=== PATIENT | female | born 1960 | race Caucasian/White ===

== ENCOUNTER 2017-05-29 23:49 | Emergency (ER) | payer BC, SELFPAY ==
[2017-05-29 23:49] VITALS: BP 183/79; PULSE 89; RESP 14; TEMP 36.3; O2SAT 99; BMI 35.7
--- NOTE | 2017-05-30 00:11 | CT_ITS ---
STUDY: CT ABDOMEN AND PELVIS WITHOUT CONTRAST REASON FOR EXAM: Female, 56 years old. Left flank pain RADIATION DOSAGE (If Supplied By Facility): CTDIvol = ( 19.64 ) mGy, DLP = ( 1044.98 ) mGycm TECHNIQUE: Transaxial images were obtained from the dome of the diaphragm to the symphysis pubis without oral contrast, and without intravenous contrast. Sagittal and coronal images were reconstructed. Individualized dose optimization techniques were used for this CT. COMPARISON: None. FINDINGS: The visualized lung bases are unremarkable. The visualized portions of the heart are within normal limits. Normal liver. There is a calcified stone in the neck of a nondistended, nonthickened gallbladder. Normal spleen. Normal pancreas. Normal bilateral adrenal glands. There is a 7 mm calculus in the right lower renal pole which has increased in size compared to prior. The punctate calcification seen in the left lower renal pole. There is no hydronephrosis. There is no evidence of ureteral calculus. Normal left kidney and ureter. Normal visualized stomach. Normal small intestine. Descending and sigmoid colonic diverticulosis with subtle pericolonic inflammation noted within the distal descending segment.. The appendix is visualized and appears normal. Minimal atherosclerotic calcification of the abdominal aorta. Normal inferior vena cava. Normal retroperitoneum. Normal urinary bladder. Uterus and bilateral adnexa are unremarkable Normal abdominal wall. S-shaped scoliosis of the thoracal lumbar spine with diffuse degenerative change. CT/Abdomen/Pelvis without Cont IMPRESSION: 1. Nonobstructing 7 mm right lower renal pole calculus. 2. Cholelithiasis with no CT evidence of acute cholecystitis. 3. Descending and sigmoid colonic diverticulosis with subtle pericolonic inflammation in the distal descending segment which may represent an early acute diverticulitis. Electronically Signed: Juan Gaspar MD at 1:27 EDT Tel , Service support ,
--- NOTE | 2017-05-30 00:16 | ED.DCSUM_ITS ---
- ER Visit Summary Date of Service: 05/30/17 Chief Complaint: Pain, back pain History of Present Illness: The patient is a 56 F presents to the emergency department with abdominal pain and back pain. The patient states she has been having symptoms for almost 4 months. She states it started shortly before the first of the year. She was diagnosed with urinary tract infection. She states she is undergone 3 rounds of treatment. It seemed like it was getting better. About 2 weeks ago, she began to have nausea, vomiting, diarrhea. At that time, she was having pain in her left low back into her left lower quadrant. The pain is worsened. Over the past few days, it has been mostly constant. She states that she has been more nauseated. She denies any fevers or chills. Her only history of abdominal surgery is for lithotripsy with stent placement by Dr. Witt. She states that most of her stones were always on the right side. She has never had pain like this on the left. She does have dysuria, but is never seen any blood. She has not noticed passing any stones. She denies any history of diverticulitis. Physical Examination: Vital signs reviewed General: Well-nourished, well-developed Head: Normocephalic, atraumatic Eyes: Pupils equal and reactive, extraocular muscles intact Neck, supple, no lymphadenopathy Heart: Regular rate and rhythm Respiratory: No distress, clear bilaterally Abdomen: Soft, mildly tender in the left lower quadrant without rebound or guarding, nondistended, no peritoneal signs Back: Nontender Extremities: Nontender, no edema, no cords Skin: Normal color no rash Neuro: Alert and oriented, no focal or lateralizing deficits Test Results: [] Emergency Department Course and Treatment: The patient's symptoms do seem to have components of both diverticulitis, colitis, and urolithiasis. IV was established. The patient will be treated with antiemetics. She will be given Toradol. The patient is going to undergo screening labs and a CT scan. This will be followed up by oncoming physician after tests are done. Final disposition is pending. Treatment Plan: [] Disposition: Pending Impression: Left lower quadrant abdominal pain This note was generated with High[employer]ound[employer] software. It may contain incorrect words, spelling, and punctuation that were not noted in review of the chart prior to signing ED Disposition - Plan for ED Patient: Chief Complaint: Flank Pain Referrals: Hi Chavez MD [Primary Care Provider] -
[2017-05-30 00:19] LABS: Bacteria 0 SEEN /hpf (None Seen); Mucous, Urine 0 SEEN /hpf (<or=2+); Red Blood Cells-Urine 0 SEEN /hpf (0-5); White Blood Cells 0 SEEN /hpf (0-5)
[2017-05-30 00:23] LABS: Color, Urine Straw (Yellow); Glucose, Dipstick Normal (Normal); Ketone-Dipstick Negative (Negative); Leukocyte Esterase-Dipstick 25 /ul (Negative); Nitrite-Dipstick Negative (Negative); Occult Blood-Urine Negative /ul (Negative); Protein-Dipstick Negative (Negative); Specific Gravity, Urine 1.005 (1.002-1.030); Urine Bilirubin Dipstick Negative (Negative); Urine Clarity Clear (Clear); Urine Urobilinogen Normal (Normal); Urine pH 6.5 (5.0 - 8.0)
[2017-05-30 00:29] LABS: Squamous Epithelial Cells - UA 0-5 SEEN /hpf (5-10)
[2017-05-30] MEDS: Ondansetron 4 MG/2 ML Vial IV (00:36)
[2017-05-30] MEDS: 0.9% Normal Saline 1,000 ML 1000 ML IV (00:36)
[2017-05-30] MEDS: Ketorolac 30 MG/ML Syringe IV (00:36)
[2017-05-30 00:51] LABS: Absolute Lymphocyte Count 1.83 X10^3/ul (0.83-4.51); Absolute Neutrophil Count 3.9 X10^3/uL (2.0-7.7); Basophil# 0.01 X10^3/uL; Basophil% 0.2 % (0-1); Eosinophil# 0.17 X10^3/uL; Eosinophils% 2.7 % (0-5); Hematocrit 39.8 % (37-47); Hemoglobin 13.1 g/dl (12.0-15.0); Lymphocyte # 1.83 X10^3/ul (4.0); Lymphocyte % 29.1 % (19-41); Mean Corp Hgb Conc 32.9 g/gl (32-36); Mean Corpuscular Volume 81.9 fL (81-99); Mean Platelet Vol. 9.7 fl (6.2-12.0); Monocyte# 0.41 X10^3/uL; Monocyte% 6.5 % (0-10); Neutrophil # 3.85 X10^3/uL (2.7-7.7); Neutrophil % 61.2 % (47-70); Platelet Count 181 K/mm3 (150-450); RBC Distribution Width CV 12.5 % (11.6-14.6); RBC Distribution Width SD 37.4 fl (35.1-43.9); Red Blood Count 4.86 M/mm3 (4.2-5.4); White Blood Count 6.3 K/mm3 (4.4-11.0)
[2017-05-30 00:52] LABS: POSITIVE COUNT NO; POSITIVE DIFFERENTIAL NO; POSITIVE MORPHOLOGY NO
[2017-05-30 01:00] LABS: ALB/GLOB Ratio 0.9 RATIO (0.9-2.4); AST(SGOT) 14 U/L (15-37); Alanine Aminotransfer ALT/SGPT 39 U/L (13-56); Albumin, Serum 3.7 g/dL (3.2-5.0); Alkaline Phosphatase 157 U/L (45-117); Anion Gap 8 (5-15); BUN 11 mg/dL (7-18); BUN/Creat Ratio 14.6 RATIO (10-20); Chloride 105 mmol/L (98-107); Creatinine, Serum 0.76 mg/dL (0.55-1.02); EST Glomerular Filtration Rate 84 mL/min (>60); Est Glom Filt Rate - Afr Amer 101 mL/min (>60); Globulin 4.2 g/dL (2.2-4.2); Glucose 162 mg/dL (74-106); Lipase 123 U/L (73-393); Potassium 3.7 mmol/L (3.5-5.1); Protein, Total 7.9 g/dL (6.4-8.2); Sodium Level 141 mmol/L (136-145)
[2017-05-30 02:08] VITALS: PULSE 87; RESP 18; O2SAT 100
--- NOTE | 2017-05-30 02:16 | ED.DCSUM_ITS ---
- ER Visit Summary Date of Service: 05/30/17 ADDENDUM: Clinical Impression(s) from Imaging Studies Abdomen/Pelvis CT 05/30/17 00:11 IMPRESSION: 1. Nonobstructing 7 mm right lower renal pole calculus. 2. Cholelithiasis with no CT evidence of acute cholecystitis. 3. Descending and sigmoid colonic diverticulosis with subtle pericolonic inflammation in the distal descending segment which may represent an early acute diverticulitis. Electronically Signed: Juan Gaspar MD at 1:27 EDT Tel , Service support , Patient's CT was consistent with early acute diverticulitis. She is appropriate for trial of outpatient treatment. She was prescribed Cipro, Flagyl and given [place] and Zofran prescriptions for symptomatic control at home. Patient agreed with this plan and was discharged with return precautions. Impression: acute diverticulitis This note was generated with [employer] dictation software. It may contain incorrect words, spelling, and punctuation that were not noted in review of the chart prior to signing ED Disposition - Plan for ED Patient: Disposition: Home or Assisted Living Chief Complaint: Flank Pain Instructions: ED Diverticulitis Prescriptions: Hydrocodone Bitart/Apap 5-325 [[place] 5/325] 1 tab PO Q6H PRN PRN 5 Days #12 tab PRN Reason: Pain proMETHazine tablet [Phenergan] 25 mg PO Q6H PRN PRN #10 tab PRN Reason: Nausea Metronidazole [Flagyl] 500 mg PO Q8 #21 tab Ciprofloxacin [Cipro] 500 mg PO BID #14 tab Referrals: iH Chavez MD [Primary Care Provider] - 3-5 Days if not improving Additional Instructions: Take the antibiotics as prescribed for the full 7 days. Do not drink alcohol with the Flagyl, as this will make you very sick. You may use [place] as needed for pain and then again as needed for nausea. If you are having worsening of your symptoms rather than improvement after 48 hours of antibiotics, please return to the emergency department for another evaluation or see your doctor as soon as possible.
[2017-05-30] MEDS: Ciprofloxacin 500 MG Tablet PO (02:33)
[2017-05-30] MEDS: Ondansetron ODT 4 MG Tablet PO (02:34)
[2017-05-30] MEDS: HYDROcodone Bitartrate/Apap 5/325 Tablet PO (02:34)
[2017-05-30 02:40] VITALS: BP 167/63; PULSE 81; RESP 18; O2SAT 99
== END 2017-05-30 02:41 | disposition home or self-care (01) ==
PROVIDERS: Emergency Provider Emergency Medicine; Family Provider Family Medicine; PCP Family Medicine
DX: K57.92 Diverticulitis of intestine, part unspecified, without perforation or abscess without bleeding (principal); E11.9 Type 2 diabetes mellitus without complications; Z79.4 Long term (current) use of insulin; Z79.84 Long term (current) use of oral hypoglycemic drugs; E66.9 Obesity, unspecified; Z68.35 Body mass index [BMI] 35.0-35.9, adult
CPT/HCPCS: 74176; 80053; 81001; 83690; 85025; 96361; 96374; 96375; 99283; J7030; J2405

== ENCOUNTER → 2017-10-24 15:24 | Outpatient (CLI) | payer BC, SELFPAY | PROVIDERS: Family Provider Family Medicine; PCP Family Medicine; Visit Provider Otolaryngology Otolaryngology/Facial Plastic Surgery | DX: J02.9 Acute pharyngitis, unspecified (principal) | CPT/HCPCS: 87070 ==

== ENCOUNTER 2017-11-02 18:23 | Emergency (ER) | payer BC, SELFPAY ==
[2017-11-02 18:24] VITALS: BP 203/83; PULSE 78; RESP 17; TEMP 36.8; O2SAT 98; BMI 36.8
--- NOTE | 2017-11-02 19:03 | CT_ITS ---
STUDY: CT BRAIN WITHOUT CONTRAST REASON FOR EXAM: Female, 56 years old. Headache. Blurry vision. History of migraines. RADIATION DOSAGE (If Supplied By Facility): CTDIvol = ( 44.99 ) mGy, DLP = ( 798.92 ) mGycm TECHNIQUE: Transaxial CT imaging of the brain was performed without administration of intravenous contrast material. Individualized dose optimization techniques were used for this CT. COMPARISON: None. FINDINGS: Normal soft tissue structures. Normal calvarium. Normal size ventricles and extra-axial spaces for the patient's age. Normal white matter tracts of the cerebral hemispheres. Normal basal ganglia and thalami. Normal brainstem. Normal cerebellum. There is no intracranial hemorrhage. There are no findings of an acute ischemic infarction. There are mucus retention cysts in the bases of both maxillary sinuses. CT/Brain/Head without Contrast IMPRESSION: 1. Normal unenhanced CT scan of the brain. 2. Maxillary sinusitis. Electronically Signed: Sid Arenas DO at 19:59 EDT Tel [phone], Service support ,
--- NOTE | 2017-11-02 19:03 | EKG12_ITS ---
Test Reason : EXM Blood Pressure : / mmHG Vent. Rate : 066 BPM Atrial Rate : 066 BPM P-R Int : 158 ms QRS Dur : 094 ms QT Int : 406 ms P-R-T Axes : 025 -01 012 degrees QTc Int : 425 ms Sinus rhythm with occasional Premature ventricular complexes Otherwise normal ECG Confirmed by CRYSTAL CAZARES, TRAVON ([id number]), web content editor DHEERAJ SHARMA ([id number]) on 11/07/2017 8:43:04 AM Referred By: Michael Lam Confirmed By:TRAVON ROJAS MD
[2017-11-02 19:19] VITALS: BP 175/81; PULSE 69; RESP 15; O2SAT 98
[2017-11-02] MEDS: Ketorolac 30 MG/ML Syringe IV (19:34)
[2017-11-02 19:35] LABS: Absolute Lymphocyte Count 2.13 X10^3/ul (0.83-4.51); Absolute Neutrophil Count 6.1 X10^3/uL (2.0-7.7); Basophil# 0.01 X10^3/uL; Basophil% 0.1 % (0-1); Eosinophil# 0.21 X10^3/uL; Eosinophils% 2.3 % (0-5); Hematocrit 39.7 % (37-47); Lymphocyte # 2.13 X10^3/ul (4.0); Lymphocyte % 23.8 % (19-41); Mean Corp Hgb Conc 32.7 g/gl (32-36); Mean Corpuscular Hgb 27.2 pg (27.0-32.0); Mean Corpuscular Volume 83.1 fL (81-99); Mean Platelet Vol. 9.3 fl (6.2-12.0); Monocyte# 0.45 X10^3/uL; Neutrophil # 6.14 X10^3/uL (2.7-7.7); Neutrophil % 68.7 % (47-70); Platelet Count 188 K/mm3 (150-450); RBC Distribution Width CV 12.6 % (11.6-14.6); RBC Distribution Width SD 37.8 fl (35.1-43.9); Red Blood Count 4.78 M/mm3 (4.2-5.4)
[2017-11-02 19:44] VITALS: BP 162/92
[2017-11-02 19:44] LABS: POSITIVE COUNT NO; POSITIVE DIFFERENTIAL NO; POSITIVE MORPHOLOGY NO
[2017-11-02 19:46] LABS: Anion Gap 8 (5-15); BUN 15 mg/dL (7-18); BUN/Creat Ratio 18.8 RATIO (10-20); Calcium,Total 9.2 mg/dL (8.5-10.1); Chloride 106 mmol/L (98-107); EST Glomerular Filtration Rate 78 mL/min (>60); Est Glom Filt Rate - Afr Amer 95 mL/min (>60); Estimated Creatinine Clearance 68.97 ml/min; Glucose 117 mg/dL (74-106); Potassium 3.7 mmol/L (3.5-5.1); Sodium Level 140 mmol/L (136-145)
[2017-11-02 20:18] VITALS: BP 147/71; PULSE 63; RESP 13; O2SAT 97
--- NOTE | 2017-11-02 20:34 | ED.DCSUM_ITS ---
- ER Visit Summary Date of Service: 11/02/17 Chief Complaint: Left eye floaters and pain History of Present Illness: The patient is a 56 F who states that 2 months ago she had some floaters in her eye last Lee she had an eye exam with her eye doctor that was negative. She stated that he was informed her that if she had floaters or symptoms again that she would need to follow-up with an control systems specialist here in town. She states now she said 2 days some pressure and some soreness around the left eye that has resolved. She denies any rashes. She states that today at work she had the pressure return and had some jaw soreness. She denies any vision changes. She does states she has an astigmatism and wears glasses. She states that she was scared about shingles and other possibilities that she came to the emergency room. She states that she normally has some black floaters but has been having occasionally and oranges plasma like floater that starts centrally. Physical Examination: Afebrile vital signs stable Gen: Well-nourished well-developed Head: Normocephalic atraumatic Eyes: Perrl EOMI no temporal artery tenderness. No vesicular lesions. No subconjunctival injection. Negative funduscopic exam. No corneal abrasions. ENT: TMs clear no rhinorrhea moist mucous membranes Neck: Supple no lymphadenopathy no JVD nontender CVS: Regular rate rhythm no murmurs normal S1-S2 Respiratory: No distress clear to auscultation bilaterally chest nontender Abdomen: Soft nontender nondistended normal bowel sounds no masses Back: Nontender Extremity: Nontender no edema Skin: Normal color no rash Neuro: alert orientated ?3 CN II-XII intact normal strength sensation reflexes gait cerebellar Psych: Normal affect normal mood Test Results: CT the brain negative. EKG sinus with a rate of 66. Troponin negative. Emergency Department Course and Treatment: Patient received Toradol. Her manual blood pressure was noted to be 162/92. She has bilateral eye pressures that are equal. I think this is most likely ocular migraines. Patient will follow up with ophthalmology return if worsening or concerns. Impression: 1. Left eye floaters This note was generated with [employer] dictation software. It may contain incorrect words, spelling, and punctuation that were not noted in review of the chart prior to signing ED Disposition - Plan for ED Patient: Disposition: Home or Assisted Living Chief Complaint: Eye Problem Instructions: What Are Flashes and Floaters? Referrals: Delio Cortez MD [STAFF PHYSICIAN] - (call on Sunday to arrange follow up appointment)
[2017-11-02 20:36] VITALS: BP 114/91; PULSE 59; RESP 16; O2SAT 95
== END 2017-11-02 20:38 | disposition home or self-care (01) ==
PROVIDERS: Emergency Provider Emergency Medicine; Family Provider Family Medicine; PCP Family Medicine
DX: H43.392 Other vitreous opacities, left eye (principal); G43.109 Migraine with aura, not intractable, without status migrainosus; E11.9 Type 2 diabetes mellitus without complications; Z79.4 Long term (current) use of insulin
CPT/HCPCS: 70450; 80048; 84484; 85025; 93005; 96374; 99285; A4216

== ENCOUNTER → 2018-12-27 16:28 | Outpatient (CLI) | payer BC, SELFPAY ==
--- NOTE | 2018-12-27 | IMM_PTH ---
PATIENT: ZEHRA CORNEJO I LOC: [facility] U#:[id number] AGE/SX: 64/F ROOM: RE12/27/[address]: Dr. Elpidio Longoria MD : 1960 BED: DIS: SPEC #: [id number] RECD: 12/31/18 11:17 STATUS: JOSE REQ #: [id number] KAILASH: 12/27/18 00:[address]: Elpidio Longoria DEPT: IMMUNOHISTOCHEMISTRY RECD BY: Queta Cage ENTERED: 12/31/18 11:18 SP TYPE: IMMUNO OTHR DR: Dr. Hi Chavez MD Tissues: Stomach, NOS Procedures: H Pylori (initial) PHYSICIAN & INSTITUTION [place] [id number] SPECIMEN INFORMATION: Tissue Source: Gastric antrum/body, biopsy Clinical Info: Epigastric pain Specimen Number: [id number] CPT code: 02413 METHODOLOGY: Deparaffinized sections of prefer/formalin-fixed tissue or PAP/DQ stained slides are incubated with monoclonal/polyclonal antibodies/oligonucleotide probes. Localization is made via biotin free immunoperoxidase method. Appropriate controls are performed and reacted as expected. Results on target cell population are indicated in the following table: RESULTS: ANTIBODY / CLONE RESULT H Pylori (polyclonal) negative These tests were developed and their performance characteristics determined by [facility]. They may not have been cleared or approved by the U.S. Food and Drug Administration. The FDA has determined that such clearance or approval is not necessary. The above immunohistochemical/dualISH markers are ordered and reviewed by the Pathologist. INTERPRETATION: Gastric antrum/body, biopsy: Negative for Helicobacter pylori organisms. SJ:elver 01/01/19
--- NOTE | 2018-12-27 11:33 | EGD_PTH ---
PATIENT: ZEHRA CORNEJO I LOC: [facility] U#:[id number] AGE/SX: 64/F ROOM: RE12/27/[address]: Dr. Elpidio Longoria MD : 1960 BED: DIS: SPEC #: [id number] RECD: 12/27/18 15:51 STATUS: JOSE CHANGViola #: [id number] KAILASH: 12/27/18 11:[address]: Elpidio Longoria DEPT: SURGICAL PATHOLOGY RECD BY: Teresa Peña ENTERED: 12/30/18 09:41 SP TYPE: EGD BIOPSY OT DR: Dr. Hi Chavez MD [facility] Tissues: Gastric mucous membrane Procedures: Surgery Specimen Level IV HEADER OPERATION: EGD with biopsies PRE-OP DIAGNOSIS: Epigastric pain TISSUE SUBMITTED: Gastric antrum/body biopsies, rule out gastritis MICROSCOPIC DIAGNOSIS Gastric antrum/body, biopsy: Mild to moderate gastritis. See microscopic description and comment. SJ:elver 12/31/18 COMMENT The results of immunohistochemistry for Helicobacter pylori will be reported separately ([id number]). MICROSCOPIC DESCRIPTION Slides are reviewed. The specimen shows fragments of gastric mucosa with chronic inflammatory cell infiltrates in the lamina propria consisting of lymphocytes and plasma cells, consistent with mild to moderate chronic gastritis. A few minute lymphoid aggregates are also noted, favor benign. GROSS DESCRIPTION Received in fixative is one container labeled with the patient's name and designated gastric antrum. The specimen consists of multiple irregular fragments of light knott soft tissue that in aggregate measure 1 x 0.3 x 0.1 cm. The specimen is totally submitted in one cassette. / CHINYERE:elver 12/30/18 TC:3 CPT: 89136
== END ==
PROVIDERS: Family Provider Family Medicine; PCP Family Medicine; Referring Provider Internal Medicine Gastroenterology; Visit Provider Internal Medicine Gastroenterology
DX: R10.13 Epigastric pain (principal)
CPT/HCPCS: 88305; 88342

== ENCOUNTER → 2019-01-07 08:35 | Outpatient (CLI) | payer BC, SELFPAY ==
[2019-01-10 12:16] LABS: Banana 0.47 kU/L (Class I); Barley, Whole Grain 0.19 kU/L (Class 0/I); Beef <0.10 kU/L (Class 0); Brazil Nut <0.10 kU/L (Class 0); Carrot 0.27 kU/L (Class 0/I); Cashew <0.10 kU/L (Class 0); Chicken <0.10 kU/L (Class 0); Clam <0.10 kU/L (Class 0); Codfish <0.10 kU/L (Class 0); Corn 0.19 kU/L (Class 0/I); Crab <0.10 kU/L (Class 0); Egg, White 0.23 kU/L (Class 0/I); Egg, Yolk <0.10 kU/L (Class 0); Garlic 0.22 kU/L (Class 0/I); Gluten <0.10 kU/L (Class 0); Hazelnut/Filbert 0.17 kU/L (Class 0/I); Lobster <0.10 kU/L (Class 0); Milk (Cow) 0.11 kU/L (Class 0/I); Oat 0.25 kU/L (Class 0/I); Onion 0.26 kU/L (Class 0/I); Orange 0.21 kU/L (Class 0/I); Pea <0.10 kU/L (Class 0); Peach 0.19 kU/L (Class 0/I); Peanut 0.23 kU/L (Class 0/I); Pecan <0.10 kU/L (Class 0); Pork <0.10 kU/L (Class 0); Potato, White 0.17 kU/L (Class 0/I); Rice 0.24 kU/L (Class 0/I); SCALLOP <0.10 kU/L (Class 0); SESAME SEED 0.42 kU/L (Class I); Salmon <0.10 kU/L (Class 0); Shrimp <0.10 kU/L (Class 0); Soybean 0.15 kU/L (Class 0/I); Strawberry 0.25 kU/L (Class 0/I); Tuna <0.10 kU/L (Class 0); Walnut, (Food) 0.17 kU/L (Class 0/I); Wheat 0.22 kU/L (Class 0/I); Yeast <0.10 kU/L (Class 0)
[2019-01-10 13:42] LABS: Turkey <0.10 kU/L (Class 0)
== END ==
PROVIDERS: Family Provider Family Medicine; PCP Family Medicine; Referring Provider Otolaryngology Otolaryngology/Facial Plastic Surgery; Visit Provider Otolaryngology Otolaryngology/Facial Plastic Surgery
DX: T78.40XA Allergy, unspecified, initial encounter (principal)
CPT/HCPCS: 36415; 86003

== ENCOUNTER 2019-02-25 19:10 | Emergency (ER) | payer BC, SELFPAY ==
[2019-02-25 19:12] VITALS: BP 199/106; PULSE 113; RESP 18; TEMP 36.6; O2SAT 98; BMI 35.7
--- NOTE | 2019-02-25 20:12 | ED.DCSUM_ITS ---
- ER Visit Summary Date of Service: 02/25/19 Chief Complaint: Abdominal pain History of Present Illness: The patient is a 58 F presenting with abdominal pain. She states this started in October. She has had intermittent episodes of abdominal pain, nausea. She has been seeing Dr. Longoria for these symptoms. She had an EGD in January which was unremarkable. She saw him on Sunday. He started on her on a new medication Trulance. She presents today with epigastric and diffuse abdominal pain. She has nausea with no vomiting. Denies diarrhea or constipation. Denies fever. Denies urinary complaints. She states on arrival to the ED her pain is actually much improved. Physical Examination: Vitals are stable. Patient is afebrile. Alert no acute distress. HEENT exam is unremarkable. Neck is supple. Lungs are clear and equal bilaterally. Heart is regular rate and rhythm. Abdomen is soft nontender nondistended. No guarding or rebound Extremities are unremarkable. Skin is warm and dry. No focal neurologic deficit. Remainder of exam is unremarkable. Emergency Department Course and Treatment: CBC, chemistries unremarkable other than glucose 167. Alk phos 144, lipase normal. Patient continues to feel improved in the ED. Repeat abdominal exam is soft and nontender with no guarding or rebound. She is given prescription for Zofran. She is advised to follow-up with her GI physician or her primary care physician. Advised return to ED for worsening complaints. Disposition: Discharge home Impression: Abdominal pain This note was generated with [employer] dictation software. It may contain incorrect words, spelling, and punctuation that were not noted in review of the chart prior to signing ED Disposition - Plan for ED Patient: Instructions: ABDOMINAL PAIN, Unknown Cause, (Female) Prescriptions: Ondansetron [Zofran Odt] 4 mg PO Q8H PRN PRN #10 tab PRN Reason: Nausea Prescription Printed Referrals: Hi Chavez MD [Primary Care Provider] - Elpidio Longoria MD [NON-STAFF] -
[2019-02-25 20:18] LABS: Absolute Lymphocyte Count 1.99 X10^3/uL (0.83-4.51); Absolute Neutrophil Count 6.1 X10^3/uL (2.0-7.7); Basophil# 0.03 X10^3/uL; Basophil% 0.3 % (0-1); Eosinophil# 0.42 X10^3/uL; Eosinophils% 4.7 % (0-5); Hematocrit 39.7 % (37-47); Hemoglobin 13.1 g/dL (12.0-15.0); Lymphocyte # 1.99 X10^3/ul (4.0); Lymphocyte % 22.1 % (19-41); Mean Corpuscular Hgb 27.1 pg (27.0-32.0); Mean Corpuscular Volume 82.2 fL (81-99); Mean Platelet Vol. 9.4 fl (6.2-12.0); Monocyte# 0.42 X10^3/uL; Monocyte% 4.7 % (0-10); NRBC Flagged by Analyzer 0 % (0-5); Neutrophil # 6.12 X10^3/uL (2.7-7.7); Neutrophil % 67.9 % (47-70); Platelet Count 197 K/mm3 (150-450); RBC Distribution Width CV 11.7 % (11.6-14.6); RBC Distribution Width SD 34.6 fl (35.1-43.9); Red Blood Count 4.83 M/mm3 (4.2-5.4)
[2019-02-25 20:35] LABS: ALB/GLOB Ratio 0.9 RATIO (0.9-2.4); AST(SGOT) 12 U/L (15-37); Alanine Aminotransfer ALT/SGPT 20 U/L (13-56); Albumin, Serum 3.8 g/dL (3.2-5.0); Alkaline Phosphatase 144 U/L (45-117); Anion Gap 6 (5-15); BUN 17 mg/dL (7-18); BUN/Creat Ratio 20.2 RATIO (10-20); Calcium,Total 9.8 mg/dL (8.5-10.1); Chloride 106 mmol/L (98-107); Creatinine, Serum 0.84 mg/dL (0.55-1.02); EST Glomerular Filtration Rate 73 mL/min (>60); Est Glom Filt Rate - Afr Amer 89 mL/min (>60); Estimated Creatinine Clearance 64.09 ml/min; Globulin 4.2 g/dL (2.2-4.2); Glucose 167 mg/dL (74-106); Lipase 104 U/L (73-393); Sodium Level 139 mmol/L (136-145)
--- NOTE | 2019-02-25 22:01 | ED.DEP ---
ED Disposition - Plan for ED Patient: Instructions: ABDOMINAL PAIN, Unknown Cause, (Female) Prescriptions: Ondansetron [Zofran Odt] 4 mg PO Q8H PRN PRN #10 tablet PRN Reason: Nausea Referrals: Hi Chavez MD [Primary Care Provider] - Elpidio Longoria MD [NON-STAFF] -
[2019-02-25 22:22] VITALS: BP 166/89; PULSE 98; RESP 18; O2SAT 97
== END 2019-02-25 22:22 | disposition home or self-care (01) ==
LOC: ED 19:32
PROVIDERS: Emergency Provider Emergency Medicine; Family Provider Family Medicine; PCP Family Medicine
DX: R10.9 Unspecified abdominal pain (principal); R11.0 Nausea
CPT/HCPCS: 80053; 83690; 85025; 99283; A4216

== ENCOUNTER 2019-04-06 23:53 | Emergency (ER) | payer BC, SELFPAY ==
[2019-04-06 23:54] VITALS: BP 207/89; PULSE 76; RESP 16; TEMP 37; O2SAT 100; BMI 35.0
--- NOTE | 2019-04-07 00:08 | RAD_ITS ---
STUDY: X-RAY CHEST REASON FOR EXAM: Female, 58 years old. SOB TECHNIQUE: 1 view COMPARISON: August 24, 2009 FINDINGS: The lungs are clear and expanded. There is no demonstrated pleural abnormality. Normal size heart. Normal mediastinum and maría. Normal visualized pulmonary arteries. Normal visualized aortic arch and descending thoracic aorta. Degenerative changes of the thoracic spine. Normal visualized ribs, clavicles, and shoulders. There is no demonstrated abnormality of the visualized soft tissue structures of the upper abdomen. RAD/Chest 1 View (Portable) IMPRESSION: No acute findings in the lungs Electronically Signed: Daniel No MD at 0:53 EST Tel , Service support ,
--- NOTE | 2019-04-07 00:08 | EKG12_ITS ---
Test Reason : SOB Blood Pressure : / mmHG Vent. Rate : 068 BPM Atrial Rate : 068 BPM P-R Int : 150 ms QRS Dur : 096 ms QT Int : 404 ms P-R-T Axes : 029 004 021 degrees QTc Int : 429 ms Normal sinus rhythm Normal ECG Confirmed by BRITTNEY CANO ([id number]), restaurant expeditor ADOLFO MCLAUGHLIN ([id number]) on 04/08/2019 1:59:13 PM Referred By: JONAS Confirmed By:BRITTNEY CANO
[2019-04-07 00:34] VITALS: PULSE 85; RESP 14; O2SAT 98; O2SAT 99
[2019-04-07 00:36] VITALS: O2SAT 97
--- NOTE | 2019-04-07 01:04 | ED.DCSUM_ITS ---
History of Present Illness Chief Complaint: Shortness of Breath Onset: Hours - several Context: Gradual Onset - while sitting at rest Timing: Intermittent Quality: see below Location: unk Current Severity: Mild Maximum Severity: Mild Worsened by: unk Relieved by: unk. not exertional. Narrative: Patient states of the last several hours she has had trouble breathing. She states while she was sitting on the couch and watching TV, she noticed that she was not dyspneic, but had trouble taking a deep breath. When asked if she was having pain that was limiting her, she states no, she just had trouble, getting a deep breath then. She states she had something similar a week or 2 ago at work, it was transient and went away on its own. She states tonight it came and went, but then became more persistent so she comes to the hospital for evaluation. States it is still there a little. She does not appear to be having any difficulty. She denies any chest discomfort, palpitations, lightheadedness, near-syncope, radiation of any discomfort in her belly that she has chronically into her back, arms, shoulders. When asked about chest symptoms she continuously then starts redirecting the conversation to her abdominal problems that have been chronic. She states she saw Dr. Longoria and he put her on some medication that she requires in order to have a bowel movement. After taking it, she has 2 bouts of diarrhea within a couple hours. Otherwise she will not have a bowel movement. She states none of that is changed. After eating she feels discomfort in her lower abdomen, that is unchanged and is chronic. She denies feeling any unusual or worsening abdominal symptoms tonight prior to this occurring with regards to her breathing. She denies any leg swelling, calf pain, recent immobilization, travel, hospitalization, or surgery. No history of blood clots that she knows of. Past Medical History - Allergies and Home Meds Allergies/Adverse Reactions: Allergies latex Adverse Reaction (Verified 04/06/19 23:54) Hives BP MED Allergy (Uncoded 04/06/19 23:54) Itching Primary Care Physician: iH Chavez MD [Primary Care Provider] - Past Medical History: None Surgical History: - - No abdominal surgeries Lives: Alone Smoking Status: Never smoker Review of Systems General: Denies: Chills, Fever, Sweats Eyes: Denies: Visual changes - bilaterally, Diplopia ENT: Reports: Sore throat - Feels raw, dry. Denies: Bilateral ear pain, Rhinorrhea Cardiovascular: Reports: Chest pain. Denies: Palpitations Respiratory: Reports: Dyspnea - See HPI. Denies: Cough, Sputum, Dyspnea on exertion Gastrointestinal: Reports: Abdominal pain - Chronic, Nausea - Chronically intermittent, Diarrhea - Chronic, after taking new medication for the past month. Denies: Vomiting, Melena, Hematochezia Genitourinary: Denies: Dysuria, Hematuria, Frequency Musculoskeletal: Denies: Myalgias, Arthralgias, Neck pain, Back pain, Swelling, Extremity Pain Skin: Denies: Rash, Wounds Neurological: Denies: Headache, Weakness, Numbness Physical Exam Vital Signs/Narrative: Vital Signs Temp Pulse Resp BP Pulse Ox 04/07/19 00:36 97 04/07/19 00:34 85 14 99 04/06/19 23:54 98.6 F 76 16 207/89 H 100 Inital Vital Signs reviewed: Yes General: Well nourished, Well developed, Obese, No Acute Distress - Appearing, conversive in full sentences Head: Normocephalic, Atraumatic Eyes: Perrl, EOMI ENT: Moist mucous membranes, No rhinorrhea Neck: Supple, Nontender, No lymphadenopathy, No JVD Cardiovascular: Regular rate, Regular rhythm, No murmurs Respiratory: No distress, CTA bilaterally, Chest nontender Abdomen: Soft, Nondistended, Normal bowel sounds, Tender - Mild, throughout lower abdomen, nonfocal. Negative for: Guarding, Rebound tenderness, Pulsatile mass Back: Nontender, Normal Inspection. Negative for: CVA tenderness Extremities: Nontender, No edema. Negative for: Calf Tenderness Skin: Normal color, No rash, No Trauma Neurological: Alert, Oriented x3, Cranial nerves II-XII grossly intact, Normal Strength, Normal Sensation, Normal Gait Psychological: Normal affect, Normal Mood Diagnostic/Tx/Re-eval Impressions Chest X-Ray 04/07/19 00:08 IMPRESSION: No acute findings in the lungs Electronically Signed: Daniel No MD at 0:53 EST Tel , Service support , 04/07/19 00:08 Chest 1 View (Portable) [RAD] Stat Laboratory Results 04/07/19 04/07/19 04/07/19 01:34 01:34 01:45 WBC 8.2 RBC 4.95 Hgb 13.4 Hct 41.6 MCV 84.0 MCH 27.1 MCHC 32.2 RDW Std Deviation 37.6 RDW Coeff of [place] 12.5 Plt Count 175 MPV 11.0 Immature Gran % (Auto) 0.400 Neut % (Auto) 70.5 H Lymph % (Auto) 22.8 [place] % (Auto) 4.1 Eos % (Auto) 2.0 Baso % (Auto) 0.2 Absolute Neuts (auto) 5.8 Absolute Lymphs (auto) 1.87 Nucleated RBC % 0 Differential Comment SCANNED D-Dimer Quant (PE/DVT) Cancelled Sodium 140 Potassium 3.8 Chloride 110 H Carbon Dioxide 25.0 Anion Gap 5 BUN 17 Creatinine 0.95 Estim Creat Clear Calc 56.67 Est GFR (MDRD) Af Amer 77 Est GFR (MDRD) Non-Af 64 BUN/Creatinine Ratio 17.9 Glucose 145 H Calcium 9.1 Troponin I < 0.015 04/07/19 01:45 WBC RBC Hgb Hct MCV MCH MCHC RDW Std Deviation RDW Coeff of [place] Plt Count MPV Immature Gran % (Auto) Neut % (Auto) Lymph % (Auto) [place] % (Auto) Eos % (Auto) Baso % (Auto) Absolute Neuts (auto) Absolute Lymphs (auto) Nucleated RBC % Differential Comment D-Dimer Quant (PE/DVT) 0.52 H* Sodium Potassium Chloride Carbon Dioxide Anion Gap BUN Creatinine Estim Creat Clear Calc Est GFR (MDRD) Af Amer Est GFR (MDRD) Non-Af BUN/Creatinine Ratio Glucose Calcium Troponin I - Rhythm Strip Rhythm Strip: Sinus Rhythm Rate: 68 Ectopy: None - EKG Initial EKG Interpretation: Sinus Rhythm, No Acute Injury Pattern - Normal EKG. Normal axis. Prior: No Prior - Medical Decision Making Patient was treated with a GI cocktail, she thinks her symptoms are gone/better. Her work-up is unremarkable. My suspicion is that the symptoms, which were relatively mild, are related to whatever is going on in her abdomen. This is a chronic problem. She has a CT scan of her abdomen/pelvis scheduled as an outpatient and does not need to be obtained emergently. I feel she can safely be discharged home at this time and she is comfortable with that plan. Of note, her d-dimer was abnormal but it is well within normal limits when corrected for age. ED Disposition - Plan for ED Patient: Disposition: Home or Assisted Living Diagnosis: Dyspnea, Chronic bilateral lower abdominal pain Instructions: ED Dyspnea Referrals: Hi Chavez MD [Primary Care Provider] - Keep [place] appointment
[2019-04-07] MEDS: Mag Hydrox/Al Hydrox/Simeth 30 ML UDC PO (01:35)
[2019-04-07 01:46] LABS: Absolute Lymphocyte Count 1.87 X10^3/uL (0.83-4.51); Absolute Neutrophil Count 5.8 X10^3/uL (2.0-7.7); Basophil# 0.02 X10^3/uL; Basophil% 0.2 % (0-1); Eosinophil# 0.16 X10^3/uL; Hematocrit 41.6 % (37-47); Hemoglobin 13.4 g/dL (12.0-15.0); Lymphocyte # 1.87 X10^3/ul (4.0); Lymphocyte % 22.8 % (19-41); Mean Corp Hgb Conc 32.2 g/dL (32-36); Mean Corpuscular Hgb 27.1 pg (27.0-32.0); Monocyte# 0.34 X10^3/uL; Monocyte% 4.1 % (0-10); NRBC Flagged by Analyzer 0 % (0-5); Neutrophil # 5.78 X10^3/uL (2.7-7.7); Neutrophil % 70.5 % (47-70); POSITIVE COUNT YES; Platelet Count 175 K/mm3 (150-450); RBC Distribution Width CV 12.5 % (11.6-14.6); RBC Distribution Width SD 37.6 fl (35.1-43.9); Red Blood Count 4.95 M/mm3 (4.2-5.4); White Blood Count 8.2 K/mm3 (4.4-11.0)
[2019-04-07 01:55] LABS: Differential Indicated SCAN CRITERIA MET
[2019-04-07 02:05] LABS: D-Dimer Quantitative (DVT/PE) 0.52 FEU/ug/m (0.27-0.49)
[2019-04-07 02:06] LABS: Differential Comment SCANNED
--- NOTE | 2019-04-07 02:06 | ED.RN ---
D-DIMER OF 0.5 REPORTED TO
[2019-04-07 02:10] LABS: Anion Gap 5 (5-15); BUN 17 mg/dL (7-18); BUN/Creat Ratio 17.9 RATIO (10-20); Calcium,Total 9.1 mg/dL (8.5-10.1); Chloride 110 mmol/L (98-107); Creatinine, Serum 0.95 mg/dL (0.55-1.02); EST Glomerular Filtration Rate 64 mL/min (>60); Est Glom Filt Rate - Afr Amer 77 mL/min (>60); Estimated Creatinine Clearance 56.67 ml/min; Glucose 145 mg/dL (74-106); Potassium 3.8 mmol/L (3.5-5.1); Sodium Level 140 mmol/L (136-145)
[2019-04-07 02:48] VITALS: BP 176/69; PULSE 74; RESP 17; O2SAT 98
== END 2019-04-07 02:49 | disposition home or self-care (01) ==
PROVIDERS: Emergency Provider Emergency Medicine; PCP Family Medicine
DX: R06.00 Dyspnea, unspecified (principal); R10.31 Right lower quadrant pain; R10.32 Left lower quadrant pain; E66.9 Obesity, unspecified; G89.29 Other chronic pain; R11.0 Nausea
CPT/HCPCS: 71045; 80048; 84484; 85025; 85379; 93005; 94760; 99285; A4216

== ENCOUNTER 2019-06-13 12:23 | Emergency (ER) | payer BC, SELFPAY ==
[2019-06-13 12:25] VITALS: BP 176/95; PULSE 110; RESP 17; TEMP 36.4; O2SAT 98; BMI 35.1
--- NOTE | 2019-06-13 12:54 | CT_ITS ---
STUDY: CT ABDOMEN AND PELVIS WITH CONTRAST REASON FOR EXAM: Female, 58 years old. LOW ABD PAIN, hx diverticulitis RADIATION DOSAGE (If Supplied By Facility): CTDIvol = ( 14.38 ) mGy, DLP = ( 997.36 ) mGycm TECHNIQUE: Transaxial images were obtained from the dome of the diaphragm to the symphysis pubis with oral contrast. Oral and amp; IV GASTROGRAFIN and amp; 100ML ISOVUE 300 was administered. Sagittal and coronal images were reconstructed. Individualized dose optimization techniques were used for this CT. COMPARISON: Comparison is made with prior examination dated May 30, 2017. FINDINGS: The visualized lung bases are unremarkable. The visualized portions of the heart are within normal limits. Normal liver. There is a small gallstone in the region of the neck of the gallbladder. Normal spleen. Normal pancreas. Normal bilateral adrenal glands. Punctate calculus in the upper pole calyx of the right kidney. Tiny calculus in the lower pole calyx of the right kidney. There is evidence of a 1 cm calculus in the lower pole of the right kidney. Mild cortical scarring along the inferior aspect of the right kidney. Normal left kidney. Normal visualized stomach. Normal small intestine. Circumferential thickening and increased markings in the surrounding peritoneal fat in the region of the splenic flexure and descending colon. There is thickening of the left perinephric fascia. This is in keeping with a localized colitis. There is also evidence of diffuse sigmoid diverticulosis. The appendix is visualized and appears normal. There is diffuse atherosclerotic calcification of the abdominal aorta, without a demonstrated aneurysm. Normal inferior vena cava. Normal retroperitoneum. Normal urinary bladder. Normal abdominal wall. There are degenerative changes of the visualized lumbar spine. S-shaped scoliosis. CT/Abdomen/Pelvis WITH Contrast IMPRESSION: Findings in keeping with colitis involving the splenic flexure and descending colon as described. Nonobstructive right intrarenal calculi. Small gallstone in the neck of the gallbladder. Electronically Signed: Sreedhar Ryan, at 15:28 EDT , Service support ,
--- NOTE | 2019-06-13 12:55 | US_ITS ---
STUDY: ULTRASOUND OF THE FEMALE PELVIS - COMPLETE REASON FOR EXAM: Female, 58 years old. PELVIC PAIN LMP: The patient is postmenopausal. TECHNIQUE: Transvaginal TECHNICAL QUALITY: Adequate. COMPARISON: None. FINDINGS: The uterus is anteverted and is tilted to the right side of the pelvis. The uterus measures 5.4 cm x 4.4 cm x 2.4 cm. Normal uterine cervix. The endometrium measures 3.0 mm in thickness, and is hyperechoic. There is no demonstrated endometrial mass. There is no demonstrated myometrial mass. I.U.D. - The patient does not have an I.U.D. The right ovary is non-visualized. The left ovary is non-visualized. There is no fluid in the cul-de-sac. US/Transvaginal Non- IMPRESSION: Normal female pelvis. The ovaries were not visualized. Electronically Signed: Sreedhar Ryan, at 14:34 EDT , Service support ,
[2019-06-13] MEDS: 0.9% Normal Saline 1,000 ML 1000 ML IV (13:09)
[2019-06-13] MEDS: Morphine 4 MG/ML Syringe IV (13:10)
[2019-06-13] MEDS: Ondansetron 4 MG/2 ML Vial IV (13:10)
[2019-06-13 13:20] LABS: Absolute Lymphocyte Count 1.13 X10^3/uL (0.83-4.51); Absolute Neutrophil Count 10.3 X10^3/uL (2.0-7.7); Basophil# 0.03 X10^3/uL; Basophil% 0.2 % (0-1); Eosinophil# 0.08 X10^3/uL; Eosinophils% 0.7 % (0-5); Hematocrit 39.7 % (37-47); Hemoglobin 12.8 g/dL (12.0-15.0); Lymphocyte # 1.13 X10^3/ul (4.0); Lymphocyte % 9.3 % (19-41); Mean Corp Hgb Conc 32.2 g/dL (32-36); Mean Corpuscular Hgb 27.4 pg (27.0-32.0); Mean Corpuscular Volume 84.8 fL (81-99); Mean Platelet Vol. 9.8 fl (6.2-12.0); Monocyte# 0.55 X10^3/uL; Monocyte% 4.5 % (0-10); NRBC Flagged by Analyzer 0 % (0-5); Neutrophil # 10.32 X10^3/uL (2.7-7.7); Neutrophil % 84.6 % (47-70); Platelet Count 191 K/mm3 (150-450); RBC Distribution Width CV 11.9 % (11.6-14.6); RBC Distribution Width SD 36.3 fl (35.1-43.9); Red Blood Count 4.68 M/mm3 (4.2-5.4); White Blood Count 12.2 K/mm3 (4.4-11.0)
[2019-06-13 13:31] LABS: Bacteria 0 SEEN /hpf (None Seen); Mucous, Urine 0 SEEN /hpf (<or=2+); White Blood Cells 0 SEEN /hpf (0-5)
[2019-06-13 13:37] LABS: ALB/GLOB Ratio 0.6 RATIO (0.9-2.4); AST(SGOT) 32 U/L (15-37); Alanine Aminotransfer ALT/SGPT 28 U/L (13-56); Albumin, Serum 3.3 g/dL (3.2-5.0); Alkaline Phosphatase 198 U/L (45-117); Anion Gap 7 (5-15); BUN 13 mg/dL (7-18); BUN/Creat Ratio 15.4 RATIO (10-20); Calcium,Total 9.1 mg/dL (8.5-10.1); Chloride 106 mmol/L (98-107); Creatinine, Serum 0.84 mg/dL (0.55-1.02); EST Glomerular Filtration Rate 73 mL/min (>60); Est Glom Filt Rate - Afr Amer 88 mL/min (>60); Estimated Creatinine Clearance 64.09 ml/min; Globulin 5.1 g/dL (2.2-4.2); Glucose 144 mg/dL (74-106); Lipase 72 U/L (73-393); Potassium 5.2 mmol/L (3.5-5.1); Protein, Total 8.4 g/dL (6.4-8.2); Sodium Level 133 mmol/L (136-145)
[2019-06-13 13:39] LABS: Color, Urine Yellow (Yellow); Glucose, Dipstick 100 mg/dl (Normal); Ketone-Dipstick Negative (Negative); Leukocyte Esterase-Dipstick Negative /ul (Negative); Nitrite-Dipstick Negative (Negative); Occult Blood-Urine 10 /ul (Negative); Protein-Dipstick Negative (Negative); Specific Gravity, Urine 1.015 (1.002-1.030); Urine Bilirubin Dipstick Negative (Negative); Urine Clarity Sl. Cloudy (Clear); Urine Urobilinogen Normal (Normal)
[2019-06-13 13:45] LABS: Red Blood Cells-Urine 0-5 SEEN /hpf (0-5); Squamous Epithelial Cells - UA 0-5 SEEN /hpf (5-10)
--- NOTE | 2019-06-13 13:51 | ED.DCSUM_ITS ---
- ER Visit Summary Date of Service: 06/13/19 Chief Complaint: Abdominal pain History of Present Illness: The patient is a [address] Lopez for an Dr. Longoria. She reports she is had intermittent abdominal pain since last October. States that the pain has worsened over the past 4 days and become constant. It is a sharp, cramping pain is 10 on 10 at worst and 7 out of 10 currently. Is worsened by movement or bending over. Is relieved by nothing. She had nausea without vomiting. No diarrhea. Her last bowel was yesterday. No hematochezia. She has dysuria and frequency that began last night. Patient reports she had a colonoscopy 6 to [address] Longoria. She has had an ultrasound last fall and a CT in March. She has not had a source for this found. She was started on true Tan in December. She does states that this seems to have helped. Physical Examination: Vitals: Stable. Afebrile. General: Well-nourished and well-developed. Head: Normocephalic atraumatic. Neck: Supple, no lymphadenopathy. No JVD. Nontender. Cardiovascular: Regular rate and rhythm. No murmurs. Respiratory: No respiratory distress. Clear to auscultation bilaterally. Abdominal: Soft, mild diffuse tenderness palpation is worse in the suprapubic region and the left lower quadrant, nondistended, normal bowel sounds. No guarding, rebound, or peritoneal signs. Back: Nontender. Extremities: Nontender, no edema. Skin: Normal color, no rash. Neurologic: Alert and oriented ?3. Cranial nerves II through XII are intact. Normal strength and sensation. Psych: Normal affect. Test Results: CBC shows a white count of 12.2 with 85 segmented neutrophils and 9 lymphocytes. Chem-7 shows sodium 133, potassium of 5. 2 (moderately hemolyzed), CO2 of 20, glucose 144. LFTs show total protein of 8.4 and globulin 5.1. Alk phos is 198. Is been 144?157 previously. Lipase is normal. UA is negative. Clinical Impression(s) from Imaging Studies Abdomen/Pelvis CT 06/13/19 12:54 IMPRESSION: Findings in keeping with colitis involving the splenic flexure and descending colon as described. Nonobstructive right intrarenal calculi. Small gallstone in the neck of the gallbladder. Electronically Signed: Sreedahr Ryan, at 15:28 EDT , Service support , Transvaginal US 06/13/19 12:55 IMPRESSION: Normal female pelvis. The ovaries were not visualized. Electronically Signed: Sreedhar Ryan, at 14:34 EDT , Service support , Emergency Department Course and Treatment: Patient was given a liter of normal saline. She was given morphine and Zofran IV. She is resting more comfortably. Patient was given Cipro and Flagyl p.o. Treatment Plan: Patient will be discharged on Cipro and Flagyl. She will be given Longview for pain. I had a prolonged discussion with her about treatment to prevent constipation. Follow-up with Dr. Longoria in 1 to 2 weeks for another exam. Return to the emergency department for any worsening symptoms. Disposition: To home in improved and stable condition. Impression: 1. Descending colitis. This note was generated with [employer] dictation software. It may contain incorrect words, spelling, and punctuation that were not noted in review of the chart prior to signing ED Disposition - Plan for ED Patient: Prescriptions: Ciprofloxacin [Cipro] 500 mg PO BID #20 tablet metroNIDAZOLE [Flagyl] 500 mg PO Q6H #40 tablet Hydrocodone Bitart/Apap 5-325 [Longview 5MG-325MG] 1 tablet PO Q4H PRN PRN 2 Days #10 tablet PRN Reason: Pain Ondansetron [Zofran Odt] 4 mg PO Q8H PRN PRN #10 tablet PRN Reason: Nausea Referrals: Hi Chavez MD [Primary Care Provider] - Elpidio Longoria MD [NON-STAFF] - 1-2 Weeks
[2019-06-13 14:42] VITALS: BP 147/54; PULSE 91; RESP 18; O2SAT 98
[2019-06-13] MEDS: Ciprofloxacin 500 MG Tablet PO (16:12)
[2019-06-13] MEDS: metroNIDAZOLE 500 MG Tablet PO (16:12)
[2019-06-13 16:15] VITALS: BP 160/75; PULSE 104; RESP 18; O2SAT 97
[2019-06-13] MEDS: Ondansetron ODT 4 MG Tablet PO (16:47)
== END 2019-06-13 16:56 | disposition home or self-care (01) ==
LOC: ED 14:18
PROVIDERS: Emergency Provider Emergency Medicine; PCP Family Medicine
DX: K52.9 Noninfective gastroenteritis and colitis, unspecified (principal); E11.9 Type 2 diabetes mellitus without complications; I10 Essential (primary) hypertension; Z79.4 Long term (current) use of insulin
CPT/HCPCS: 74177; 76830; 80053; 81001; 83690; 85025; 96361; 96365; 96375; 99284; J7030; Q9967; A4216; J2405

== ENCOUNTER → 2022-10-25 | Outpatient (CLI) | payer BC, SELFPAY ==
[2022-10-25 17:35] LABS: Absolute Lymphocyte Count 1.92 X10^3/uL (0.83-4.51); Absolute Neutrophil Count 5.1 X10^3/uL (2.0-7.7); Basophil# 0.02 X10^3/uL; Basophil% 0.3 % (0-1); Eosinophil# 0.24 X10^3/uL; Eosinophils% 3.1 % (0-5); Hematocrit 39.1 % (37-47); Hemoglobin 12.3 g/dL (12.0-15.0); Lymphocyte # 1.92 X10^3/ul (0.83-4.51); Lymphocyte % 25.1 % (19-41); Mean Corp Hgb Conc 31.5 g/dL (32-36); Mean Corpuscular Hgb 26.9 pg (27.0-32.0); Mean Corpuscular Volume 85.6 fL (81-99); Mean Platelet Vol. 9.8 fl (6.2-12.0); Monocyte# 0.35 X10^3/uL; Monocyte% 4.6 % (0-10); NRBC Flagged by Analyzer 0 % (0-5); Neutrophil # 5.09 X10^3/uL (2.7-7.7); Neutrophil % 66.4 % (47-70); Platelet Count 227 K/mm3 (150-450); RBC Distribution Width CV 12.3 % (11.6-14.6); RBC Distribution Width SD 38.3 fl (35.1-43.9); Red Blood Count 4.57 M/mm3 (4.2-5.4); White Blood Count 7.7 K/mm3 (4.4-11.0)
[2022-10-25 18:08] LABS: ALB/GLOB Ratio 0.9 RATIO (0.9-2.4); AST(SGOT) 10 U/L (15-37); Alanine Aminotransfer ALT/SGPT 17 U/L (13-56); Albumin, Serum 3.7 g/dL (3.2-5.0); Alkaline Phosphatase 132 U/L (45-117); Anion Gap 7 (5-15); BUN 14 mg/dL (7-18); BUN/Creat Ratio 19.9 RATIO (10-20); Calcium,Total 9.4 mg/dL (8.5-10.1); Chloride 105 mmol/L (98-107); Cholesterol 240 mg/dL (200); EST Glomerular Filtration Rate 89 mL/min (>60); Est Glom Filt Rate - Afr Amer 108 mL/min (>60); Globulin 4.3 g/dL (2.2-4.2); Glucose 106 mg/dL (74-106); Hemoglobin A1c 6.9 % (3.8-5.6); High Density Lipoprotein 57 mg/dL; Potassium 3.6 mmol/L (3.5-5.1); Sodium Level 139 mmol/L (136-145); T4 Free Direct 1.18 ng/dL (0.76-1.46); Thyroid Stim Hormone (TSH) 0.96 uIU/mL (0.358-3.74); Triglycerides 157 mg/dL; Very Low Density Lipoprotein 31 mg/dL (5-40)
[2022-10-25 18:30] LABS: Microalbumin,Random Urine 16.2 mg/L (NO RANGE EST.); Microalbumin:Creatinine Ratio 34.5 mg/g CRE (<30 mg/g CRE)
[2022-10-25 20:02] LABS: Vitamin B12 513 pg/mL (211-911); Vitamin D,25 Hydroxy 27.8 ng/mL
== END | disposition home or self-care (01) ==
LOC: MFPLAB 16:12
PROVIDERS: PCP Family Medicine; Visit Provider Family Medicine
DX: E11.8 Type 2 diabetes mellitus with unspecified complications (principal); R53.83 Other fatigue
CPT/HCPCS: 36415; 80053; 80061; 82043; 82306; 82570; 82607; 83036; 84439; 84443; 85025

== ENCOUNTER 2022-11-29 12:55 | Emergency (ER) | payer BC, SELFPAY ==
[2022-11-29 12:56] VITALS: BP 176/80; PULSE 76; RESP 16; TEMP 36.4; O2SAT 96; BMI 35.8
[2022-11-29 13:29] VITALS: BP 193/79; PULSE 78; RESP 11; O2SAT 99
--- NOTE | 2022-11-29 13:30 | EKG12_ITS ---
Test Reason : Blood Pressure : / mmHG Vent. Rate : 071 BPM Atrial Rate : 071 BPM P-R Int : 132 ms QRS Dur : 090 ms QT Int : 408 ms P-R-T Axes : 023 -07 022 degrees QTc Int : 443 ms Normal sinus rhythm Normal ECG Confirmed by WENDY CAZARES, DANDY ([id number]), acquisitions editor LULA CLEMENTE ([id number]) on 12/01/2022 7:10:00 AM Referred By: JOVANY Confirmed By:QUIANA NGUYEN MD
--- NOTE | 2022-11-29 13:32 | EX.ED.DYSGE1 ---
HPI History of Present Illness Chief Complaint: General Illness Informant: patient Narrative Narrative: Patient had episode at work. She is felt a little bit warm and flushed. She then ate some lunch. This caused her to be mildly nauseated but no vomiting. Nausea is improving but not gone. The flushed feeling and warm feeling is gone. She never had any chest pain or palpitations. She states she did feel little lightheaded though. When I asked her, she does states she has a little soreness in the left shoulder but that is really chronic from an old injury it does not sound like this is related to the morning episode. It did not worsen with that. Patient states she did check her blood sugar this morning. It was 100. That would be normal for her. She normally runs 90-1 30. She did move her medicines from taking metformin at noon and night to breakfast and dinner. But she did this about 2 weeks ago and has not had these problems of dropping sugars. She did not check her sugar at work so she does not know if that was the source although these are symptoms that she would get if her sugar was low. Of note she is also on the Lantus. [facility] Medical History Arthritis Chronic neck and back pain Diabetes HTN (hypertension) Hx of nephrolithotomy with removal of calculi Kidney stones Knee pain Shoulder pain Tiredness Home Medications metformin 500 mg tablet 500 mg PO BIDCM 11/24/13 [History Last Taken Unknown] insulin glargine 100 unit/mL (3 mL) subcutaneous pen (Lantus Solostar U-100 Insulin) 10 unit subcut QPM 10/26/22 [History Last Taken Unknown] plecanatide 3 mg tablet (Trulance) 3 mg PO DAILY 10/26/22 [History Last Taken Unknown] Allergy/AdvReac Type Severity Reaction Status Date / Time latex AdvReac Mild Hives Verified 10/26/22 12:32 BP MED Allergy Itching Uncoded 06/13/19 12:25 Family History Father Heart disease Mother Heart disease CVA (cerebral vascular accident) Brother Hypertension Social History Smoking Status: Never smoker alcohol intake: never ROS ROS ED ROS Narrative A complete review of systems was performed and is negative except as documented in the history of present illness. Some specific details below. Constitutional: No recent fevers or chills. No recent no malaise. EYE: No visual complaints or pain. No visual field cut. ENT: No difficulty swallowing. No swelling. No pain. No GERD. CV: No chest pain or palpitations. Respiratory: No dyspnea. No hemoptysis. No difficulty taking breaths. GI: Please see history of present illness. Mild nausea only and this is improving. : No frequency dysuria or hematuria. Musculoskeletal: No recent trauma. No pains. Skin: No rash. Nondiaphoretic. She felt flushed but did not actually change colors or break into a sweat. Neuro: No weakness or numbness. Endocrine: No polyuria or polydipsia. EXAM Physical Exam Narrative Exam Narrative: CONSTITUTIONAL: Patient is nontoxic in appearance. The patient looks comfortable. Work of breathing looks normal. She does not look pale. HEENT: No notable trauma. Mucous membranes minimally dry. No sinus tenderness. No indication of pain with swallowing. EYES: No conjunctival injection. No proptosis. Range of motion is totally normal. NECK:No JVD. No stridor. CARDIOVASCULAR: Regular rate. Regular rhythm. No notable murmur. No JVD. No ectopy noted. RESPIRATORY: No respiratory distress. Breathing is unlabored. No wheezes. No rhonchi. No rales. No pain with a deep breath. No chest wall tenderness. GASTROINTESTINAL: Not distended. Bowel sounds are normal. No tenderness. No guarding. No rebound. No palpable mass. No bruit is heard. GENITOURINARY: No tenderness over the bladder. No CVA tenderness. MUSCULOSKELETAL: Atraumatic. No peripheral edema. No cord. No tenderness along the deep venous system. No asymmetry. No distended veins. NEUROLOGICAL: Patient is alert and appropriate. No focal deficit noted. Patient is mildly hard of hearing. SKIN: No noted rashes. No diaphoresis. PSYCHIATRIC: Patient is calm. Mood is appropriate. Const Vital Signs: 11/29/22 12:56 11/29/22 13:27 11/29/22 13:29 Temperature 97.6 F L Temperature Source Temporal Pulse Rate 76 78 Respiratory Rate 16 11 L Respiratory Effort Normal Non-Labored Respiratory Pattern Normal Blood Pressure 176/80 H 193/79 H Blood Pressure Mean 112 117 Pulse Ox 96 99 Oxygen Delivery Method Room Air Room Air MDM MDM MDM Narrative Medical decision making narrative: Patient CBC shows no acute abnormality. Patient's electrolytes are overall normal. Patient's glucose is normal at this time. Patient's troponin is normal. Patient's COVID and influenza are negative. I am not certain what caused the patient's symptoms. She states she felt like she was flushing on her face. She almost had a little tingling of her lips but it was equal on both sides. She had mild nausea but never vomited. She did eat and that seemed to help this. It is possible her blood sugar dropped between the morning check and now. She was 100 this morning and she is 100 now but in between she has eaten lunch and breakfast. Her symptoms occurred between these 2 meals. She never had chest pain or palpitations. EKG and troponin are negative. I do not think she requires CT of chest or abdomen as she has no pain or symptoms there. She has no headache. Lab Data Attestation: I reviewed the patient's lab results. Labs: Laboratory Results - last 24 hr 11/29/22 13:40 WBC 8.6 RBC 4.69 Hgb 12.5 Hct 38.7 MCV 82.5 MCH 26.7 L MCHC 32.3 RDW Std Deviation 36.9 RDW Coeff of Haroon 12.3 Plt Count 192 MPV 9.6 Immature Gran % (Auto) 0.500 Neut % (Auto) 77.2 H Lymph % (Auto) 16.3 L Bertie % (Auto) 3.9 Eos % (Auto) 1.9 Baso % (Auto) 0.2 Absolute Neuts (auto) 6.7 Absolute Lymphs (auto) 1.40 Nucleated RBC % 0 Sodium 139 Potassium 3.8 Chloride 105 Carbon Dioxide 27.0 Anion Gap 7 BUN 18 Creatinine 0.82 Estim Creat Clear Calc 58.09 Est GFR (MDRD) Af Amer 90 Est GFR (MDRD) Non-Af 74 BUN/Creatinine Ratio 21.9 H Glucose 100 Calcium 9.3 Troponin I High Sens 9 EKG Initial EKG: Comments: My independent interpretation of the patient's EKG shows a normal sinus rhythm with overall rate of 71. No ectopy. No acute ST elevation or depression. CT interval QRS duration and QTc are normal. Discharge Plan Triage Chief Complaint: General Illness ED Provider: Jeremías Lopez Dx/Rx/DC Orders Clinical Impression: Skin flushed, History of diabetes mellitus, Nausea Instructions: ED Weakness (Uncertain Cause) Prescriptions: No Action Trulance 3 mg tablet 3 mg PO DAILY insulin glargine [Lantus Solostar U-100 Insulin] 100 unit/mL (3 mL) insulin pen 10 unit subcut QPM metformin 500 MG tablet 500 mg PO BIDCM Stand Alone Forms: ED Work / School Excuse Primary Care Provider: Yousif Murguia Referrals: Yousif Mruguia MD [Primary Care Provider] - 3-5 Days Disposition Disposition: Home, Self Care
[2022-11-29] MEDS: 0.9% Normal Saline (1000mL) 1,000 ML 999 ML IV (13:50)
[2022-11-29] MEDS: Ondansetron 4 MG/2 ML Vial IV (13:51)
[2022-11-29 13:56] LABS: Absolute Neutrophil Count 6.7 X10^3/uL (2.0-7.7); Basophil# 0.02 X10^3/uL; Basophil% 0.2 % (0-1); Eosinophil# 0.16 X10^3/uL; Eosinophils% 1.9 % (0-5); Hematocrit 38.7 % (37-47); Hemoglobin 12.5 g/dL (12.0-15.0); Lymphocyte % 16.3 % (19-41); Mean Corp Hgb Conc 32.3 g/dL (32-36); Mean Corpuscular Hgb 26.7 pg (27.0-32.0); Mean Corpuscular Volume 82.5 fL (81-99); Mean Platelet Vol. 9.6 fl (6.2-12.0); Monocyte# 0.34 X10^3/uL; Monocyte% 3.9 % (0-10); NRBC Flagged by Analyzer 0 % (0-5); Neutrophil # 6.65 X10^3/uL (2.7-7.7); Neutrophil % 77.2 % (47-70); Platelet Count 192 K/mm3 (150-450); RBC Distribution Width CV 12.3 % (11.6-14.6); RBC Distribution Width SD 36.9 fl (35.1-43.9); Red Blood Count 4.69 M/mm3 (4.2-5.4); White Blood Count 8.6 K/mm3 (4.4-11.0)
[2022-11-29 14:09] LABS: Anion Gap 7 (5-15); BUN 18 mg/dL (7-18); BUN/Creat Ratio 21.9 RATIO (10-20); Calcium,Total 9.3 mg/dL (8.5-10.1); Chloride 105 mmol/L (98-107); Creatinine, Serum 0.82 mg/dL (0.55-1.02); EST Glomerular Filtration Rate 74 mL/min (>60); Est Glom Filt Rate - Afr Amer 90 mL/min (>60); Estimated Creatinine Clearance 58.09 ml/min; Glucose 100 mg/dL (74-106); Potassium 3.8 mmol/L (3.5-5.1); Sodium Level 139 mmol/L (136-145); Troponin-I HS 9 pg/mL (3.0-54.0)
[2022-11-29 16:10] VITALS: BP 165/69; PULSE 74; RESP 16; O2SAT 98
== END 2022-11-29 16:12 | disposition home or self-care (01) ==
PROVIDERS: Emergency Provider Emergency Medicine; PCP Family Medicine; Visit Provider Emergency Medicine
DX: R11.0 Nausea (principal); E11.9 Type 2 diabetes mellitus without complications; Z79.84 Long term (current) use of oral hypoglycemic drugs
CPT/HCPCS: 80048; 84484; 85025; 87428; 93005; 96374; 99284; J7030; A4216; J2405

== ENCOUNTER → 2023-03-27 | Outpatient (CLI) | payer BC, SELFPAY ==
[2023-03-27 15:16] LABS: Absolute Lymphocyte Count 1.59 X10^3/uL (0.83-4.51); Absolute Neutrophil Count 4.3 X10^3/uL (2.0-7.7); Basophil# 0.01 X10^3/uL; Basophil% 0.2 % (0-1); Eosinophil# 0.13 X10^3/uL; Eosinophils% 2.1 % (0-5); Hematocrit 37.9 % (37-47); Lymphocyte # 1.59 X10^3/ul (0.83-4.51); Lymphocyte % 25.3 % (19-41); Mean Corp Hgb Conc 31.7 g/dL (32-36); Mean Corpuscular Hgb 26.8 pg (27.0-32.0); Mean Corpuscular Volume 84.6 fL (81-99); Mean Platelet Vol. 9.6 fl (6.2-12.0); Monocyte# 0.25 X10^3/uL; NRBC Flagged by Analyzer 0 % (0-5); Neutrophil # 4.29 X10^3/uL (2.7-7.7); Neutrophil % 68.1 % (47-70); Platelet Count 225 K/mm3 (150-450); RBC Distribution Width CV 12.2 % (11.6-14.6); RBC Distribution Width SD 37.5 fl (35.1-43.9); Red Blood Count 4.48 M/mm3 (4.2-5.4); White Blood Count 6.3 K/mm3 (4.4-11.0)
[2023-03-27 15:23] LABS: Vitamin D,25 Hydroxy 34.5 ng/mL
[2023-03-27 15:26] LABS: Cholesterol 262 mg/dL (200); High Density Lipoprotein 61 mg/dL; Triglycerides 142 mg/dL; Very Low Density Lipoprotein 28 mg/dL (5-40)
[2023-03-27 15:32] LABS: Hemoglobin A1c 6.8 % (3.8-5.6)
[2023-03-27 15:39] LABS: Microalbumin,Random Urine 18.9 mg/L (NO RANGE EST.)
[2023-03-29 07:26] LABS: AST(SGOT) 14 U/L (15-37); Alanine Aminotransfer ALT/SGPT 13 U/L (13-56); Albumin, Serum 3.8 g/dL (3.2-5.0); Alkaline Phosphatase 116 U/L (45-117); Anion Gap 7 (5-15); BUN 14 mg/dL (7-18); BUN/Creat Ratio 18.3 RATIO (10-20); Calcium,Total 9.6 mg/dL (8.5-10.1); Chloride 109 mmol/L (98-107); Creatinine, Serum 0.77 mg/dL (0.55-1.02); EST Glomerular Filtration Rate 81 mL/min (>60); Est Glom Filt Rate - Afr Amer 98 mL/min (>60); Globulin 3.7 g/dL (2.2-4.2); Glucose 96 mg/dL (74-106); Protein, Total 7.5 g/dL (6.4-8.2); Sodium Level 142 mmol/L (136-145)
== END | disposition home or self-care (01) ==
LOC: MTLAB 13:25
PROVIDERS: PCP Family Medicine; Referring Provider Family Medicine; Visit Provider Family Medicine
DX: E11.8 Type 2 diabetes mellitus with unspecified complications (principal); E55.9 Vitamin D deficiency, unspecified
CPT/HCPCS: 36415; 80053; 80061; 82043; 82306; 82570; 83036; 85025

== ENCOUNTER → 2023-05-29 | Outpatient (CLI) | payer BC, SELFPAY ==
--- NOTE | 2023-05-29 15:14 | BI_ITS ---
MAMMOGRAPHY - BILATERAL SCREENING REASON FOR EXAM: Female, 62 years old. Routine annual screening examination. PERTINENT HISTORY: Non-contributory. TECHNIQUE: Digital bilateral breast zacarias (3D mammographic acquisition) in the CC and MLO projections. 2-D mediolateral oblique (MLO) and craniocaudad (CC) views of both breasts were obtained. CAD: Full Field Digital Mammography with Computer Added Detection was performed. COMPARISON: No comparison mammograms available at this time. If any prior films become available, an addendum to this report can be generated. FINDINGS: Breast Composition: There are scattered areas of fibroglandular density. There are no dominant masses or suspicious calcifications. No other significant abnormalities are identified. BI/SCRN MAMM (CAD)W/ZACARIAS BILAT IMPRESSION: Negative screening mammogram. Yearly followup mammogram recommended. (A) ASSESSMENT CATEGORY: BIRADS Category 1: Negative. A letter regarding these results will be sent to the patient by the facility within 30 days. Approximately 10% of breast cancers are not detected by mammography. A normal mammogram should not delay biopsy of a clinically suspicious abnormality. [id number] Electronically Signed: Sreedhar yRan MD at 8:58 EDT ,
== END | disposition home or self-care (01) ==
LOC: OPBI 15:13
PROVIDERS: PCP Family Medicine; Referring Provider Family Medicine; Visit Provider Family Medicine
DX: Z12.31 Encounter for screening mammogram for malignant neoplasm of breast (principal)
CPT/HCPCS: 77063; 77067

== ENCOUNTER → 2023-06-14 | Outpatient (CLI) | payer BC, SELFPAY ==
[2023-06-20 16:09] LABS: HPV APTIMA, High Risk Negative (Negative)
[2023-06-20 16:25] LABS: HPV Reflexed? YES, CHARGE PATIENT
== END | disposition home or self-care (01) ==
LOC: LABSPEC 16:52
PROVIDERS: PCP Family Medicine; Visit Provider Family Medicine
DX: Z12.4 Encounter for screening for malignant neoplasm of cervix (principal)
CPT/HCPCS: 87624; 88175; G0145

== ENCOUNTER 2023-06-16 22:14 | Emergency (ER) | payer BC, SELFPAY ==
[2023-06-16 22:15] VITALS: BP 177/57; PULSE 76; RESP 15; TEMP 36.4; O2SAT 97; BMI 34.1
--- NOTE | 2023-06-16 22:27 | ED.VIS.FALL ---
HPI HPI - Fall History of Present Illness Chief Complaint: Fall Narrative Narrative: 62-year-old female past medical history of diabetes, hypertension, presents with injury to her tailbone and right knee status post fall. She states that around 8:30 in the evening, approximately 2 hours ago, she was going to change a light bulb in the kitchen. She went to stand on a chair, and when she was getting nursing home up, it slid out from under her on the hardwood floor. She fell backwards onto her buttocks, but as she came down, she felt her right knee twist in an awkward position. She denies hitting her head or loss of consciousness. She does not take blood thinners. She was able to ambulate gingerly, but when she was getting ready for bed, her pain in her knee became worse. She was able to have a bowel movement after the injury and states that it was not painful to defecate. She is concerned mainly about her right knee pain that is worse with weightbearing and ambulating. PFSH PFSH Medical History Arthritis Chronic neck and back pain Diabetes HTN (hypertension) Hx of nephrolithotomy with removal of calculi Kidney stones Knee pain Shoulder pain Tiredness Home Medications metformin 500 mg tablet 500 mg PO BIDCM 11/24/13 [History Last Taken Unknown] insulin glargine 100 unit/mL (3 mL) subcutaneous pen (Lantus Solostar U-100 Insulin) 10 unit subcut QPM 10/26/22 [History Last Taken Unknown] plecanatide 3 mg tablet (Trulance) 3 mg PO DAILY 10/26/22 [History Last Taken Unknown] Allergy/AdvReac Type Severity Reaction Status Date / Time latex AdvReac Mild Hives Verified 06/16/23 22:19 BP MED Allergy Itching Uncoded 06/13/19 12:25 Family History Father Heart disease Mother Heart disease CVA (cerebral vascular accident) Brother Hypertension Social History Smoking Status: Never smoker alcohol intake: never ROS ROS ED ROS Narrative Constitutional: No fever, no chills. HEENT: No sore throat. No neck pain. No loss of vision. No rhinorrhea. Cardiovascular: No chest pain. No palpitations. No pedal edema. Respiratory: No cough, no shortness of breath. Abdominal: No abdominal pain. No nausea. No vomiting. Genitourinary: No dysuria. No hematuria. Musculoskeletal: No myalgias. Right knee pain worse with weightbearing and walking. Positive tailbone/coccyx pain. Can only sit in certain positions. Neurologic: No headaches. No dizziness. No lightheadedness. Skin: No rash. No change in color. Psychiatric: No depression. No anxiety. EXAM Physical Exam Narrative Exam Narrative: Afebrile. Vital signs noted. GCS 15. ABCs intact. HEENT: Normocephalic. Atraumatic. PERRL, EOMI. Neck soft and supple. No point tenderness or step off. Cardiovascular: Regular rate and rhythm. No murmurs, rubs, or gallops appreciated. Respiratory: No tachypnea. Lungs clear to auscultation bilaterally. Gastrointestinal: Abdomen soft, nontender, with normoactive bowel sounds. No rebound or guarding. Neurological: Awake. Alert. Nonfocal, nonlateralizing. Skin: No rash. Normal color. No pallor. Musculoskeletal: No pedal edema. Full range of motion extremities. Diffuse tenderness to palpation right knee especially medially, more on proximal tibia. Neurovascular intact distally. Antalgic gait walking to room in emergency department. Mild tenderness to palpation sacral and coccyx area diffusely. Const Vital Signs: 06/16/23 22:15 Temperature 97.6 F L Temperature Source Temporal Pulse Rate 76 Respiratory Rate 15 Blood Pressure 177/57 H Blood Pressure Mean 97 Pulse Ox 97 Oxygen Delivery Method Room Air MDM MDM MDM Narrative Medical decision making narrative: In the differential diagnosis is sacral/coccyx contusion versus fracture. In discussion with the patient, she realizes that not much can be done for a coccyx fracture other than taking [id number] stool softeners. In regards to her knee, concern is for knee sprain versus tibial plateau fracture versus effusion from ligament strain. Patient states that she already ice the area and declined ice pack. Additionally, she declined any oral analgesics. X-rays were obtained of the coccyx and sacrum as well as the right knee. X-rays interpreted by myself independently. On my independent interpretation there is no evidence of a fracture of the sacrum or coccyx. I reviewed the radiology report which confirms my independent interpretation. On my interpretation of the x-rays and 4 views of the right knee, there is no evidence of fracture. I reviewed the radiology report which confirms my independent interpretation as well. Patient will take [id number] medications as needed for pain. I offered her crutches, but she states she has a pair at home. 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 At this point in time, I feel she can be discharged to follow-up with her primary care provider in 7 to 10 days if not improving. She was told that she may need referral to orthopedics for her knee injury. Return instructions to the emergency department were reviewed. Disposition is discharged home in stable condition. Radiography Diagnostic Testing: Clinical Impression(s) from Imaging Studies Knee X-Ray 06/16/23 22:40 IMPRESSION: No acute fracture or dislocation. Electronically Signed: John Layne MD at 23:16 EDT Reading Location ID and State: [id number] / [employer] Tel , Service support , Sacrum and Coccyx X-Ray 06/16/23 22:40 IMPRESSION: Normal x-rays of the sacrum and coccyx. Electronically Signed: John Layne MD at 23:21 EDT Reading Location ID and State: [employer] / [employer] Tel , Service support , Discharge Plan Triage Chief Complaint: Fall ED Provider: Howard Fenton Dx/Rx/DC Orders Prescriptions: No Action Trulance 3 mg tablet 3 mg PO DAILY insulin glargine [Lantus Solostar U-100 Insulin] 100 unit/mL (3 mL) insulin pen 10 unit subcut QPM metformin 500 MG tablet 500 mg PO BIDCM Primary Care Provider: Yousif Murguia Referrals: Yousif Murguia MD [Primary Care Provider] -
--- NOTE | 2023-06-16 22:40 | RAD_ITS ---
STUDY: X-RAY - RIGHT KNEE REASON FOR EXAM: Female, 62 years old. PAIN TECHNIQUE: 3 view(s) of the knee. COMPARISON: None. FINDINGS: Normal visualized distal femur. Normal visualized proximal tibia and fibula. Normal proximal tibiofibular articulation. There is mild degenerative arthrosis of the medial femorotibial compartment. Normal lateral femorotibial compartment. There is mild degenerative arthrosis of the patellofemoral articulation. The soft tissue structures are unremarkable. RAD/Knee 4 or More Views IMPRESSION: No acute fracture or dislocation. Electronically Signed: John Layne MD at 23:16 EDT ,
--- NOTE | 2023-06-16 22:40 | RAD_ITS ---
STUDY: X-RAY - SACRUM/COCCYX REASON FOR EXAM: Female, 62 years old. Trauma TECHNIQUE: 3 view(s) of the sacrum and coccyx were obtained. COMPARISON: None. FINDINGS: Normal bilateral sacroiliac joints. Normal visualized sacral ala and fused sacral bodies. Normal sacrococcygeal junction with a normal angulation. Normal coccygeal segments. The presacral soft tissue structures are unremarkable. RAD/Sacrum-Coccyx min 2 Views IMPRESSION: Normal x-rays of the sacrum and coccyx. Electronically Signed: John Layne MD at 23:21 EDT ,
[2023-06-16 23:37] VITALS: BP 165/78; PULSE 80; RESP 18; TEMP 36.4; O2SAT 95
== END 2023-06-16 23:39 | disposition home or self-care (01) ==
PROVIDERS: Emergency Provider Emergency Medicine; PCP Family Medicine; Visit Provider Emergency Medicine
DX: S89.91XA Unspecified injury of right lower leg, initial encounter (principal); E11.9 Type 2 diabetes mellitus without complications; W19.XXXA Unspecified fall, initial encounter
CPT/HCPCS: 72220; 73564; 99282

== ENCOUNTER 2023-06-18 08:59 | Emergency (ER) | payer BC, SELFPAY ==
[2023-06-18 09:02] VITALS: BP 161/63; PULSE 78; RESP 16; TEMP 36.3; O2SAT 97; BMI 33.7
--- NOTE | 2023-06-18 09:12 | ED.RN ---
pt is here to have her work excuse corrected/updated
--- NOTE | 2023-06-18 09:20 | EX.ED.DYSGE1 ---
HPI History of Present Illness Chief Complaint: Fall Detail of Chief Complaint: Patient presents for additional time off from work Informant: patient Onset/Context/Timing Onset: - (Patient was seen on Sunday by Dr. Henrry le) Quality: Patient asking for additional time off because she did not work on Sunday Location: Not applicable Narrative Narrative: patient is a 62-year-old woman. She presents for additional time off. She was seen on Sunday. She was given Sunday and Sunday off. She states since she did not work Sunday she should have Sunday and Sunday off. Patient was informed our policy is excuse for 2 days unless you have a fracture. Her records from Sunday reviewed. There is no evidence of fracture. Patient was made aware that she needs to return to work on Sunday. She understands. Prior similar symptoms: Yes PFSH PFSH Medical History Arthritis Chronic neck and back pain Diabetes HTN (hypertension) Hx of nephrolithotomy with removal of calculi Kidney stones Knee pain Shoulder pain Tiredness Home Medications metformin 500 mg tablet 500 mg PO BIDCM 11/24/13 [History Last Taken Unknown] insulin glargine 100 unit/mL (3 mL) subcutaneous pen (Lantus Solostar U-100 Insulin) 10 unit subcut QPM 10/26/22 [History Last Taken Unknown] plecanatide 3 mg tablet (Trulance) 3 mg PO DAILY 10/26/22 [History Last Taken Unknown] Allergy/AdvReac Type Severity Reaction Status Date / Time latex AdvReac Mild Hives Verified 06/18/23 09:08 BP MED Allergy Itching Uncoded 06/13/19 12:25 Family History Father Heart disease Mother Heart disease CVA (cerebral vascular accident) Brother Hypertension Social History Smoking Status: Never smoker alcohol intake: never ROS ROS ED Musculoskeletal Musculoskeletal: Reports other Details: Positive right knee pain ; Denies arthralgias or myalgias Neurologic Neurologic: Denies headache(s) or paresthesias Hematologic/Lymphatic Hematologic/Lymphatic: Reports systems reviewed and no addt'l complaints, except as documented EXAM Physical Exam Const Vital Signs: 06/18/23 09:02 06/18/23 09:12 Temperature 97.4 F L Temperature Source Temporal Pulse Rate 78 Respiratory Rate 16 Respiratory Effort Normal Non-Labored Blood Pressure 161/63 H Blood Pressure Mean 95 Pulse Ox 97 Oxygen Delivery Method Room Air Room Air Positive well nourished, well developed and obese General Appearance ED: well developed and NAD Nutritional Appearance: obese HEENT HEENT Narrative: Head is atraumatic no cephalic. Ears normal. Eyes PERRL and EOMs intact bilaterally Resp normal respiratory effort Cardio regular rate and regular rhythm Extremity Extremity Narrative: Patient has an Srinivasa wrap on her right knee. Neuro oriented x3 and CN's II-XII intact bilaterally Psych mental status grossly normal MDM MDM MDM Narrative Medical decision making narrative: Patient presents with work excuse. Patient was informed 2 days is 2 days and does not make a difference whether you are off a day or not. Since patient able to ambulate and has really no other complaints other than she wants additional days off she was discharged home Discharge Plan Triage Chief Complaint: Fall ED Provider: Ryan Jackman Dx/Rx/DC Orders Clinical Impression: Encounter to obtain excuse from work Instructions: ED Screening Exam Medical Nonurgent Prescriptions: No Action Trulance 3 mg tablet 3 mg PO DAILY insulin glargine [Lantus Solostar U-100 Insulin] 100 unit/mL (3 mL) insulin pen 10 unit subcut QPM metformin 500 MG tablet 500 mg PO BIDCM Primary Care Provider: Yousif Murguia Referrals: Yousif Murguia MD [Primary Care Provider] - As Needed Disposition Disposition: Home, Self Care
== END 2023-06-18 09:46 | disposition home or self-care (01) ==
LOC: ED 09:37
PROVIDERS: Emergency Provider Emergency Medicine; PCP Family Medicine; Visit Provider Emergency Medicine
DX: M25.561 Pain in right knee (principal); E11.9 Type 2 diabetes mellitus without complications; E66.9 Obesity, unspecified; W19.XXXA Unspecified fall, initial encounter
CPT/HCPCS: 99282

== ENCOUNTER 2023-07-19 15:16 | Emergency (ER) | payer BC, SELFPAY ==
[2023-07-19 15:17] VITALS: BP 172/90; PULSE 81; RESP 14; TEMP 36.1; O2SAT 97; BMI 35.4
--- NOTE | 2023-07-19 16:07 | CT_ITS ---
EXAM: CT ABDOMEN AND PELVIS WITHOUT INTRAVENOUS CONTRAST CLINICAL INDICATION: right flank pain TECHNIQUE: Helically acquired images were obtained of the abdomen and pelvis without intravenous contrast. This CT exam was performed using one or more of the following dose reduction techniques: automated exposure control, adjustment of the mA and/or kV according to patient size, and/or use of iterative reconstruction technique. COMPARISON: 06/13/2019 FINDINGS: LOWER THORAX: There are coronary artery calcifications. Lung bases are clear. No cardiomegaly. No significant pericardial effusion. ABDOMEN: LIVER: Unremarkable. Homogeneous. GALLBLADDER AND BILE DUCTS: There are multiple gallstones present but no inflammation. No gallbladder distention or wall edema. No intra- or extrahepatic biliary ductal dilation. PANCREAS: Unremarkable. No focal cystic mass. SPLEEN: Unremarkable. Normal size without focal cystic or solid mass. ADRENALS: Unremarkable. No nodules. KIDNEYS AND URETERS: There is a 7 x 7 mm stone in the right renal pelvis. There is no hydronephrosis. There are other nonobstructing calyceal stones in the right kidney. There is mild perinephric inflammation surrounding the lower pole of the right kidney. STOMACH AND BOWEL: There is sigmoid diverticulosis with no evidence diverticulitis. No stomach or bowel distention. PELVIS: APPENDIX: No evidence of acute appendicitis. BLADDER: Unremarkable. REPRODUCTIVE: Unremarkable as visualized. No mass. ABDOMEN and PELVIS: INTRAPERITONEAL SPACE: Unremarkable. No ascites or other fluid collection. No free air. BONES/JOINTS: Unremarkable. No suspicious lytic or blastic abnormality. SOFT TISSUES: Unremarkable. No discrete abdominal or pelvic wall hernia. VASCULATURE: See above. LYMPH NODES: Unremarkable. No enlarged lymph nodes. CT/Abdomen/Pelvis without Cont IMPRESSION: 7 mm stone in the right renal pelvis but there is no obvious hydronephrosis or obstruction. There is no ureteral calcification identified. There is perinephric inflammation surrounding the lower pole of the right kidney possibly due to pyelonephritis. No other acute abnormalities are identified. Electronically Signed: Yordy Arroyo MD at 17:38 EDT ,
--- NOTE | 2023-07-19 16:09 | EX.ED.DYSGE1 ---
HPI History of Present Illness Chief Complaint: Abd Pain Informant: patient Onset/Context/Timing Onset: Today Context: Gradual Onset Timing: Waxes and wanes Current Severity: Mild Maximum Severity: Moderate Narrative Narrative: Patient presents secondary to right flank pain with nausea and constipation. She states she woke in the middle the night feeling as if she had to urinate and have a bowel movement. She went to the bathroom was only able to urinate a small amount. She was unable to have a bowel movement. She states that she did break out in a cold sweat and became lightheaded and dizzy. She felt nauseated but did not vomit. She went back to bed and felt slightly better when she got up for work. She drove to work but was not able to perform her job and left to go home. She does report similar episodes in the past. She is a history of kidney stones but states this does not feel similar. She feels that these episodes are getting more frequent and lasting longer. Patient does have a history of constipation and takes plecanatide tied 3 times a week. She follows with Dr. Longoria. [facility] Medical History (Updated 07/19/23 @ 18:[address] Pooja Lacey MD) Constipation Hx of nephrolithotomy with removal of calculi Kidney stones Tiredness Shoulder pain Knee pain Chronic neck and back pain Diabetes Arthritis HTN (hypertension) Home Medications ?Medication ?Instructions ?Recorded ?Last Taken ?Type metformin 500 mg tablet 500 mg PO BIDCM 11/24/13 Unknown History insulin glargine 100 unit/mL (3 10 unit subcut QPM 10/26/22 Unknown History mL) subcutaneous pen (Lantus Solostar U-100 Insulin) plecanatide 3 mg tablet (Trulance) 3 mg PO DAILY 10/26/22 Unknown History sulfamethoxazole 800 1 tab PO BID #20 tabs 07/19/23 Unknown Rx mg-trimethoprim 160 mg tablet (Bactrim DS) Allergy/AdvReac Type Severity Reaction Status Date / Time latex AdvReac Mild Hives Verified 07/19/23 15:16 BP MED Allergy Itching Uncoded 06/13/19 12:25 Family History Father Heart disease Mother Heart disease CVA (cerebral vascular accident) Brother Hypertension Social History Smoking Status: Never smoker alcohol intake: never ROS ROS ED Constitutional Constitutional ED: Denies chills or fever(s) Eyes Eyes: Denies discharge from eye(s) ENT ENT ED: Denies discharge from eye(s), rhinorrhea or sore throat Cardiovascular Cardiovascular: Denies chest pain Respiratory/Chest Respiratory/Chest: Denies cough or dyspnea Gastrointestinal Gastrointestinal: Reports abdominal pain, constipation and nausea; Denies diarrhea or vomiting Genitourinary Genitourinary ED: Denies dysuria Musculoskeletal Musculoskeletal: Denies back pain or extremity pain Integumentary Denies Abrasions or rash Neurologic Neurologic: Denies headache(s) or weakness Allergic/Immunologic Allergic/Immunologic ED: Denies lip swelling or urticaria EXAM Physical Exam Const Vital Signs: 07/19/23 15:17 07/19/23 17:16 Temperature 96.9 F L Temperature Source Temporal Pulse Rate 81 67 Respiratory Rate 14 18 Blood Pressure 172/90 H 126/60 H Blood Pressure Mean 117 82 Pulse Ox 97 99 Oxygen Delivery Method Room Air Room Air Positive well nourished and well developed General Appearance ED: well developed HEENT Reports moist mucous membranes Eyes EOMs intact bilaterally Chest Wall inspection of chest normal and palpation of chest normal Resp normal respiratory effort and clear to auscultation bilaterally Cardio regular rate and regular rhythm GI GI Narrative: Abdomen soft with mild tenderness in the right lower quadrant. No guarding or rebound. Active bowel sounds are noted. Back/Spine no CVA tenderness Extremity normal to inspection Neuro oriented x3 and no sensory deficits noted Motor Exam: strength 5/5 throughout Psych mental status grossly normal Skin no rashes or lesions noted MDM MDM MDM Narrative Medical decision making narrative: IV line established. Patient given IV fluids and Zofran along with IM Bentyl. Labwork obtained to evaluate for leukocytosis, anemia, and electrolyte derangement. Urinalysis obtained to evaluate for infection/hematuria. CT flank will be obtained to evaluate for kidney stone, partial small bowel obstruction, bowel obstruction, appendicitis. History & Record Review Discussion w/independent historian: Patient Lab Data Attestation: I reviewed the patient's lab results. Labs: Laboratory Results - last 24 hr 07/19/23 07/19/23 16:44 17:05 WBC 14.9 H RBC 4.59 Hgb 12.4 Hct 37.9 MCV 82.6 MCH 27.0 MCHC 32.7 RDW Std Deviation 35.8 RDW Coeff of Haroon 11.9 Plt Count 189 MPV 9.4 Immature Gran % (Auto) 0.700 Neut % (Auto) 87.3 H Lymph % (Auto) 7.7 L Parmer % (Auto) 4.1 Eos % (Auto) 0.0 Baso % (Auto) 0.2 Absolute Neuts (auto) 13.0 H Absolute Lymphs (auto) 1.15 Nucleated RBC % 0 Sodium 133 L Potassium 3.8 Chloride 100 Carbon Dioxide 25.0 Anion Gap 8 BUN 10 Creatinine 0.74 Estim Creat Clear Calc 82.11 Est GFR (MDRD) Af Amer 102 Est GFR (MDRD) Non-Af 84 BUN/Creatinine Ratio 13.6 Glucose 170 H Calcium 9.3 Total Bilirubin 0.90 Direct Bilirubin 0.21 AST 15 ALT 18 Alkaline Phosphatase 139 H Total Protein 7.8 Albumin 3.5 Globulin 4.3 H Urine Color Yellow Urine Clarity Cloudy Urine pH 7.0 Ur Specific [place] 1.005 Urine Protein 30 H Urine Glucose (UA) Normal Urine Ketones Negative Urine Occult Blood 250 H Urine Nitrite Positive H Urine Bilirubin Negative Urine Urobilinogen Normal Ur Leukocyte Esterase 500 H Urine RBC 10-25 SEEN Urine WBC 25-50 SEEN Ur Squamous Epith Cells 0-5 SEEN Urine Bacteria 3+ Urine Mucus 0 SEEN Radiography Diagnostic Testing: Clinical Impression(s) from Imaging Studies Abdomen/Pelvis CT 07/19/23 16:07 IMPRESSION: 7 mm stone in the right renal pelvis but there is no obvious hydronephrosis or obstruction. There is no ureteral calcification identified. There is perinephric inflammation surrounding the lower pole of the right kidney possibly due to pyelonephritis. No other acute abnormalities are identified. Electronically Signed: Yordy Arroyo MD at 17:38 EDT , Treatment and Re-Evaluation :: White blood cell count is elevated at 14.9 with 87% neutrophils. Hemoglobin 12.4. Chemistry studies reveal slightly low sodium at 133. Potassium is normal at 3.8. Renal function is unremarkable and glucose is 170. LFTs are unremarkable. Urinalysis does reveal infection with positive nitrites, 3+ bacteria, 25-[address] flank reveals a 7 mm stone in the right renal pelvis but no obvious hydronephrosis or obstruction. No ureteral calcifications noted. There is slight perinephric inflammation around the lower pole the right kidney possibly due to pyelonephritis. No other acute abnormalities. Test results discussed with the patient. She is given a dose of Rocephin here. 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 I will write her off work today and tomorrow. Patient comfortable with the plan and return instructions are given. Discharge Plan Triage Chief Complaint: Abd Pain ED Provider: Pooja Lacey Dx/Rx/DC Orders Clinical Impression: Pyelonephritis Instructions: ED Pyelonephritis, Female (Adult) Prescriptions: New sulfamethoxazole-trimethoprim [Bactrim DS] 800-160 mg tablet 1 tab PO BID Qty: 20 0RF No Action Trulance 3 mg tablet 3 mg PO DAILY insulin glargine [Lantus Solostar U-100 Insulin] 100 unit/mL (3 mL) insulin pen 10 unit subcut QPM metformin 500 MG tablet 500 mg PO BIDCM Stand Alone Forms: ED Work / School Excuse Primary Care Provider: Yousif Murguia Referrals: Yousif Murguia MD [Primary Care Provider] - 1-2 Weeks Print Language: Ukrainian Disposition Disposition: Home, Self Care
[2023-07-19 16:56] LABS: Mucous, Urine 0 SEEN /hpf (<or=2+)
[2023-07-19 16:59] LABS: Color, Urine Yellow (Yellow); Glucose, Dipstick Normal (Normal); Ketone-Dipstick Negative (Negative); Leukocyte Esterase-Dipstick 500 /ul (Negative); Nitrite-Dipstick Positive (Negative); Occult Blood-Urine 250 /ul (Negative); Protein-Dipstick 30 mg/dl (Negative); Specific Gravity, Urine 1.005 (1.002-1.030); Urine Bilirubin Dipstick Negative (Negative); Urine Clarity Cloudy (Clear); Urine Urobilinogen Normal (Normal)
[2023-07-19] MEDS: Ondansetron 4 MG/2 ML Vial IV (17:10)
[2023-07-19] MEDS: Dicyclomine 20 MG/2 ML Vial IM (17:10)
[2023-07-19] MEDS: 0.9% Normal Saline (1000mL) 1,000 ML 150 ML IV (17:10)
[2023-07-19 17:14] LABS: Red Blood Cells-Urine 10-25 SEEN /hpf (0-5); White Blood Cells 25-50 SEEN /hpf (0-5)
[2023-07-19 17:15] LABS: Bacteria 3+ /hpf (None Seen); Squamous Epithelial Cells - UA 0-5 SEEN /hpf (5-10)
[2023-07-19 17:16] VITALS: BP 126/60; PULSE 67; RESP 18; O2SAT 99
[2023-07-19 17:24] LABS: Absolute Lymphocyte Count 1.15 X10^3/uL (0.83-4.51); Basophil# 0.03 X10^3/uL; Basophil% 0.2 % (0-1); Hematocrit 37.9 % (37-47); Hemoglobin 12.4 g/dL (12.0-15.0); Lymphocyte # 1.15 X10^3/ul (0.83-4.51); Lymphocyte % 7.7 % (19-41); Mean Corp Hgb Conc 32.7 g/dL (32-36); Mean Corpuscular Volume 82.6 fL (81-99); Mean Platelet Vol. 9.4 fl (6.2-12.0); Monocyte# 0.62 X10^3/uL; Monocyte% 4.1 % (0-10); NRBC Flagged by Analyzer 0 % (0-5); Neutrophil # 13.04 X10^3/uL (2.7-7.7); Neutrophil % 87.3 % (47-70); Platelet Count 189 K/mm3 (150-450); RBC Distribution Width CV 11.9 % (11.6-14.6); RBC Distribution Width SD 35.8 fl (35.1-43.9); Red Blood Count 4.59 M/mm3 (4.2-5.4); White Blood Count 14.9 K/mm3 (4.4-11.0)
[2023-07-19 17:42] LABS: AST(SGOT) 15 U/L (15-37); Alanine Aminotransfer ALT/SGPT 18 U/L (13-56); Albumin, Serum 3.5 g/dL (3.2-5.0); Alkaline Phosphatase 139 U/L (45-117); Anion Gap 8 (5-15); BUN 10 mg/dL (7-18); BUN/Creat Ratio 13.6 RATIO (10-20); Bilirubin, Direct 0.21 mg/dL (0.00-0.30); Calcium,Total 9.3 mg/dL (8.5-10.1); Chloride 100 mmol/L (98-107); Creatinine, Serum 0.74 mg/dL (0.55-1.02); EST Glomerular Filtration Rate 84 mL/min (>60); Est Glom Filt Rate - Afr Amer 102 mL/min (>60); Estimated Creatinine Clearance 82.11 ml/min; Globulin 4.3 g/dL (2.2-4.2); Glucose 170 mg/dL (74-106); Potassium 3.8 mmol/L (3.5-5.1); Protein, Total 7.8 g/dL (6.4-8.2); Sodium Level 133 mmol/L (136-145)
[2023-07-19] MEDS: Ceftriaxone 1 GM/50 ML BAG IV (18:06)
[2023-07-19 18:41] VITALS: BP 138/87; PULSE 65; RESP 18; TEMP 36.1; O2SAT 99
== END 2023-07-19 18:46 | disposition home or self-care (01) ==
PROVIDERS: Emergency Provider Emergency Medicine; PCP Family Medicine; Visit Provider Emergency Medicine
DX: N12 Tubulo-interstitial nephritis, not specified as acute or chronic (principal); E11.9 Type 2 diabetes mellitus without complications
CPT/HCPCS: 74176; 80048; 80076; 81001; 85025; 87086; 87088; 87186; 96365; 96372; 96375; 99283; J7030; A4216; J2405

== ENCOUNTER → 2024-02-21 | Outpatient (CLI) | payer BC, SELFPAY ==
[2024-02-21 17:31] LABS: Absolute Lymphocyte Count 1.77 X10^3/uL (0.83-4.51); Absolute Neutrophil Count 4.1 X10^3/uL (2.0-7.7); Basophil# 0.02 X10^3/uL; Basophil% 0.3 % (0-1); Eosinophil# 0.23 X10^3/uL; Eosinophils% 3.5 % (0-5); Hematocrit 35.7 % (37-47); Hemoglobin 11.5 g/dL (12.0-15.0); Lymphocyte # 1.77 X10^3/ul (0.83-4.51); Lymphocyte % 27.3 % (19-41); Mean Corp Hgb Conc 32.2 g/dL (32-36); Mean Corpuscular Hgb 27.4 pg (27.0-32.0); Mean Platelet Vol. 9.9 fl (6.2-12.0); Monocyte# 0.33 X10^3/uL; Monocyte% 5.1 % (0-10); NRBC Flagged by Analyzer 0 % (0-5); Neutrophil % 63.3 % (47-70); Platelet Count 240 K/mm3 (150-450); RBC Distribution Width CV 12.3 % (11.6-14.6); RBC Distribution Width SD 37.9 fl (35.1-43.9); White Blood Count 6.5 K/mm3 (4.4-11.0)
[2024-02-21 17:58] LABS: AST(SGOT) 12 U/L (15-37); Alanine Aminotransfer ALT/SGPT 18 U/L (13-56); Albumin, Serum 3.8 g/dL (3.2-5.0); Alkaline Phosphatase 118 U/L (45-117); Anion Gap 7 (5-15); BUN 24 mg/dL (7-18); BUN/Creat Ratio 25.6 RATIO (10-20); Calcium,Total 9.6 mg/dL (8.5-10.1); Chloride 105 mmol/L (98-107); Cholesterol 266 mg/dL (200); Creatinine, Serum 0.94 mg/dL (0.55-1.02); EST Glomerular Filtration Rate 64 mL/min (>60); Est Glom Filt Rate - Afr Amer 77 mL/min (>60); Globulin 3.8 g/dL (2.2-4.2); Glucose 146 mg/dL (74-106); High Density Lipoprotein 73 mg/dL; Protein, Total 7.6 g/dL (6.4-8.2); Sodium Level 136 mmol/L (136-145); Triglycerides 131 mg/dL; Very Low Density Lipoprotein 26 mg/dL (5-40)
[2024-02-21 20:13] LABS: Vitamin D,25 Hydroxy 20.6 ng/mL
[2024-02-25 14:23] LABS: Ferritin 32 ng/mL (8-252); Iron 66 ug/dL (50-170); Iron Binding Capacity,Total 315 ug/dL (250-450)
== END | disposition home or self-care (01) ==
LOC: MFPLAB 15:03
PROVIDERS: PCP Family Medicine; Referring Provider Family Medicine; Visit Provider Family Medicine
DX: D64.9 Anemia, unspecified (principal); E11.8 Type 2 diabetes mellitus with unspecified complications; E55.9 Vitamin D deficiency, unspecified
CPT/HCPCS: 36415; 80053; 80061; 82306; 82728; 83036; 83540; 83550; 85025

== ENCOUNTER → 2024-02-27 | Outpatient (CLI) | payer BC, SELFPAY ==
[2024-02-27 18:49] LABS: Anion Gap 10 (5-15); BUN 15 mg/dL (7-18); BUN/Creat Ratio 17.7 RATIO (10-20); Calcium,Total 9.4 mg/dL (8.5-10.1); Chloride 104 mmol/L (98-107); Creatinine, Serum 0.85 mg/dL (0.55-1.02); EST Glomerular Filtration Rate 72 mL/min (>60); Est Glom Filt Rate - Afr Amer 87 mL/min (>60); Glucose 105 mg/dL (74-106); Potassium 4.2 mmol/L (3.5-5.1); Sodium Level 140 mmol/L (136-145); Vitamin B12 511 pg/mL (211-911)
== END | disposition home or self-care (01) ==
LOC: MFPLAB 16:12
PROVIDERS: PCP Family Medicine; Referring Provider Family Medicine; Visit Provider Family Medicine
DX: E11.59 Type 2 diabetes mellitus with other circulatory complications (principal); D64.9 Anemia, unspecified

== ENCOUNTER 2024-03-05 17:31 | Inpatient (IN) | payer BC, SELFPAY ==
[2024-03-05] VITALS (12 sets, daily range): BP systolic 137–180; BP diastolic 56–93; PULSE 66–106; RESP 16–25; TEMP 36.2–37.4; O2SAT 93–100; BMI 37.4; BMI 33.7
[2024-03-05 18:06] LABS: Absolute Lymphocyte Count 1.78 X10^3/uL (0.83-4.51); Absolute Neutrophil Count 10.6 X10^3/uL (2.0-7.7); Basophil# 0.04 X10^3/uL; Basophil% 0.3 % (0-1); Eosinophil# 0.17 X10^3/uL; Eosinophils% 1.3 % (0-5); Hemoglobin 12.2 g/dL (12.0-15.0); Lymphocyte # 1.78 X10^3/ul (0.83-4.51); Lymphocyte % 13.6 % (19-41); Mean Corpuscular Hgb 27.7 pg (27.0-32.0); Mean Corpuscular Volume 83.9 fL (81-99); Mean Platelet Vol. 10.5 fl (6.2-12.0); Monocyte# 0.39 X10^3/uL; NRBC Flagged by Analyzer 0 % (0-5); Neutrophil # 10.63 X10^3/uL (2.7-7.7); Neutrophil % 81.3 % (47-70); POSITIVE COUNT YES; Platelet Count 200 K/mm3 (150-450); RBC Distribution Width CV 12.2 % (11.6-14.6); RBC Distribution Width SD 36.8 fl (35.1-43.9); Red Blood Count 4.41 M/mm3 (4.2-5.4); White Blood Count 13.1 K/mm3 (4.4-11.0)
[2024-03-05 18:08] LABS: Differential Indicated SCAN CRITERIA MET
[2024-03-05 18:29] LABS: ALB/GLOB Ratio 0.8 RATIO (0.9-2.4); AST(SGOT) 50 U/L (15-37); Alanine Aminotransfer ALT/SGPT 21 U/L (13-56); Albumin, Serum 3.7 g/dL (3.2-5.0); Alkaline Phosphatase 119 U/L (45-117); Anion Gap 11 (5-15); BUN 21 mg/dL (7-18); BUN/Creat Ratio 18.8 RATIO (10-20); Calcium,Total 9.6 mg/dL (8.5-10.1); Chloride 103 mmol/L (98-107); Creatinine, Serum 1.12 mg/dL (0.55-1.02); EST Glomerular Filtration Rate 52 mL/min (>60); Est Glom Filt Rate - Afr Amer 63 mL/min (>60); Globulin 4.6 g/dL (2.2-4.2); Glucose 199 mg/dL (74-106); Potassium 6.2 mmol/L (3.5-5.1); Protein, Total 8.3 g/dL (6.4-8.2); Sodium Level 132 mmol/L (136-145)
[2024-03-05 18:32] LABS: Differential Comment SCANNED
--- NOTE | 2024-03-05 19:09 | EKG12_ITS ---
Test Reason : DYSRHYTHMIA Blood Pressure : */* mmHG Vent. Rate : 85 BPM Atrial Rate : 85 BPM P-R Int : 150 ms QRS Dur : 86 ms QT Int : 364 ms P-R-T Axes : 38 9 30 degrees QTcB Int : 433 ms Normal sinus rhythm Nonspecific ST abnormality Abnormal ECG Confirmed by WENDY CAZARES, DANDY ([id number]), editor & co founder LULA CLEMENTE ([id number]) on 03/11/2024 7:11:01 AM Referred By: Confirmed By: DANDY NGUYEN MD
[2024-03-05 20:01] LABS: Mucous, Urine 0 SEEN /hpf (<or=2+); Red Blood Cells-Urine 0 SEEN /hpf (0-5)
[2024-03-05 20:04] LABS: Color, Urine Yellow (Yellow); Glucose, Dipstick Normal (Normal); Ketone-Dipstick 15 mg/dl (Negative); Leukocyte Esterase-Dipstick 500 /ul (Negative); Nitrite-Dipstick Positive (Negative); Occult Blood-Urine 50 /ul (Negative); Protein-Dipstick 30 mg/dl (Negative); Specific Gravity, Urine 1.025 (1.002-1.030); Urine Bilirubin Dipstick Negative (Negative); Urine Clarity Clear (Clear); Urine Urobilinogen Normal (Normal)
--- NOTE | 2024-03-05 20:08 | CT_ITS ---
EXAM: CT ABDOMEN AND PELVIS WITH INTRAVENOUS CONTRAST CLINICAL INDICATION: right flank pain TECHNIQUE: Helically acquired images were obtained of the abdomen and pelvis with intravenous contrast. This CT exam was performed using one or more of the following dose reduction techniques: automated exposure control, adjustment of the mA and/or kV according to patient size, and/or use of iterative reconstruction technique. CONTRAST: IV 100mL Isovue-300 COMPARISON: 06/13/2019 FINDINGS: LOWER THORAX: Coronary artery calcifications and/or stents. Lung bases are clear. No cardiomegaly. No significant pericardial effusion. ABDOMEN: LIVER: Low-attenuation foci in the liver adjacent to the gallbladder fossa and the falciform ligament are likely focal areas of fatty infiltration. GALLBLADDER AND BILE DUCTS: Cholelithiasis without secondary signs of acute cholecystitis. No intra- or extrahepatic biliary ductal dilation. PANCREAS: No significant abnormality. No focal cystic or solid mass. SPLEEN: No significant abnormality. Normal size without focal cystic or solid mass. ADRENALS: No significant abnormality. No nodules. KIDNEYS AND URETERS: Right perinephric stranding and severe right-sided hydronephrosis associated with a stone at the right ureteropelvic junction measuring 1.2 cm. Additional right lower pole calyceal stone measuring 0.7 cm. No left-sided urolithiasis or hydronephrosis. STOMACH AND BOWEL: Diverticulosis of the colon without evidence of acute diverticulitis. No stomach or bowel distention. PELVIS: APPENDIX: Normal appendix in the right lower quadrant. BLADDER: No significant abnormality. REPRODUCTIVE: Normal as visualized. No mass. ABDOMEN and PELVIS: INTRAPERITONEAL SPACE: No significant abnormality. No ascites or other fluid collection. No free air. BONES/JOINTS: Osseous degenerative changes and scoliosis. No suspicious lytic or blastic abnormality. SOFT TISSUES: No significant abnormality. No discrete abdominal or pelvic wall hernia. VASCULATURE: Atherosclerosis. No aneurysm. LYMPH NODES: No significant abnormality. No enlarged lymph nodes. CT/Abdomen/Pelvis W IV Cont ONLY IMPRESSION: 1. Right perinephric stranding and severe right-sided hydronephrosis associated with a stone at the right ureteropelvic junction measuring 1.2 cm. Additional right lower pole calyceal stone measuring 0.7 cm. No left-sided urolithiasis or hydronephrosis. 2. Cholelithiasis without secondary signs of acute cholecystitis. 3. Diverticulosis of the colon without evidence of acute diverticulitis. Electronically Signed: Stanford Barriga DO at 20:45 EST ,
[2024-03-05 20:10] LABS: Potassium 4.3 mmol/L (3.5-5.1)
[2024-03-05 20:12] LABS: Bacteria 2+ /hpf (None Seen); Calcium Oxalate Crystals Ur 1+ /hpf (<or=2+); Squamous Epithelial Cells - UA 0-5 SEEN /hpf (5-10); White Blood Cells 5-10 SEEN /hpf (0-5)
[2024-03-05] MEDS: 0.9% Normal Saline (1000mL) 1,000 ML 999 ML IV (20:25)
[2024-03-05] MEDS: Ondansetron 4 MG/2 ML Vial IV (20:26)
[2024-03-05] MEDS: morphine 8 MG/ML Syringe 6 MG IV (20:26)
--- NOTE | 2024-03-05 20:31 | ED.VIS.GI ---
HPI HPI - GI History of Present Illness Chief Complaint: Flank Pain Informant: patient Narrative Narrative: Patient is a 63-year-old female with history of diabetes presenting with right-sided pain from her ribs down to her groin. She has associated coughing and vomiting. She states she intermittently is feeling freezing and hot. Pain is constant but seems to fluctuate intensity. She describes it as sharp. She denies any blood in her urine or painful urination. She has chronic soft stools with no change in that. Notes that she recently had an x-ray which showed kidney stones but has not actually passed a kidney stone before. She is concerned she is passing 1 now. Came in for further evaluation and symptom control. [facility] Medical History CKD (chronic kidney disease), stage II Obesity AROLDO (obstructive sleep apnea) Constipation Hx of nephrolithotomy with removal of calculi Chronic neck and back pain Diabetes Arthritis HTN (hypertension) Home Medications ?Medication ?Instructions ?Recorded ?Last Taken ?Type metformin 500 mg tablet 500 mg PO BIDCM 11/24/13 Unknown History insulin glargine 100 unit/mL (3 10 unit subcut QPM 10/26/22 Unknown History mL) subcutaneous pen (Lantus Solostar U-100 Insulin) plecanatide 3 mg tablet (Trulance) 3 mg PO DAILY 10/26/22 Unknown History amlodipine 5 mg tablet 5 mg PO DAILY 03/05/24 Unknown History ergocalciferol (vitamin D2) 1,250 1,250 mcg PO QWEEK 03/05/24 Unknown History mcg (50,000 unit) capsule lisinopril 20 mg tablet 20 mg PO DAILY 03/05/24 Unknown History lisinopril 5 mg tablet 5 mg PO DAILY 03/05/24 Unknown History Allergy/AdvReac Type Severity Reaction Status Date / Time latex AdvReac Mild Hives Verified 07/19/23 15:16 BP MED Allergy Itching Uncoded 06/13/19 12:25 Family History Father Heart disease Mother Heart disease CVA (cerebral vascular accident) Brother Hypertension Surgical History History of lithotripsy Social History household members: none Smoking Status: Never smoker alcohol intake: never substance use type: does not use ROS ROS ED Constitutional Constitutional ED: Reports chills and sweats; Denies fever(s) Cardiovascular Cardiovascular: Denies chest pain Respiratory/Chest Respiratory/Chest: Denies cough Gastrointestinal Gastrointestinal: Reports abdominal pain, nausea and vomiting; Denies diarrhea or melena Genitourinary Genitourinary ED: Denies dysuria or hematuria Musculoskeletal Musculoskeletal: Reports back pain; Denies arthralgias or myalgias Integumentary Denies rash Psychiatric Psychiatric: Reports anxiety EXAM Physical Exam Const Vital Signs: 03/05/24 17:32 03/05/24 19:31 03/05/24 21:00 Temperature 97.1 F L Temperature Source Temporal Pulse Rate 66 102 H 93 Respiratory Rate 20 H 24 H 25 H Blood Pressure 166/82 H 163/93 H 180/85 H Blood Pressure Mean 110 116 116 Blood Pressure Source Blood Pressure Position Blood Pressure Location Pulse Ox 100 95 96 Oxygen Delivery Method Room Air Room Air 03/05/24 21:58 03/05/24 21:58 03/05/24 22:11 Temperature 99.2 F H 99.2 F H 99.2 F H Temperature Source Oral Pulse Rate 87 88 88 Respiratory Rate 24 H 22 H 22 H Blood Pressure 162/68 H 162/68 H 162/68 H Blood Pressure Mean 99 99 Blood Pressure Source Monitor Blood Pressure Position Semi-Fowlers Blood Pressure Location Right Arm Pulse Ox 96 96 96 Oxygen Delivery Method Room Air Room Air Positive well nourished and well developed Constitutional Narrative: Uncomfortable appearing, actively retching General Appearance ED: well developed HEENT Reports dry mucous membranes Mouth ED: Yes dry mucous membranes Mouth: dry mucous membranes Eyes PERRL Neck supple Resp normal respiratory effort Cardio regular rate and regular rhythm GI non-distended GI Narrative: Hypoactive bowel sounds. Mild tenderness of the right side of the abdomen but not highly reproducible Neuro moves all extremities Sensorium / Orientation: alert Motor Exam: general weakness Psych mental status grossly normal and thought process normal Skin no wounds MDM MDM MDM Narrative Medical decision making narrative: Patient is evaluated for sudden onset of right-sided flank pain rating to her groin. Does have a history of kidney stones previously seen Dr. Witt. Is having associated nausea and vomiting. Vital signs significant for mild hypertension in the emergency room. Labs including CBC, lipase, CMP and urinalysis obtained. Patient does have an elevation of her white blood cell count of 13.1. Unclear if this is a reactive from her vomiting or associated with an infection. Her potassium is significantly elevated 6.2. This is repeated as she has only mild elevation of her kidney function and suspect this is more from hemolysis. Repeat potassium is 4.3. She is mildly hyponatremic with a sodium of 132. Glucose mildly elevated at 199. Kidney function is noted as mildly elevated at 1.12 her baseline is 0.8. Urinalysis is highly concerning for urinary tract infection with positive nitrates, 500 leukocyte esterase, 5-10 white blood cells and 2+ bacteria. CT abdomen pelvis with IV contrast obtained as differential includes pyelonephritis, diverticulitis, renal infarct and renal colic. CT shows right perinephric stranding and severe right-sided hydronephrosis with a stone that is 1.2 cm at the right UPJ. Given associated infection my concern is that patient will require emergent lithotripsy. Case is discussed with Dr. Carpenter will take the patient to the OR. She started on IV Zosyn. Urine culture sent. Case discussed with my physician, Dr. Magallon. Patient will be admitted to PCU after the OR. Lab Data Attestation: I reviewed the patient's lab results. Labs: Laboratory Results - last 24 hr 03/05/24 03/05/24 17:43 19:56 WBC 13.1 H RBC 4.41 Hgb 12.2 Hct 37.0 MCV 83.9 MCH 27.7 MCHC 33.0 RDW Std Deviation 36.8 RDW Coeff of [place] 12.2 Plt Count 200 MPV 10.5 Immature Gran % (Auto) 0.500 Neut % (Auto) 81.3 H Lymph % (Auto) 13.6 L [place] % (Auto) 3.0 Eos % (Auto) 1.3 Baso % (Auto) 0.3 Absolute Neuts (auto) 10.6 H Absolute Lymphs (auto) 1.78 Nucleated RBC % 0 Differential Comment SCANNED Sodium 132 L Potassium 6.2 H* 4.3 Chloride 103 Carbon Dioxide 18.0 L Anion Gap 11 BUN 21 H Creatinine 1.12 H Est GFR (MDRD) Af Amer 63 Est GFR (MDRD) Non-Af 52 L BUN/Creatinine Ratio 18.8 Glucose 199 H Calcium 9.6 Total Bilirubin 0.50 AST 50 H ALT 21 Alkaline Phosphatase 119 H Total Protein 8.3 H Albumin 3.7 Globulin 4.6 H Albumin/Globulin Ratio 0.8 L Urine Color Yellow Urine Clarity Clear Urine pH 5.0 Ur Specific [place] 1.025 Urine Protein 30 H Urine Glucose (UA) Normal Urine Ketones 15 H Urine Occult Blood 50 H Urine Nitrite Positive H Urine Bilirubin Negative Urine Urobilinogen Normal Ur Leukocyte Esterase 500 H Urine RBC 0 SEEN Urine WBC 5-10 SEEN Ur Squamous Epith Cells 0-5 SEEN Calcium Oxalate Crystal 1+ Urine Bacteria 2+ Urine Mucus 0 SEEN Radiography Diagnostic Testing: Clinical Impression(s) from Imaging Studies Abdomen/Pelvis CT 03/05/24 20:08 IMPRESSION: 1. Right perinephric stranding and severe right-sided hydronephrosis associated with a stone at the right ureteropelvic junction measuring 1.2 cm. Additional right lower pole calyceal stone measuring 0.7 cm. No left-sided urolithiasis or hydronephrosis. 2. Cholelithiasis without secondary signs of acute cholecystitis. 3. Diverticulosis of the colon without evidence of acute diverticulitis. Electronically Signed: Stanford Barriga DO at 20:45 EST , Rhythm Strip Rhythm Strip: Sinus Rhythm Rate: 85 Ectopy: None EKG Initial EKG: Attestation: I personally reviewed and interpreted this EKG as follows: Interpretation: Sinus Rhythm Comments: Normal sinus rhythm rate of 85 bpm Normal axis Normal intervals Normal ST segments Management Discussion w/another healthcare provider: Hospitalist and Supervisor [employer] Discharge Plan Dx/Rx/DC Orders Clinical Impression: Pyelonephritis, Hydronephrosis with renal calculous obstruction, Complicated UTI (urinary tract infection) Disposition Disposition: [facility] Discharge Date/Time: 03/05/24 22:08
--- NOTE | 2024-03-05 21:08 | PCM.CONS.U ---
Assessment & Plan Assessment/Plan (1) Kidney stones: PLAN: Plan for right stent placement HPI Consult Data Date of Consult: 03/05/24 HPI Narrative Reason for Consultation: Infected stone HPI Narrative: ZEHRA CORNEJO, is a 63 F who presents To the emergency room it?s severe right flank pain. CAT scan was done to demonstrate a large stone, causing obstruction in the right renal pelvis She?s got fevers and chills low white blood count concerning for sepsis and early sepsis so they?re gonna take her surgery tonight for cystoscopy right state placementto the thomas Should be admitted to medical service for management infection.. [facility] Medical History (Updated 03/05/24 @ 21:[address] Dalton Carpenter MD) Constipation Hx of nephrolithotomy with removal of calculi Kidney stones Tiredness Shoulder pain Knee pain Chronic neck and back pain Diabetes Arthritis HTN (hypertension) Home Medications ?Medication ?Instructions ?Recorded ?Last Taken ?Type metformin 500 mg tablet 500 mg PO BIDCM 11/24/13 Unknown History insulin glargine 100 unit/mL (3 10 unit subcut QPM 10/26/22 Unknown History mL) subcutaneous pen (Lantus Solostar U-100 Insulin) plecanatide 3 mg tablet (Trulance) 3 mg PO DAILY 10/26/22 Unknown History sulfamethoxazole 800 1 tab PO BID #20 tabs 07/19/23 Unknown Rx mg-trimethoprim 160 mg tablet (Bactrim DS) Allergy/AdvReac Type Severity Reaction Status Date / Time latex AdvReac Mild Hives Verified 07/19/23 15:16 BP MED Allergy Itching Uncoded 06/13/19 12:25 Family History Father Heart disease Mother Heart disease CVA (cerebral vascular accident) Brother Hypertension Social History Smoking Status: Never smoker alcohol intake: never Physical Exam Const alert and oriented x3 General Appearance: cooperative HEENT normocephalic and head/scalp atraumatic Eyes PERRL and EOMs intact bilaterally Neck supple, no JVD and no carotid bruits Resp normal respiratory effort, normal air movement and clear to auscultation bilaterally Cardio regular rate and no murmurs GI normal to inspection, nondistended, normoactive bowel sounds and soft to palpation Extremity normal capillary refill General Extremity: no tenderness to palpation of joints or extremities; Negative for edema Skin no rashes or lesions noted and no wounds General Skin Exam: no breakdown Neuro CN's II-XII intact bilaterally Psych affect normal Appearance: appropriate Lab / Micro Data 03/05/24 17:43 03/05/24 19:56 Labs: Laboratory Results - last 24 hr 03/05/24 17:43: WBC 13.1 H, RBC 4.41, Hgb 12.2, Hct 37.0, MCV 83.9, MCH 27.7, MCHC 33.0, RDW Std Deviation 36.8, RDW Coeff of [place] 12.2, Plt Count 200, MPV 10.5, Immature Gran % (Auto) 0.500, Neut % (Auto) 81.3 H, Lymph % (Auto) 13.6 L, [place] % (Auto) 3.0, Eos % (Auto) 1.3, Baso % (Auto) 0.3, Absolute Neuts (auto) 10.6 H, Absolute Lymphs (auto) 1.78, Nucleated RBC % 0, Differential Comment SCANNED, Sodium 132 L, Potassium 6.2 H*, Chloride 103, Carbon Dioxide 18.0 L, Anion Gap 11, BUN 21 H, Creatinine 1.12 H, Est GFR (MDRD) Af Amer 63, Est GFR (MDRD) Non-Af 52 L, BUN/Creatinine Ratio 18.8, Glucose 199 H, Calcium 9.6, Total Bilirubin 0.50, AST 50 H, ALT 21, Alkaline Phosphatase 119 H, Total Protein 8.3 H, Albumin 3.7, Globulin 4.6 H, Albumin/Globulin Ratio 0.8 L 03/05/24 19:56: Potassium 4.3, Urine Color Yellow, Urine Clarity Clear, Urine pH 5.0, Ur Specific [place] 1.025, Urine Protein 30 H, Urine Glucose (UA) Normal, Urine Ketones 15 H, Urine Occult Blood 50 H, Urine Nitrite Positive H, Urine Bilirubin Negative, Urine Urobilinogen Normal, Ur Leukocyte Esterase 500 H, Urine RBC 0 SEEN, Urine WBC 5-10 SEEN, Ur Squamous Epith Cells 0-5 SEEN, Calcium Oxalate Crystal 1+, Urine Bacteria 2+, Urine Mucus 0 SEEN Imaging Radiology Impression Abdomen/Pelvis CT 03/05/24 20:08 IMPRESSION: 1. Right perinephric stranding and severe right-sided hydronephrosis associated with a stone at the right ureteropelvic junction measuring 1.2 cm. Additional right lower pole calyceal stone measuring 0.7 cm. No left-sided urolithiasis or hydronephrosis. 2. Cholelithiasis without secondary signs of acute cholecystitis. 3. Diverticulosis of the colon without evidence of acute diverticulitis. Electronically Signed: Stanford Barriga DO at 20:45 EST ,
[2024-03-05] MEDS: Piperacil/Tazobactam 3.375 GM in 0.9% Normal Saline (50mL MB+) 50 ML IV (21:25)
--- NOTE | 2024-03-05 21:31 | PCM.HP.STD ---
HPI - General General Date of Admission: 03/05/24 Date of Service: 03/05/24 Chief Complaint: R sided flank pain, chills, N/V. HPI Narrative The patient is a 63 y/o F w/ PMHx: Chronic constipation, OA, HTN, Chronic neck/back pain, Diabetes mellitus type II who presents to the [facility] ED on 03/05/2024 with history of right sided pain from her ribs down to her groin with nausea, emesis and coughing with intermittent chills/subjective fevers with pain constant although has waxing and waning in intensity noted to be sharp and severe 10 out of 10 at times with a recent plain film purportedly with evidence of kidney stones however she denies having ever passed a kidney stone previously prompting eventual ED evaluation. Patient reports the pain in the right abdomen and flank is tentative 10 in severity, worse with any palpation. Workup in the ED included T97.1, heart rate 66, BP 166/82, respiratory rate 20, 100% on room air with most recent repeat vitals heart rate 102, BP 163/93, respiratory rate 24, 95% on room air, CBC with WC 13.1, hemoglobin 12.2, platelet 200 with left shift, CMP with sodium 132, potassium initially 6.2 however repeat 4.3, complex at 18, BUN/2020/1.12, GFR 52, glucose 199, AST/LT 50/21, alk phos 119, urinalysis with specific cavity 1.025, protein 30, ketone 15, occult blood 50, nitrate positive, cassette esterase 500, urine WBCs 5-10 with 2+ urine bacteria, CT abdomen and pelvis with right perinephric stranding and severe right-sided hydronephrosis associated with a stone at the right ureteropelvic junction measuring 1.2 cm with an additional right lower pole calyceal stone measuring 0.7 cm with no left-sided urolithiasis or hydronephrosis, cholelithiasis without any secondary signs of acute cholecystitis, diverticulosis of the colon without any evidence of acute diverticulitis. In the ED patient ministered IV Zosyn, Zofran 4 mg IV x 1, morphine 6 mg IV x 1 and 1 L normal saline. ED discussed case with urology Dr. Carpenter with plan to operative intervention this evening. [facility] Medical History (Updated 03/05/24 @ 22:[address] Ashley Magallon MD) CKD (chronic kidney disease), stage II Obesity AROLDO (obstructive sleep apnea) Constipation Hx of nephrolithotomy with removal of calculi Chronic neck and back pain Diabetes Arthritis HTN (hypertension) Home Medications ?Medication ?Instructions ?Recorded ?Last Taken ?Type metformin 500 mg tablet 500 mg PO BIDCM 11/24/13 Unknown History insulin glargine 100 unit/mL (3 10 unit subcut QPM 10/26/22 Unknown History mL) subcutaneous pen (Lantus Solostar U-100 Insulin) plecanatide 3 mg tablet (Trulance) 3 mg PO DAILY 10/26/22 Unknown History amlodipine 5 mg tablet 5 mg PO DAILY 03/05/24 Unknown History ergocalciferol (vitamin D2) 1,250 1,250 mcg PO QWEEK 03/05/24 Unknown History mcg (50,000 unit) capsule lisinopril 20 mg tablet 20 mg PO DAILY 03/05/24 Unknown History lisinopril 5 mg tablet 5 mg PO DAILY 03/05/24 Unknown History Allergy/AdvReac Type Severity Reaction Status Date / Time latex AdvReac Mild Hives Verified 07/19/23 15:16 BP MED Allergy Itching Uncoded 06/13/19 12:25 Family History Father Heart disease Mother Heart disease CVA (cerebral vascular accident) Brother Hypertension Surgical History History of lithotripsy Social History household members: none Smoking Status: Never smoker alcohol intake: never substance use type: does not use ROS ROS Narrative Admission Review of Systems: CONSTITUTIONAL: No weight loss, + fever, chills, weakness or fatigue. HEENT: Eyes: No visual loss, blurred vision, double vision or yellow sclerae. Ears, Nose, Throat: No hearing loss, sneezing, congestion, runny nose or sore throat. SKIN: No rash or itching, lesions, wounds. CARDIOVASCULAR: No chest pain, chest pressure or chest discomfort, palpitations, edema, orthopnea, syncopal events. RESPIRATORY: No shortness of breath, cough or sputum, wheezing, hemoptysis. GASTROINTESTINAL: + anorexia, nausea, vomiting, flank pain/right-sided abdominal pain, chronic constipation. No diarrhea, melena, BRBPR. GENITOURINARY: + Right-sided flank pain. No dysuria, frequency, urgency or retention. NEUROLOGICAL: No headache, dizziness, syncope, paralysis, ataxia, numbness or tingling in the extremities, focal weakness, change in bowel or bladder control, seizure. MUSCULOSKELETAL: + muscle, back pain, joint pain or stiffness. HEMATOLOGIC: No anemia, bleeding or bruising. LYMPHATICS: No enlarged nodes. No history of splenectomy. PSYCHIATRIC: No history of depression or anxiety. ENDOCRINOLOGIC: + reports of sweating, cold or heat intolerance. No polyuria or polydipsia. ALLERGIES: + History of hives. Vital Signs Vital Signs Vital Signs: 03/05/24 17:32 03/05/24 19:31 03/05/24 21:00 Temperature 97.1 F L Temperature Source Temporal Pulse Rate 66 102 H 93 Respiratory Rate 20 H 24 H 25 H Blood Pressure 166/82 H 163/93 H 180/85 H Blood Pressure Mean 110 116 116 Pulse Ox 100 95 96 Oxygen Delivery Method Room Air Room Air Physical Exam Narrative Physical Examination: General: Awake, alert, oriented x 3 and cooperative, seated upright in the ED bed, fatigued, uncomfortable appearing, notes ongoing right severe flank pain 10 out of 10 in severity. Skin: Normal color, normal turgor, no icterus, no cyanosis. HEENT: AT/NC, EOMI, PERRLA, dry MM, no carotid bruits or JVD noted. Lungs: Mild diminished, greater bases, appropriate effort, no rales, ronchi or wheezing. Heart: Mildly tachycardic with regular rhythm; no gallop, rub audible. Abdomen: Soft, obese, significant discomfort to the right sided abdominal palpation as well as right flank palpation, no obvious distention, distant BS, no appreciated HSM but pain makes evaluation difficult. Extremities: No cyanosis, clubbing, or edema. Neurological: Patient awake, alert, oriented as noted, cognitive function intact; pupils equally reactive to light and accommodation, cranial nerves II-XII grossly normal, moving all 4 extremities, no focal deficits, strength severely globally creased secondary to pain/acute presentation. Psychiatric: Affect appears uncomfortable appearing, no acute evidence of depressive or anxiety feelings. Results Lab / Micro Data 03/05/24 17:43 03/05/24 19:56 Labs: Laboratory Results - last 24 hr 03/05/24 17:43: WBC 13.1 H, RBC 4.41, Hgb 12.2, Hct 37.0, MCV 83.9, MCH 27.7, MCHC 33.0, RDW Std Deviation 36.8, RDW Coeff of [place] 12.2, Plt Count 200, MPV 10.5, Immature Gran % (Auto) 0.500, Neut % (Auto) 81.3 H, Lymph % (Auto) 13.6 L, [place] % (Auto) 3.0, Eos % (Auto) 1.3, Baso % (Auto) 0.3, Absolute Neuts (auto) 10.6 H, Absolute Lymphs (auto) 1.78, Nucleated RBC % 0, Differential Comment SCANNED, Sodium 132 L, Potassium 6.2 H*, Chloride 103, Carbon Dioxide 18.0 L, Anion Gap 11, BUN 21 H, Creatinine 1.12 H, Est GFR (MDRD) Af Amer 63, Est GFR (MDRD) Non-Af 52 L, BUN/Creatinine Ratio 18.8, Glucose 199 H, Calcium 9.6, Total Bilirubin 0.50, AST 50 H, ALT 21, Alkaline Phosphatase 119 H, Total Protein 8.3 H, Albumin 3.7, Globulin 4.6 H, Albumin/Globulin Ratio 0.8 L 03/05/24 19:56: Potassium 4.3, Urine Color Yellow, Urine Clarity Clear, Urine pH 5.0, Ur Specific [place] 1.025, Urine Protein 30 H, Urine Glucose (UA) Normal, Urine Ketones 15 H, Urine Occult Blood 50 H, Urine Nitrite Positive H, Urine Bilirubin Negative, Urine Urobilinogen Normal, Ur Leukocyte Esterase 500 H, Urine RBC 0 SEEN, Urine WBC 5-10 SEEN, Ur Squamous Epith Cells 0-5 SEEN, Calcium Oxalate Crystal 1+, Urine Bacteria 2+, Urine Mucus 0 SEEN Imaging Radiology Impression Abdomen/Pelvis CT 03/05/24 20:08 IMPRESSION: 1. Right perinephric stranding and severe right-sided hydronephrosis associated with a stone at the right ureteropelvic junction measuring 1.2 cm. Additional right lower pole calyceal stone measuring 0.7 cm. No left-sided urolithiasis or hydronephrosis. 2. Cholelithiasis without secondary signs of acute cholecystitis. 3. Diverticulosis of the colon without evidence of acute diverticulitis. Electronically Signed: Stanford Barriga, at 20:45 EST , Assessment & Plan Assessment/Plan (1) Pyelonephritis: (2) Hydronephrosis with renal calculous obstruction: PLAN: Plan The patient is a 63 y/o F w/ PMHx: CKD stage II per prior GFR trending, Chronic constipation, OA, HTN, Chronic neck/back pain, Diabetes mellitus type II who presents to the [facility] ED on 03/05/2024 with history of right sided pain from her ribs down to her groin with nausea, emesis and coughing with intermittent chills with pain constant although has waxing and waning in intensity noted to be sharp and severe 10 out of 10 at times with a recent plain film purportedly with evidence of kidney stones however she denies having ever passed a kidney stone previously prompting eventual ED evaluation. #1. Acute Complicated R sided Pyelonephritis secondary to acute obstructive stone at the right ureteropelvic junction with associated right-sided hydronephrosis resulting in acute kidney injury on CKD stage II per previous GFR trend: Will admit to PCU following operative intervention, urology consulted and taken to the OR now, UA upon ED evaluation remarkable, pending UCx, will continue IV fluids, monitor I/Os, based on previous cultures patient has been resistant to Zosyn which she received in the ED thus will maintain and continue IV Rocephin to which she has been susceptible previously w/ transition as able pending sensitivities and speciation. Admission BUN/creatinine /.12 with GFR 52, baseline creatinine primarily 0.7-0.8, most recently 02/27/2024 creatinine 0.85 at that time thus greater than 1.5 baseline normal previously, also previous GFR primarily consistent with stage II disease. Bld cx x 2 obtained in the ED. #2. Hyponatremia, mild, suspected hypovolemic with GI losses with acute presentation as noted #1: Admission sodium 132, chloride 103, will continue judicious hydration repeat CMP in AM. #3. Diabetes mellitus type II: Will continue home insulin regimen, ADA diet once allowed postoperatively, accu checks w/ ISS. #4. Hypertension: Given MARYBEL will hold lisinopril, continue amlodipine, IV hydralazine also in interim. #5. Chronic constipation: We will continue patient home Trulance regimen and may certainly add as needed agents as well. #6. Chronic neck and back pain: Encourage positional changes, offloading. #7. Obesity: Weight loss and lifestyle changes encouraged. #8. AROLDO: Patient notes she does have a history but was unable to afford CPAP, will initiate PAP therapy while inpatient and case management consulted. #9. DVT prophylaxis: SCDs. Charges/Coding Visit Charges Inpatient E&M: 15322 Init Hosp L3
--- NOTE | 2024-03-05 22:07 | ED.RN ---
attempted to call patients Daughter and brother to let them know patient is going to surgery and being admitted. Left a message for the daughter but the brothers mailbox is full.
--- NOTE | 2024-03-05 22:08 | PRE.ANES_ITS ---
ASA Classification* ASA Classification ASA Classification: 3 Assessment & Plan Anesthesia* Anesthesia Assessment Anesthesia Assessment: Discussed sedation and/or anesthesia options, risks, benefits, and alternatives with patient/parents/legal guardian/POA. Questions invited. The patient/parents/legal guardian/POA seems to understand and agrees to proceed with anesthesia plan. Reviewed the physical assessment, medical history, allergy history and patient home medications list prior to surgery/procedure/anesthetic and documented any changes. Performed airway and anesthesia risk assessments. Anesthesia Type Anesthesia Type: General History Source History Obtained from:: Patient and Chart Anesthesia Focused Assessment* Temperature: 99.2 F Pulse Rate: 88 Blood Pressure: 162/68 Respiratory Rate: 22 Pulse Ox: 96 Oxygen Delivery Method: Room Air Airway Assessment Mouth opens: >3 cm Mallampati Score: III Teeth Condition: Intact Focused Labs Anesthesia Preop lab: CBC WBC 13.1 K/mm3 (4.4-11.0) H 03/05/24 17:43 RBC 4.41 M/mm3 (4.2-5.4) 03/05/24 17:43 Hgb 12.2 g/dL (12.0-15.0) 03/05/24 17:43 Hct 37.0 % (37-47) 03/05/24 17:43 Plt Count 200 K/mm3 (150-450) 03/05/24 17:43 CHEMISTRY Potassium 4.3 mmol/L (3.5-5.1) 03/05/24 19:56 Sodium 132 mmol/L (136-145) L 03/05/24 17:43 BUN 21 mg/dL (7-18) H 03/05/24 17:43 Creatinine 1.12 mg/dL (0.55-1.02) H 03/05/24 17:43 Glucose 199 mg/dL (74-106) H 03/05/24 17:43 POC Glucose 290 mg/dL (70-110) H 03/04/16 00:43 TSH 0.96 uIU/mL (0.358-3.74) 10/25/22 16:12 COAG Pre-Assessment Diagnosis/Proposed Procedure Planned Operative Procedure(s): Cystoscopy with Sent Placement Anesthesia History Anesthesia History - esthetic dermatologist: Anesthesia History - esthetic dermatologist Hx Hospitalization Yes 06/13/19 12:33 Any Problems With Anesthesia No 03/05/24 21:58 Cholinesterase deficiency No 03/05/24 21:58 You/Your Family Experience No 03/05/24 21:58 fever (hyperthermia) with Relationship Recent Exposure to Contagious No 03/05/24 21:58 Disease Does patient have nerve No 03/05/24 21:58 stimulator Patient instructed to have No 03/05/24 21:58 device shut off --Does patient have Pacemaker No 03/05/24 21:58 or ICD? When Was Last Pacemaker Check QUESTION #4 FULL TEXT: You/Your Family Experience fever (hyperthermia) with Anesthesia Last Oral Intake Last Oral intake: Last Oral Intake NPO since Meds taken in AM with sips of water? Meds patient instructed to take am of surgery PONV PONV - esthetic dermatologist: PONV - esthetic dermatologist Female HX of Motion Sickness HX of N/V After Surgery Non-Smoker Duration of Surgery greater than 60 minutes Number of Risk Factors PONV Score Height & Weight Height & Weight: Anesthesia: Height & Weight Height 5 ft 3 in 03/05/24 21:58 Weight: 95.8 kg 03/05/24 22:01 Body Mass Index (BMI) 37.4 03/05/24 22:01 Respiratory Assessment Respiratory Assessment - esthetic dermatologist: Respiratory Tract Infection Hx - esthetic dermatologist Hx Respiratory Tract Infection No 03/05/24 21:58 STOP Sleep Apnea STOP Sleep Apnea - esthetic dermatologist: STOP Sleep Apnea - esthetic dermatologist Hx Hypertension Yes 03/05/24 21:58 Hx Sleep Apnea Yes 03/05/24 21:58 CPAP No 03/05/24 21:58 BIPAP No 03/05/24 21:58 Do you snore loudly (louder than talking or can be heard Do you often feel tired/ fatigued/ sleepy during daytime? Has anyone observed you stop breathing during sleep? STOP Results Positive 03/05/24 21:58 QUESTION #5 FULL TEXT : Do you snore loudly (louder than talking or can be heard through closed doors)? Tobacco Use History Tobacco Use History - esthetic dermatologist: Tobacco Use History - esthetic dermatologist Tobacco Use Smoking Status Never smoker 03/05/24 18:21 Hx Tobacco Use No 02/25/19 19:45 Years Smoking Packs Smoked per Day Smoking Cessation Date was within the last 15 years Hx Smoking Cessation Date Hx Smoking Cessation Counseling Hematologic Medial History Hematologic Hx - esthetic dermatologist: Hematologic Medical Hx - operations support coordinator Hx of Blood Transfusion Hx of Transfusion in last 3 Months Date of Last Transfusion (if within last 3 months) Ever experience any problems with transfusion(s)? Specify any problems Hx of Preganancy in last 3 Months Nurse Filling Out Transfusion & Questions: Date: Time: Patient unable to answer at this time (ie. confused, unrespo /Reproduction History /Reproductive History - esthetic dermatologist: /Reproductive Hx- esthetic dermatologist Hx Now No 03/05/24 21:58 Gestational Age (in weeks): EDC: Hx Hx Para Hx Section SAB PFSH Medical History Constipation Hx of nephrolithotomy with removal of calculi Kidney stones Tiredness Shoulder pain Knee pain Chronic neck and back pain Diabetes Arthritis HTN (hypertension) Home Medications ?Medication ?Instructions ?Recorded ?Last Taken ?Type metformin 500 mg tablet 500 mg PO BIDCM 11/24/13 Unknown History insulin glargine 100 unit/mL (3 10 unit subcut QPM 10/26/22 Unknown History mL) subcutaneous pen (Lantus Solostar U-100 Insulin) plecanatide 3 mg tablet (Trulance) 3 mg PO DAILY 10/26/22 Unknown History amlodipine 5 mg tablet 5 mg PO DAILY 03/05/24 Unknown History ergocalciferol (vitamin D2) 1,250 1,250 mcg PO QWEEK 03/05/24 Unknown History mcg (50,000 unit) capsule lisinopril 20 mg tablet 20 mg PO DAILY 03/05/24 Unknown History lisinopril 5 mg tablet 5 mg PO DAILY 03/05/24 Unknown History Allergy/AdvReac Type Severity Reaction Status Date / Time latex AdvReac Mild Hives Verified 07/19/23 15:16 BP MED Allergy Itching Uncoded 06/13/19 12:25 Family History Father Heart disease Mother Heart disease CVA (cerebral vascular accident) Brother Hypertension Social History Smoking Status: Never smoker alcohol intake: never Review of Systems (Anesthesia) ROS Narrative System reviewed and no additional complaints, except as documented.
--- NOTE | 2024-03-05 22:31 | PCM.OPRPT ---
Operative Report (Standard) Operative Information Date of Procedure: 03/05/24 Pre-Operative Diagnosis: Right obstructing kidney stone with infection Post-Operative Diagnosis: The same Surgery/Procedure Performed: Cystoscopy right stent placement lead esthetician: No Type of Anesthesia: General RN Documented Start/Stop Times: Operation Date: 03/05/24 22:25 Case Time Anesthesia Start 03/05/24 22:13 Into Room 03/05/24 22:13 Procedure Start 03/05/24 22:28 Procedure End 03/05/24 22:30 Procedure Start Time: : Procedure Stop Time: 22:31 Select all DRAINS/GRAFTS/IMPLANTS that apply: Drains Drain details: Right stent 6 x 26 Estimated Blood Loss: None Specimen collected: No Description of surgery: Patient was taken back to the operating room after smooth induction of anesthesia with use of MAC local when inside the bladder I did not I did not identify any tumors or stones within the bladder I then identified the right ureteral orifice cannulated with a 0.038 Glidewire advanced a wire up into the kidney the kidney was hydronephrotic with contrast from the CAT scan she has just done it was not draining I put a wire past the stone up in the kidney is hard to see the stone with a contrast but there was hydronephrotic swollen kidney and then over the wire advanced a 6 Mongolian 6 cm stent on the right side once the stent was in good position I pulled the wire and coiled in the kidney bladder good position I did not drain the bladder I did not put a catheter in. Patient acetic was reversed taken back to PACU in good condition should be admitted for her infection we will plan to treat the stones later once infection cleared Surgical Findings: Hydronephrotic right kidney with contrast from obstructing stone stent placed on the right side Complications Complications: No Admit VTE Documentation VTE Present on Admission: No VTE Mechan Device Prophylaxis: SCD's VTE Pharm Prophylaxis ordered?: No
--- NOTE | 2024-03-05 22:38 | PCM.POST.ANE ---
Anesthesia: Postop Eval I Current Vital Signs Temperature: 97.2 F Pulse Rate: 106 Blood Pressure: 162/89 Respiratory Rate: 18 Pulse Ox: 99 Assessment Airway patent: Yes Spontaneous unlabored respirations: Yes nausea: No Vomiting: No Anesthesia Complication: No Fluid Hydration Crystalloid volume administer (ml): 300 Total IV fluid infused: 300 Progress Note Anesthesia document: Postop Eval 1 completed: Yes
--- NOTE | 2024-03-05 22:48 | POSTOPAN2_ITS ---
Anesthesia Postop Eval I Sum Postop Eval Completion status Anesthesia document: Postop Eval 1 completed: Yes Anesthesia Postop Eval I Summary Anesthesia Postop Eval I Summary: Anesthesia Postop Eval I: Assessment Summary Airway patent Yes 03/05/24 22:39 LAND RECLAMATION SPECIALIST.CSIR Spontaneous unlabored Yes 03/05/24 22:39 LAND RECLAMATION SPECIALIST.CSIR respirations Mental status nausea No 03/05/24 22:39 LAND RECLAMATION SPECIALIST.CSIR Vomiting No 03/05/24 22:39 LAND RECLAMATION SPECIALIST.CSIR Anesthesia Postop Eval I: Fluid Summary Crystalloid volume administer 300 03/05/24 22:39 LAND RECLAMATION SPECIALIST.CSIR (ml) Colloids volume administered ( ml) Blood Product volume administered (ml) Total IV fluid infused 300 03/05/24 22:39 LAND RECLAMATION SPECIALIST.CSIR Anesthesia Postop Eval I: Summary Notes Anesthesia Complication No 03/05/24 22:39 LAND RECLAMATION SPECIALIST.CSIR Anesthesia Complication Comment: Post-operative progress note Anesthesia: Postop Eval II Evaluation Mental status: Awake and Calm Pain Level: 0 nausea: No Vomiting: No Complications Anesthesia Complication: No
--- NOTE | 2024-03-05 22:48 | PCM.POSTANE2 ---
Anesthesia Postop Eval I Sum Postop Eval Completion status Anesthesia document: Postop Eval 1 completed: Yes Anesthesia Postop Eval I Summary Anesthesia Postop Eval I Summary: Anesthesia Postop Eval I: Assessment Summary Airway patent Yes 03/05/24 22:39 FLY [email or web address] Spontaneous unlabored Yes 03/05/24 22:39 FLY [email or web address].CSIR respirations Mental status nausea No 03/05/24 22:39 FLY WINDER.CSIR Vomiting No 03/05/24 22:39 FLY WINDER.CSIR Anesthesia Postop Eval I: Fluid Summary Crystalloid volume administer 300 03/05/24 22:39 FLY WINDER.CSIR (ml) Colloids volume administered ( ml) Blood Product volume administered (ml) Total IV fluid infused 300 03/05/24 22:39 FLY WINDER.CSIR Anesthesia Postop Eval I: Summary Notes Anesthesia Complication No 03/05/24 22:39 FLY WINDER.CSIR Anesthesia Complication Comment: Post-operative progress note Anesthesia: Postop Eval II Evaluation Mental status: Awake and Calm Pain Level: 0 nausea: No Vomiting: No Complications Anesthesia Complication: No
[2024-03-05 23:30] LABS: Bedside Glucose 196 mg/dL (74-106)
[2024-03-06] VITALS (12 sets, daily range): BP systolic 105–119; BP diastolic 45–56; PULSE 62–106; RESP 16–18; TEMP 36.8–38.2; O2SAT 91–100; BMI 33.7
[2024-03-06] MEDS: 0.9% Normal Saline (1000mL) 1,000 ML 100 ML IV (00:08)
[2024-03-06] MEDS: Ceftriaxone 2 GM in 0.9% Normal Saline (50mL MB+) 50 ML IV ×2 (00:18→21:50)
[2024-03-06 05:55] LABS: Absolute Lymphocyte Count 0.58 X10^3/uL (0.83-4.51); Absolute Neutrophil Count 22.5 X10^3/uL (2.0-7.7); Basophil# 0.03 X10^3/uL; Basophil% 0.1 % (0-1); Hematocrit 33.8 % (37-47); Lymphocyte # 0.58 X10^3/ul (0.83-4.51); Lymphocyte % 2.4 % (19-41); Mean Corp Hgb Conc 32.5 g/dL (32-36); Mean Corpuscular Hgb 27.4 pg (27.0-32.0); Mean Corpuscular Volume 84.1 fL (81-99); Mean Platelet Vol. 10.4 fl (6.2-12.0); Monocyte# 0.95 X10^3/uL; Monocyte% 3.9 % (0-10); NRBC Flagged by Analyzer 0 % (0-5); Neutrophil # 22.45 X10^3/uL (2.7-7.7); Neutrophil % 92.7 % (47-70); POSITIVE DIFFERENTIAL YES; Platelet Count 189 K/mm3 (150-450); RBC Distribution Width CV 12.4 % (11.6-14.6); RBC Distribution Width SD 37.3 fl (35.1-43.9); Red Blood Count 4.02 M/mm3 (4.2-5.4); White Blood Count 24.2 K/mm3 (4.4-11.0)
[2024-03-06 06:18] LABS: Differential Indicated SCAN CRITERIA MET
[2024-03-06] MEDS: Insulin Lispro 100 UNIT/ML INSULN.PEN SC ×3 (06:36→21:49)
[2024-03-06 06:51] LABS: ALB/GLOB Ratio 0.8 RATIO (0.9-2.4); AST(SGOT) 13 U/L (15-37); Alanine Aminotransfer ALT/SGPT 12 U/L (13-56); Albumin, Serum 3.2 g/dL (3.2-5.0); Alkaline Phosphatase 95 U/L (45-117); Anion Gap 10 (5-15); BUN 21 mg/dL (7-18); BUN/Creat Ratio 18.4 RATIO (10-20); Calcium,Total 8.9 mg/dL (8.5-10.1); Chloride 105 mmol/L (98-107); Creatinine, Serum 1.14 mg/dL (0.55-1.02); EST Glomerular Filtration Rate 51 mL/min (>60); Est Glom Filt Rate - Afr Amer 62 mL/min (>60); Estimated Creatinine Clearance 53.67 ml/min; Globulin 3.8 g/dL (2.2-4.2); Glucose 215 mg/dL (74-106); Potassium 4.1 mmol/L (3.5-5.1); Sodium Level 136 mmol/L (136-145)
[2024-03-06 06:51] LABS: Bedside Glucose 212 mg/dL (74-106)
--- NOTE | 2024-03-06 06:55 | PN.URO_ITS ---
Subjective Subjective 63-year-old female came in with an infected stone, had a stent placed last night emergently for an infected stone, blood pressure has been running a little bit lower she did spike a fever overnight her white count did go up all this is not surprising given the fact that she had an infected stone with severe hydronephrosis. She is on broad-spectrum antibiotics will await the urine cultures will continue to follow her and she will need to have a treat the stone later on once his infection clears. Objective Data Objective Data Vital Signs: Vital Signs Temp Pulse Resp BP Pulse Ox O2 Del Method O2 Flow Rate 99.0 F 79 16 105/46 L 96 Nasal Cannula 2 03/06/24 05:12 03/06/24 05:12 03/06/24 05:12 03/06/24 05:56 03/06/24 05:12 03/06/24 05:12 03/06/24 05:12 Oxygen Flow Rate (L/min) 2 Oxygen Delivery Method Nasal Cannula Weight: 90.7 kg Body Mass Index (BMI) 33.7 Intake & Output: Intake and Output for Last 24 Hours 03/04/24 03/05/24 03/06/24 23:59 23:59 23:59 Intake Total 1050 / 1050 66.67 / 66.67 Output Total 700 / 700 Balance 1050 / 1050 -633.33 / -633.33 Lab / Micro Data 03/06/24 04:55 03/06/24 04:55 Labs: Laboratory Results - last 24 hr 03/05/24 17:43: WBC 13.1 H, RBC 4.41, Hgb 12.2, Hct 37.0, MCV 83.9, MCH 27.7, MCHC 33.0, RDW Std Deviation 36.8, RDW Coeff of Har[place] 12.2, Plt Count 200, MPV 10.5, Immature Gran % (Auto) 0.500, Neut % (Auto) 81.3 H, Lymph % (Auto) 13.6 L, Saunders % (Auto) 3.0, Eos % (Auto) 1.3, Baso % (Auto) 0.3, Absolute Neuts (auto) 10.6 H, Absolute Lymphs (auto) 1.78, Nucleated RBC % 0, Differential Comment SCANNED, Sodium 132 L, Potassium 6.2 H*, Chloride 103, Carbon Dioxide 18.0 L, Anion Gap 11, BUN 21 H, Creatinine 1.12 H, Est GFR (MDRD) Af Amer 63, Est GFR (MDRD) Non-Af 52 L, BUN/Creatinine Ratio 18.8, Glucose 199 H, Calcium 9.6, Total Bilirubin 0.50, AST 50 H, ALT 21, Alkaline Phosphatase 119 H, Total Protein 8.3 H, Albumin 3.7, Globulin 4.6 H, Albumin/Globulin Ratio 0.8 L 03/05/24 19:56: Potassium 4.3, Urine Color Yellow, Urine Clarity Clear, Urine pH 5.0, Ur Specific [place] 1.025, Urine Protein 30 H, Urine Glucose (UA) Normal, U rine Ketones 15 H, Urine Occult Blood 50 H, Urine Nitrite Positive H, Urine Bilirubin Negative, Urine Urobilinogen Normal, Ur Leukocyte Esterase 500 H, Urine RBC 0 SEEN, Urine WBC 5-10 SEEN, Ur Squamous Epith Cells 0-5 SEEN, Calcium Oxalate Crystal 1+, Urine Bacteria 2+, Urine Mucus 0 SEEN 03/05/24 23:12: POC Glucose 196 H 03/06/24 04:55: WBC 24.2 H, RBC 4.02 L, Hgb 11.0 L, Hct 33.8 L, MCV 84.1, MCH 27.4, MCHC 32.5, RDW Std Deviation 37.3, RDW Coeff of Har[place] 12.4, Plt Count 189, MPV 10.4, Immature Gran % (Auto) 0.900, Neut % (Auto) 92.7 H, Lymph % (Auto) 2.4 L, Saunders % (Auto) 3.9, Eos % (Auto) 0.0, Baso % (Auto) 0.1, Absolute Neuts (auto) 22.5 H, Absolute Lymphs (auto) 0.58 L, Nucleated RBC % 0, Sodium 136, Potassium 4.1, Chloride 105, Carbon Dioxide 20.0 L, Anion Gap 10, BUN 21 H, Creatinine 1.14 H, Estim Creat Clear Calc 53.67, Est GFR (MDRD) Af Amer 62, Est GFR (MDRD) Non-Af 51 L, BUN/Creatinine Ratio 18.4, Glucose 215 H, Calcium 8.9, Total Bilirubin 0.50, AST 13 L, ALT 12 L, Alkaline Phosphatase 95, Total Protein 7.0, Albumin 3.2, Globulin 3.8, Albumin/Globulin Ratio 0.8 L 03/06/24 06:26: POC Glucose 212 H Radiography Diagnostic Testing: Radiology Impression Abdomen/Pelvis CT 03/05/24 20:08 IMPRESSION: 1. Right perinephric stranding and severe right-sided hydronephrosis associated with a stone at the right ureteropelvic junction measuring 1.2 cm. Additional right lower pole calyceal stone measuring 0.7 cm. No left-sided urolithiasis or hydronephrosis. 2. Cholelithiasis without secondary signs of acute cholecystitis. 3. Diverticulosis of the colon without evidence of acute diverticulitis. Electronically Signed: Stanford Barriga DO at 20:45 EST , Rhythm Strip Rhythm Strip: Sinus Rhythm Rate: 85 Ectopy: None
[2024-03-06 07:51] LABS: Red Cell Morphology NORM C+C NORMAL (NORM C&C)
[2024-03-06 07:52] LABS: Platelet Estimate ADEQUATE (ADEQ)
--- NOTE | 2024-03-06 10:45 | PCM.PROGNOTE ---
Subjective Subjective Patient seen and examined. She was admitted with a complaint of right flank pain and to have hydronephrosis and obstructive uropathy due to kidney stone. She is s/p cystoscopy with right stent placement. She still complains of some mild right flank pain, but says she is feeling much better today. She denies any fever or chills. Wbc trended up to 24.2 today. Review of systems is otherwise negative. Objective Data Objective Data Vital Signs: Vital Signs Temp Pulse Resp BP Pulse Ox O2 Del Method O2 Flow Rate 98.4 F 84 16 116/55 L 99 Room Air 2 03/06/24 09:52 03/06/24 09:52 03/06/24 09:52 03/06/24 09:52 03/06/24 09:52 03/06/24 09:52 03/06/24 08:47 Oxygen Flow Rate (L/min) 2 Oxygen Delivery Method Room Air Weight: 199 lb 15.348 oz Body Mass Index (BMI) 33.7 Intake & Output: Intake and Output for Last 24 Hours 03/04/24 03/05/24 03/06/24 23:59 23:59 23:59 Intake Total 1050 / 1050 66.67 / 66.67 Output Total 700 / 700 Balance 1050 / 1050 -633.33 / -633.33 Lab / Micro Data 03/06/24 04:55 03/06/24 04:55 Labs: Laboratory Results - last 24 hr 03/05/24 17:43: WBC 13.1 H, RBC 4.41, Hgb 12.2, Hct 37.0, MCV 83.9, MCH 27.7, MCHC 33.0, RDW Std Deviation 36.8, RDW Coeff of Haroon 12.2, Plt Count 200, MPV 10.5, Immature Gran % (Auto) 0.500, Neut % (Auto) 81.3 H, Lymph % (Auto) 13.6 L, Thayer % (Auto) 3.0, Eos % (Auto) 1.3, Baso % (Auto) 0.3, Absolute Neuts (auto) 10.6 H, Absolute Lymphs (auto) 1.78, Nucleated RBC % 0, Differential Comment SCANNED, Sodium 132 L, Potassium 6.2 H*, Chloride 103, Carbon Dioxide 18.0 L, Anion Gap 11, BUN 21 H, Creatinine 1.12 H, Est GFR (MDRD) Af Amer 63, Est GFR (MDRD) Non-Af 52 L, BUN/Creatinine Ratio 18.8, Glucose 199 H, Calcium 9.6, Total Bilirubin 0.50, AST 50 H, ALT 21, Alkaline Phosphatase 119 H, Total Protein 8.3 H, Albumin 3.7, Globulin 4.6 H, Albumin/Globulin Ratio 0.8 L 03/05/24 19:56: Potassium 4.3, Urine Color Yellow, Urine Clarity Clear, Urine pH 5.0, Ur Specific [place] 1.025, Urine Protein 30 H, Urine Glucose (UA) Normal, Urine Ketones 15 H, Urine Occult Blood 50 H, Urine Nitrite Positive H, Urine Bilirubin Negative, Urine Urobilinogen Normal, Ur Leukocyte Esterase 500 H, Urine RBC 0 SEEN, Urine WBC 5-10 SEEN, Ur Squamous Epith Cells 0-5 SEEN, Calcium Oxalate Crystal 1+, Urine Bacteria 2+, Urine Mucus 0 SEEN 03/05/24 23:12: POC Glucose 196 H 03/06/24 04:55: WBC 24.2 H, RBC 4.02 L, Hgb 11.0 L, Hct 33.8 L, MCV 84.1, MCH 27.4, MCHC 32.5, RDW Std Deviation 37.3, RDW Coeff of Haroon 12.4, Plt Count 189, MPV 10.4, Immature Gran % (Auto) 0.900, Neut % (Auto) 92.7 H, Lymph % (Auto) 2.4 L, Thayer % (Auto) 3.9, Eos % (Auto) 0.0, Baso % (Auto) 0.1, Absolute Neuts (auto) 22.5 H, Absolute Lymphs (auto) 0.58 L, Nucleated RBC % 0, Platelet Estimate ADEQUATE, RBC Morphology NORM C+C, Sodium 136, Potassium 4.1, Chloride 105, Carbon Dioxide 20.0 L, Anion Gap 10, BUN 21 H, Creatinine 1.14 H, Estim Creat Clear Calc 53.67, Est GFR (MDRD) Af Amer 62, Est GFR (MDRD) Non-Af 51 L, BUN/Creatinine Ratio 18.4, Glucose 215 H, Calcium 8.9, Total Bilirubin 0.50, AST 13 L, ALT 12 L, Alkaline Phosphatase 95, Total Protein 7.0, Albumin 3.2, Globulin 3.8, Albumin/Globulin Ratio 0.8 L 03/06/24 06:26: POC Glucose 212 H Radiography Diagnostic Testing: Radiology Impression Abdomen/Pelvis CT 03/05/24 20:08 IMPRESSION: 1. Right perinephric stranding and severe right-sided hydronephrosis associated with a stone at the right ureteropelvic junction measuring 1.2 cm. Additional right lower pole calyceal stone measuring 0.7 cm. No left-sided urolithiasis or hydronephrosis. 2. Cholelithiasis without secondary signs of acute cholecystitis. 3. Diverticulosis of the colon without evidence of acute diverticulitis. Electronically Signed: Stanford Barriga DO at 20:45 EST , Rhythm Strip Rhythm Strip: Sinus Rhythm Rate: 85 Ectopy: None Physical Exam Const alert, oriented x3, no apparent distress and well nourished General Appearance: cooperative HEENT normocephalic, head/scalp atraumatic, moist oral mucous membranes and oropharynx normal Eyes PERRL and EOMs intact bilaterally Neck no lymphadenopathy, supple and no JVD Lymph Lymphatic: no lymphadenopathy noted and no lymphedema noted Resp normal respiratory effort, normal air movement and clear to auscultation bilaterally Cardio regular rate, regular rhythm, S1 normal heart sound, S2 normal heart sound and no murmurs GI normal to inspection, nondistended, normoactive bowel sounds, soft to palpation, non-tender and non-distended Extremity normal capillary refill, no clubbing, cyanosis or edema and no calf tenderness General Extremity: no tenderness to palpation of joints or extremities Skin General Skin Exam: no breakdown Neuro CN's II-XII intact bilaterally, no focal motor deficits and no sensory deficits noted Motor Exam: strength 5/5 throughout and general weakness Psych thought process normal, cooperative and affect normal Appearance: appropriate Assessment & Plan Assessment/Plan (1) Complicated UTI (urinary tract infection): (2) Hydronephrosis with renal calculous obstruction: (3) Pyelonephritis: (4) Kidney stones: PLAN: Plan #Acute right pyelonephritis due to right obstructive kidney stone admitted with a complaint of right sided flank pain. CT abdomen and pelvis showed obstructive uropathy due to right sided kidney stone s/p cystoscopy with right ureteral stent insertion. on IV zosyn. blood and urine cultures pending. urology on board; per urology, to have the stone treated once the infection clears wbc trended up further to 24 today from 13.1 yesterday #Hyponatremia: resolved. #Type 2 diabetes mellitus: on lantus. ISS. Accuchecks ACHS #Hypertension: on amlodipine. Lisinopril on hold. IV hydralazine prn #Chronic constipation: on trulance. DVT prophylaxis: SCDs Charges/Coding Visit Charges Inpatient E&M: 86054 Subs Hosp L3
[2024-03-06 11:35] LABS: Bedside Glucose 249 mg/dL (74-106)
--- NOTE | 2024-03-06 14:45 | CASEMGMT ---
RN CM TRAFFIC MONITOR SPECIALIST CM?to room to meet with patient for initial transition planning/care coordination assessment. RN CM?introduced self and role at [facility]. Pt voices understanding and consents to assessment?at this time. Pt resting in bed in no distress at this time. Pt is A/O at this time and answers all questions appropriately. Care providers, pharmacy, and demographics verified/updated at this time. Strata:?2 PCP: Dr Murguia. Specialists: Dr Abbott. Pt did go to Dr Edge re: sleep studies (see below in DME comment), but is no longer f/u with him. [facility] Insurance: [employer] Prescription Benefit: Yes LNOK: Brother, Andres. Daughter, Helga (pt's only child) Living Arrangements: Pt lives alone in 2nd-floor apt w/approx 14 steps to go up. Once in her apt, everything is on one-level. Pt states she does good on the stairs/denies difficulty. Independent w/ADL's and IADL's. She works full-time. Transportation:?Pt states drives self and states no transportation concerns at this time. Friend or brother will take her home @ discharge. DME: Pt has a functioning glucometer and sufficient amt of supplies. She states has all the insulin and needles needed @ home. She denies need for other DME. Pt states was supposed to go for sleep studies to determine if a PAP was needed, but states Dr Edge's office looked into cost and pt states she determined it was too expensive and she did not feel like she could afford it, so she did not have sleep studies done. HHC/SNF: No hx of either. Pt wishes to return home and states has no concerns with going home at time of discharge. She declines the need for HHC or OP therapy. She states she was using a walker initially @ [facility] d/t the pain, but states is feeling better and states will not need one or want one @ discharge. CM?to follow for any discharge planning/needs. Pt voices no concerns/needs at this time. Advised pt to ask for CM?if any questions/concerns/needs arise. Voices understanding. PLAN: Home. Azul SHAW RN, CM
[2024-03-06] MEDS: Acetaminophen 325 MG Tablet 650 MG PO (16:42)
[2024-03-06 16:55] LABS: Bedside Glucose 148 mg/dL (74-106)
[2024-03-06] MEDS: Insulin Glargine-YFGN 100 UNIT/ML Pen 10 UNIT SC (21:49)
[2024-03-06 22:24] LABS: Bedside Glucose 183 mg/dL (74-106)
--- NOTE | 2024-03-07 01:27 | CPS ---
Pt does not wear cpap at home, was non-compliant it.
[2024-03-07 03:27] VITALS: BP 116/50; PULSE 72; RESP 18; TEMP 37.2; O2SAT 97
[2024-03-07 05:50] VITALS: BMI 33.7
[2024-03-07 06:54] LABS: Absolute Lymphocyte Count 0.71 X10^3/uL (0.83-4.51); Absolute Neutrophil Count 8.7 X10^3/uL (2.0-7.7); Basophil# 0.03 X10^3/uL; Basophil% 0.3 % (0-1); Eosinophil# 0.07 X10^3/uL; Eosinophils% 0.7 % (0-5); Hemoglobin 9.5 g/dL (12.0-15.0); Lymphocyte # 0.71 X10^3/ul (0.83-4.51); Lymphocyte % 7.2 % (19-41); Mean Corp Hgb Conc 32.8 g/dL (32-36); Mean Corpuscular Hgb 27.6 pg (27.0-32.0); Mean Corpuscular Volume 84.3 fL (81-99); Mean Platelet Vol. 10.7 fl (6.2-12.0); Monocyte# 0.42 X10^3/uL; Monocyte% 4.2 % (0-10); NRBC Flagged by Analyzer 0 % (0-5); Neutrophil # 8.66 X10^3/uL (2.7-7.7); Neutrophil % 87.3 % (47-70); Platelet Count 150 K/mm3 (150-450); RBC Distribution Width CV 12.7 % (11.6-14.6); RBC Distribution Width SD 38.6 fl (35.1-43.9); Red Blood Count 3.44 M/mm3 (4.2-5.4); White Blood Count 9.9 K/mm3 (4.4-11.0)
[2024-03-07 07:02] LABS: Bedside Glucose 147 mg/dL (74-106)
[2024-03-07 07:52] LABS: Anion Gap 7 (5-15); BUN 27 mg/dL (7-18); BUN/Creat Ratio 24.3 RATIO (10-20); Calcium,Total 8.7 mg/dL (8.5-10.1); Chloride 107 mmol/L (98-107); Creatinine, Serum 1.11 mg/dL (0.55-1.02); EST Glomerular Filtration Rate 52 mL/min (>60); Est Glom Filt Rate - Afr Amer 63 mL/min (>60); Estimated Creatinine Clearance 55.12 ml/min; Glucose 143 mg/dL (74-106); Potassium 3.9 mmol/L (3.5-5.1); Sodium Level 137 mmol/L (136-145)
[2024-03-07 09:07] VITALS: BP 121/43; PULSE 66; RESP 14; TEMP 37.2; O2SAT 100
[2024-03-07] MEDS: amLODIPine 5 MG Tablet PO (09:11)
[2024-03-07] MEDS: Insulin Lispro 100 UNIT/ML INSULN.PEN SC ×3 (11:46→21:20)
--- NOTE | 2024-03-07 12:09 | PN_ITS ---
Subjective Subjective Patient seen and examined. She complained of burning with urination and some right flank pain. REview of systems is otherwise negative. She has remained hemodynamically stable. Objective Data Objective Data Vital Signs: Vital Signs Temp Pulse Resp BP Pulse Ox O2 Del Method O2 Flow Rate 99 F 66 14 121/43 H 100 Room Air 2 03/07/24 09:07 03/07/24 09:07 03/07/24 09:07 03/07/24 09:07 03/07/24 09:07 03/07/24 09:07 03/06/24 08:47 Oxygen Flow Rate (L/min) 2 Oxygen Delivery Method Room Air Weight: 199 lb 15.348 oz Body Mass Index (BMI) 33.7 Intake & Output: Intake and Output for Last 24 Hours 03/05/24 03/06/24 03/07/24 23:59 23:59 23:59 Intake Total 1050 / 1050 1100.00 / 1100.00 Output Total 730 / 830 450 / 450 Balance 1050 / 1050 370.00 / 270.00 -450 / -450 Lab / Micro Data 03/07/24 05:35 03/07/24 05:35 Labs: Laboratory Results - last 24 hr 03/06/24 16:36: POC Glucose 148 H 03/06/24 21:47: POC Glucose 183 H 03/07/24 05:35: WBC 9.9, RBC 3.44 L, Hgb 9.5 L, Hct 29.0 L, MCV 84.3, MCH 27.6, MCHC 32.8, RDW Std Deviation 38.6, RDW Coeff of Haroon 12.7, Plt Count 150, MPV 10.7, Immature Gran % (Auto) 0.300, Neut % (Auto) 87.3 H, Lymph % (Auto) 7.2 L, [place] % (Auto) 4.2, Eos % (Auto) 0.7, Baso % (Auto) 0.3, Absolute Neuts (auto) 8.7 H, Absolute Lymphs (auto) 0.71 L, Nucleated RBC % 0, Sodium 137, Potassium 3.9, Chloride 107, Carbon Dioxide 23.0, Anion Gap 7, BUN 27 H, Creatinine 1.11 H , Estim Creat Clear Calc 55.12, Est GFR (MDRD) Af Amer 63, Est GFR (MDRD) Non-Af 52 L, BUN/Creatinine Ratio 24.3 H, Glucose 143 H, Calcium 8.7 03/07/24 06:31: POC Glucose 147 H Micro: Microbiology 03/06/24 02:00 Urine, Clean Catch Urine Culture - Preliminary GNR 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 Rhythm Strip Rhythm Strip: Sinus Rhythm Rate: 85 Ectopy: None Physical Exam Const alert, oriented x3, no apparent distress and well nourished General Appearance: cooperative and well developed HEENT normocephalic, head/scalp atraumatic, moist oral mucous membranes and oropharynx normal Eyes PERRL and EOMs intact bilaterally Neck no lymphadenopathy, supple and no JVD Lymph Lymphatic: no lymphadenopathy noted and no lymphedema noted Resp normal respiratory effort, normal air movement and clear to auscultation bilaterally Cardio regular rate, regular rhythm, S1 normal heart sound, S2 normal heart sound and no murmurs GI normal to inspection, nondistended, normoactive bowel sounds, soft to palpation, non-tender and non-distended Extremity normal capillary refill, no clubbing, cyanosis or edema and no calf tenderness General Extremity: no tenderness to palpation of joints or extremities Skin General Skin Exam: no breakdown Neuro CN's II-XII intact bilaterally, no focal motor deficits and no sensory deficits noted Motor Exam: strength 5/5 throughout and general weakness Psych thought process normal, cooperative and affect normal Appearance: appropriate Assessment & Plan Assessment/Plan (1) Complicated UTI (urinary tract infection): (2) Hydronephrosis with renal calculous obstruction: (3) Pyelonephritis: (4) Kidney stones: PLAN: Plan #Acute right pyelonephritis due to right obstructive kidney stone * admitted with a complaint of right sided flank pain. CT abdomen and pelvis showed obstructive uropathy due to right sided kidney stone * s/p cystoscopy with right ureteral stent insertion. * on IV zosyn. 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 Speciation is pending. Blood cultures pending. * urology on board; per urology, to have the stone treated once the infection clears * WBC is down to 9.9 from 24 yesterday. * Will add on Pyridium to help with the pain with urination. * #Hyponatremia: resolved. #Type 2 diabetes mellitus: on lantus. ISS. Accuchecks ACHS #Hypertension: on amlodipine. Lisinopril on hold. IV hydralazine prn #Chronic constipation: on trulance. DVT prophylaxis: SCDs Charges/Coding Visit Charges Inpatient E&M: 16047 Subs Hosp L2
[2024-03-07 12:36] LABS: Bedside Glucose 236 mg/dL (74-106)
[2024-03-07 15:14] VITALS: BP 125/45; PULSE 80; RESP 18; TEMP 37.7; O2SAT 99
[2024-03-07] MEDS: Acetaminophen 325 MG Tablet 650 MG PO (15:16)
[2024-03-07 16:21] VITALS: TEMP 36.9
[2024-03-07 16:57] LABS: Bedside Glucose 174 mg/dL (74-106)
[2024-03-07 21:13] VITALS: BP 118/52; PULSE 72; RESP 16; TEMP 36.8; O2SAT 98
[2024-03-07] MEDS: Ceftriaxone 2 GM in 0.9% Normal Saline (50mL MB+) 50 ML IV (21:19)
[2024-03-07] MEDS: Insulin Glargine-YFGN 100 UNIT/ML Pen 10 UNIT SC (21:19)
[2024-03-07 21:44] LABS: Bedside Glucose 185 mg/dL (74-106)
[2024-03-08 03:13] VITALS: BP 132/58; PULSE 72; RESP 16; TEMP 36.8; O2SAT 95
[2024-03-08] MEDS: Insulin Lispro 100 UNIT/ML INSULN.PEN SC (06:29)
[2024-03-08 06:55] LABS: Bedside Glucose 171 mg/dL (74-106)
[2024-03-08 07:25] VITALS: O2SAT 95
[2024-03-08 08:40] LABS: Absolute Lymphocyte Count 0.86 X10^3/uL (0.83-4.51); Absolute Neutrophil Count 4.2 X10^3/uL (2.0-7.7); Basophil# 0.02 X10^3/uL; Basophil% 0.4 % (0-1); Eosinophils% 1.8 % (0-5); Hemoglobin 9.5 g/dL (12.0-15.0); Lymphocyte # 0.86 X10^3/ul (0.83-4.51); Lymphocyte % 15.5 % (19-41); Mean Corp Hgb Conc 33.9 g/dL (32-36); Mean Corpuscular Hgb 28.5 pg (27.0-32.0); Mean Corpuscular Volume 84.1 fL (81-99); Mean Platelet Vol. 10.8 fl (6.2-12.0); Monocyte# 0.38 X10^3/uL; Monocyte% 6.9 % (0-10); NRBC Flagged by Analyzer 0 % (0-5); Neutrophil # 4.16 X10^3/uL (2.7-7.7); Platelet Count 149 K/mm3 (150-450); RBC Distribution Width CV 12.4 % (11.6-14.6); RBC Distribution Width SD 37.5 fl (35.1-43.9); Red Blood Count 3.33 M/mm3 (4.2-5.4); White Blood Count 5.5 K/mm3 (4.4-11.0)
[2024-03-08 09:13] VITALS: BP 145/63; PULSE 68; RESP 16; TEMP 37; O2SAT 100
[2024-03-08] MEDS: amLODIPine 5 MG Tablet PO (09:31)
[2024-03-08 09:32] LABS: Anion Gap 6 (5-15); BUN 20 mg/dL (7-18); Calcium,Total 9.2 mg/dL (8.5-10.1); Chloride 107 mmol/L (98-107); EST Glomerular Filtration Rate 59 mL/min (>60); Est Glom Filt Rate - Afr Amer 72 mL/min (>60); Estimated Creatinine Clearance 61.18 ml/min; Glucose 159 mg/dL (74-106); Potassium 4.2 mmol/L (3.5-5.1); Sodium Level 139 mmol/L (136-145)
--- NOTE | 2024-03-08 09:51 | PN.URO_ITS ---
Subjective Subjective Patient presented to the hospital with an infected stone she underwent cystoscopy and stent placement also given IV antibiotics patient looks well this morning I think she can go home with antibiotics she did have E. coli coming from the urine culture it was a low count but I would I think it is positive probably should treat it. She can go home and my office will call her to get her set up for outpatient laser lithotripsy of the stones call me with questions. Objective Data Objective Data Vital Signs: Vital Signs Temp Pulse Resp BP Pulse Ox O2 Del Method O2 Flow Rate 98.6 F 68 16 145/63 H 100 Room Air 2 03/08/24 09:13 03/08/24 09:13 03/08/24 09:13 03/08/24 09:13 03/08/24 09:13 03/08/24 09:13 03/06/24 08:47 Oxygen Flow Rate (L/min) 2 Oxygen Delivery Method Room Air Weight: 90.7 kg Body Mass Index (BMI) 33.7 Intake & Output: Intake and Output for Last 24 Hours 03/06/24 03/07/24 03/08/24 23:59 23:59 23:59 Intake Total 1100.00 / 1100.00 50 / 50 Output Total 730 / 830 450 / 550 300 / 300 Balance 370.00 / 270.00 -400 / -500 -300 / -300 Lab / Micro Data 03/08/24 07:18 03/08/24 07:18 Labs: Laboratory Results - last 24 hr 03/07/24 11:45: POC Glucose 236 H 03/07/24 16:11: POC Glucose 174 H 03/07/24 21:16: POC Glucose 185 H 03/08/24 06:27: POC Glucose 171 H 03/08/24 07:18: WBC 5.5, RBC 3.33 L, Hgb 9.5 L, Hct 28.0 L, MCV 84.1, MCH 28.5, MCHC 33.9, RDW Std Deviation 37.5, RDW Coeff of Haroon 12.4, Plt Count 149 L, MPV 10.8, Immature Gran % (Auto) 0.400, Neut % (Auto) 75.0 H, Lymph % (Auto) 15.5 L, Clinch % (Auto) 6.9, Eos % (Auto) 1.8, Baso % (Auto) 0.4, Absolute Neuts (auto) 4.2, Absolute Lymphs (auto) 0.86, Nucleated RBC % 0, Sodium 139, Potassium 4.2, Chloride 107, Carbon Dioxide 26.0, Anion Gap 6, BUN 20 H, Creatinine 1.00, Estim Creat Clear Calc 61.18, Est GFR (MDRD) Af Amer 72, Est GFR (MDRD) Non-Af 59 L, BUN/Creatinine Ratio 20.0, Glucose 159 H, Calcium 9.2 Micro: Microbiology 03/06/24 02:00 Urine, Clean Catch Urine Culture - Final GNR lactose pressure controller Rhythm Strip Rhythm Strip: Sinus Rhythm Rate: 85 Ectopy: None
--- NOTE | 2024-03-08 09:55 | EKG12_ITS ---
Test Reason : P Blood Pressure : */* mmHG Vent. Rate : 70 BPM Atrial Rate : 70 BPM P-R Int : 136 ms QRS Dur : 94 ms QT Int : 406 ms P-R-T Axes : 24 3 35 degrees QTcB Int : 438 ms Normal sinus rhythm Normal ECG When compared with ECG of 05-Mar-2024 19:22, MANUAL COMPARISON REQUIRED DATA IS UNCONFIRMED Confirmed by WENDY CAZARES, DANDY ([id number]), supervising film or videotape editor LULA CLEMENTE ([id number]) on 03/10/2024 1:57:56 PM Referred By: JAZMÍN Confirmed By: DANDY NGUYEN MD
[2024-03-08 11:00] VITALS: BP 111/58; PULSE 77; RESP 15; TEMP 37; O2SAT 100
[2024-03-08 12:33] LABS: Bedside Glucose 128 mg/dL (74-106)
--- NOTE | 2024-03-08 14:05 | DCINST_ITS ---
Discharge Instructions Diet Discharge Diet: Low fat / Low cholesterol DC O2, CPAP, BIPAP needs Home O2 Discharge instructions: No Dressing / Incision Discharge Activity: Return to Normal Activity Weight Bearing Status: Weight bearing as tolerated Dressing / Incision Call your doctor if you observe: Fever of 101 or Higher, Shortness of breath, Dizziness, Swelling in the ankles, Chest pain and Uncontrolled pain Follow Up Care Test Results: Test results from this visit will be discussed in further detail at your follow- up appointment, if applicable. Discharge Plan Admission Admit Date/Time: 03/05/24 22:19 Primary Reason for Your Visit: pyelonephritis, obstructive kidney stone. Attending Provider: Dalton Carpenter Primary Care Provider: Yousif Murguia Consulting Providers: Dalton Carpenter; Eva Quezada Instructions Patient Instructions: Having a Ureteral Stent, Kidney Stone Ureteroscopy Additional Instructions / Restrictions: to follow up with urology for outpatient laser lithotripsy of the kidney stone Discharge Orders/Prescriptions Prescriptions: New cefdinir 300 mg capsule 300 mg PO BID Qty: 14 0RF Continued Trulance 3 mg tablet 3 mg PO DAILY insulin glargine [Lantus Solostar U-100 Insulin] 100 unit/mL (3 mL) insulin pen 10 unit subcut QPM metformin 500 MG tablet 500 mg PO BIDCM amlodipine 5 mg tablet 5 mg PO DAILY lisinopril 20 mg tablet 20 mg PO DAILY ergocalciferol (vitamin D2) 1,250 mcg (50,000 unit) capsule 1,250 mcg PO QWEEK Referrals / Follow Up: Dalton Carpenter MD [Med Staff - Active Staff] - Within 1 Week Yousif Murguia MD [Primary Care Provider] - Within 1 Week Disposition Disposition (needs filled in before D/C Order can be placed): Home, Self Care
--- NOTE | 2024-03-08 14:06 | PCM.DC.SUM ---
Providers Date of Admission: 03/05/24 Date of Discharge: 03/08/24 Primary Care Physician: Dr. Yousif Murguia MD Consultations 03/05/24 23:34 Consult: Urology Routine Consulting Provider: Dalton Carpenter Reason for Consult: Pyelo, obstructive stone, MARYBEL EMERGENT Consult: No MD Notified: Yes Date Notified: 03/05/24 Time Notified: 22:23 Method of Notification: ED Physician Initiated Reason For Visit: COMP;ICATED UTI/PYELONEPHRITIS MARYBEL Diagnosis Discharge Diagnosis (1) Complicated UTI (urinary tract infection): Status: Acute Code(s): N39.0 - Urinary tract infection, site not specified (2) Hydronephrosis with renal calculous obstruction: Status: Acute Code(s): N13.2 - Hydronephrosis with renal and ureteral calculous obstruction (3) Pyelonephritis: Status: Acute Code(s): N12 - Tubulo-interstitial nephritis, not specified as acute or chronic (4) Kidney stones: Status: Acute Code(s): N20.0 - Calculus of kidney Plan #Acute right pyelonephritis due to right obstructive kidney stone admitted with a complaint of right sided flank pain. CT abdomen and pelvis showed obstructive uropathy due to right sided kidney stone s/p cystoscopy with right ureteral stent insertion. on IV zosyn. 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 Speciation is pending. Blood cultures pending. urology on board; per urology, to have the stone treated once the infection clears WBC is down to 9.9 from 24 yesterday. Will add on Pyridium to help with the pain with urination. #Hyponatremia: resolved. #Type 2 diabetes mellitus: on lantus. ISS. Accuchecks ACHS #Hypertension: on amlodipine. Lisinopril on hold. IV hydralazine prn #Chronic constipation: on trulance. DVT prophylaxis: SCDs Medications at Discharge Home Medications metformin 500 mg tablet 500 mg PO BIDCM 11/24/13 insulin glargine 100 unit/mL (3 mL) subcutaneous pen (Lantus Solostar U-100 Insulin) 10 unit subcut QPM 10/26/22 plecanatide 3 mg tablet (Trulance) 3 mg PO DAILY 10/26/22 amlodipine 5 mg tablet 5 mg PO DAILY 03/05/24 ergocalciferol (vitamin D2) 1,250 mcg (50,000 unit) capsule 1,250 mcg PO QWEEK 03/05/24 lisinopril 20 mg tablet 20 mg PO DAILY 03/05/24 cefdinir 300 mg capsule 300 mg PO BID #14 caps 03/08/24 Hospital Course Operations None Procedures - (cystoscopy and right stent placement) Summary of Care Provided Minutes Spent on Discharge: 47 Hospital Course: Patient is a 63-year-old female with past medical history as outlined was admitted through the ED on 03/05/2024 with a complaint of right-sided flank pain, chills, nausea and vomiting. The pain on her right side went from her ribs down to her groin and she had associated nausea and emesis. The pain was colicky and rated at 10 out of 10. She had had a recent plain film of the abdomen which showed evidence of kidney stones but she denied ever passing a kidney stone. In the ED WBC was 13.1. Initial potassium was 6.2 but was 4.3 with repeat. Urinalysis showed evidence of UTI with 2+ bacteria and elevated leukocyte esterase. Creatinine was 1.12. CT of the abdomen and pelvis showed right perinephric stranding and severe right-sided hydronephrosis associated with a stone at the right ureteropelvic junction measuring 1.2 cm with an additional right lower pole calyceal stone measuring 0.7 cm with no left-sided urolithiasis or hydronephrosis and cholelithiasis without secondary evidence of acute cholecystitis as well as evidence of diverticulosis without evidence of acute diverticulitis. She was admitted and managed for hydronephrosis and complicated UTI due to obstructed kidney stone. She was started on IV Zosyn, IV morphine and hydrated with IV fluids. Urology was consulted. Patient had cystoscopy with right ureteral stent placement on 03/05/2024. Blood and urine cultures were obtained. Antibiotics were transitioned to IV ceftriaxone. Her pain improved and she felt much better. Blood cultures were negative at time of discharge. Urine cultures grew E. coli with a low yield. She was therefore discharged home on 03/08/2024 on PO cefdinir 300mg bid x 7 days. She is to follow up with her PCP and to follow up with urology within one week for urology to schedule an outpatient lithotripsy for the stone. Patient seen and examined prior to discharge. She had no active complaints and felt well. She denied any fever or chills, abdominal pain, palpitations, nausea vomiting or diarrhea. Review of systems otherwise negative. Labs and vitals reviewed. Home medication reviewed and reconciled. Physical Exam Const alert, oriented x3, no apparent distress and well nourished General Appearance: cooperative, comfortable, well kempt and well developed HEENT normocephalic, head/scalp atraumatic, hearing grossly normal bilaterally, moist oral mucous membranes and oropharynx normal Mouth: oral and palatal mucosa normal Eyes PERRL and EOMs intact bilaterally Neck no lymphadenopathy, supple and no JVD Lymph Lymphatic: no lymphadenopathy noted and no lymphedema noted Resp normal respiratory effort, normal air movement and clear to auscultation bilaterally Cardio regular rate, regular rhythm, S1 normal heart sound, S2 normal heart sound and no murmurs GI normal to inspection, nondistended, normoactive bowel sounds, soft to palpation, non-tender and non-distended Extremity normal to inspection, full ROM, normal capillary refill, no clubbing, cyanosis or edema and no calf tenderness General Extremity: no tenderness to palpation of joints or extremities Skin no rashes or lesions noted General Skin Exam: no breakdown Neuro oriented x3, CN's II-XII intact bilaterally, moves all extremities, no focal motor deficits and no sensory deficits noted Sensorium / Orientation: awake and alert Motor Exam: strength 5/5 throughout and general weakness Psych thought process normal, cooperative and affect normal Appearance: appropriate Weight / BMI Weight Weight: 199 lb 15.348 oz Body Mass Index (BMI) 33.7 ABG / Lab / Microbiology Data 03/08/24 07:18 03/08/24 07:18 Laboratory: Laboratory Results - last 24 hr 03/07/24 16:11: POC Glucose 174 H 03/07/24 21:16: POC Glucose 185 H 03/08/24 06:27: POC Glucose 171 H 03/08/24 07:18: WBC 5.5, RBC 3.33 L, Hgb 9.5 L, Hct 28.0 L, MCV 84.1, MCH 28.5, MCHC 33.9, RDW Std Deviation 37.5, RDW Coeff of Haroon 12.4, Plt Count 149 L, MPV 10.8, Immature Gran % (Auto) 0.400, Neut % (Auto) 75.0 H, Lymph % (Auto) 15.5 L, [place] % (Auto) 6.9, Eos % (Auto) 1.8, Baso % (Auto) 0.4, Absolute Neuts (auto) 4.2, Absolute Lymphs (auto) 0.86, Nucleated RBC % 0, Sodium 139, Potassium 4.2, Chloride 107, Carbon Dioxide 26.0, Anion Gap 6, BUN 20 H, Creatinine 1.00, Estim Creat Clear Calc 61.18, Est GFR (MDRD) Af Amer 72, Est GFR (MDRD) Non-Af 59 L, BUN/Creatinine Ratio 20.0, Glucose 159 H, Calcium 9.2 03/08/24 11:54: POC Glucose 128 H Microbiology: Microbiology 03/06/24 11:30 Blood Culture (Wb) #2 - Right Hand Blood Culture - Preliminary No growth in 48 hours. 03/06/24 11:20 Blood Culture (Wb) - Right Forearm Blood Culture - Preliminary No growth in 48 hours. 03/06/24 02:00 Urine, Clean Catch Urine Culture - Final GNR lactose fitness attendant D/C Instructions Discharge Diet: Low fat / Low cholesterol Discharge Activity: Return to Normal Activity Weight Bearing Status: Weight bearing as tolerated Call your doctor if you observe: Fever of 101 or Higher, Shortness of breath, Dizziness, Swelling in the ankles, Chest pain and Uncontrolled pain DC O2, CPAP, BIPAP Needs Home O2 Discharge instructions: No DC home with Oxygen: No Meaningful Use Info Meaningful Use Meaningful Use Diagnoses (Choose all that apply): None applicable Ischemic Stroke Statin Dosing Therapy Reference: STATIN DOSE THERAPY REFERENCE: * Patients > 75 years receive moderate or high dose statin therapy. * Patients 75 years or YOUNGER should receive HIGH intensity statin dose unless contraindicated. You will be required to document reason for non-treatment if statin daily dose does not meet guidelines. HIGH DOSE STATIN THERAPY DAILY Atorvastatin > than or = to 40 mg Rosuvastatin > than or = to 20 mg Amlodipine + Atorvastatin > than or = to 2.5/40 mg Ezetimibe + Simvastatin 10/80 mg Simvastatin 80mg Discharge Plan Admission Admit Date/Time: 03/05/24 22:19 Primary Reason for Your Visit: pyelonephritis, obstructive kidney stone. Attending Provider: Dalton Carpenter Primary Care Provider: Yousif Murguia Consulting Providers: Dalton Carpenter; Eva Quezdaa Instructions Patient Instructions: Having a Ureteral Stent, Kidney Stone Ureteroscopy Additional Instructions / Restrictions: to follow up with urology for outpatient laser lithotripsy of the kidney stone Discharge Orders/Prescriptions Prescriptions: New cefdinir 300 mg capsule 300 mg PO BID Qty: 14 0RF Continued Trulance 3 mg tablet 3 mg PO DAILY insulin glargine [Lantus Solostar U-100 Insulin] 100 unit/mL (3 mL) insulin pen 10 unit subcut QPM metformin 500 MG tablet 500 mg PO BIDCM amlodipine 5 mg tablet 5 mg PO DAILY lisinopril 20 mg tablet 20 mg PO DAILY ergocalciferol (vitamin D2) 1,250 mcg (50,000 unit) capsule 1,250 mcg PO QWEEK Referrals / Follow Up: Dalton Carpenter MD [Med Staff - Active Staff] - Within 1 Week Yousif Murguia MD [Primary Care Provider] - Within 1 Week Disposition Disposition (needs filled in before D/C Order can be placed): Home, Self Care Charges/Coding Visit Charges Inpatient E&M: 00434 Disch Hosp >30min
[2024-03-08 14:42] VITALS: BP 157/57; PULSE 84; RESP 17; TEMP 37.1; O2SAT 98
== END 2024-03-08 15:37 | disposition home or self-care (01) | DRG 660 ==
LOC: ED 21:38 → SDC 21:54 → PCU 23:40
PROVIDERS: Student in an Organized Health Care Education/Training Program; Admitting Provider Family Medicine; Emergency Provider Emergency Medicine; PCP Family Medicine; Visit Provider Urology
PROC: 0T768DZ Dilation of Right Ureter with Intraluminal Device, Via Natural or Artificial Opening Endoscopic (ICD-10-PCS; principal; 2024-03-05 22:15)
DX: N13.6 Pyonephrosis (principal); E87.1 Hypo-osmolality and hyponatremia; E11.22 Type 2 diabetes mellitus with diabetic chronic kidney disease; N17.9 Acute kidney failure, unspecified; B96.20 Unspecified Escherichia coli [E. coli] as the cause of diseases classified elsewhere; I12.9 Hypertensive chronic kidney disease with stage 1 through stage 4 chronic kidney disease, or unspecified chronic kidney disease; E66.9 Obesity, unspecified; G47.33 Obstructive sleep apnea (adult) (pediatric); M19.90 Unspecified osteoarthritis, unspecified site; Z79.4 Long term (current) use of insulin; K59.09 Other constipation; M54.2 Cervicalgia; N18.2 Chronic kidney disease, stage 2 (mild); E86.1 Hypovolemia; K57.30 Diverticulosis of large intestine without perforation or abscess without bleeding; K80.20 Calculus of gallbladder without cholecystitis without obstruction; G89.29 Other chronic pain; Z87.442 Personal history of urinary calculi; Z79.84 Long term (current) use of oral hypoglycemic drugs; Z79.899 Other long term (current) drug therapy; Z68.33 Body mass index [BMI] 33.0-33.9, adult
CPT/HCPCS: 36415; 74177; 76000; 80048; 80053; 81001; 82962; 84132; 85025; 87040; 87086; 87088; 93005; 94668; 99283; Q9967; A4216; C1769; C2617; J0696; J2405

== ENCOUNTER → 2024-09-25 | Outpatient (CLI) | payer BC, SELFPAY ==
--- NOTE | 2024-09-25 14:49 | BD_ITS ---
PROCEDURE: DEXA BONE DENSITY STUDY 09/25/2024 REASON FOR EXAM: F, age 63 y/o . Postmenopausal. TECHNIQUE: DEXA BONE DENSITY STUDY COMPARISON: None FINDINGS: BMD and T-SCORES Lumbar spine: 1.003 g/cm2, T-score -0.1 Levels: L1 through L4 Left femoral neck: 0.610 g/cm2, T-score -2.2 Femoral neck comparison data not recommended for monitoring change. Left total hip: 0.87 g/cm2, T-score -0.6 Right femoral neck: 0.661 g/cm2, T-score -1.7 Femoral neck comparison data not recommended for monitoring change. Right total hip: 0.801 g/cm2, T-score -1.2 The World Health Organization has defined the following categories based on bone density: Normal bone density: T-score equal to or greater than -1.0 Osteopenia: T-score between -1.0 and -2.5 Osteoporosis: T-score equal to or less than -2.5 The patient does meet the pharmacological treatment recommendations for prevention of osteoporosis. BD/Dexa Bone Density Study IMPRESSION: OSTEOPENIA. Recommend follow-up as clinically warranted. Reading Location: [place] [id number]
--- NOTE | 2024-09-25 14:49 | BI_ITS ---
EXAM: SCRN MAMM (CAD)W/ZACARIAS BILAT DATE: 09/25/2024 CLINICAL HISTORY: F, Age 63 y/o , SCREENING/CORRECTED ORDER No family history. TECHNIQUE: SCRN MAMM (CAD)W/ZACARIAS BILAT COMPARISON: Prior exam(s) dated May 29, 2023.. FINDINGS: TISSUE DENSITY: There are scattered areas of fibroglandular density. Bilateral Breast Mammographic Findings: No significant masses, calcifications or other abnormalities are identified. Stable benign-appearing bilateral axillary lymph nodes. No suspicious masses, areas of developing architectural distortion, or suspicious calcifications. There has been no significant interval change. BI/SCRN MAMM (CAD)W/ZACARIAS BILAT IMPRESSION: Stable examination. OVERALL FINAL ASSESSMENT BI-RADS 2: BENIGN RECOMMENDATION: Routine annual follow-up in 1 Year A letter with findings and recommendations will be mailed to the patient. Reading Location: [place] [id number]
== END | disposition home or self-care (01) ==
PROVIDERS: PCP Family Medicine; Referring Provider Family Medicine; Visit Provider Family Medicine
DX: Z12.31 Encounter for screening mammogram for malignant neoplasm of breast (principal); Z78.0 Asymptomatic menopausal state
CPT/HCPCS: 77063; 77067; 77080

== ENCOUNTER → 2024-10-03 | Outpatient (CLI) | payer BC, SELFPAY ==
[2024-10-03 17:43] LABS: Hematocrit 36.6 % (37-47); Hemoglobin 11.9 g/dL (12.0-15.0); Immature Granulocytes Count 0.030 X10^3/uL (0.0-0.0); Mean Corp Hgb Conc 32.5 g/dL (32-36); Mean Corpuscular Volume 84.3 fL (81-99); Mean Platelet Vol. 10.6 fl (6.2-12.0); NRBC Flagged by Analyzer 0 % (0-5); Platelet Count 200 K/mm3 (150-450); RBC Distribution Width CV 12.5 % (11.6-14.6); RBC Distribution Width SD 37.9 fl (35.1-43.9); Red Blood Count 4.34 M/mm3 (4.2-5.4); White Blood Count 7.7 K/mm3 (4.4-11.0)
[2024-10-03 18:39] LABS: AST(SGOT) 17 U/L (<=31); Alanine Aminotransfer ALT/SGPT 9 U/L (<=34); Albumin, Serum 4.4 g/dL (3.4-4.8); Alkaline Phosphatase 137 U/L (35-104); Anion Gap 14 (5-15); BUN 18 mg/dL (4-19); BUN/Creat Ratio 21.0 RATIO (10-20); Calcium,Total 9.7 mg/dL (7.6-11.0); Carbon Dioxide 23.2 mmol/L (21.0-32.0); Chloride 103 mmol/L (98-108); Cholesterol 261 mg/dL (<=200); Globulin 3.2 g/dL (2.2-4.2); Glucose 92 mg/dL (70-99); Low Density Lipoprotein Calc. 167 mg/dL; Potassium 4.1 mmol/L (3.3-5.1); Triglycerides 141 mg/dL; Very Low Density Lipoprotein 28 mg/dL (5-40); cholesterol:hdl ratio screen 3.95
== END | disposition home or self-care (01) ==
LOC: MFPLAB 16:54
PROVIDERS: PCP Family Medicine; Referring Provider Family Medicine; Visit Provider Family Medicine
DX: E11.69 Type 2 diabetes mellitus with other specified complication (principal)
CPT/HCPCS: 36415; 80053; 80061; 83036; 85025

== ENCOUNTER → 2024-10-04 | Outpatient (CLI) | payer BC, SELFPAY ==
--- OUTSIDE RECORDS SUMMARY | 2024-10-04 06:58 | XMS RPT_ITS | CCD ---
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 Name Role Phone CAROLE CAZARES, RAFA Wallace Primary Care Physician ([phone] KATIANA DO, DR BANDA Primary Care Physician [phone] KATIANA HECTOR, DR BANDA Primary Care Unavailable DAJA CAZARES, BECCA Peralta Attending Unavail able CAROLE CAZARES, RAFA Wallace Attending Unavailable KATIANA DO, DR BANDA Primary Care Unavailable ROMAR DO, DR BANDA Attending Unavailable KATIANA DO, DR BANDA Primary Care Unavailable ROMGILDARDO DO, DR BANDA Primary Care Unavailable DAJA CAZARES, BECCA Peralta Attending Unavail able VERONIKA SAAB Primary Care Unavailable GIO CLARK Attending Unavailable GIO CLARK Referring Unavailable RAFA LAM Primary Care Unavailab GIO Nicole Attending Unavailable RAFA LAM Primary Care Unavailab Dr. Yousif Field Primary Care Provider Dr. Yousif Murguia Referring Provider BRUCE To Attending Provider [phone] Dr. Yousif Murguia MD Primary Care Provider Dr. Yousif Murguia MD Attending Provider Dr. Yousif Murguia MD Referring Provider Yousif Murguia Primary Care Unavailable Eva Quezada Attending Unavailable Ashley Magallon Admitting Unavailable Dalton Carpenter Consulting Unavailable Eva Quezada Consulting Unavailable Yousif Murguia Primary Care Unavailable Ashley Magallon Attending Unavailable Dalton Carpenter Consulting Unavailable Shaista Carlton Attending UnavailYousif Reveles Primary Care Unavailable Dalton Carpenter Referring Unavailable Yousif Murguia Attending Unavailable Yousif Murguia Referring Unavailable Yousif Murguia Primary Care Unavailable Yousif Murguia Attending Unavailable Yousif Murguia Referring Unavailable OsmelinYousif wilson E Primary Care Unavailable Yousif Murguia Attending Unavailable Yousif Murguia Primary Care Unavailable Yousif Murguia Referring Unavailable Yousif Murguia Primary Care Unavailable Yousif Murguia Attending Unavailable Yousif Murguia E Referring Unavailable Yousif Murguia E Primary Care Unavailable Ashley Magallon Admitting Unavailable Dalton Carpenter Consulting Unavailable Dalton Carpenter Attending Unavailable Eva Quezada Consulting Unavailable Assessment, Health Risk Attending Unavaila Yousif [place] Primary Care Unavailable Allergies Allergy Classification Reported Allergen(s) Allergy Type Date of Onset Reaction(s) Facility (6 sources) amLODIPine; Translations: [amlodipine] Drug Allergy 08-07-2022 [facility] (9 sources) Latex; Translations: [LATEX] Allergy to substance 06-13-2019 [facility] (9 sources) BP MED; Translations: [BP MED] Allergy to substance 06-13-2019 [facility] (1 source) Latex Drug allergy (disorder) 07-19-2023 [facility] Repository Medications Current Medications Medication Drug Class(es) Dates Sig (Normalized) Sig (Original) amLODIPine 5 mg oral tablet (1 source) Dihydropyridine Calcium Channel Estefani Start: 03-05-2024 take 1 tablet by mouth once daily Amlodipine 5 mg tablet Active 5 mg PO DAILY March 05, 2024 1:00am atorvastatin 10 mg oral tablet (1 source) HMG-CoA Reductase Inhibitor Start: 01-04-2021 atorvastatin 10 mg oral tablet Dose : 10 mg = 1 tab(s), Oral, qDay, # 90 tab(s), 3 Refill(s), Pharmacy: [id number], 165, cm, 12/24/20 8:09:00 EST, Height, kg, 12/24/20 8:09:00 EST, Dosing Weight Start Date: 01/04/21 Status: Ordered cefdinir 300 mg oral capsule (1 source) Cephalosporin Antibacterial Start: 03-08-2024 take 1 capsule by mouth twice daily Cefdinir 300 mg capsule Active 300 mg PO TWICE A DAY 14 March 08, 2024 1:00am ergocalciferol 1.25 mg oral capsule (1 source) Provitamin D2 Compound Start: 03-05-2024 Ergocalciferol (Vitamin D2) 1,250 mcg (50,000 unit) capsule Active 1250 ug PO EVERY WEEK March 05, 2024 1:00am 3 ml insulin glargine 100 unt/ml pen injector (20 sources) Insulin Analog Start: 10-26-2022 Insulin Glargine (Lantus Solostar U-100 Insulin) 100 unit/mL (3 mL) insulin pen Active 10 U SC EVERY EVENING October 26, 2022 12:00am Start: 04-19-2022 End: 10-16-2022 inject 1 dose by subcutaneous injection twice daily Lantus Solostar Pen 100 units/mL 3 mL Pen Dose : 24 unit(s) =, Subcutaneous, BID, rotate injection sites, # 15 mL, 1 Refill(s), Pharmacy: [facility]/pharmacy #[id number], 166, cm, 04/19/22 14:31:00 EST, Height, kg, 04/19/22 14:31:00 EST, Dosing Weight Start Date: 04/19/22 Stop Date: 10/16/22 Status: Ordered Start: 08-22-2021 End: 02-18-2022 inject 1 dose by subcutaneous injection once daily at bedtime Lantus Solostar Pen 100 units/mL 3 mL Pen Dose : 47 unit(s) =, Subcutaneous, qHS, rotate injection sites, # 15 mL, 1 Refill(s), other reason (Rx) Start Date: 08/22/21 Stop Date: 02/18/22 Status: Ordered Start: 01-14-2021 Lantus Solosta r Pen 100 units/mL 3 mL Pen See Instructions, 45 units qHS is give test strips 2 times a day. Please give enough Lantus and test strips for 3 months., # 3 mL, 3 Refill(s), Pharmacy: [facility]/pharmacy #[id number], 165, cm, 12/24/20 8:09:00 EST, Height, kg, 12/24/20 8:09:00 EST, Dosing Weight Start Date: 01/14/21 Status: Ordered Start: 12-05-2019 Lantus Solosta r Pen 100 units/mL 3 mL Pen See Instructions, 45 units qHS is give test strips 2 times a day. Please give enough Lantus and test strips for 3 months., # 3 mL, 3 Refill(s), Pharmacy: [facility]/pharmacy #[id number], 163, cm, 12/05/19 13:11:00 EDT, Height, kg, 12/05/19 13:11:00 EDT, Dosing We... Start Date: 12/05/19 Status: Ordered Start: 11-24-2013 End: 10-26-2022 Insulin Glargine (Lantus Katy ostar Pen) 100 UNITS/ML insulin pen Discontinued 40 U SC AT BEDTIME November 24, 2013 12:00am October 26, 2022 12:29pm Start: 11-24-2013 End: 10-26-2022 Insulin Glargine (Lantus Katy ostar Pen) 100 UNITS/ML insulin pen Discontinued 40 UNITS SC AT BEDTIME November 24, 2013 12:00am October 26, 2022 12:29pm lisinopril 20 mg oral tablet (15 sources) Angiotensin Converting Enzyme Inhibitor Start: 03-05-2024 take 1 tablet by mouth once daily Lisinopril 20 mg tablet Active 20 mg PO DAILY March 05, 2024 1:00am Start: 03-05-2024 End: 03-06-2024 take 1 tablet by mouth once daily Lisinopril 5 mg tablet Discontinued 5 mg PO DAILY March 05, 2024 1:00am March 06, 2024 7:32am Start: 04-07-2019 End: 10-26-2022 take 1 tablet by mouth once daily Lisinopril 5 MG tablet Discontinued 5 mg PO DAILY April 07, 2019 1:00am October 26, 2022 12:29pm metFORMIN hydrochloride 500 mg oral tablet (11 sources) Biguanide Start: 11-24-2013 End: 08-13-2022 take 1 tablet by mouth twice daily at mealtime Metformin 500 MG tablet Active 500 mg PO TWICE DAILY WITH MEALS November 24, 2013 12:00am Misc Medication (2 sources) Start: 08-18-2021 [facility] Lean Advantage, 0 Refill(s), 97.3 Start Date: 08/18/21 Status: Ordered Start: 08-18-2021 [facility] Radiant Woman, 0 Refill(s), 97.3 Start Date: 08/18/21 Status: Ordered needles 8 mm 5/16 inch (4 sources) Start: 01-14-2021 needles 8 mm 5 /16 inch See Instructions, Please refill her insulin needles. Please give her the same needle she had previously. Thank you # 2 boxes, # 2 EA, 12 Refill(s), Pharmacy: [facility]/pharmacy #[id number], Diabetes Hypertension, 165, cm, 12/24/20 8:09:00 EST, Height, 98.7,... Start Date: 01/14/21 Status: Ordered Start: 02-03-2020 needles 8 mm 5 /16 inch See Instructions, Please refill her insulin needles. Please give her the same needle she had previously. Thank you # 2 boxes, # 2 EA, 12 Refill(s), [id number], Diabetes Hypertension, 163, cm, 12/05/19 13:11:00 EDT, Height, 95.5,... Start Date: 02/03/20 Status: Ordered omeprazole 20 mg delayed release oral capsule (1 source) Proton Pump Inhibitor Start: 01-31-2022 omeprazole 20 mg oral delayed release capsule Dose : 20 mg = 1 cap(s), Oral, qDay, # 30 cap(s), 0 Refill(s), Pharmacy: [facility]/pharmacy #[id number], Acid reflux, 166, cm, 01/31/22 10:19:00 EST, Height Start Date: 01/31/22 Status: Ordered ondansetron 4 mg oral tablet (9 sources) Serotonin-3 Receptor Antagonist Start: 09-30-2021 End: 10-05-2021 take 1 tablet by mouth every eight hours Zofran ODT use ondansetron oral tablet, disintegrating Dose : 4 mg =, Oral, q8h, # 30 tab(s), 0 Refill(s), Congestion of throat Start Date: 09/30/21 Stop Date: 10/05/21 Status: Ordered Start: 06-13-2019 End: 10-26-2022 take 1 tablet by mouth every eight hours as needed for nausea Ondansetron 4 MG tablet Discontinued 4 mg PO EVERY 8 HOURS NEEDED as needed for Nausea June 13, 2019 12:00am October 26, 2022 12:29pm ONE TOUCH ULTRA BLUE TEST STRP (2 sources) Start: 02-09-2020 ONE TOUCH ULTR A BLUE TEST STRP ONE TOUCH ULTRA BLUE TEST STRP, See Instructions, USE TO CHECK BLOOD SUGAR ONCE A DAY, # 100 strip, 3 Refill(s), Pharmacy: [id number], 163, cm, 12/05/19 13:11:00 EDT, Height, 95.5, kg, 12/05/19 13:11:00 EDT, Dosing Weight Start Date: 02/09/20 Status: Ordered Pen needles (1 source) Start: 12-29-2021 Pen needles Se e Instructions, Lantus solostar pen needles, BID for 3 month supply, # 1 EA, 11 Refill(s), [id number], 164, cm, 12/29/21 9:54:00 EST, Height, 92.1 Start Date: 12/29/21 Status: Ordered plecanatide 3 mg oral tablet (20 sources) Start: 02-25-2019 End: 10-26-2022 take 1 tablet by mouth once daily Plecanatide (Trulance) 3 mg tablet Active 3 mg PO DAILY October 26, 2022 12:00am simvastatin 20 mg oral tablet (1 source) HMG-CoA Reductase Inhibitor Start: 08-18-2021 End: 10-17-2021 simvastatin 20 mg oral tablet Dose : 20 mg = 1 tab(s), Oral, qHS, # 60 tab(s), 0 Refill(s), Pharmacy: [facility]/pharmacy #[id number], 164, cm, 08/18/21 9:59:00 EDT, Height Start Date: 08/18/21 Stop Date: 10/17/21 Status: Ordered Completed/Discontinued Medications Medication Drug Class(es) Dates Sig (Normalized) Sig (Original) acetaminophen 325 mg / HYDROcodone bitartrate 5 mg oral tablet (8 sources) Opioid Agonist Start: 06-13-2019 End: 06-15-2019 Hydrocodone-Acetamino phen 1 TABLET tablet Discontinued 1 {tbl} PO EVERY 4 HOURS NEEDED as needed for Pain 10 2 0 June 13, 2019 June 14, 2019 12:00am June 15, 2019 12:02am Colitis Noninfective gastroenteritis and colitis, unspecified Start: 06-13-2019 End: 06-15-2019 take 1 tablet by mouth every four hours as needed Hydrocodone-Acetaminophen Discontinued 1 TABLET PO EVERY 4 HOURS NEEDED 10 2 June 13, 2019 June 15, 2019 12:02am ciprofloxacin 500 mg oral tablet (8 sources) Quinolone Antimicrobial Start: 06-13-2019 End: 10-26-2022 take 1 tablet by mouth twice daily Ciprofloxacin Hcl 500 MG tablet Discontinued 500 mg PO TWICE A DAY 20 0 June 13, 2019 12:00am October 26, 2022 12:28pm metroNIDAZOLE 500 mg oral tablet (8 sources) Nitroimidazole Antimicrobial Start: 06-13-2019 End: 10-26-2022 take 1 tablet by mouth every six hours Metronidazole 500 MG tablet Discontinued 500 mg PO EVERY 6 HOURS June 13, 2019 12:00am October 26, 2022 12:29pm polymyxin b 83171 unt/ml / trimethoprim 1 mg/ml ophthalmic solution (7 sources) Dihydrofolate Reductase Inhibitor Antibacterial, Polymyxin-class Antibacterial Start: 10-26-2022 End: 11-02-2022 Polymyxin B Sulf-Trimethoprim (Polytrim) 10,000 unit- 1 mg/mL drops Discontinued 1 NMA OPHTHALMIC Q3H 10 7 0 October 26, 2022 12:00am November 01, 2022 12:00am November 02, 2022 12:04am while awake; do not exceed 6 doses in 24 hours sulfamethoxazole 800 mg / trimethoprim 160 mg oral tablet (1 source) Dihydrofolate Reductase Inhibitor Antibacterial, Sulfonamide Antimicrobial Start: 07-19-2023 End: 03-05-2024 Sulfamethoxazole-T rimethoprim (Bactrim Ds) 800-160 mg tablet Discontinued 1 {tbl} PO TWICE A DAY 20 0 July 19, 2023 12:00am March 05, 2024 10:56pm Problems Active Problems Problem Classification Problem Date Documented Date Episodic/Chronic Administrative/social admission (3 sources) Patient encounter status; Translations: [Encounter for other administrative examinations] 06-18-2023 Episodic Bacterial infection; unspecified site (2 sources) Infection due to Enterobacteriaceae 07-21-2021 Episodic Diabetes mellitus with complications (4 sources) Microalbuminuria due to type 2 diabetes mellitus; Translations: [Hyperglycemia due to type 2 diabetes mellitus] Onset: 5 08-22-2021 Chronic Diabetes mellitus without complication (12 sources) Diabetes mellitus; Translations: [Type 2 diabetes mellitus without complications] 04-02-2019 Chronic Disorders of lipid metabolism (6 sources) Hyperlipidemia; Translations: [Mixed hyperlipidemia] 03-19-2020 Chronic E Codes: Fall (4 sources) Fall; Translations: [Unspecified fall, initial encounter] 06-16-2023 Episodic Genitourinary symptoms and ill-defined conditions (5 sources) Dysuria 11-28-2018 Episodic Inflammation; infection of eye (except that caused by tuberculosis or sexually transmitteddisease) (8 sources) Acute infectious conjunctivitis; Translations: [Unspecified acute conjunctivitis, unspecified eye] 10-26-2022 Episodic Nausea and vomiting (6 sources) Nausea; Translations: [Nausea] 12-07-2022 Episodic Other acquired deformities (2 sources) Scoliosis deformity of spine 07-20-2021 Chronic Other circulatory disease (1 source) Disorder of respiratory system; Translations: [Other specified symptoms and signs involving the circulatory and respiratory systems] Onset: 2 Episodic Other disorders of stomach and duodenum (5 sources) Indigestion 01-08-2019 Episodic Other ear and sense organ disorders (3 sources) Hearing loss 07-19-2021 Chronic Other lower respiratory disease (3 sources) Wheezing 07-19-2021 Episodic Other lower respiratory disease (10 sources) Dyspnea; Translations: [Dyspnea, unspecified] 08-18-2021 Episodic Other nutritional; endocrine; and metabolic disorders (6 sources) H/O: diabetes mellitus; Translations: [Personal history of other endocrine, nutritional and metabolic disease] 12-07-2022 Episodic Other screening for suspected conditions (not mental disorders or infectious disease) (1 source) Encounter for screening mammogram for malignant neoplasm of breast; Translations: [Encounter for screening mammogram for malignant neoplasm of breast] Onset: 5 Episodic Other skin disorders (1 source) Foot callus 04-23-2022 Episodic Other upper respiratory infections (1 source) Acute upper respiratory infection 01-07-2022 Episodic Leela-; endo-; and myocarditis; cardiomyopathy (except that caused by tuberculosis or sexually transmitted disease) (1 source) Ejection murmur 12-29-2021 Chronic Peripheral and visceral atherosclerosis (2 sources) Atherosclerosis of aorta 07-20-2021 Chronic Residual codes; unclassified (6 sources) Flushing; Translations: [Flushing] 12-07-2022 Episodic Spondylosis; intervertebral disc disorders; other back problems (1 source) Spasm of muscle of lower back 01-07-2022 Episodic Sprains and strains (4 sources) Sprain of right knee; Translations: [Sprain of unspecified site of right knee, initial encounter] 06-16-2023 Episodic Superficial injury; contusion (4 sources) Contusion of sacral region; Translations: [Contusion of lower back and pelvis, initial encounter] 06-16-2023 Episodic Thyroid disorders (1 source) Goiter 04-23-2022 Chronic Thyroid disorders (1 source) Disorder of thyroid, unspecified; Translations: [Thyroid mass] Onset: 3 Episodic Unclassified (1 source) Low back pain, unspecified; Translations: [Low back pain, unspecified] Onset: 2 Viral infection (1 source) Disease caused by 2019-nCoV 10-20-2021 Past or Other Problems Problem Classification Problem Date Documented Date Episodic/Chronic Abdominal pain (9 sources) Chronic abdominal pain; Translations: [Right lower quadrant pain] Onset: 03-14-2024 04-08-2019 Episodic Calculus of urinary tract (2 sources) Kidney stone; Translations: [Calculus of kidney] Onset: 03-08-2024 03-16-2024 Episodic Deficiency and other anemia (1 source) Anemia, unspecified; Translations: [Anemia, unspecified] Onset: 03-13-2024 Episodic Other diseases of kidney and ureters (2 sources) Hydronephrosis with renal and ureteral calculous obstruction; Translations: [Hydronephrosis with urinary obstruction due to renal calculus] Onset: 03-08-2024 03-16-2024 Episodic Unclassified (1 source) Low back pain, unspecified; Translations: [Low back pain, unspecified] Onset: 01-03-2022 Urinary tract infections (11 sources) Urinary tract infectious disease; Translations: [Urinary tract infection, site not specified] Onset: 03-08-2024 10-30-2020 Episodic Results Test Name Value Interpretation Reference Range Facility CBC W/Diff, Automatedon 08- Absolute Lymph 2.42 X10 3/uL Normal 0.83-4.51 [facility] Comment on above: Order Comment: Order Date: 10/18/23 Order Info: 4548-4 - A1C Performed By: #### L 100.0100, L501.9985, L500.4050, L500.4100, [id number] #### [facility] [address] [place], [address] Absolute Neut 4.6 X10 3/uL Normal 2.0-7.7 [facility] Comment on above: Order Comment: Order Date: 10/18/23 Order Info: 4548-4 - A1C Performed By: #### L 100.0100, L501.9985, L500.4050, L500.4100, [id number] #### [facility] [address] [place], [address] Basophils/100 WBC (Bld) 0.3 % Normal 0-1 [facility] Comment on above: Order Comment: Order Date: 10/18/23 Order Info: 4548-4 - A1C Performed By: #### L 100.0100, L501.9985, L500.4050, L500.4100, [id number] #### [facility] [address] [place], [address] Eosinophils/100 WBC (Bld) 3.3 % Normal 0-5 [facility] Comment on above: Order Comment: Order Date: 10/18/23 Order Info: 4548-4 - A1C Performed By: #### L 100.0100, L501.9985, L500.4050, L500.4100, [id number] #### [facility] [address] [place], [address] Erythrocyte distribution width (RBC) [Ratio] 12.5 % Normal 11.6-14.6 [facility] Comment on above: Order Comment: Order Date: 10/18/23 Order Info: 4548-4 - A1C Performed By: #### L 100.0100, L501.9985, L500.4050, L500.4100, [id number] #### [facility] [address] [place], [address] Hematocrit (Bld) [Volume fraction] 36.6 % Low 37-47 [facility] Comment on above: Order Comment: Order Date: 10/18/23 Order Info: 4548-4 - A1C Performed By: #### L 100.0100, L501.9985, L500.4050, L500.4100, [id number] #### [facility] [address] [place], [address] Hemoglobin (Bld) [Mass/Vol] 11.9 g/dL Low 12.0-15.0 [facility] Comment on above: Order Comment: Order Date: 10/18/23 Order Info: 4548-4 - A1C Performed By: #### L 100.0100, L501.9985, L500.4050, L500.4100, [id number] #### [facility] [address] [place], [address] IG% 0.400 Normal 0.0-0.9 [facility] Comment on above: Order Comment: Order Date: 10/18/23 Order Info: 4548-4 - A1C Result Comment: IG% - Immature Granulocytes (promyelocytes, myelocytes and metamyelocytes) > 1% indicates that a LEFT SHIFT is Present. Performed By: #### L 100.0100, L501.9985, L500.4050, L500.4100, [id number] #### [facility] [address] [place], [address] Lymphocytes/100 WBC (Bld) 31.5 % Normal 19-41 [facility] Comment on above: Order Comment: Order Date: 10/18/23 Order Info: 4548-4 - A1C Performed By: #### L 100.0100, L501.9985, L500.4050, L500.4100, [id number] #### [facility] [address] [place], [address] MCH (RBC) [Entitic mass] 27.4 pg Normal 27.0-32.0 [facility] Comment on above: Order Comment: Order Date: 10/18/23 Order Info: 4548-4 - A1C Performed By: #### L 100.0100, L501.9985, L500.4050, L500.4100, [id number] #### [facility] [address] [place], [address] MCHC (RBC) [Mass/Vol] 32.5 g/dL Normal 32-36 [facility] Comment on above: Order Comment: Order Date: 10/18/23 Order Info: 4548-4 - A1C Performed By: #### L 100.0100, L501.9985, L500.4050, L500.4100, [id number] #### [facility] [address] [place], [address] MCV (RBC) [Entitic vol] 84.3 fL Normal 81-99 [facility] Comment on above: Order Comment: Order Date: 10/18/23 Order Info: 4548-4 - A1C Performed By: #### L 100.0100, L501.9985, L500.4050, L500.4100, [id number] #### [facility] [address] [place], [address] Monocytes/100 WBC (Bld) 5.1 % Normal 0-10 [facility] Comment on above: Order Comment: Order Date: 10/18/23 Order Info: 4548-4 - A1C Performed By: #### L 100.0100, L501.9985, L500.4050, L500.4100, [id number] #### [facility] [address] [place], [address] Neutrophils/100 WBC (Bld) 59.4 % Normal 47-70 [facility] Comment on above: Order Comment: Order Date: 10/18/23 Order Info: 4548-4 - A1C Performed By: #### L 100.0100, L501.9985, L500.4050, L500.4100, [id number] #### [facility] [address] [place], [address] Nucleated RBC (Bld) [#/Vol] 0 10*3/uL Normal 0-5 [facility] Comment on above: Order Comment: Order Date: 10/18/23 Order Info: 4548-4 - A1C Performed By: #### L 100.0100, L501.9985, L500.4050, L500.4100, [id number] #### [facility] [address] [place], [address] Platelet mean volume (Bld) [Entitic vol] 10.6 fL Normal 6.2-12.0 [facility] Comment on above: Order Comment: Order Date: 10/18/23 Order Info: 4548-4 - A1C Performed By: #### L 100.0100, L501.9985, L500.4050, L500.4100, [id number] #### [facility] [address] [place], [address] Platelets (Bld) [#/Vol] 200 10*3/uL Normal 150-450 [facility] Comment on above: Order Comment: Order Date: 10/18/23 Order Info: 4548-4 - A1C Performed By: #### L 100.0100, L501.9985, L500.4050, L500.4100, [id number] #### [facility] [address] [place], [address] RBC (Bld) [#/Vol] 4.34 10*6/uL Normal 4.2-5.4 [facility] Comment on above: Order Comment: Order Date: 10/18/23 Order Info: 4548-4 - A1C Performed By: #### L 100.0100, L501.9985, L500.4050, L500.4100, [id number] #### [facility] [address] [place], [address] RDW SD 37.9 fl Normal 35.1-43.9 [facility] Comment on above: Order Comment: Order Date: 10/18/23 Order Info: 4548-4 - A1C Performed By: #### L 100.0100, L501.9985, L500.4050, L500.4100, [id number] #### [facility] [address] [place], [address] WBC (Bld) [#/Vol] 7.7 10*3/uL Normal 4.4-11.0 [facility] Comment on above: Order Comment: Order Date: 10/18/23 Order Info: 4548-4 - A1C Performed By: #### L 100.0100, L501.9985, L500.4050, L500.4100, [id number] #### [facility] [address] [place], [address] Comprehensive Metabolic Prof [facility] 10-03-2024 Albumin [Mass/Vol] 4.4 g/dL Normal 3.4-4.8 [facility] Comment on above: Order Comment: Order Date: 10/18/23 Order Info: 4548-4 - A1C Performed By: #### L 100.0100, L501.9985, L500.4050, L500.4100, L506.1000 #### [facility] [address] [place], [address] Albumin/Globulin [Mass ratio] 1.4 {ratio} Normal 0.9-2.4 [facility] Comment on above: Order Comment: Order Date: 10/18/23 Order Info: 4548-4 - A1C Performed By: #### L 100.0100, L501.9985, L500.4050, L500.4100, [id number] #### [facility] [address] [place], [address] ALK PHOS 137 U/L High 35-104 [facility] Comment on above: Order Comment: Order Date: 10/18/23 Order Info: 4548-4 - A1C Performed By: #### L 100.0100, L501.9985, L500.4050, L500.4100, [id number] #### [facility] [address] [place], [address] ALT [Catalytic activity/Vol] 9 U/L Normal <=34 [facility] Comment on above: Order Comment: Order Date: 10/18/23 Order Info: 4548-4 - A1C Performed By: #### L 100.0100, L501.9985, L500.4050, L500.4100, L506.1000 #### [facility] [address] [place], [address] AST [Catalytic activity/Vol] 17 U/L Normal <=31 [facility] Comment on above: Order Comment: Order Date: 10/18/23 Order Info: 4548-4 - A1C Performed By: #### L 100.0100, L501.9985, L500.4050, L500.4100, L506.1000 #### [facility] [address] [place], [address] Bilirubin [Mass/Vol] 0.25 mg/dL Normal 0.00-1.30 [facility] Comment on above: Order Comment: Order Date: 10/18/23 Order Info: 4548-4 - A1C Performed By: #### L 100.0100, L501.9985, L500.4050, L500.4100, L506.1000 #### [facility] [address] [place], [address] BUN/CRE 21.0 RATIO High 10-20 [facility] Comment on above: Order Comment: Order Date: 10/18/23 Order Info: 4548-4 - A1C Performed By: #### L 100.0100, L501.9985, L500.4050, L500.4100, L506.1000 #### [facility] [address] [place], [address] Calcium [Mass/Vol] 9.7 mg/dL Normal 7.6-11.0 [facility] Comment on above: Order Comment: Order Date: 10/18/23 Order Info: 4548-4 - A1C Performed By: #### L 100.0100, L501.9985, L500.4050, L500.4100, L506.1000 #### [facility] [address] [place], [address] Chloride [Moles/Vol] 103 mmol/L Normal 98-108 [facility] Comment on above: Order Comment: Order Date: 10/18/23 Order Info: 4548-4 - A1C Performed By: #### L 100.0100, L501.9985, L500.4050, L500.4100, L506.1000 #### [facility] [address] [place], [address] CO2 [Moles/Vol] 23.2 mmol/L Normal 21.0-32.0 [facility] Comment on above: Order Comment: Order Date: 10/18/23 Order Info: 4548-4 - A1C Performed By: #### L 100.0100, L501.9985, L500.4050, L500.4100, L506.1000 #### [facility] [address] [place], [address] Creatinine [Mass/Vol] 0.87 mg/dL Normal 0.70-1.20 [facility] Comment on above: Order Comment: Order Date: 10/18/23 Order Info: 4548-4 - A1C Performed By: #### L 100.0100, L501.9985, L500.4050, L500.4100, L506.1000 #### [facility] [address] [place], [address] GAP 14 Normal 5-15 [facility] Comment on above: Order Comment: Order Date: 10/18/23 Order Info: 4548-4 - A1C Performed By: #### L 100.0100, L501.9985, L500.4050, L500.4100, L506.1000 #### [facility] [address] [place], [address] GFR/1.73 sq M.predicted among non-blacks MDRD (S/P/Bld) [Vol rate/Area] 74 mL/min/{1.73_m2} Normal >60 [facility] Comment on above: Order Comment: Order Date: 10/18/23 Order Info: 4548-4 - A1C Result Comment: mL/m in/1.73m2 CKD-EPI Creatinine Equation (2020) Performed By: #### L 100.0100, L501.9985, L500.4050, L500.4100, L506.1000 #### [facility] [address] [place], [address] Globulin (S) [Mass/Vol] 3.2 g/dL Normal 2.2-4.2 [facility] Comment on above: Order Comment: Order Date: 10/18/23 Order Info: 4548-4 - A1C Performed By: #### L 100.0100, L501.9985, L500.4050, L500.4100, L506.1000 #### [facility] [address] [place], [address] Glucose [Mass/Vol] 92 mg/dL Normal 70-99 [facility] Comment on above: Order Comment: Order Date: 10/18/23 Order Info: 4548-4 - A1C Performed By: #### L 100.0100, L501.9985, L500.4050, L500.4100, L506.1000 #### [facility] [address] [place], [address] Potassium [Moles/Vol] 4.1 mmol/L Normal 3.3-5.1 [facility] Comment on above: Order Comment: Order Date: 10/18/23 Order Info: 4548-4 - A1C Performed By: #### L 100.0100, L501.9985, L500.4050, L500.4100, L506.1000 #### [facility] [address] [place], [address] Sodium [Moles/Vol] 140 mmol/L Normal 133-145 [facility] Comment on above: Order Comment: Order Date: 10/18/23 Order Info: 4548-4 - A1C Performed By: #### L 100.0100, L501.9985, L500.4050, L500.4100, L506.1000 #### [facility] [address] [place], [address] T PROT 7.6 g/dL Normal 5.9-8.4 [facility] Comment on above: Order Comment: Order Date: 10/18/23 Order Info: 4548-4 - A1C Performed By: #### L 100.0100, L501.9985, L500.4050, L500.4100, L506.1000 #### [facility] [address] [place], [address] Urea nitrogen [Mass/Vol] 18 mg/dL Normal 4-19 [facility] Comment on above: Order Comment: Order Date: 10/18/23 Order Info: 4548-4 - A1C Performed By: #### L 100.0100, L501.9985, L500.4050, L500.4100, L506.1000 #### [facility] [address] [place], [address] Hemoglobin A1con 10-03-2024 HbA1c (Bld) [Mass fraction] 7.0 % High <=5.6 [facility] Comment on above: Order Comment: Order Date: 10/18/23 Order Info: 4548-4 - A1C Result Comment: Norm al < 5.7 % Prediabetic 5.7 - 6.4 % Diabetic >or= 6.5 % Please note range changes. Performed By: #### L 100.0100, L501.9985, L500.4050, L500.4100, L506.1000 #### [facility] [address] [place], [address] Lipid Profileon 10-03-2024 CHOL:HDL 3.95 Normal [facility] Comment on above: Order Comment: Order Date: 10/18/23 Order Info: 4548-4 - A1C Performed By: #### L 100.0100, L501.9985, L500.4050, L500.4100, L506.1000 #### [facility] [address] [place], [address] Cholesterol [Mass/Vol] 261 mg/dL High <=200 [facility] Comment on above: Order Comment: Order Date: 10/18/23 Order Info: 4548-4 - A1C Result Comment: Chol esterol level, Desirable <200 mg/dL Borderline high cholesterol 200-239 mg/dL High cholesterol >=240 mg/dL Recommendations of the NCEP Adult Treatment Panel for the following risk-cutoff thresholds for the [place] population. Performed By: #### L 100.0100, L501.9985, L500.4050, L500.4100, L506.1000 #### [facility] [address] [place], [place], [address] Cholesterol in HDL [Mass/Vol] 66 mg/dL Normal [facility] Comment on above: Order Comment: Order Date: 10/18/23 Order Info: 4548-4 - A1C Result Comment: Yamileth onal Cholesterol Education Program (NCEP) guidelines: <40 mg/dL: Low HDL-cholesterol (major risk factor for CHD) >= 60 mg/dL: High HDL-cholesterol (negative risk factor for CHD) HDL-cholesterol is affected by a number of factors, e.g. smoking, exercise, hormones, sex and age. Performed By: #### L 100.0100, L501.9985, L500.4050, L500.4100, L506.1000 #### [facility] [address] [place], [address] Cholesterol in LDL [Mass/Vol] 167 mg/dL Normal [facility] Comment on above: Order Comment: Order Date: 10/18/23 Order Info: 4548-4 - A1C Result Comment: Bord nlvpkr=884-996 mg/dL Higher Bkdd=703 mg/dL or greater Friedwald Equation for LDL-C Performed By: #### L 100.0100, L501.9985, L500.4050, L500.4100, L506.1000 #### [facility] [address] [place], [address] Cholesterol in VLDL [Mass/Vol] 28 mg/dL Normal 5-40 [facility] Comment on above: Order Comment: Order Date: 10/18/23 Order Info: 4548-4 - A1C Performed By: #### L 100.0100, L501.9985, L500.4050, L500.4100, L506.1000 #### [facility] [address] [place], [address] Triglyceride [Mass/Vol] 141 mg/dL Normal [facility] Comment on above: Order Comment: Order Date: 10/18/23 Order Info: 4548-4 - A1C Result Comment: The drugs N-Acetylcysteine and Metamizole may falsely depress this assay. Normal range: <150 mg/dL Borderline High: 150-199 mg/dL High: 200-499 mg/dL Very High: >500 mg/dL Performed By: #### L 100.0100, L501.9985, L500.4050, L500.4100, L506.1000 #### [facility] [address] [place], [address] Bone density reportOrdered B y: Sreedhar Ryan on 09-26-2024 Study report Skeletal system DXA [facility] Services [address] [place], [place] [address] Dexa Bone Density Study MR#: [id number] Acct: [id number] Name: MONSERRAT CORNEJO I Rep #: [id number] : 1960 F 63 From: Jevon Ryan MD PCP: Dr. Yousif Murguia MD Status: RE G CLI Study:Dexa Bone Density Study Date of Exam: 09/25/24 Exam# [id number] Ordering Dr: Yousif Murguia MD PROCEDURE: DEXA BONE DENSITY STUDY 09/25/2024 REASON FOR EXAM: F, age 63 y/o . Postmenopausal. TECHNIQUE: DEXA BONE DENSITY STUDY COMPARISON: None FINDINGS: BMD and T-SCORES Lumbar spine: 1.003 g/cm2, T-score -0.1 Levels: L1 through L4 Left femoral neck: 0.610 g/cm2, T-score -2.2 Femoral neck comparison data not recommended for monitoring change. Left total hip: 0.87 g/cm2, T-score -0.6 Right femoral neck: 0.661 g/cm2, T-score -1.7 Femoral neck comparison data not recommended for monitoring change. Right total hip: 0.801 g/cm2, T-score -1.2 The World Health Organization has defined the following categories based on bonedensity: Normal bone density: T-score equal to or greater than -1.0 Osteopenia: T-score between -1.0 and -2.5 Osteoporosis: T-score equal to or less than -2.5 The patient does meet the pharmacological treatment recommendations for prevention of osteoporosis. BD/Dexa Bone Density Study IMPRESSION: OSTEOPENIA. Recommend follow-up as clinically warranted. Reading Location: [place] [address] CC: Dr. Yousif Murguai MD ~ Anesthesiology Medical Doctor: Signed [facility] Breast imaging reportOrdered By: Sreedhar Ryan on 09-25-2024 Study report [facility] Imaging Services [address] [place] [address] SCRN MAMM (CAD)W/JOSEP BILAT MR#: [id number] Acct: [id number] Name: MONSERRAT CORNEJO I Rep #: [id number] : 1960 F 63 From: Jevon Ryan MD PCP: Dr. Yousif Murguia MD Status: RE G CLI Study:SCRN MAMM (CAD)W/JOSEP BILAT Date of Exa m: 09/25/24 Exam# [id number] Ordering Dr: Yousif Murguia MD EXAM: SCRN MAMM (CAD)W/JOSEP BILAT DATE: 09/25/2024 CLINICAL HISTORY: F, Age 63 y/o , SCREENING/CORRECTED ORDER No family history. TECHNIQUE: SCRN MAMM (CAD)W/JOSEP BILAT COMPARISON: Prior exam(s) dated May 29, 2023.. FINDINGS: TISSUE DENSITY: There are scattered areas of fibroglandular density. Bilateral Breast Mammographic Findings: No significant masses, calcifications or other abnormalities are identified. Stable benign-appearing bilateral axillary lymph nodes. No suspicious masses, areas of developing architectural distortion, or suspicious calcifications. There has been no significant interval change. BI/SCRN MAMM (CAD)W/JOSEP BILAT IMPRESSION: Stable examination. OVERALL FINAL ASSESSMENT BI-RADS 2: BENIGN RECOMMENDATION: Routine annual follow-up in 1 Year A letter with findings and recommendations will be mailed to the patient. Reading Location: [facility] CC: Dr. Yousif Murguia MD ~ Anesthesiology Medical Doctor: Signed [facility] Dexa Bone Density Studyon Dexa Bone Density Study [facility] Imaging Services [address] [place] [address] Dexa Bone Density Study MR#: [id number] Acct: [id number] Name: MONSERRAT CORNEJO I Rep #: [id number] : 1960 F 63 From: Sreedhar rm MD PCP: Dr. Yousif Murguia MD Status: REG CLI Study: Dexa Bone Density Study Date of Exam: 09/25/24 Exam# [id number] Ordering Dr: Yousif Murguia MD PROCEDURE: DEXA BONE DENSITY STUDY 09/25/2024 REASON FOR EXAM: F, age 63 y/o . Postmenopausal. TECHNIQUE: DEXA BONE DENSITY STUDY COMPARISON: None FINDINGS: BMD and T-SCORES Lumbar spine: 1.003 g/cm2, T-score -0.1 Levels: L1 through L4 Left femoral neck: 0.610 g/cm2, T-score -2.2 Femoral neck comparison data not recommended for monitoring change. Left total hip: 0.87 g/cm2, T-score -0.6 Right femoral neck: 0.661 g/cm2, T-score -1.7 Femoral neck comparison data not recommended for monitoring change. Right total hip: 0.801 g/cm2, T-score -1.2 The World Health Organization has defined the following categories based on bone density: Normal bone density: T-score equal to or greater than -1.0 Osteopenia: T-score between -1.0 and -2.5 Osteoporosis: T-score equal to or less than -2.5 The patient does meet the pharmacological treatment recommendations for prevention of osteoporosis. BD/Dexa Bone Density Study IMPRESSION: OSTEOPENIA. Recommend follow-up as clinically warranted. Reading Location: [place] [address] CC: Dr. Yousif Murguia MD Anesthesiology Medical Doctor: Signed Normal [facility] SCRN MAMM (CAD)W/JOSEP BILATo n 09-25-2024 SCRN MAMM (CAD)W/JOSEP BILAT [facility] Imaging Services [address] [place], [place] [address] SCRN MAMM (CAD)W/JOSEP BILAT MR#: [id number] Acct: [id number] Name: MONSERRAT CORNEJO I Rep #: [id number] : 1960 F 63 From: Sreedhar rm MD PCP: Dr. Yousif Murguia MD Status: REG CLI Study: SCRN MAMM (CAD)W/JOSEP BILAT Date of Exam: 09/12 06/06 Exam# [id number] Ordering Dr: Yousif Murguia MD EXAM: SCRN MAMM (CAD)W/JOSEP BILAT DATE: 09/25/2024 CLINICAL HISTORY: F, Age 63 y/o , SCREENING/CORRECTED ORDER No family history. TECHNIQUE: SCRN MAMM (CAD)W/JOSEP BILAT COMPARISON: Prior exam(s) dated May 29, 2023.. FINDINGS: TISSUE DENSITY: There are scattered areas of fibroglandular density. Bilateral Breast Mammographic Findings: No significant masses, calcifications or other abnormalities are identified. Stable benign- appearing bilateral axillary lymph nodes. No suspicious masses, areas of developing architectural distortion, or suspicious calcifications. There has been no significant interval change. BI/SCRN MAMM (CAD)W/JOSEP BILAT IMPRESSION: Stable examination. OVERALL FINAL ASSESSMENT BI-RADS 2: BENIGN RECOMMENDATION: Routine annual follow-up in 1 Year A letter with findings and recommendations will be mailed to the patient. Reading Location: [place] [address] CC: Dr. Yousif Murguia MD Anesthesiology Medical Doctor: Signed Normal [facility] Basic Metabolic Profile (BMP )on 03-14-2024 BUN Normal 7-18 [facility] Comment on above: Result Comment: Canc elled via OM: Order cancelled - Patient discharged Performed By: #### L 100.0100, L501.9985, L500.4050, L500.4100, L506.1000 #### [facility] [address] [place], [address] BUN/CRE Normal 10-20 [facility] Comment on above: Result Comment: Canc elled via OM: Order cancelled - Patient discharged Performed By: #### L 100.0100, L501.9985, L500.4050, L500.4100, L506.1000 #### [facility] [address] [place], [address] CA,Total Normal 8.5-10.1 [facility] Comment on above: Result Comment: Canc elled via OM: Order cancelled - Patient discharged Performed By: #### L 100.0100, L501.9985, L500.4050, L500.4100, L506.1000 #### [facility] [address] [place], [address] CL Normal 98-107 [facility] Comment on above: Result Comment: Canc elled via OM: Order cancelled - Patient discharged Performed By: #### L 100.0100, L501.9985, L500.4050, L500.4100, L506.1000 #### [facility] [address] [place], [address] CO2 Normal 21.0-32.0 [facility] Comment on above: Result Comment: Canc elled via OM: Order cancelled - Patient discharged Performed By: #### L 100.0100, L501.9985, L500.4050, L500.4100, L506.1000 #### [facility] [address] [place], [address] CREAT,SERUM Normal 0.55-1.02 [facility] Comment on above: Result Comment: Canc elled via OM: Order cancelled - Patient discharged Performed By: #### L 100.0100, L501.9985, L500.4050, L500.4100, L506.1000 #### [facility] [address] [place], [address] EST GFR Normal >60 [facility] Comment on above: Result Comment: Canc elled via OM: Order cancelled - Patient discharged Performed By: #### L 100.0100, L501.9985, L500.4050, L500.4100, L506.1000 #### [facility] [address] [place], [address] EST GFR - AA Normal >60 [facility] Comment on above: Result Comment: Canc elled via OM: Order cancelled - Patient discharged Performed By: #### L 100.0100, L501.9985, L500.4050, L500.4100, L506.1000 #### [facility] [address] [place], [address] GAP Normal 5-15 [facility] Comment on above: Result Comment: Canc elled via OM: Order cancelled - Patient discharged Performed By: #### L 100.0100, L501.9985, L500.4050, L500.4100, L506.1000 #### [facility] [address] [place], [address] GLU Normal 74-106 [facility] Comment on above: Result Comment: Canc elled via OM: Order cancelled - Patient discharged Performed By: #### L 100.0100, L501.9985, L500.4050, L500.4100, L506.1000 #### [facility] [address] [place], [address] Potassium Normal 3.5-5.1 [facility] Comment on above: Result Comment: Canc elled via OM: Order cancelled - Patient discharged Performed By: #### L 100.0100, L501.9985, L500.4050, L500.4100, L506.1000 #### [facility] [address] [place], [address] Basic Metabolic Profile (BMP) Normal 136-145 [facility] Comment on above: Result Comment: Canc elled via OM: Order cancelled - Patient discharged Performed By: #### L 100.0100, L501.9985, L500.4050, L500.4100, L506.1000 #### [facility] [address] [place], [address] CBC W/Diff, Automatedon 01-3 Absolute Neut Normal 2.0-7.7 [facility] Comment on above: Result Comment: Canc elled via OM: Order cancelled - Patient discharged Performed By: #### L 100.0100, L501.9985, L500.4050, L500.4100, L506.1000 #### [facility] [address] [place], [address] HCT Normal 37-47 [facility] Comment on above: Result Comment: Canc elled via OM: Order cancelled - Patient discharged Performed By: #### L 100.0100, L501.9985, L500.4050, L500.4100, L506.1000 #### [facility] [address] [place], [address] HGB Normal 12.0-15.0 [facility] Comment on above: Result Comment: Canc elled via OM: Order cancelled - Patient discharged Performed By: #### L 100.0100, L501.9985, L500.4050, L500.4100, L506.1000 #### [facility] [address] [place], [address] MCH Normal 27.0-32.0 [facility] Comment on above: Result Comment: Canc elled via OM: Order cancelled - Patient discharged Performed By: #### L 100.0100, L501.9985, L500.4050, L500.4100, L506.1000 #### [facility] [address] [place], [address] MCHC Normal 32-36 [facility] Comment on above: Result Comment: Canc elled via OM: Order cancelled - Patient discharged Performed By: #### L 100.0100, L501.9985, L500.4050, L500.4100, L506.1000 #### [facility] [address] [place], [address] MCV Normal 81-99 [facility] Comment on above: Result Comment: Canc elled via OM: Order cancelled - Patient discharged Performed By: #### L 100.0100, L501.9985, L500.4050, L500.4100, L506.1000 #### [facility] [address] [place], [address] NEUT% Normal 47-70 [facility] Comment on above: Result Comment: Canc elled via OM: Order cancelled - Patient discharged Performed By: #### L 100.0100, L501.9985, L500.4050, L500.4100, L506.1000 #### [facility] [address] [place], [address] PLT Normal 150-450 [facility] Comment on above: Result Comment: Canc elled via OM: Order cancelled - Patient discharged Performed By: #### L 100.0100, L501.9985, L500.4050, L500.4100, L506.1000 #### [facility] [address] [place] [id number] RBC Normal 4.2-5.4 [facility] Comment on above: Result Comment: Canc elled via OM: Order cancelled - Patient discharged Performed By: #### L 100.0100, L501.9985, L500.4050, L500.4100, L506.1000 #### [facility] [address] [place] [id number] RDW CV Normal 11.6-14.6 [facility] Comment on above: Result Comment: Canc elled via OM: Order cancelled - Patient discharged Performed By: #### L 100.0100, L501.9985, L500.4050, L500.4100, L506.1000 #### [facility] [address] [place], [address] RDW SD Normal 35.1-43.9 [facility] Comment on above: Result Comment: Canc elled via OM: Order cancelled - Patient discharged Performed By: #### L 100.0100, L501.9985, L500.4050, L500.4100, L506.1000 #### [facility] [address] [place], [address] WBC Normal 4.4-11.0 [facility] Comment on above: Result Comment: Canc elled via OM: Order cancelled - Patient discharged Performed By: #### L 100.0100, L501.9985, L500.4050, L500.4100, L506.1000 #### [facility] [address] [place], [address] Basic Metabolic Profile (BMP )on 03-13-2024 BUN Normal 7-18 [facility] Comment on above: Result Comment: Canc elled via OM: Order cancelled - Patient discharged Performed By: #### L 100.0100, L501.9985, L500.4050, L500.4100, L506.1000 #### [facility] [address] [place], [address] BUN/CRE Normal 10-20 [facility] Comment on above: Result Comment: Canc elled via OM: Order cancelled - Patient discharged Performed By: #### L 100.0100, L501.9985, L500.4050, L500.4100, L506.1000 #### [facility] [address] [place], [address] CA,Total Normal 8.5-10.1 [facility] Comment on above: Result Comment: Canc elled via OM: Order cancelled - Patient discharged Performed By: #### L 100.0100, L501.9985, L500.4050, L500.4100, L506.1000 #### [facility] [address] [place], [address] CL Normal 98-107 [facility] Comment on above: Result Comment: Canc elled via OM: Order cancelled - Patient discharged Performed By: #### L 100.0100, L501.9985, L500.4050, L500.4100, L506.1000 #### [facility] [address] [place], [address] CO2 Normal 21.0-32.0 [facility] Comment on above: Result Comment: Canc elled via OM: Order cancelled - Patient discharged Performed By: #### L 100.0100, L501.9985, L500.4050, L500.4100, L506.1000 #### [facility] [address] [place], [address] CREAT,SERUM Normal 0.55-1.02 [facility] Comment on above: Result Comment: Canc elled via OM: Order cancelled - Patient discharged Performed By: #### L 100.0100, L501.9985, L500.4050, L500.4100, L506.1000 #### [facility] [address] [place], [address] EST GFR Normal >60 [facility] Comment on above: Result Comment: Canc elled via OM: Order cancelled - Patient discharged Performed By: #### L 100.0100, L501.9985, L500.4050, L500.4100, L506.1000 #### [facility] [address] [place], [address] EST GFR - AA Normal >60 [facility] Comment on above: Result Comment: Canc elled via OM: Order cancelled - Patient discharged Performed By: #### L 100.0100, L501.9985, L500.4050, L500.4100, L506.1000 #### [facility] [address] [place], [address] GAP Normal 5-15 [facility] [facility] Comment on above: Result Comment: Canc elled via OM: Order cancelled - Patient discharged Performed By: #### L 100.0100, L501.9985, L500.4050, L500.4100, L506.1000 #### [facility] [address] [place], [address] GLU Normal 74-106 [facility] Comment on above: Result Comment: Canc elled via OM: Order cancelled - Patient discharged Performed By: #### L 100.0100, L501.9985, L500.4050, L500.4100, L506.1000 #### [facility] [address] [place], [address] Potassium Normal 3.5-5.1 [facility] Comment on above: Result Comment: Canc elled via OM: Order cancelled - Patient discharged Performed By: #### L 100.0100, L501.9985, L500.4050, L500.4100, L506.1000 #### [facility] [address] [place], [address] Basic Metabolic Profile (BMP) Normal 136-145 [facility] Comment on above: Result Comment: Canc elled via OM: Order cancelled - Patient discharged Performed By: #### L 100.0100, L501.9985, L500.4050, L500.4100, L506.1000 #### [facility] [address] [place], [address] CBC W/Diff, Automatedon 01-3 0-2024 Absolute Neut Normal 2.0-7.7 [facility] Comment on above: Result Comment: Canc elled via OM: Order cancelled - Patient discharged Performed By: #### L 100.0100, L501.9985, L500.4050, L500.4100, L506.1000 #### [facility] [address] [place], [address] HCT Normal 37-47 [facility] Comment on above: Result Comment: Canc elled via OM: Order cancelled - Patient discharged Performed By: #### L 100.0100, L501.9985, L500.4050, L500.4100, L506.1000 #### [facility] [address] [place], [address] HGB Normal 12.0-15.0 [facility] Comment on above: Result Comment: Canc elled via OM: Order cancelled - Patient discharged Performed By: #### L 100.0100, L501.9985, L500.4050, L500.4100, L506.1000 #### [facility] [address] [place], [address] MCH Normal 27.0-32.0 [facility] Comment on above: Result Comment: Canc elled via OM: Order cancelled - Patient discharged Performed By: #### L 100.0100, L501.9985, L500.4050, L500.4100, L506.1000 #### [facility] [address] [place], [address] MCHC Normal 32-36 [facility] Comment on above: Result Comment: Canc elled via OM: Order cancelled - Patient discharged Performed By: #### L 100.0100, L501.9985, L500.4050, L500.4100, L506.1000 #### [facility] [address] [place], [address] MCV Normal 81-99 [facility] Comment on above: Result Comment: Canc elled via OM: Order cancelled - Patient discharged Performed By: #### L 100.0100, L501.9985, L500.4050, L500.4100, L506.1000 #### [facility] [address] [place], [address] NEUT% Normal 47-70 [facility] Comment on above: Result Comment: Canc elled via OM: Order cancelled - Patient discharged Performed By: #### L 100.0100, L501.9985, L500.4050, L500.4100, L506.1000 #### [facility] [address] [place], [address] PLT Normal 150-450 [facility] Comment on above: Result Comment: Canc elled via OM: Order cancelled - Patient discharged Performed By: #### L 100.0100, L501.9985, L500.4050, L500.4100, L506.1000 #### [facility] [address] [place], [address] RBC Normal 4.2-5.4 [facility] Comment on above: Result Comment: Canc elled via OM: Order cancelled - Patient discharged Performed By: #### L 100.0100, L501.9985, L500.4050, L500.4100, L506.1000 #### [facility] [address] [place], [address] RDW CV Normal 11.6-14.6 [facility] Comment on above: Result Comment: Canc elled via OM: Order cancelled - Patient discharged Performed By: #### L 100.0100, L501.9985, L500.4050, L500.4100, L506.1000 #### [facility] [address] [place], [address] RDW SD Normal 35.1-43.9 [facility] Comment on above: Result Comment: Canc elled via OM: Order cancelled - Patient discharged Performed By: #### L 100.0100, L501.9985, L500.4050, L500.4100, L506.1000 #### [facility] [address] [place], [address] WBC Normal 4.4-11.0 [facility] Comment on above: Result Comment: Canc elled via OM: Order cancelled - Patient discharged Performed By: #### L 100.0100, L501.9985, L500.4050, L500.4100, L506.1000 #### [facility] [address] [place], [address] Basic Metabolic Profile (BMP )on 03-12-2024 BUN Normal 7-18 [facility] Comment on above: Result Comment: Canc elled via OM: Order cancelled - Patient discharged Performed By: #### L 500.2500, L100.0100 #### [facility] [address] [place], [address] BUN/CRE Normal 10-20 [facility] Comment on above: Result Comment: Canc elled via OM: Order cancelled - Patient discharged Performed By: #### L 500.2500, L100.0100 #### [facility] [address] [place], [address] CA,Total Normal 8.5-10.1 [facility] Comment on above: Result Comment: Canc elled via OM: Order cancelled - Patient discharged Performed By: #### L 500.2500, L100.0100 #### [facility] [address] [place], [address] CL Normal 98-107 [facility] Comment on above: Result Comment: Canc elled via OM: Order cancelled - Patient discharged Performed By: #### L 500.2500, L100.0100 #### [facility] [address] [place], [address] CO2 Normal 21.0-32.0 [facility] Comment on above: Result Comment: Canc elled via OM: Order cancelled - Patient discharged Performed By: #### L 500.2500, L100.0100 #### [facility] [address] [place], [address] CREAT,SERUM Normal 0.55-1.02 [facility] Comment on above: Result Comment: Canc elled via OM: Order cancelled - Patient discharged Performed By: #### L 500.2500, L100.0100 #### [facility] [address] [place], [address] EST GFR Normal >60 [facility] Comment on above: Result Comment: Canc elled via OM: Order cancelled - Patient discharged Performed By: #### L 500.2500, L100.0100 #### [facility] [address] [place], [address] EST GFR - AA Normal >60 [facility] Comment on above: Result Comment: Canc elled via OM: Order cancelled - Patient discharged Performed By: #### L 500.2500, L100.0100 #### [facility] [address] [place], [address] GAP Normal 5-15 [facility] Comment on above: Result Comment: Canc elled via OM: Order cancelled - Patient discharged Performed By: #### L 500.2500, L100.0100 #### [facility] [address] [place], [address] GLU Normal 74-106 [facility] Comment on above: Result Comment: Canc elled via OM: Order cancelled - Patient discharged Performed By: #### L 500.2500, L100.0100 #### [facility] [address] [place], [address] Potassium Normal 3.5-5.1 [facility] Comment on above: Result Comment: Canc elled via OM: Order cancelled - Patient discharged Performed By: #### L 500.2500, L100.0100 #### [facility] [address] [place], [address] Basic Metabolic Profile (BMP) Normal 136-145 [facility] Comment on above: Result Comment: Canc elled via OM: Order cancelled - Patient discharged Performed By: #### L 500.2500, L100.0100 #### [facility] [address] [place], [address] CBC W/Diff, Automatedon 01-2 Absolute Neut Normal 2.0-7.7 [facility] Comment on above: Result Comment: Canc elled via OM: Order cancelled - Patient discharged Performed By: #### L 500.2500, L100.0100 #### [facility] [address] [place], [address] HCT Normal 37-47 [facility] Comment on above: Result Comment: Canc elled via OM: Order cancelled - Patient discharged Performed By: #### L 500.2500, L100.0100 #### [facility] [address] [place], [address] HGB Normal 12.0-15.0 [facility] Comment on above: Result Comment: Canc elled via OM: Order cancelled - Patient discharged Performed By: #### L 500.2500, L100.0100 #### [facility] [address] [place], [address] MCH Normal 27.0-32.0 [facility] Comment on above: Result Comment: Canc elled via OM: Order cancelled - Patient discharged Performed By: #### L 500.2500, L100.0100 #### [facility] [address] [place], [address] MCHC Normal 32-36 [facility] Comment on above: Result Comment: Canc elled via OM: Order cancelled - Patient discharged Performed By: #### L 500.2500, L100.0100 #### [facility] [address] [place], [address] MCV Normal 81-99 [facility] Comment on above: Result Comment: Canc elled via OM: Order cancelled - Patient discharged Performed By: #### L 500.2500, L100.0100 #### [facility] [address] [place], [address] NEUT% Normal 47-70 [facility] Comment on above: Result Comment: Canc elled via OM: Order cancelled - Patient discharged Performed By: #### L 500.2500, L100.0100 #### [facility] [address] [place], [address] PLT Normal 150-450 [facility] Comment on above: Result Comment: Canc elled via OM: Order cancelled - Patient discharged Performed By: #### L 500.2500, L100.0100 #### [facility] [address] [place], [address] RBC Normal 4.2-5.4 [facility] Comment on above: Result Comment: Canc elled via OM: Order cancelled - Patient discharged Performed By: #### L 500.2500, L100.0100 #### [facility] [address] [place], [address] RDW CV Normal 11.6-14.6 [facility] Comment on above: Result Comment: Canc elled via OM: Order cancelled - Patient discharged Performed By: #### L 500.2500, L100.0100 #### [facility] [address] [place], [address] RDW SD Normal 35.1-43.9 [facility] Comment on above: Result Comment: Canc elled via OM: Order cancelled - Patient discharged Performed By: #### L 500.2500, L100.0100 #### [facility] [address] [place], [address] WBC Normal 4.4-11.0 [facility] Comment on above: Result Comment: Canc elled via OM: Order cancelled - Patient discharged Performed By: #### L 500.2500, L100.0100 #### [facility] [address] [place], [address] Basic Metabolic Profile (BMP )on 03-11-2024 BUN Normal 7-18 [facility] Comment on above: Result Comment: Canc elled via OM: Order cancelled - Patient discharged Performed By: #### L 100.0100, L501.9985, L500.4050, L500.4100, L506.1000 #### [facility] [address] [place], [address] BUN/CRE Normal 10-20 [facility] Comment on above: Result Comment: Canc elled via OM: Order cancelled - Patient discharged Performed By: #### L 100.0100, L501.9985, L500.4050, L500.4100, L506.1000 #### [facility] [address] [place], [address] CA,Total Normal 8.5-10.1 [facility] Comment on above: Result Comment: Canc elled via OM: Order cancelled - Patient discharged Performed By: #### L 100.0100, L501.9985, L500.4050, L500.4100, L506.1000 #### [facility] [address] [place], [address] CL Normal 98-107 [facility] Comment on above: Result Comment: Canc elled via OM: Order cancelled - Patient discharged Performed By: #### L 100.0100, L501.9985, L500.4050, L500.4100, L506.1000 #### [facility] [address] [place], [address] CO2 Normal 21.0-32.0 [facility] Comment on above: Result Comment: Canc elled via OM: Order cancelled - Patient discharged Performed By: #### L 100.0100, L501.9985, L500.4050, L500.4100, L506.1000 #### [facility] [address] [place], [address] CREAT,SERUM Normal 0.55-1.02 [facility] Comment on above: Result Comment: Canc elled via OM: Order cancelled - Patient discharged Performed By: #### L 100.0100, L501.9985, L500.4050, L500.4100, L506.1000 #### [facility] [address] [place], [address] EST GFR Normal >60 [facility] Comment on above: Result Comment: Canc elled via OM: Order cancelled - Patient discharged Performed By: #### L 100.0100, L501.9985, L500.4050, L500.4100, L506.1000 #### [facility] [address] [place], [address] EST GFR - AA Normal >60 [facility] Comment on above: Result Comment: Canc elled via OM: Order cancelled - Patient discharged Performed By: #### L 100.0100, L501.9985, L500.4050, L500.4100, L506.1000 #### [facility] [address] [place], [address] GAP Normal 5-15 [facility] Comment on above: Result Comment: Canc elled via OM: Order cancelled - Patient discharged Performed By: #### L 100.0100, L501.9985, L500.4050, L500.4100, L506.1000 #### [facility] [address] [place], [address] GLU Normal 74-106 [facility] Comment on above: Result Comment: Canc elled via OM: Order cancelled - Patient discharged Performed By: #### L 100.0100, L501.9985, L500.4050, L500.4100, L506.1000 #### [facility] [address] [place], [address] Potassium Normal 3.5-5.1 [facility] Comment on above: Result Comment: Canc elled via OM: Order cancelled - Patient discharged Performed By: #### L 100.0100, L501.9985, L500.4050, L500.4100, L506.1000 #### [facility] [address] [place], [address] Basic Metabolic Profile (BMP) Normal 136-145 [facility] Comment on above: Result Comment: Canc elled via OM: Order cancelled - Patient discharged Performed By: #### L 100.0100, L501.9985, L500.4050, L500.4100, L506.1000 #### [facility] [address] [place], [address] CBC W/Diff, Automatedon - Absolute Neut Normal 2.0-7.7 [facility] Comment on above: Result Comment: Canc elled via OM: Order cancelled - Patient discharged Performed By: #### L 100.0100, L501.9985, L500.4050, L500.4100, L506.1000 #### [facility] [address] [place], [address] HCT Normal 37-47 [facility] Comment on above: Result Comment: Canc elled via OM: Order cancelled - Patient discharged Performed By: #### L 100.0100, L501.9985, L500.4050, L500.4100, L506.1000 #### [facility] [address] [place], [address] HGB Normal 12.0-15.0 [facility] Comment on above: Result Comment: Canc elled via OM: Order cancelled - Patient discharged Performed By: #### L 100.0100, L501.9985, L500.4050, L500.4100, L506.1000 #### [facility] [address] [place], [address] MCH Normal 27.0-32.0 [facility] Comment on above: Result Comment: Canc elled via OM: Order cancelled - Patient discharged Performed By: #### L 100.0100, L501.9985, L500.4050, L500.4100, L506.1000 #### [facility] [address] [place], [address] MCHC Normal 32-36 [facility] Comment on above: Result Comment: Canc elled via OM: Order cancelled - Patient discharged Performed By: #### L 100.0100, L501.9985, L500.4050, L500.4100, L506.1000 #### [facility] [address] [place], [address] MCV Normal 81-99 [facility] Comment on above: Result Comment: Canc elled via OM: Order cancelled - Patient discharged Performed By: #### L 100.0100, L501.9985, L500.4050, L500.4100, L506.1000 #### [facility] [address] [place], [address] NEUT% Normal 47-70 [facility] Comment on above: Result Comment: Canc elled via OM: Order cancelled - Patient discharged Performed By: #### L 100.0100, L501.9985, L500.4050, L500.4100, L506.1000 #### [facility] [address] [place], [address] PLT Normal 150-450 [facility] Comment on above: Result Comment: Canc elled via OM: Order cancelled - Patient discharged Performed By: #### L 100.0100, L501.9985, L500.4050, L500.4100, L506.1000 #### [facility] [address] [place], [address] RBC Normal 4.2-5.4 [facility] Comment on above: Result Comment: Canc elled via OM: Order cancelled - Patient discharged Performed By: #### L 100.0100, L501.9985, L500.4050, L500.4100, L506.1000 #### [facility] [address] [place], [address] RDW CV Normal 11.6-14.6 [facility] Comment on above: Result Comment: Canc elled via OM: Order cancelled - Patient discharged Performed By: #### L 100.0100, L501.9985, L500.4050, L500.4100, L506.1000 #### [facility] [address] [place], [address] RDW SD Normal 35.1-43.9 [facility] Comment on above: Result Comment: Canc elled via OM: Order cancelled - Patient discharged Performed By: #### L 100.0100, L501.9985, L500.4050, L500.4100, L506.1000 #### [facility] [address] [place], [address] WBC Normal 4.4-11.0 [facility] Comment on above: Result Comment: Canc elled via OM: Order cancelled - Patient discharged Performed By: #### L 100.0100, L501.9985, L500.4050, L500.4100, L506.1000 #### [facility] [address] [place], [address] Basic Metabolic Profile (BMP )on 03-10-2024 BUN Normal 7-18 [facility] Comment on above: Result Comment: Canc elled via OM: Order cancelled - Patient discharged Performed By: #### L 100.0100, L501.9985, L500.4050, L500.4100, L506.1000 #### [facility] [address] [place], [address] BUN/CRE Normal 10-20 [facility] Comment on above: Result Comment: Canc elled via OM: Order cancelled - Patient discharged Performed By: #### L 100.0100, L501.9985, L500.4050, L500.4100, L506.1000 #### [facility] [address] [place], [address] CA,Total Normal 8.5-10.1 [facility] Comment on above: Result Comment: Canc elled via OM: Order cancelled - Patient discharged Performed By: #### L 100.0100, L501.9985, L500.4050, L500.4100, L506.1000 #### [facility] [address] [place], [address] CL Normal 98-107 [facility] Comment on above: Result Comment: Canc elled via OM: Order cancelled - Patient discharged Performed By: #### L 100.0100, L501.9985, L500.4050, L500.4100, L506.1000 #### [facility] [address] [place], [address] CO2 Normal 21.0-32.0 [facility] Comment on above: Result Comment: Canc elled via OM: Order cancelled - Patient discharged Performed By: #### L 100.0100, L501.9985, L500.4050, L500.4100, L506.1000 #### [facility] [address] [place], [address] CREAT,SERUM Normal 0.55-1.02 [facility] Comment on above: Result Comment: Canc elled via OM: Order cancelled - Patient discharged Performed By: #### L 100.0100, L501.9985, L500.4050, L500.4100, L506.1000 #### [facility] [address] [place], [address] EST GFR Normal >60 [facility] Comment on above: Result Comment: Canc elled via OM: Order cancelled - Patient discharged Performed By: #### L 100.0100, L501.9985, L500.4050, L500.4100, L506.1000 #### [facility] [address] [place], [address] EST GFR - AA Normal >60 [facility] Comment on above: Result Comment: Canc elled via OM: Order cancelled - Patient discharged Performed By: #### L 100.0100, L501.9985, L500.4050, L500.4100, L506.1000 #### [facility] [address] [place], [address] GAP Normal 5-15 [facility] Comment on above: Result Comment: Canc elled via OM: Order cancelled - Patient discharged Performed By: #### L 100.0100, L501.9985, L500.4050, L500.4100, L506.1000 #### [facility] [address] [place], [address] GLU Normal 74-106 [facility] Comment on above: Result Comment: Canc elled via OM: Order cancelled - Patient discharged Performed By: #### L 100.0100, L501.9985, L500.4050, L500.4100, L506.1000 #### [facility] [address] [place], [address] Potassium Normal 3.5-5.1 [facility] Comment on above: Result Comment: Canc elled via OM: Order cancelled - Patient discharged Performed By: #### L 100.0100, L501.9985, L500.4050, L500.4100, L506.1000 #### [facility] [address] [place], [address] Basic Metabolic Profile (BMP) Normal 136-145 [facility] Comment on above: Result Comment: Canc elled via OM: Order cancelled - Patient discharged Performed By: #### L 100.0100, L501.9985, L500.4050, L500.4100, L506.1000 #### [facility] [address] [place], [address] CBC W/Diff, Automatedon 01-2 Absolute Neut Normal 2.0-7.7 [facility] Comment on above: Result Comment: Canc elled via OM: Order cancelled - Patient discharged Performed By: #### L 100.0100, L501.9985, L500.4050, L500.4100, L506.1000 #### [facility] [address] [place], [address] HCT Normal 37-47 [facility] Comment on above: Result Comment: Canc elled via OM: Order cancelled - Patient discharged Performed By: #### L 100.0100, L501.9985, L500.4050, L500.4100, L506.1000 #### [facility] [address] [place], [address] HGB Normal 12.0-15.0 [facility] Comment on above: Result Comment: Canc elled via OM: Order cancelled - Patient discharged Performed By: #### L 100.0100, L501.9985, L500.4050, L500.4100, L506.1000 #### [facility] [address] [place], [address] MCH Normal 27.0-32.0 [facility] Comment on above: Result Comment: Canc elled via OM: Order cancelled - Patient discharged Performed By: #### L 100.0100, L501.9985, L500.4050, L500.4100, L506.1000 #### [facility] [address] [place], [address] MCHC Normal 32-36 [facility] Comment on above: Result Comment: Canc elled via OM: Order cancelled - Patient discharged Performed By: #### L 100.0100, L501.9985, L500.4050, L500.4100, L506.1000 #### [facility] [address] [place], [address] MCV Normal 81-99 [facility] Comment on above: Result Comment: Canc elled via OM: Order cancelled - Patient discharged Performed By: #### L 100.0100, L501.9985, L500.4050, L500.4100, L506.1000 #### [facility] [facility] [address] [place], [address] NEUT% Normal 47-70 [facility] Comment on above: Result Comment: Canc elled via OM: Order cancelled - Patient discharged Performed By: #### L 100.0100, L501.9985, L500.4050, L500.4100, L506.1000 #### [facility] [address] [place], [address] PLT Normal 150-450 [facility] Comment on above: Result Comment: Canc elled via OM: Order cancelled - Patient discharged Performed By: #### L 100.0100, L501.9985, L500.4050, L500.4100, L506.1000 #### [facility] [address] [place], [address] RBC Normal 4.2-5.4 [facility] Comment on above: Result Comment: Canc elled via OM: Order cancelled - Patient discharged Performed By: #### L 100.0100, L501.9985, L500.4050, L500.4100, L506.1000 #### [facility] [address] [place], [address] RDW CV Normal 11.6-14.6 [facility] Comment on above: Result Comment: Canc elled via OM: Order cancelled - Patient discharged Performed By: #### L 100.0100, L501.9985, L500.4050, L500.4100, L506.1000 #### [facility] [address] [place], [address] RDW SD Normal 35.1-43.9 [facility] Comment on above: Result Comment: Canc elled via OM: Order cancelled - Patient discharged Performed By: #### L 100.0100, L501.9985, L500.4050, L500.4100, L506.1000 #### [facility] [address] [place], [address] WBC Normal 4.4-11.0 [facility] Comment on above: Result Comment: Canc elled via OM: Order cancelled - Patient discharged Performed By: #### L 100.0100, L501.9985, L500.4050, L500.4100, L506.1000 #### [facility] [address] [place], [address] Basic Metabolic Profile (BMP )on 03-09-2024 BUN Normal 7-18 [facility] Comment on above: Result Comment: WESLEY ENT DISCHARGED 03/08/24 Performed By: #### L 100.0100, L501.9985, L500.4050, L500.4100, L506.1000 #### [facility] [address] [place], [address] BUN/CRE Normal 10-20 [facility] Comment on above: Result Comment: WESLEY ENT DISCHARGED 03/08/24 Performed By: #### L 100.0100, L501.9985, L500.4050, L500.4100, L506.1000 #### [facility] [address] [place], [address] CA,Total Normal 8.5-10.1 [facility] Comment on above: Result Comment: WESLEY ENT DISCHARGED 03/08/24 Performed By: #### L 100.0100, L501.9985, L500.4050, L500.4100, L506.1000 #### [facility] [address] [place], [address] CL Normal 98-107 [facility] Comment on above: Result Comment: WESLEY ENT DISCHARGED 03/08/24 Performed By: #### L 100.0100, L501.9985, L500.4050, L500.4100, L506.1000 #### [facility] [address] [place], [address] CO2 Normal 21.0-32.0 [facility] Comment on above: Result Comment: WESLEY ENT DISCHARGED 03/08/24 Performed By: #### L 100.0100, L501.9985, L500.4050, L500.4100, L506.1000 #### [facility] [address] [place], [address] CREAT,SERUM Normal 0.55-1.02 [facility] Comment on above: Result Comment: WESLEY ENT DISCHARGED 03/08/24 Performed By: #### L 100.0100, L501.9985, L500.4050, L500.4100, L506.1000 #### [facility] [address] [place], [address] EST GFR Normal >60 [facility] Comment on above: Result Comment: WESLEY ENT DISCHARGED 03/08/24 Performed By: #### L 100.0100, L501.9985, L500.4050, L500.4100, L506.1000 #### [facility] [address] [place], [address] EST GFR - AA Normal >60 [facility] Comment on above: Result Comment: WESLEY ENT DISCHARGED 03/08/24 Performed By: #### L 100.0100, L501.9985, L500.4050, L500.4100, L506.1000 #### [facility] [address] [place], [address] GAP Normal 5-15 [facility] Comment on above: Result Comment: WESLEY ENT DISCHARGED 03/08/24 Performed By: #### L 100.0100, L501.9985, L500.4050, L500.4100, L506.1000 #### [facility] [address] [place], [address] GLU Normal 74-106 [facility] Comment on above: Result Comment: WESLEY ENT DISCHARGED 03/08/24 Performed By: #### L 100.0100, L501.9985, L500.4050, L500.4100, L506.1000 #### [facility] [address] [place], [address] Potassium Normal 3.5-5.1 [facility] Comment on above: Result Comment: WESLEY ENT DISCHARGED 03/08/24 Performed By: #### L 100.0100, L501.9985, L500.4050, L500.4100, L506.1000 #### [facility] [address] [place], [address] Basic Metabolic Profile (BMP) Normal 136-145 [facility] Comment on above: Result Comment: WESLEY ENT DISCHARGED 03/08/24 Performed By: #### L 100.0100, L501.9985, L500.4050, L500.4100, L506.1000 #### [facility] [address] [place], [address] CBC W/Diff, Automatedon 01-2 Absolute Neut Normal 2.0-7.7 [facility] Comment on above: Result Comment: WESLEY ENT DISCHARGED ON 03/08/24 Performed By: #### L 100.0100, L501.9985, L500.4050, L500.4100, L506.1000 #### [facility] [address] [place], [address] HCT Normal 37-47 [facility] Comment on above: Result Comment: WESLEY ENT DISCHARGED ON 03/08/24 Performed By: #### L 100.0100, L501.9985, L500.4050, L500.4100, L506.1000 #### [facility] [address] [place], [address] HGB Normal 12.0-15.0 [facility] Comment on above: Result Comment: WESLEY ENT DISCHARGED ON 03/08/24 Performed By: #### L 100.0100, L501.9985, L500.4050, L500.4100, L506.1000 #### [facility] [address] [place], [address] MCH Normal 27.0-32.0 [facility] Comment on above: Result Comment: WESLEY ENT DISCHARGED ON 03/08/24 Performed By: #### L 100.0100, L501.9985, L500.4050, L500.4100, L506.1000 #### [facility] [address] [place], [address] MCHC Normal 32-36 [facility] Comment on above: Result Comment: WESLEY ENT DISCHARGED ON 03/08/24 Performed By: #### L 100.0100, L501.9985, L500.4050, L500.4100, L506.1000 #### [facility] [address] [place], [address] MCV Normal 81-99 [facility] Comment on above: Result Comment: WESLEY ENT DISCHARGED ON 03/08/24 Performed By: #### L 100.0100, L501.9985, L500.4050, L500.4100, L506.1000 #### [facility] [address] [place], [address] NEUT% Normal 47-70 [facility] Comment on above: Result Comment: WESLEY ENT DISCHARGED ON 03/08/24 Performed By: #### L 100.0100, L501.9985, L500.4050, L500.4100, L506.1000 #### [facility] [address] [place], [address] PLT Normal 150-450 [facility] Comment on above: Result Comment: WESLEY ENT DISCHARGED ON 03/08/24 Performed By: #### L 100.0100, L501.9985, L500.4050, L500.4100, L506.1000 #### [facility] [address] [place], [address] RBC Normal 4.2-5.4 [facility] Comment on above: Result Comment: WESLEY ENT DISCHARGED ON 03/08/24 Performed By: #### L 100.0100, L501.9985, L500.4050, L500.4100, L506.1000 #### [facility] [address] [place], [address] RDW CV Normal 11.6-14.6 [facility] Comment on above: Result Comment: WESLEY ENT DISCHARGED ON 03/08/24 Performed By: #### L 100.0100, L501.9985, L500.4050, L500.4100, L506.1000 #### [facility] [address] [place], [address] RDW SD Normal 35.1-43.9 [facility] Comment on above: Result Comment: WESLEY ENT DISCHARGED ON 03/08/24 Performed By: #### L 100.0100, L501.9985, L500.4050, L500.4100, L506.1000 #### [facility] [address] [place], [address] WBC Normal 4.4-11.0 [facility] Comment on above: Result Comment: WESLEY ENT DISCHARGED ON 03/08/24 Performed By: #### L 100.0100, L501.9985, L500.4050, L500.4100, L506.1000 #### [facility] [address] [place], [address] 12 Lead EKGon 03-08-2024 12 Lead EKG [facility] [address] [place] [address] 12 Lead EKG 03/08/24 1140 MR#: [id number] Acct: [id number] Name: MONSERRAT CORNEJO I Rep #: [id number] : 1960 63 From: Shaista Carlton MD Attending Dr: Dr. Dalton Carpenter MD Status: DIS IN Ordering Dr: Dalton Carpenter MD Date: 03/08/24 [facility] Sex[facility] F C Admitted: 03/05/24 Test Reason : P Blood Pressure : */* mmHG Vent. Rate : 70 BPM Atrial Rate : 70 BPM P-R Int : 136 ms QRS Dur : 94 ms QT Int : 406 ms P-R-T Axes : 24 3 35 degrees QTcB Int : 438 ms Normal sinus rhythm Normal ECG When compared with ECG of 05-Mar-2024 19:22, MANUAL COMPARISON REQUIRED DATA IS UNCONFIRMED Confirmed by WENDY CAZARES, DANDY ([id number]), video tape editor LULA CLEMENTE ([id number]) on 03/10/2024 1:57:56 PM Referred By: JAZMÍN Confirmed By: DANDY CARLTON MD 03/10/24 1357 Date Shaista Carlton MD CC: Dr. Yousif Murguia MD; Dr. Dalton Carpenter MD Signed Normal [facility] Basic Metabolic Profile (BMP )on 03-08-2024 BUN/CRE 20.0 RATIO Normal 10-20 [facility] Comment on above: Performed By: #### L 100.0100, L500.2500 ####[facility] [address] [place], [address] CA,Total 9.2 mg/dL Normal 8.5-10.1 [facility] Comment on above: Performed By: #### L 100.0100, L500.2500 ####[facility] [address] [place], [address] Chloride [Moles/Vol] 107 mmol/L Normal 98-107 [facility] Comment on above: Performed By: #### L 100.0100, L500.2500 ####[facility] [address] [place], [address] CO2 [Moles/Vol] 26.0 mmol/L Normal 21.0-32.0 [facility] Comment on above: Performed By: #### L 100.0100, L500.2500 ####[facility] [address] [place], [address] Creatinine [Mass/Vol] 1.00 mg/dL Normal 0.55-1.02 [facility] Comment on above: Result Comment: The validity of the calculated GFR GFRAA in patients over 70 years has not been determined. Clinical correlation is essential. Performed By: #### L 100.0100, L500.2500 ####[facility] [address] [place], [address] ECRCL 61.18 ml/min Normal [facility] Comment on above: Performed By: #### L 100.0100, L500.2500 ####[facility] [address] [place], [address] EST GFR - AA 72 mL/min Normal >60 [facility] Comment on above: Result Comment: Afri can Mongolian GFR Calc Performed By: #### L 100.0100, L500.2500 ####[facility] [address] [place], [address] GAP 6 Normal 5-15 [facility] Comment on above: Performed By: #### L 100.0100, L500.2500 ####[facility] [address] [place], [address] GFR/1.73 sq M.predicted among non-blacks MDRD (S/P/Bld) [Vol rate/Area] 59 mL/min/{1.73_m2} Low >60 [facility] Comment on above: Result Comment: Non- GFR Calc Performed By: #### L 100.0100, L500.2500 ####[facility] [address] [place], [address] Glucose [Mass/Vol] 159 mg/dL High 74-106 [facility] Comment on above: Result Comment: Fast ing Glucose result greater than or equal to 126 mg/dL suggests DIABETES MELLITUS per A.D.A. criteria. Performed By: #### L 100.0100, L500.2500 ####[facility] [address] [place], [address] Potassium [Moles/Vol] 4.2 mmol/L Normal 3.5-5.1 [facility] Comment on above: Performed By: #### L 100.0100, L500.2500 ####[facility] [address] [place], [address] Sodium [Moles/Vol] 139 mmol/L Normal 136-145 [facility] Comment on above: Performed By: #### L 100.0100, L500.2500 ####[facility] [address] [place], [address] Urea nitrogen [Mass/Vol] 20 mg/dL High 7-18 [facility] Comment on above: Performed By: #### L 100.0100, L500.2500 ####[facility] [address] [place], [address] Bedside Glucoseon 03-08-2024 FINGERSTICK GLU 128 mg/dL High 74-106 [facility] Comment on above: Result Comment: QUINN JACKSON OF PATIENT CARE PER NURSING PROTOCOL Performed By: #### L 501.080 ####[facility] [address] [place], [address] FINGERSTICK GLU 171 mg/dL High 74-106 [facility] Comment on above: Result Comment: QUINN JACKSON OF PATIENT CARE PER NURSING PROTOCOL Performed By: #### L 501.080 ####[facility] [address] [place], [address] CBC W/Diff, Automatedon 02-13 Absolute Lymph 0.86 X10 3/uL Normal 0.83-4.51 [facility] Comment on above: Performed By: #### L 100.0100, L500.2500 ####[facility] [address] [place], [address] Absolute Neut 4.2 X10 3/uL Normal 2.0-7.7 [facility] Comment on above: Performed By: #### L 100.0100, L500.2500 ####[facility] [address] [place], [address] Basophils/100 WBC (Bld) 0.4 % Normal 0-1 [facility] Comment on above: Performed By: #### L 100.0100, L500.2500 ####[facility] [address] [place], [address] Eosinophils/100 WBC (Bld) 1.8 % Normal 0-5 [facility] Comment on above: Performed By: #### L 100.0100, L500.2500 ####[facility] [address] [place], [address] Erythrocyte distribution width (RBC) [Ratio] 12.4 % Normal 11.6-14.6 [facility] Comment on above: Performed By: #### L 100.0100, L500.2500 ####[facility] [address] [place], [address] Hematocrit (Bld) [Volume fraction] 28.0 % Low 37-47 [facility] Comment on above: Performed By: #### L 100.0100, L500.2500 ####[facility] [address] [place], [address] Hemoglobin (Bld) [Mass/Vol] 9.5 g/dL Low 12.0-15.0 [facility] Comment on above: Performed By: #### L 100.0100, L500.2500 ####[facility] [address] [place], [address] IG% 0.400 Normal 0.0-0.9 [facility] Comment on above: Result Comment: IG% - Immature Granulocytes (promyelocytes, myelocytes and metamyelocytes) > 1% indicates that a LEFT SHIFT is Present. Performed By: #### L 100.0100, L500.2500 ####[facility] [address] [place], [address] Lymphocytes/100 WBC (Bld) 15.5 % Low 19-41 [facility] Comment on above: Performed By: #### L 100.0100, L500.2500 ####[facility] [address] [place], [address] MCH (RBC) [Entitic mass] 28.5 pg Normal 27.0-32.0 [facility] Comment on above: Performed By: #### L 100.0100, L500.2500 ####[facility] [address] [place], [address] MCHC (RBC) [Mass/Vol] 33.9 g/dL Normal 32-36 [facility] Comment on above: Performed By: #### L 100.0100, L500.2500 ####[facility] [address] [place], [address] MCV (RBC) [Entitic vol] 84.1 fL Normal 81-99 [facility] Comment on above: Performed By: #### L 100.0100, L500.2500 ####[facility] [address] [place], [address] Monocytes/100 WBC (Bld) 6.9 % Normal 0-10 [facility] Comment on above: Performed By: #### L 100.0100, L500.2500 ####[facility] [address] [place], [address] Neutrophils/100 WBC (Bld) 75.0 % High 47-70 [facility] Comment on above: Performed By: #### L 100.0100, L500.2500 ####[facility] [address] [place], [address] Nucleated RBC (Bld) [#/Vol] 0 10*3/uL Normal 0-5 [facility] Comment on above: Performed By: #### L 100.0100, L500.2500 ####[facility] [address] [place], [address] Platelet mean volume (Bld) [Entitic vol] 10.8 fL Normal 6.2-12.0 [facility] Comment on above: Performed By: #### L 100.0100, L500.2500 ####[facility] [address] [place], [address] Platelets (Bld) [#/Vol] 149 10*3/uL Low 150-450 [facility] Comment on above: Performed By: #### L 100.0100, L500.2500 ####[facility] [address] [place], [address] RBC (Bld) [#/Vol] 3.33 10*6/uL Low 4.2-5.4 [facility] Comment on above: Performed By: #### L 100.0100, L500.2500 ####[facility] [address] [place], [address] RDW SD 37.5 fl Normal 35.1-43.9 [facility] Comment on above: Performed By: #### L 100.0100, L500.2500 ####[facility] [address] [place], [place], [address] WBC (Bld) [#/Vol] 5.5 10*3/uL Normal 4.4-11.0 [facility] Comment on above: Performed By: #### L 100.0100, L500.2500 ####[facility] [address] [facility] [place], [address] Culture, Blood (WB)on 2024 CUB No growth in 5 days. Normal [facility] Comment on above: Performed By: #### M 200.1000 ####[facility] [address] [facility] [place], [address] Discharge Instructionon 02-13 Discharge Instruction [facility] Medical Records Department [address] [place] [address] Instructions for Home/Discharge Instructions 03/08/24 1405 MR#: [id number] Acct: [id number] Name: MONSERRAT CORNEJO I Rep #: [id number] : 1960 63 From: Eva Quezada MD PCP: Dr. Yousif Murguia MD Status:ADM IN Discharge Instructions Diet Discharge Diet: Low fat / Low cholesterol DC O2, CPAP, BIPAP needs Home O2 Discharge instructions: No Dressing / Incision Discharge Activity: Return to Normal Activity Weight Bearing Status: Weight bearing as tolerated Dressing / Incision Call your doctor if you observe: Fever of 101 or Higher, Shortness of breath, Dizziness, Swelling in the ankles, Chest pain and Uncontrolled pain Follow Up Care Test Results: Test results from this visit will be discussed in further detail at your follow-up appointment, if applicable. Discharge Plan Admission Admit Date/Time: 03/05/24 22:19 Primary Reason for Your Visit: pyelonephritis, obstructive kidney stone. Attending Provider: Dalton Carpenter Primary Care Provider: Yousif Murguia Consulting Providers: Dalton Carpenter; Eva Quezada Instructions Patient Instructions: Having a Ureteral Stent, Kidney Stone Ureteroscopy Additional Instructions / Restrictions: to follow up with urology for outpatient laser lithotripsy of the kidney stone Discharge Orders/Prescriptions Prescriptions: New cefdinir 300 mg capsule 300 mg PO BID Qty: 14 0RF Continued Trulance 3 mg tablet 3 mg PO DAILY insulin glargine [Lantus Solostar U-100 Insulin] 100 unit/mL (3 mL) insulin pen 10 unit subcut QPM metformin 500 MG tablet 500 mg PO BIDCM amlodipine 5 mg tablet 5 mg PO DAILY lisinopril 20 mg tablet 20 mg PO DAILY ergocalciferol (vitamin D2) 1,250 mcg (50,000 unit) capsule 1,250 mcg PO QWEEK Referrals / Follow Up: Dalton Carpenter MD [Med Staff - Active Staff] - Within 1 Week Yousif Murguia MD [Primary Care Provider] - Within 1 Week Disposition Disposition (needs filled in before D/C Order can be placed): Home, Self Care 03/08/24 1406 Eva Quezada MD CC: Dr. Yousif Murguia MD; Dr. Dalton Carpenter MD; Dr. Eva Quezada MD Signed Normal [facility] Basic Metabolic Profile (BMP )on 03-07-2024 BUN/CRE 24.3 RATIO High 10-20 [facility] Comment on above: Performed By: #### L 100.0100, L500.2500 ####[facility] [address] [place], [address] CA,Total 8.7 mg/dL Normal 8.5-10.1 [facility] Comment on above: Performed By: #### L 100.0100, L500.2500 ####[facility] [address] [place], [address] Chloride [Moles/Vol] 107 mmol/L Normal 98-107 [facility] Comment on above: Performed By: #### L 100.0100, L500.2500 ####[facility] [address] [place], [address] CO2 [Moles/Vol] 23.0 mmol/L Normal 21.0-32.0 [facility] Comment on above: Performed By: #### L 100.0100, L500.2500 ####[facility] [address] [place], [address] Creatinine [Mass/Vol] 1.11 mg/dL High 0.55-1.02 [facility] Comment on above: Result Comment: The validity of the calculated GFR GFRAA in patients over 70 years has not been determined. Clinical correlation is essential. Performed By: #### L 100.0100, L500.2500 ####[facility] [address] [place], [address] ECRCL 55.12 ml/min Normal [facility] Comment on above: Performed By: #### L 100.0100, L500.2500 ####[facility] [address] [place], [address] EST GFR - AA 63 mL/min Normal >60 [facility] Comment on above: Result Comment: Afri can Mongolian GFR Calc Performed By: #### L 100.0100, L500.2500 ####[facility] [address] [place], [address] GAP 7 Normal 5-15 [facility] Comment on above: Performed By: #### L 100.0100, L500.2500 ####[facility] [address] [place], [address] GFR/1.73 sq M.predicted among non-blacks MDRD (S/P/Bld) [Vol rate/Area] 52 mL/min/{1.73_m2} Low >60 [facility] Comment on above: Result Comment: Non- GFR Calc Performed By: #### L 100.0100, L500.2500 ####[facility] [address] [place], [address] Glucose [Mass/Vol] 143 mg/dL High 74-106 [facility] Comment on above: Result Comment: Fast ing Glucose result greater than or equal to 126 mg/dL suggests DIABETES MELLITUS per A.D.A. criteria. Performed By: #### L 100.0100, L500.2500 ####[facility] [address] [place], [address] Potassium [Moles/Vol] 3.9 mmol/L Normal 3.5-5.1 [facility] Comment on above: Performed By: #### L 100.0100, L500.2500 ####[facility] [address] [place], [address] Sodium [Moles/Vol] 137 mmol/L Normal 136-145 [facility] Comment on above: Performed By: #### L 100.0100, L500.2500 ####[facility] [address] [place], [address] Urea nitrogen [Mass/Vol] 27 mg/dL High 7-18 [facility] Comment on above: Performed By: #### L 100.0100, L500.2500 ####[facility] [address] [place], [address] Bedside Glucoseon 03-07-2024 FINGERSTICK GLU 185 mg/dL High 74-106 [facility] Comment on above: Result Comment: QUINN GEMENT OF PATIENT CARE PER NURSING PROTOCOL Performed By: #### L 501.080 ####[facility] [address] [place], [address] FINGERSTICK GLU 174 mg/dL High 74-106 [facility] Comment on above: Result Comment: QUINN GEMENT OF PATIENT CARE PER NURSING PROTOCOL Performed By: #### L 501.080 ####[facility] [address] [place], [address] FINGERSTICK GLU 236 mg/dL High 74-106 [facility] Comment on above: Result Comment: QUINN GEMENT OF PATIENT CARE PER NURSING PROTOCOL Performed By: #### L 501.080 ####[facility] [address] [place], [address] FINGERSTICK GLU 147 mg/dL High 74-106 [facility] Comment on above: Result Comment: QUINN JACKSON OF PATIENT CARE PER NURSING PROTOCOL Performed By: #### L 501.080 ####[facility] [address] [place], [address] CBC W/Diff, Automatedon 02-13 Absolute Lymph 0.71 X10 3/uL Low 0.83-4.51 [facility] Comment on above: Performed By: #### L 100.0100, L500.2500 ####[facility] [address] [place], [address] Absolute Neut 8.7 X10 3/uL High 2.0-7.7 [facility] Comment on above: Performed By: #### L 100.0100, L500.2500 ####[facility] [address] [place], [address] Basophils/100 WBC (Bld) 0.3 % Normal 0-1 [facility] Comment on above: Performed By: #### L 100.0100, L500.2500 ####[facility] [address] [place], [address] Eosinophils/100 WBC (Bld) 0.7 % Normal 0-5 [facility] Comment on above: Performed By: #### L 100.0100, L500.2500 ####[facility] [address] [place], [address] Erythrocyte distribution width (RBC) [Ratio] 12.7 % Normal 11.6-14.6 [facility] Comment on above: Performed By: #### L 100.0100, L500.2500 ####[facility] [address] [place], [address] Hematocrit (Bld) [Volume fraction] 29.0 % Low 37-47 [facility] Comment on above: Performed By: #### L 100.0100, L500.2500 ####[facility] [address] [place], [address] Hemoglobin (Bld) [Mass/Vol] 9.5 g/dL Low 12.0-15.0 [facility] Comment on above: Performed By: #### L 100.0100, L500.2500 ####[facility] [address] [place], [address] IG% 0.300 Normal 0.0-0.9 [facility] Comment on above: Result Comment: IG% - Immature Granulocytes (promyelocytes, myelocytes and metamyelocytes) > 1% indicates that a LEFT SHIFT is Present. Performed By: #### L 100.0100, L500.2500 ####[facility] [address] [place], [address] Lymphocytes/100 WBC (Bld) 7.2 % Low 19-41 [facility] Comment on above: Performed By: #### L 100.0100, L500.2500 ####[facility] [address] [place], [address] MCH (RBC) [Entitic mass] 27.6 pg Normal 27.0-32.0 [facility] Comment on above: Performed By: #### L 100.0100, L500.2500 ####[facility] [address] [place], [address] MCHC (RBC) [Mass/Vol] 32.8 g/dL Normal 32-36 [facility] Comment on above: Performed By: #### L 100.0100, L500.2500 ####[facility] [address] [place], [address] MCV (RBC) [Entitic vol] 84.3 fL Normal 81-99 [facility] Comment on above: Performed By: #### L 100.0100, L500.2500 ####[facility] [address] [place], [address] Monocytes/100 WBC (Bld) 4.2 % Normal 0-10 [facility] Comment on above: Performed By: #### L 100.0100, L500.2500 ####[facility] [address] [place], [address] Neutrophils/100 WBC (Bld) 87.3 % High 47-70 [facility] Comment on above: Performed By: #### L 100.0100, L500.2500 ####[facility] [address] [place], [address] Nucleated RBC (Bld) [#/Vol] 0 10*3/uL Normal 0-5 [facility] Comment on above: Performed By: #### L 100.0100, L500.2500 ####[facility] [address] [place], [address] Platelet mean volume (Bld) [Entitic vol] 10.7 fL Normal 6.2-12.0 [facility] Comment on above: Performed By: #### L 100.0100, L500.2500 ####[facility] [address] [place], [address] Platelets (Bld) [#/Vol] 150 10*3/uL Normal 150-450 [facility] Comment on above: Performed By: #### L 100.0100, L500.2500 ####[facility] [address] [place], [address] RBC (Bld) [#/Vol] 3.44 10*6/uL Low 4.2-5.4 [facility] Comment on above: Performed By: #### L 100.0100, L500.2500 ####[facility] [address] [place], [address] RDW SD 38.6 fl Normal 35.1-43.9 [facility] Comment on above: Performed By: #### L 100.0100, L500.2500 ####[facility] [address] [place], [address] WBC (Bld) [#/Vol] 9.9 10*3/uL Normal 4.4-11.0 [facility] Comment on above: Performed By: #### L 100.0100, L500.2500 ####[facility] [address] [place], [address] Urine Cultureon 03-07-2024 URC Below infection level. GNR lactose seamless tube roller Michie Count <1000 Normal [facility] Comment on above: Performed By: #### M 100.2200 ####[facility] [address] [place], [address] Bedside Glucoseon 03-06-2024 FINGERSTICK GLU 183 mg/dL High 74-106 [facility] Comment on above: Result Comment: QUINN GEMENT OF PATIENT CARE PER NURSING PROTOCOL Performed By: #### L 501.080 ####[facility] [address] [place], [address] FINGERSTICK GLU 148 mg/dL High 74-106 [facility] Comment on above: Result Comment: QUINN GEMENT OF PATIENT CARE PER NURSING PROTOCOL Performed By: #### L 100.0100, L501.9985, L500.4050, L500.4100, L506.1000 #### [facility] [address] [place], [address] FINGERSTICK GLU 249 mg/dL High 74-106 [facility] Comment on above: Result Comment: QUINN GEMENT OF PATIENT CARE PER NURSING PROTOCOL Performed By: #### L 100.0100, L501.9985, L500.4050, L500.4100, L506.1000 #### [facility] [address] [place], [address] FINGERSTICK GLU 212 mg/dL High 74-106 [facility] Comment on above: Result Comment: QUINN JACKSON OF PATIENT CARE PER NURSING PROTOCOL Performed By: #### L 100.0100, L501.9985, L500.4050, L500.4100, L506.1000 #### [facility] [address] [place], [address] CBC W/Diff, Automatedon 02-13 PLT EST ADEQUATE Normal ADEQ [facility] Comment on above: Performed By: #### L 100.0100, L501.9985, L500.4050, L500.4100, L506.1000 #### [facility] [address] [place], [address] RED CELL MORPH NORM C+C Normal NORM C C [facility] Comment on above: Performed By: #### L 100.0100, L501.9985, L500.4050, L500.4100, L506.1000 #### [facility] [address] [place], [address] Comprehensive Metabolic Prof ilon 03-06-2024 Albumin [Mass/Vol] 3.2 g/dL Normal 3.2-5.0 [facility] Comment on above: Performed By: #### L 100.0100, L501.9985, L500.4050, L500.4100, L506.1000 #### [facility] [address] [place], [address] Albumin/Globulin [Mass ratio] 0.8 {ratio} Low 0.9-2.4 [facility] Comment on above: Performed By: #### L 100.0100, L501.9985, L500.4050, L500.4100, L506.1000 #### [facility] [address] [place], [address] ALK P 95 U/L Normal 45-117 [facility] Comment on above: Performed By: #### L 100.0100, L501.9985, L500.4050, L500.4100, L506.1000 #### [facility] [address] [place], [address] ALT [Catalytic activity/Vol] 12 U/L Low 13-56 [facility] Comment on above: Performed By: #### L 100.0100, L501.9985, L500.4050, L500.4100, L506.1000 #### [facility] [address] [place], [address] AST [Catalytic activity/Vol] 13 U/L Low 15-37 [facility] Comment on above: Performed By: #### L 100.0100, L501.9985, L500.4050, L500.4100, L506.1000 #### [facility] [address] [place], [address] Bilirubin [Mass/Vol] 0.50 mg/dL Normal 0.20-1.00 [facility] Comment on above: Result Comment: For patients on eltrombopag therapy, use of Dimension [place] TBIL is not recommended. Performed By: #### L 100.0100, L501.9985, L500.4050, L500.4100, L506.1000 #### [facility] [address] [place], [address] BUN/CRE 18.4 RATIO Normal 10-20 [facility] Comment on above: Performed By: #### L 100.0100, L501.9985, L500.4050, L500.4100, L506.1000 #### [facility] [address] [place], [address] CA,Total 8.9 mg/dL Normal 8.5-10.1 [facility] Comment on above: Performed By: #### L 100.0100, L501.9985, L500.4050, L500.4100, L506.1000 #### [facility] [address] [place], [address] Chloride [Moles/Vol] 105 mmol/L Normal 98-107 [facility] Comment on above: Performed By: #### L 100.0100, L501.9985, L500.4050, L500.4100, L506.1000 #### [facility] [address] [place], [address] CO2 [Moles/Vol] 20.0 mmol/L Low 21.0-32.0 [facility] Comment on above: Performed By: #### L 100.0100, L501.9985, L500.4050, L500.4100, L506.1000 #### [facility] [address] [place], [address] Creatinine [Mass/Vol] 1.14 mg/dL High 0.55-1.02 [facility] Comment on above: Result Comment: The validity of the calculated GFR GFRAA in patients over 70 years has not been determined. Clinical correlation is essential. Performed By: #### L 100.0100, L501.9985, L500.4050, L500.4100, L506.1000 #### [facility] [address] [place], [address] ECRCL 53.67 ml/min Normal [facility] Comment on above: Performed By: #### L 100.0100, L501.9985, L500.4050, L500.4100, L506.1000 #### [facility] [address] [place], [address] EST GFR - AA 62 mL/min Normal >60 [facility] Comment on above: Result Comment: Afri can Mongolian GFR Calc Performed By: #### L 100.0100, L501.9985, L500.4050, L500.4100, L506.1000 #### [facility] [address] [place], [address] GAP 10 Normal 5-15 [facility] Comment on above: Performed By: #### L 100.0100, L501.9985, L500.4050, L500.4100, L506.1000 #### [facility] [address] [place], [address] GFR/1.73 sq M.predicted among non-blacks MDRD (S/P/Bld) [Vol rate/Area] 51 mL/min/{1.73_m2} Low >60 [facility] Comment on above: Result Comment: Non- GFR Calc Performed By: #### L 100.0100, L501.9985, L500.4050, L500.4100, L506.1000 #### [facility] [address] [place], [address] Globulin (S) [Mass/Vol] 3.8 g/dL Normal 2.2-4.2 [facility] Comment on above: Performed By: #### L 100.0100, L501.9985, L500.4050, L500.4100, L506.1000 #### [facility] [address] [place], [address] Glucose [Mass/Vol] 215 mg/dL High 74-106 [facility] Comment on above: Result Comment: Gluc ose result greater than or equal to 200 mg/dL suggests DIABETES MELLITUS per A.D.A. criteria. Performed By: #### L 100.0100, L501.9985, L500.4050, L500.4100, L506.1000 #### [facility] [address] [place], [address] Potassium [Moles/Vol] 4.1 mmol/L Normal 3.5-5.1 [facility] Comment on above: Performed By: #### L 100.0100, L501.9985, L500.4050, L500.4100, L506.1000 #### [facility] [address] [place], [address] Sodium [Moles/Vol] 136 mmol/L Normal 136-145 [facility] Comment on above: Performed By: #### L 100.0100, L501.9985, L500.4050, L500.4100, L506.1000 #### [facility] [address] [place], [address] T PROT 7.0 g/dL Normal 6.4-8.2 [facility] Comment on above: Performed By: #### L 100.0100, L501.9985, L500.4050, L500.4100, L506.1000 #### [facility] [address] [place], [address] Urea nitrogen [Mass/Vol] 21 mg/dL High 7-18 [facility] Comment on above: Performed By: #### L 100.0100, L501.9985, L500.4050, L500.4100, L506.1000 #### [facility] [address] [place], [address] 12 Lead EKGon 03-05-2024 12 Lead EKG [facility] Services [address] [place] [address] 12 Lead EKG 03/05/241921 MR#: [id number] Acct: [id number] Name: MONSERRAT CORNEJO I Rep #: [id number] : 1960 63 From: Shaista Carlton MD Attending Dr: Dr. Dalton Carpenter MD Status: DIS IN Ordering : Zainab Zuñiga DO Date: 03/05/24 [facility] Sex[facility] F C Admitted: 03/05/24 Test Reason : DYSRHYTHMIA Blood Pressure : */* mmHG Vent. Rate : 85 BPM Atrial Rate : 85 BPM P-R Int : 150 ms QRS Dur : 86 ms QT Int : 364 ms P-R-T Axes : 38 9 30 degrees QTcB Int : 433 ms Normal sinus rhythm Nonspecific ST abnormality Abnormal ECG Confirmed by WENDY CAZARES, DANDY ([id number]), video tape editor LULA CLEMENTE ([id number]) on 03/11/2024 7:11:01 AM Referred By: Confirmed By: DANDY CARLTON MD 03/11/24 0711 Date Shaista Carlton MD CC: Dr. Zainab Zuñiga DO; Dr. Yousif Murguia MD; Dr. Dalton Carpenter MD Signed Normal [facility] Abdomen/Pelvis W IV Cont ONL Yon 03-05-2024 Abdomen/Pelvis W IV Cont ONLY [facility] Imaging Services [address] [place], [place] [address] Abdomen/Pelvis W IV Cont ONLY MR#: [id number] Acct: [id number] Name: MONSERRAT CORNEJO I Rep #: [id number] : 1960 F 63 From: Stanford sainz DO PCP: Dr. Yousif Murguia MD Status: REG ER Study: Abdomen/Pelvis W IV Cont ONLY Date of Exam: Exam# [id number] Ordering Dr: Zainab Zuñiga DO [id number] EXAM: CT ABDOMEN AND PELVIS WITH INTRAVENOUS CONTRAST CLINICAL INDICATION: right flank pain TECHNIQUE: Helically acquired images were obtained of the abdomen and pelvis with intravenous contrast. This CT exam was performed using one or more of the following dose reduction techniques: automated exposure control, adjustment of the mA and/or kV according to patient size, and/or use of iterative reconstruction technique. CONTRAST: IV 100mL Isovue-300 COMPARISON: 06/13/2019 FINDINGS: LOWER THORAX: Coronary artery calcifications and/or stents. Lung bases are clear. No cardiomegaly. No significant pericardial effusion. ABDOMEN: LIVER: Low-attenuation foci in the liver adjacent to the gallbladder fossa and the falciform ligament are likely focal areas of fatty infiltration. GALLBLADDER AND BILE DUCTS: Cholelithiasis without secondary signs of acute cholecystitis. No intra- or extrahepatic biliary ductal dilation. PANCREAS: No significant abnormality. No focal cystic or solid mass. SPLEEN: No significant abnormality. Normal size without focal cystic or solid mass. ADRENALS: No significant abnormality. No nodules. KIDNEYS AND URETERS: Right perinephric stranding and severe right-sided hydronephrosis associated with a stone at the right ureteropelvic junction measuring 1.2 cm. Additional right lower pole calyceal stone measuring 0.7 cm. No left-sided urolithiasis or hydronephrosis. STOMACH AND BOWEL: Diverticulosis of the colon without evidence of acute diverticulitis. No stomach or bowel distention. PELVIS: APPENDIX: Normal appendix in the right lower quadrant. BLADDER: No significant abnormality. REPRODUCTIVE: Normal as visualized. No mass. ABDOMEN and PELVIS: INTRAPERITONEAL SPACE: No significant abnormality. No ascites or other fluid collection. No free air. BONES/JOINTS: Osseous degenerative changes and scoliosis. No suspicious lytic or blastic abnormality. SOFT TISSUES: No significant abnormality. No discrete abdominal or pelvic wall hernia. VASCULATURE: Atherosclerosis. No aneurysm. LYMPH NODES: No significant abnormality. No enlarged lymph nodes. CT/Abdomen/Pelvis W IV Cont ONLY IMPRESSION: 1. Right perinephric stranding and severe right-sided hydronephrosis associated with a stone at the right ureteropelvic junction measuring 1.2 cm. Additional right lower pole calyceal stone measuring 0.7 cm. No left-sided urolithiasis or hydronephrosis. 2. Cholelithiasis without secondary signs of acute cholecystitis. 3. Diverticulosis of the colon without evidence of acute diverticulitis. Electronically Signed: Stanford Barriga DO at 20:45 EST , CC: Dr. Zainab Zuñiga DO; Dr. Yousif Murguia MD Anesthesiology Medical Doctor: Signed Normal [facility] Bedside Glucoseon 03-05-2024 FINGERSTICK GLU 196 mg/dL High 74-106 [facility] Comment on above: Result Comment: QUINN JACKSON OF PATIENT CARE PER NURSING PROTOCOL Performed By: #### L 100.0100, L501.9985, L500.4050, L500.4100, L506.1000 #### [facility] [address] [place], [address] CBC W/Diff, Automatedon 01- SMEAR COMMENT SCANNED Normal [facility] Comment on above: Performed By: #### L 100.0100, L501.9985, L500.4050, L500.4100, L506.1000 #### [facility] [address] [place], [address] Comprehensive Metabolic Prof ilon 03-05-2024 Albumin [Mass/Vol] 3.7 g/dL Normal 3.2-5.0 [facility] Comment on above: Performed By: #### L 100.0100, L501.9985, L500.4050, L500.4100, L506.1000 #### [facility] [address] [place], [address] Albumin/Globulin [Mass ratio] 0.8 {ratio} Low 0.9-2.4 [facility] Comment on above: Performed By: #### L 100.0100, L501.9985, L500.4050, L500.4100, L506.1000 #### [facility] [address] [place], [address] ALK P 119 U/L High 45-117 [facility] Comment on above: Performed By: #### L 100.0100, L501.9985, L500.4050, L500.4100, L506.1000 #### [facility] [address] [place], [address] ALT [Catalytic activity/Vol] 21 U/L Normal 13-56 [facility] Comment on above: Performed By: #### L 100.0100, L501.9985, L500.4050, L500.4100, L506.1000 #### [facility] [address] [place], [address] AST [Catalytic activity/Vol] 50 U/L High 15-37 [facility] Comment on above: Performed By: #### L 100.0100, L501.9985, L500.4050, L500.4100, L506.1000 #### [facility] [address] [place], [address] Bilirubin [Mass/Vol] 0.50 mg/dL Normal 0.20-1.00 [facility] Comment on above: Result Comment: For patients on eltrombopag therapy, use of Dimension [place] TBIL is not recommended. Performed By: #### L 100.0100, L501.9985, L500.4050, L500.4100, L506.1000 #### [facility] [address] [place], [address] BUN/CRE 18.8 RATIO Normal 10-20 [facility] Comment on above: Performed By: #### L 100.0100, L501.9985, L500.4050, L500.4100, L506.1000 #### [facility] [address] [place], [address] CA,Total 9.6 mg/dL Normal 8.5-10.1 [facility] Comment on above: Performed By: #### L 100.0100, L501.9985, L500.4050, L500.4100, L506.1000 #### [facility] [address] [place], [address] Chloride [Moles/Vol] 103 mmol/L Normal 98-107 [facility] Comment on above: Performed By: #### L 100.0100, L501.9985, L500.4050, L500.4100, L506.1000 #### [facility] [address] [place], [address] CO2 [Moles/Vol] 18.0 mmol/L Low 21.0-32.0 [facility] Comment on above: Performed By: #### L 100.0100, L501.9985, L500.4050, L500.4100, L506.1000 #### [facility] [address] [place], [address] Creatinine [Mass/Vol] 1.12 mg/dL High 0.55-1.02 [facility] Comment on above: Result Comment: The validity of the calculated GFR GFRAA in patients over 70 years has not been determined. Clinical correlation is essential. Performed By: #### L 100.0100, L501.9985, L500.4050, L500.4100, L506.1000 #### [facility] [address] [place], [address] EST GFR - AA 63 mL/min Normal >60 [facility] Comment on above: Result Comment: Afri can Mongolian GFR Calc Performed By: #### L 100.0100, L501.9985, L500.4050, L500.4100, L506.1000 #### [facility] [address] [place], [address] GAP 11 Normal 5-15 [facility] Comment on above: Performed By: #### L 100.0100, L501.9985, L500.4050, L500.4100, L506.1000 #### [facility] [address] [place], [address] GFR/1.73 sq M.predicted among non-blacks MDRD (S/P/Bld) [Vol rate/Area] 52 mL/min/{1.73_m2} Low >60 [facility] Comment on above: Result Comment: Non- GFR Calc Performed By: #### L 100.0100, L501.9985, L500.4050, L500.4100, L506.1000 #### [facility] [address] [place], [address] Globulin (S) [Mass/Vol] 4.6 g/dL High 2.2-4.2 [facility] Comment on above: Performed By: #### L 100.0100, L501.9985, L500.4050, L500.4100, L506.1000 #### [facility] [address] [place], [address] Glucose [Mass/Vol] 199 mg/dL High 74-106 [facility] Comment on above: Result Comment: Fast ing Glucose result greater than or equal to 126 mg/dL suggests DIABETES MELLITUS per A.D.A. criteria. Performed By: #### L 100.0100, L501.9985, L500.4050, L500.4100, L506.1000 #### [facility] [address] [place], [address] Potassium [Moles/Vol] 6.2 mmol/L Invalid Interpretation Code 3.5-5.1 [facility] Comment on above: Result Comment: Crit ical Result(s) Called at: 18:28:29 03/05/2024 by: LEA RANGEL. Results read back by Louisa Laureano Performed By: #### L 100.0100, L501.9985, L500.4050, L500.4100, L506.1000 #### [facility] [address] [place], [address] Sodium [Moles/Vol] 132 mmol/L Low 136-145 [facility] Comment on above: Performed By: #### L 100.0100, L501.9985, L500.4050, L500.4100, L506.1000 #### [facility] [address] [place], [address] T PROT 8.3 g/dL High 6.4-8.2 [facility] Comment on above: Performed By: #### L 100.0100, L501.9985, L500.4050, L500.4100, L506.1000 #### [facility] [address] [place], [address] Urea nitrogen [Mass/Vol] 21 mg/dL High 7-18 [facility] Comment on above: Performed By: #### L 100.0100, L501.9985, L500.4050, L500.4100, L506.1000 #### [facility] [address] [place], [address] Consultation - Urologyon Consultation - Urology [facility] Medical Records Department [address] [place] [address] Consultation - Urology 03/05/24 2108 MR#: [id number] Acct: [id number] Name: MONSERRAT CORNEJO I Rep #: [id number] : 1960 63 From: Dalton Carpenter MD PCP: Dr. Yousif Murguia MD Status:REG ER Location: ED Assessment Plan Assessment/Plan (1) Kidney stones: PLAN: Plan for right stent placement HPI Consult Data Date of Consult: 03/05/24 HPI Narrative Reason for Consultation: Infected stone HPI Narrative: MONSERRAT CORNEJO, is a 63 F who presents To the emergency room it???s severe right flank pain. CAT scan was done to demonstrate a large stone, causing obstruction in the right renal pelvis She???s got fevers and chills low white blood count concerning for sepsis and early sepsis so they???re gonna take her surgery tonight for cystoscopy right state placementto the thomas Should be admitted to medical service for management infection.. [facility] Medical History (Updated 03/05/24 @ 21:[address] Dalton Carpenter MD) Constipation Hx of nephrolithotomy with removal of calculi Kidney stones Tiredness Shoulder pain Knee pain Chronic neck and back pain Diabetes Arthritis HTN (hypertension) Home Medications ???Medication ???Instructions ???Recorded ???Last Taken ???Type metformin 500 mg tablet 500 mg PO BIDCM 11/24/13 Unknown History insulin glargine 100 unit/mL (3 10 unit subcut QPM 10/26/22 Unknown History mL) subcutaneous pen (Lantus Solostar U-100 Insulin) plecanatide 3 mg tablet (Trulance) 3 mg PO DAILY 10/26/22 Unknown History sulfamethoxazole 800 1 tab PO BID #20 tabs 07/19/23 Unknown Rx mg-trimethoprim 160 mg tablet (Bactrim DS) Allergy/AdvReac Type Severity Reaction Status Date / Time latex AdvReac Mild Hives Verified 07/19/23 15:16 BP MED Allergy Itching Uncoded 06/13/19 12:25 Family History Father Heart disease Mother Heart disease CVA (cerebral vascular accident) Brother Hypertension Social History Smoking Status: Never smoker alcohol intake: never Physical Exam Const alert and oriented x3 General Appearance: cooperative HEENT normocephalic and head/scalp atraumatic Eyes PERRL and EOMs intact bilaterally Neck supple, no JVD and no carotid bruits Resp normal respiratory effort, normal air movement and clear to auscultation bilaterally Cardio regular rate and no murmurs GI normal to inspection, nondistended, normoactive bowel sounds and soft to palpation Extremity normal capillary refill General Extremity: no tenderness to palpation of joints or extremities; Negative for edema Skin no rashes or lesions noted and no wounds General Skin Exam: no breakdown Neuro CN's II-XII intact bilaterally Psych affect normal Appearance: appropriate Lab / Micro Data 03/05/24 17:43 03/05/24 19:56 Labs: Laboratory Results - last 24 hr 03/05/24 17:43: WBC 13.1 H, RBC 4.41, Hgb 12.2, Hct 37.0, MCV 83.9, MCH 27.7, MCHC 33.0, RDW Std Deviation 36.8, RDW Coeff of Haroon 12.2, Plt Count 200, MPV 10.5, Immature Gran % (Auto) 0.500, Neut % (Auto) 81.3 H, Lymph % (Auto) 13.6 L, Barbour % (Auto) 3.0, Eos % (Auto) 1.3, Baso % (Auto) 0.3, A bsolute Neuts (auto) 10.6 H, Absolute Lymphs (auto) 1.78, Nucleated RBC % 0, Differential Comment SCANNED, Sodium 132 L, Potassium 6.2 H*, Chloride 103, Carbon Dioxide 18.0 L, Anion Gap 11, BUN 21 H , Creatinine 1.12 H, Est GFR (MDRD) Af Amer 63, Est GFR (MDRD) Non-Af 52 L, BUN/Creatinine Ratio 18.8, Glucose 199 H, Calcium 9.6, Total Bilirubin 0.50, AST 50 H, ALT 21, Alkaline Phosphatase 119 H , Total Protein 8.3 H, Albumin 3.7, Globulin 4.6 H, Albumin/Globulin Ratio 0.8 L 03/05/24 19:56: Potassium 4.3, Urine Color Yellow, Urine Clarity Clear, Urine pH 5.0, Ur Specific Almont 1.025, Urine Protein 30 H, Urine Glucose (UA) Normal, Urine Ketones 15 H, Urine Occult Blood 50 H, Urine Nitrite Positive H, Urine Bilirubin Negative, Urine Urobilinogen Normal, Ur Leukocyte Esterase 500 H, Urine RBC 0 SEEN, Urine WBC 5-10 SEEN, Ur Squamous Epith Cells 0-5 SEEN, Calcium Oxalate Crystal 1+, Urine Bacteria 2+, Urine Mucus 0 SEEN Imaging Radiology Impression Abdomen/Pelvis CT 03/05/24 20:08 IMPRESSION: 1. Right perinephric stranding and severe right-sided hydronephrosis associated with a stone at the right ureteropelvic junction measuring 1.2 cm. Additional right lower pole calyceal stone measuring 0.7 cm. No left-sided urolithiasis or hydronephrosis. 2. Cholelithiasis without secondary signs of acute cholecystitis. 3. Diverticulosis of the colon without evidence of acute diverticulitis. Electronically Signed: Stanford Barriga DO at 20:45 EST Reading Location ID and Sta (more content not included)... Normal [facility] Emergency Department Summary on 03-05-2024 Emergency Department Summary [facility] Medical Records Department [address] [place] [id number] Emergency Department Summary 03/05/24 MR#: [id number] Acct: [id number] Name: MONSERRAT CORNEJO I Rep #: [id number] : 1960 63 From: Zainab Zuñiga DO PCP: Dr. Yousif Murguia MD Status:ADM IN Location: [address] HPI HPI - GI History of Present Illness Chief Complaint: Flank Pain Informant: patient Narrative Narrative: Patient is a 63-year-old female with history of diabetes presenting with right-sided pain from her ribs down to her groin. She has associated coughing and vomiting. She states she intermittently is feeling freezing and hot. Pain is constant but seems to fluctuate intensity. She describes it as sharp. She denies any blood in her urine or painful urination. She has chronic soft stools with no change in that. Notes that she recently had an x-ray which showed kidney stones but has not actually passed a kidney stone before. She is concerned she is passing 1 now. Came in for further evaluation and symptom control. [facility] Medical History CKD (chronic kidney disease), stage II Obesity AROLDO (obstructive sleep apnea) Constipation Hx of nephrolithotomy with removal of calculi Chronic neck and back pain Diabetes Arthritis HTN (hypertension) Home Medications ???Medication ???Instructions ???Recorded ???Last Taken ???Type metformin 500 mg tablet 500 mg PO BIDCM 11/24/13 Unknown History insulin glargine 100 unit/mL (3 10 unit subcut QPM 10/26/22 Unknown History mL) subcutaneous pen (Lantus Solostar U-100 Insulin) plecanatide 3 mg tablet (Trulance) 3 mg PO DAILY 10/26/22 Unknown History amlodipine 5 mg tablet 5 mg PO DAILY 03/05/24 Unknown History ergocalciferol (vitamin D2) 1,250 1,250 mcg PO QWEEK 03/05/24 Unknown History mcg (50,000 unit) capsule lisinopril 20 mg tablet 20 mg PO DAILY 03/05/24 Unknown History lisinopril 5 mg tablet 5 mg PO DAILY 03/05/24 Unknown History Allergy/AdvReac Type Severity Reaction Status Date / Time latex AdvReac Mild Hives Verified 07/19/23 15:16 BP MED Allergy Itching Uncoded 06/13/19 12:25 Family History Father Heart disease Mother Heart disease CVA (cerebral vascular accident) Brother Hypertension Surgical History History of lithotripsy Social History household members: none Smoking Status: Never smoker alcohol intake: never substance use type: does not use ROS ROS ED Constitutional Constitutional ED: Reports chills and sweats; Denies fever(s) Cardiovascular Cardiovascular: Denies chest pain Respiratory/Chest Respiratory/Chest: Denies cough Gastrointestinal Gastrointestinal: Reports abdominal pain, nausea and vomiting; Denies diarrhea or melena Genitourinary Genitourinary ED: Denies dysuria or hematuria Musculoskeletal Musculoskeletal: Reports back pain; Denies arthralgias or myalgias Integumentary Denies rash Psychiatric Psychiatric: Reports anxiety EXAM Physical Exam Const Vital Signs: 03/05/24 17:32 03/05/24 19:31 03/05/24 21:00 Temperature 97.1 F L Temperature Source Temporal Pulse Rate 66 102 H 93 Respiratory Rate 20 H 24 H 25 H Blood Pressure 166/82 H 163/93 H 180/85 H Blood Pressure Mean 110 116 116 Blood Pressure Source Blood Pressure Position Blood Pressure Location Pulse Ox 100 95 96 Oxygen Delivery Method Room Air Room Air 03/05/24 21:58 03/05/24 21:58 03/05/24 22:11 Temperature 99.2 F H 99.2 F H 99.2 F H Temperature Source Oral Pulse Rate 87 88 88 Respiratory Rate 24 H 22 H 22 H Blood Pressure 162/68 H 162/68 H 162/68 H Blood Pressure Mean 99 99 Blood Pressure Source Monitor Blood Pressure Position Semi-Fowlers Blood Pressure Location Right Arm Pulse Ox 96 96 96 Oxygen Delivery Method Room Air Room Air Positive well nourished and well developed Constitutional Narrative: Uncomfortable appearing, actively retching General Appearance ED: well developed HEENT Reports dry mucous membranes Mouth ED: Yes dry mucous membranes Mouth: dry mucous membranes Eyes PERRL Neck supple Resp normal respiratory effort Cardio regular rate and regular rhythm GI non-distended GI Narrative: Hypoactive bowel sounds. Mild tenderness of the right side of the abdomen but not highly reproducible Neuro moves all extremities Sensorium / Orientation: alert Motor Exam: general weakness Psych mental status grossly normal and thought process normal Skin no wounds MDM MDM MDM Narrative Medical decision making narrative: Patient is eval (more content not included)... Normal [facility] H AND P Exam - Hospitaliston 03-05-2024 H&P Exam - Hospitalist [facility] Medical Records Department [address] [place] [address] H P Exam - Hospitalist 03/05/24 2131 MR#: [id number] Acct: [id number] Name: MONSERRAT CORNEJO I Rep #: [id number] : 1960 63 From: Ashley Magallon MD PCP: Dr. Yousif Murguia MD [place] [place] [facility] HPI - General General Date of Admission: 03/05/24 Date of Service: 03/05/24 Chief Complaint: R sided flank pain, chills, N/V. HPI Narrative The patient is a 63 y/o F w/ PMHx: Chronic constipation, OA, HTN, Chronic neck/back pain, Diabetes mellitus type II who presents to the [facility] ED on 03/05/2024 with history of right sided pain from her ribs down to her groin with nausea, emesis and coughing with intermittent chills/subjective fevers with pain constant although has waxing and waning in intensity noted to be sharp and severe 10 out of 10 at times with a recent plain film purportedly with evidence of kidney stones however she denies having ever passed a kidney stone previously prompting eventual ED evaluation. Patient reports the pain in the right abdomen and flank is tentative 10 in severity, worse with any palpation. Workup in the ED included T97.1, heart rate 66, BP 166/82, respiratory rate 20, 100% on room air with most recent repeat vitals heart rate 102, BP 163/93, respiratory rate 24, 95% on room air, CBC with WC 13.1, hemoglobin 12.2, platelet 200 with left shift, CMP with sodium 132, potassium initially 6.2 however repeat 4.3, complex at 18, BUN/2020/1.12, GFR 52, glucose 199, AST/LT 50/21, alk phos 119, urinalysis with specific cavity 1.025, protein 30, ketone 15, occult blood 50, nitrate positive, cassette esterase 500, urine WBCs 5-10 with 2+ urine bacteria, CT abdomen and pelvis with right perinephric stranding and severe right-sided hydronephrosis associated with a stone at the right ureteropelvic junction measuring 1.2 cm with an additional right lower pole calyceal stone measuring 0.7 cm with no left-sided urolithiasis or hydronephrosis, cholelithiasis without any secondary signs of acute cholecystitis, diverticulosis of the colon without any evidence of acute diverticulitis. In the ED patient ministered IV Zosyn, Zofran 4 mg IV x 1, morphine 6 mg IV x 1 and 1 L normal saline. ED discussed case with urology Dr. Carpenter with plan to operative intervention this evening. [facility] Medical History (Updated 03/05/24 @ 22:[address] Ashley Magallon MD) CKD (chronic kidney disease), stage II Obesity AROLDO (obstructive sleep apnea) Constipation Hx of nephrolithotomy with removal of calculi Chronic neck and back pain Diabetes Arthritis HTN (hypertension) Home Medications ???Medication ???Instructions ???Recorded ???Last Taken ???Type metformin 500 mg tablet 500 mg PO BIDCM 11/24/13 Unknown History insulin glargine 100 unit/mL (3 10 unit subcut QPM 10/26/22 Unknown History mL) subcutaneous pen (Lantus Solostar U-100 Insulin) plecanatide 3 mg tablet (Trulance) 3 mg PO DAILY 10/26/22 Unknown History amlodipine 5 mg tablet 5 mg PO DAILY 03/05/24 Unknown History ergocalciferol (vitamin D2) 1,250 1,250 mcg PO QWEEK 03/05/24 Unknown History mcg (50,000 unit) capsule lisinopril 20 mg tablet 20 mg PO DAILY 03/05/24 Unknown History lisinopril 5 mg tablet 5 mg PO DAILY 03/05/24 Unknown History Allergy/AdvReac Type Severity Reaction Status Date / Time latex AdvReac Mild Hives Verified 07/19/23 15:16 BP MED Allergy Itching Uncoded 06/13/19 12:25 Family History Father Heart disease Mother Heart disease CVA (cerebral vascular accident) Brother Hypertension Surgical History History of lithotripsy Social History household members: none Smoking Status: Never smoker alcohol intake: never substance use type: does not use ROS ROS Narrative Admission Review of Systems: CONSTITUTIONAL: No weight loss, + fever, chills, weakness or fatigue. HEENT: Eyes: No visual loss, blurred vision, double vision or yellow sclerae. Ears, Nose, Throat: No hearing loss, sneezing, congestion, runny nose or sore throat. SKIN: No rash or itching, lesions, wounds. CARDIOVASCULAR: No chest pain, chest pressure or chest discomfort, palpitations, edema, orthopnea, syncopal events. RESPIRATORY: No shortness of breath, cough or sputum, wheezing, hemoptysis. GASTROINTESTINAL: + anorexia, nausea, vomiting, flank pain/right-sided abdominal pain, chronic constipation. No diarrhea, melena, BRBPR. GENITOURINARY: + Right-sided flank pain. No dysuria, frequency, urgency or retention. NEUROLOGICAL: No headache, dizziness, syncope, paralysis, ataxia, numbness or tingling in the extremities, focal weakness, change in bowel or bladder control, se (more content not included)... Normal [facility] MR/POSTOP.[facility] 03-05-2024 MR/POSTOP.[facility] Medical Records Department [address] [place] [address] Anesthesia Postop Eval I 03/05/242237 MR#: [id number] Acct: [id number] Name: MONSERRAT CORNEJO I Rep #: [id number] : 1960 63 From: Yomaira Quinn PCP: Dr. Yousif Murguia MD Status[place] [place] Race: C [place] [facility] Anesthesia: Postop Eval I Current Vital Signs Temperature: 97.2 F Pulse Rate: 106 Blood Pressure: 162/89 Respiratory Rate: 18 Pulse Ox: 99 Assessment Airway patent: Yes Spontaneous unlabored respirations: Yes nausea: No Vomiting: No Anesthesia Complication: No Fluid Hydration Crystalloid volume administer (ml): 300 Total IV fluid infused: 300 Progress Note Anesthesia document: Postop Eval 1 completed: Yes 03/05/242244 Date Yomaira Chua Signature: Date CC: Signed Normal [facility] MR/[id number] 03-05-2024 MR/POSTOPAN2 [facility] Medical Records Department [address] [place] [address] Anesthesia Postop Eval II 03/05/242247 MR#: [id number] Acct: [id number] Name: MONSERRAT CORNEJO I Rep #: [id number] : 1960 63 From: Gio Neri MD PCP: Dr. Yousfi Murguia MD Status[place] [place] Race: C [place] [facility] Anesthesia Postop Eval I Sum Postop Eval Completion status Anesthesia document: Postop Eval 1 completed: Yes Anesthesia Postop Eval I Summary Anesthesia Postop Eval I Summary: Anesthesia Postop Eval I: Assessment Summary Airway patent Yes 03/05/24 22:39 FRUIT OR NUT CROPS FARM MANAGER.CSIR Spontaneous unlabored Yes 03/05/24 22:39 FRUIT OR NUT CROPS FARM MANAGER.CSIR respirations Mental status nausea No 03/05/24 22:39 FRUIT OR NUT CROPS FARM MANAGER.CSIR Vomiting No 03/05/24 22:39 FRUIT OR NUT CROPS FARM MANAGER.CSIR Anesthesia Postop Eval I: Fluid Summary Crystalloid volume administer 300 03/05/24 22:39 FRUIT OR NUT CROPS FARM MANAGER.CSIR (ml) Colloids volume administered ( ml) Blood Product volume administered (ml) Total IV fluid infused 300 03/05/24 22:39 FRUIT OR NUT CROPS FARM MANAGER.CSIR Anesthesia Postop Eval I: Summary Notes Anesthesia Complication No 03/05/24 22:39 FRUIT OR NUT CROPS FARM MANAGER.CSIR Anesthesia Complication Comment: Post-operative progress note Anesthesia: Postop Eval II Evaluation Mental status: Awake and Calm Pain Level: 0 nausea: No Vomiting: No Complications Anesthesia Complication: No 03/05/242248 Date Gio Chua Signature: Date CC: Signed Normal [facility] Operative Reporton 5 Operative Report [facility] Medical Records Department [address] [place] [address] Operative Report 03/05/242230 MR#: [id number] Acct: [id number] Name: MONSERRAT CORNEJO I Rep #: [id number] : 1960 63 From: Dalton Carpenter MD PCP: Dr. Yousif Murguia MD Status:[facility] Location[place] [facility] Operative Report (Standard) Operative Information Date of Procedure: 03/05/24 Pre-Operative Diagnosis: Right obstructing kidney stone with infection Post-Operative Diagnosis: The same Surgery/Procedure Performed: Cystoscopy right stent placement executive talent acquisition consultant: No Type of Anesthesia: General RN Documented Start/Stop Times: Operation Date: 03/05/24 22:25 Case Time Anesthesia Start 03/05/24 22:13 Into Room 03/05/24 22:13 Procedure Start 03/05/24 22:28 Procedure End 03/05/24 22:30 Procedure Start Time: 22:28 Procedure Stop Time: 22:31 Select all DRAINS/GRAFTS/IMPLANT S that apply: Drains Drain details: Right stent 6 x 26 Estimated Blood Loss: None Specimen collected: No Description of surgery: Patient was taken back to the operating room after smooth induction of anesthesia with use of MAC local when inside the bladder I did not I did not identify any tumors or stones within the bladder I then identified the right ureteral orifice cannulated with a 0.038 Glidewire advanced a wire up into the kidney the kidney was hydronephrotic with contrast from the CAT scan she has just done it was not draining I put a wire past the stone up in the kidney is hard to see the stone with a contrast but there was hydronephrotic swollen kidney and then over the wire advanced a 6 Telugu 6 cm stent on the right side once the stent was in good position I pulled the wire and coiled in the kidney bladder good position I did not drain the bladder I did not put a catheter in. Patient acetic was reversed taken back to PACU in good condition should be admitted for her infection we will plan to treat the stones later once infection cleared Surgical Findings: Hydronephrotic right kidney with contrast from obstructing stone stent placed on the right side Complications Complications: No Admit VTE Documentation VTE Present on Admission: No VTE Mechan Device Prophylaxis: SCD's VTE Pharm Prophylaxis ordered?: No 03/05/242232 Cosigner Signature (if applicable): CC: Dr. Yousif Murguia MD; Dr. Dalton Carpenter MD Signed Normal [facility] Potassiumon 03-05-2024 Potassium [Moles/Vol] 4.3 mmol/L Normal 3.5-5.1 [facility] Comment on above: Performed By: #### L 100.0100, L501.9985, L500.4050, L500.4100, L506.1000 #### [facility] [address] [place], [place], [id number] Urinalysis, Completeon 03-05 BACTERIA 2+ /hpf Normal None Seen [facility] Comment on above: Order Comment: Order Date: 10/18/23 Order Info: [id number] - CBCD Performed By: #### L 100.0100, L501.9985, L500.4050, L500.4100, L506.1000 #### [facility] [address] [place], [address] CA OX CRYSTAL 1+ /hpf Normal [facility] Comment on above: Order Comment: Order Date: 10/18/23 Order Info: [id number] - CBCD Performed By: #### L 100.0100, L501.9985, L500.4050, L500.4100, L506.1000 #### [facility] [address] [place], [address] EPI,SQUAMOUS 0-5 SEEN Normal 5-10 [facility] Comment on above: Order Comment: Order Date: 10/18/23 Order Info: [id number] - CBCD Performed By: #### L 100.0100, L501.9985, L500.4050, L500.4100, L506.1000 #### [facility] [address] [place], [address] WBC 5-10 SEEN Normal 0-5 [facility] Comment on above: Order Comment: Order Date: 10/18/23 Order Info: [id number]- - CBCD Performed By: #### L 100.0100, L501.9985, L500.4050, L500.4100, L506.1000 #### [facility] [address] [place], [address] Mucus Ql (Urine sed) 0 SEEN Normal [facility] Comment on above: Order Comment: Order Date: 10/18/23 Order Info: [id number]- - CBCD Performed By: #### L 100.0100, L501.9985, L500.4050, L500.4100, L506.1000 #### [facility] [address] [place], [address] RBC 0 SEEN Normal 0-5 [facility] Comment on above: Order Comment: Order Date: 10/18/23 Order Info: [id number] - CBCD Performed By: #### L 100.0100, L501.9985, L500.4050, L500.4100, L506.1000 #### [facility] [address] [place], [address] Basic Metabolic Profile (BMP )on 02-27-2024 BUN/CRE 17.7 RATIO Normal 10-20 [facility] Comment on above: Performed By: #### L 100.0100, L501.9985, L500.4050, L500.4100, L506.1000 #### [facility] [address] [place], [address] CA,Total 9.4 mg/dL Normal 8.5-10.1 [facility] Comment on above: Performed By: #### L 100.0100, L501.9985, L500.4050, L500.4100, L506.1000 #### [facility] [address] [place], [address] Chloride [Moles/Vol] 104 mmol/L Normal 98-107 [facility] Comment on above: Performed By: #### L 100.0100, L501.9985, L500.4050, L500.4100, L506.1000 #### [facility] [address] [place], [address] CO2 [Moles/Vol] 26.0 mmol/L Normal 21.0-32.0 [facility] Comment on above: Performed By: #### L 100.0100, L501.9985, L500.4050, L500.4100, L506.1000 #### [facility] [address] [place], [address] Creatinine [Mass/Vol] 0.85 mg/dL Normal 0.55-1.02 [facility] Comment on above: Result Comment: The validity of the calculated GFR GFRAA in patients over 70 years has not been determined. Clinical correlation is essential. Performed By: #### L 100.0100, L501.9985, L500.4050, L500.4100, L506.1000 #### [facility] [address] [place], [address] EST GFR - AA 87 mL/min Normal >60 [facility] Comment on above: Result Comment: Afri can Mongolian GFR Calc Performed By: #### L 100.0100, L501.9985, L500.4050, L500.4100, L506.1000 #### [facility] [address] [place], [address] GAP 10 Normal 5-15 [facility] Comment on above: Performed By: #### L 100.0100, L501.9985, L500.4050, L500.4100, L506.1000 #### [facility] [address] [place], [address] GFR/1.73 sq M.predicted among non-blacks MDRD (S/P/Bld) [Vol rate/Area] 72 mL/min/{1.73_m2} Normal >60 [facility] Comment on above: Result Comment: Non- GFR Calc Performed By: #### L 100.0100, L501.9985, L500.4050, L500.4100, L506.1000 #### [facility] [address] [place], [address] Glucose [Mass/Vol] 105 mg/dL Normal 74-106 [facility] Comment on above: Result Comment: Fast ing Glucose result from 100 to 125 mg/dL suggests IMPAIRED HOMEOSTASIS per A.D.A. criteria. Performed By: #### L 100.0100, L501.9985, L500.4050, L500.4100, L506.1000 #### [facility] [address] [place], [address] Potassium [Moles/Vol] 4.2 mmol/L Normal 3.5-5.1 [facility] Comment on above: Performed By: #### L 100.0100, L501.9985, L500.4050, L500.4100, L506.1000 #### [facility] [address] [place], [address] Sodium [Moles/Vol] 140 mmol/L Normal 136-145 [facility] Comment on above: Performed By: #### L 100.0100, L501.9985, L500.4050, L500.4100, L506.1000 #### [facility] [address] [place], [address] Urea nitrogen [Mass/Vol] 15 mg/dL Normal 7-18 [facility] Comment on above: Performed By: #### L 100.0100, L501.9985, L500.4050, L500.4100, L506.1000 #### [facility] [address] [place], [address] Vitamin B12on 02-27-2024 Cobalamin (Vitamin B12) [Mass/Vol] 511 pg/mL Normal 211-911 [facility] Comment on above: Performed By: #### L 100.0100, L501.9985, L500.4050, L500.4100, L506.1000 #### [facility] [address] [place], [place], [id number] [phone] Ferritinon 02-25-2024 Ferritin [Mass/Vol] 32 ng/mL Normal 8-252 [facility] Comment on above: Order Comment: Order Date: 10/18/23 Order Info: [id number] - A1C Performed By: #### L 100.0100, L501.9985, L500.4050, L500.4100, L506.1000 #### [facility] [address] [place], [address] Iron+Iron Binding Capacityon 02-25-2024 Iron [Mass/Vol] 66 ug/dL Normal 50-170 [facility] Comment on above: Order Comment: Order Date: 10/18/23 Order Info: 4548-4 - A1C Performed By: #### L 100.0100, L501.9985, L500.4050, L500.4100, L506.1000 #### [facility] [address] [place], [address] IRON SATURATION 21.0 Normal 15.0-55.0 [facility] Comment on above: Order Comment: Order Date: 10/18/23 Order Info: 4548-4 - A1C Performed By: #### L 100.0100, L501.9985, L500.4050, L500.4100, L506.1000 #### [facility] [address] [place], [address] TIBC 315 ug/dL Normal 250-450 [facility] Comment on above: Order Comment: Order Date: 10/18/23 Order Info: 4548-4 - A1C Performed By: #### L 100.0100, L501.9985, L500.4050, L500.4100, L506.1000 #### [facility] [address] [place], [address] CBC W/Diff, Automatedon 01-0 -2024 Absolute Lymph 1.77 X10 3/uL Normal 0.83-4.51 [facility] Comment on above: Order Comment: Order Date: 10/18/23 Order Info: 0184-1 - CBCD Performed By: #### L 100.0100, L501.9985, L500.4050, L500.4100, L506.1000 #### [facility] [address] [place], [address] Absolute Neut 4.1 X10 3/uL Normal 2.0-7.7 [facility] Comment on above: Order Comment: Order Date: 10/18/23 Order Info: 0184-1 - CBCD Performed By: #### L 100.0100, L501.9985, L500.4050, L500.4100, L506.1000 #### [facility] [address] [place], [address] Basophils/100 WBC (Bld) 0.3 % Normal 0-1 [facility] Comment on above: Order Comment: Order Date: 10/18/23 Order Info: 0184-1 - CBCD Performed By: #### L 100.0100, L501.9985, L500.4050, L500.4100, L506.1000 #### [facility] [address] [place], [address] Eosinophils/100 WBC (Bld) 3.5 % Normal 0-5 [facility] Comment on above: Order Comment: Order Date: 10/18/23 Order Info: 0184-1 - CBCD Performed By: #### L 100.0100, L501.9985, L500.4050, L500.4100, L506.1000 #### [facility] [address] [place], [address] Erythrocyte distribution width (RBC) [Ratio] 12.3 % Normal 11.6-14.6 [facility] Comment on above: Order Comment: Order Date: 10/18/23 Order Info: 0184- - CBCD Performed By: #### L 100.0100, L501.9985, L500.4050, L500.4100, L506.1000 #### [facility] [address] [place], [address] Hematocrit (Bld) [Volume fraction] 35.7 % Low 37-47 [facility] Comment on above: Order Comment: Order Date: 10/18/23 Order Info: 0184- - CBCD Performed By: #### L 100.0100, L501.9985, L500.4050, L500.4100, L506.1000 #### [facility] [address] [place], [address] Hemoglobin (Bld) [Mass/Vol] 11.5 g/dL Low 12.0-15.0 [facility] Comment on above: Order Comment: Order Date: 10/18/23 Order Info: 0184-1 - CBCD Performed By: #### L 100.0100, L501.9985, L500.4050, L500.4100, L506.1000 #### [facility] [address] [place], [address] IG% 0.500 Normal 0.0-0.9 [facility] Comment on above: Order Comment: Order Date: 10/18/23 Order Info: 0184-1 - CBCD Result Comment: IG% - Immature Granulocytes (promyelocytes, myelocytes and metamyelocytes) > 1% indicates that a LEFT SHIFT is Present. Performed By: #### L 100.0100, L501.9985, L500.4050, L500.4100, L506.1000 #### [facility] [address] [place], [address] Lymphocytes/100 WBC (Bld) 27.3 % Normal 19-41 [facility] Comment on above: Order Comment: Order Date: 10/18/23 Order Info: 0184-1 - CBCD Performed By: #### L 100.0100, L501.9985, L500.4050, L500.4100, L506.1000 #### [facility] [address] [facility] [place], [address] MCH (RBC) [Entitic mass] 27.4 pg Normal 27.0-32.0 [facility] Comment on above: Order Comment: Order Date: 10/18/23 Order Info: 0184- - CBCD Performed By: #### L 100.0100, L501.9985, L500.4050, L500.4100, L506.1000 #### [facility] [address] [facility] [place], [address] MCHC (RBC) [Mass/Vol] 32.2 g/dL Normal 32-36 [facility] Comment on above: Order Comment: Order Date: 10/18/23 Order Info: 0184-1 - CBCD Performed By: #### L 100.0100, L501.9985, L500.4050, L500.4100, L506.1000 #### [facility] [address] [place], [address] MCV (RBC) [Entitic vol] 85.0 fL Normal 81-99 [facility] Comment on above: Order Comment: Order Date: 10/18/23 Order Info: 0184- - CBCD Performed By: #### L 100.0100, L501.9985, L500.4050, L500.4100, L506.1000 #### [facility] [address] [place], [address] Monocytes/100 WBC (Bld) 5.1 % Normal 0-10 [facility] Comment on above: Order Comment: Order Date: 10/18/23 Order Info: 0184-1 - CBCD Performed By: #### L 100.0100, L501.9985, L500.4050, L500.4100, L506.1000 #### [facility] [address] [place], [address] Neutrophils/100 WBC (Bld) 63.3 % Normal 47-70 [facility] Comment on above: Order Comment: Order Date: 10/18/23 Order Info: 0184- - CBCD Performed By: #### L 100.0100, L501.9985, L500.4050, L500.4100, L506.1000 #### [facility] [address] [place], [address] Nucleated RBC (Bld) [#/Vol] 0 10*3/uL Normal 0-5 [facility] Comment on above: Order Comment: Order Date: 10/18/23 Order Info: 0184- - CBCD Performed By: #### L 100.0100, L501.9985, L500.4050, L500.4100, L506.1000 #### [facility] [address] [place], [address] Platelet mean volume (Bld) [Entitic vol] 9.9 fL Normal 6.2-12.0 [facility] Comment on above: Order Comment: Order Date: 10/18/23 Order Info: 0184-1 - CBCD Performed By: #### L 100.0100, L501.9985, L500.4050, L500.4100, L506.1000 #### [facility] [address] [place], [address] Platelets (Bld) [#/Vol] 240 10*3/uL Normal 150-450 [facility] Comment on above: Order Comment: Order Date: 10/18/23 Order Info: 0184-1 - CBCD Performed By: #### L 100.0100, L501.9985, L500.4050, L500.4100, L506.1000 #### [facility] [address] [place], [address] RBC (Bld) [#/Vol] 4.20 10*6/uL Normal 4.2-5.4 [facility] Comment on above: Order Comment: Order Date: 10/18/23 Order Info: 0184-1 - CBCD Performed By: #### L 100.0100, L501.9985, L500.4050, L500.4100, L506.1000 #### [facility] [address] [place], [address] RDW SD 37.9 fl Normal 35.1-43.9 [facility] Comment on above: Order Comment: Order Date: 10/18/23 Order Info: 0184-1 - CBCD Performed By: #### L 100.0100, L501.9985, L500.4050, L500.4100, L506.1000 #### [facility] [address] [place], [address] WBC (Bld) [#/Vol] 6.5 10*3/uL Normal 4.4-11.0 [facility] Comment on above: Order Comment: Order Date: 10/18/23 Order Info: 0184-1 - CBCD Performed By: #### L 100.0100, L501.9985, L500.4050, L500.4100, L506.1000 #### [facility] [address] [place], [address] Comprehensive Metabolic Prof ilon 02-21-2024 Albumin [Mass/Vol] 3.8 g/dL Normal 3.2-5.0 [facility] Comment on above: Order Comment: Order Date: 10/18/23 Order Info: [id number] - CMP Order Info: [id number] - LIPID Performed By: #### L 100.0100, L501.9985, L500.4050, L500.4100, L506.1000 #### [facility] [address] [place], [address] Albumin/Globulin [Mass ratio] 1.0 {ratio} Normal 0.9-2.4 [facility] Comment on above: Order Comment: Order Date: 10/18/23 Order Info: [id number] - CMP Order Info: [id number] - LIPID Performed By: #### L 100.0100, L501.9985, L500.4050, L500.4100, L506.1000 #### [facility] [address] [place], [address] ALK P 118 U/L High 45-117 [facility] Comment on above: Order Comment: Order Date: 10/18/23 Order Info: [id number] - CMP Order Info: [id number] - LIPID Performed By: #### L 100.0100, L501.9985, L500.4050, L500.4100, L506.1000 #### [facility] [address] [place], [address] ALT [Catalytic activity/Vol] 18 U/L Normal 13-56 [facility] Comment on above: Order Comment: Order Date: 10/18/23 Order Info: [id number] - CMP Order Info: [id number] - LIPID Performed By: #### L 100.0100, L501.9985, L500.4050, L500.4100, L506.1000 #### [facility] [address] [place], [address] AST [Catalytic activity/Vol] 12 U/L Low 15-37 [facility] Comment on above: Order Comment: Order Date: 10/18/23 Order Info: [id number] - CMP Order Info: [id number] - LIPID Performed By: #### L 100.0100, L501.9985, L500.4050, L500.4100, L506.1000 #### [facility] [address] [place], [address] Bilirubin [Mass/Vol] 0.40 mg/dL Normal 0.20-1.00 [facility] Comment on above: Order Comment: Order Date: 10/18/23 Order Info: [id number] - CMP Order Info: [id number] - LIPID Result Comment: For patients on eltrombopag therapy, use of Dimension [place] TBIL is not recommended. Performed By: #### L 100.0100, L501.9985, L500.4050, L500.4100, L506.1000 #### [facility] [address] [place], [address] BUN/CRE 25.6 RATIO High 10-20 [facility] Comment on above: Order Comment: Order Date: 10/18/23 Order Info: [id number] - CMP Order Info: [id number] - LIPID Performed By: #### L 100.0100, L501.9985, L500.4050, L500.4100, L506.1000 #### [facility] [address] [place], [address] CA,Total 9.6 mg/dL Normal 8.5-10.1 [facility] Comment on above: Order Comment: Order Date: 10/18/23 Order Info: [id number] - CMP Order Info: [id number] - LIPID Performed By: #### L 100.0100, L501.9985, L500.4050, L500.4100, L506.1000 #### [facility] [address] [place], [address] Chloride [Moles/Vol] 105 mmol/L Normal 98-107 [facility] Comment on above: Order Comment: Order Date: 10/18/23 Order Info: [id number] - CMP Order Info: [id number] - LIPID Performed By: #### L 100.0100, L501.9985, L500.4050, L500.4100, L506.1000 #### [facility] [address] [place], [address] CO2 [Moles/Vol] 24.0 mmol/L Normal 21.0-32.0 [facility] Comment on above: Order Comment: Order Date: 10/18/23 Order Info: [id number] - CMP Order Info: [id number] - LIPID Performed By: #### L 100.0100, L501.9985, L500.4050, L500.4100, L506.1000 #### [facility] [address] [place], [address] Creatinine [Mass/Vol] 0.94 mg/dL Normal 0.55-1.02 [facility] Comment on above: Order Comment: Order Date: 10/18/23 Order Info: [id number] - CMP Order Info: [id number] - LIPID Result Comment: The validity of the calculated GFR GFRAA in patients over 70 years has not been determined. Clinical correlation is essential. Performed By: #### L 100.0100, L501.9985, L500.4050, L500.4100, L506.1000 #### [facility] [address] [place], [address] EST GFR - AA 77 mL/min Normal >60 [facility] Comment on above: Order Comment: Order Date: 10/18/23 Order Info: [id number] - CMP Order Info: [id number] - LIPID Result Comment: Afri can Mongolian GFR Calc Performed By: #### L 100.0100, L501.9985, L500.4050, L500.4100, L506.1000 #### [facility] [address] [place], [address] GAP 7 Normal 5-15 [facility] Comment on above: Order Comment: Order Date: 10/18/23 Order Info: [id number] - CMP Order Info: [id number] - LIPID Performed By: #### L 100.0100, L501.9985, L500.4050, L500.4100, L506.1000 #### [facility] [address] [place], [address] GFR/1.73 sq M.predicted among non-blacks MDRD (S/P/Bld) [Vol rate/Area] 64 mL/min/{1.73_m2} Normal >60 [facility] Comment on above: Order Comment: Order Date: 10/18/23 Order Info: 0786 - CMP Order Info: [id number] - LIPID Result Comment: Non- GFR Calc Performed By: #### L 100.0100, L501.9985, L500.4050, L500.4100, L506.1000 #### [facility] [address] [place], [place], [address] Globulin (S) [Mass/Vol] 3.8 g/dL Normal 2.2-4.2 [facility] Comment on above: Order Comment: Order Date: 10/18/23 Order Info: 0786 - CMP Order Info: [id number] - LIPID Performed By: #### L 100.0100, L501.9985, L500.4050, L500.4100, L506.1000 #### [facility] [address] [place], [address] Glucose [Mass/Vol] 146 mg/dL High 74-106 [facility] Comment on above: Order Comment: Order Date: 10/18/23 Order Info: [id number] - CMP Order Info: [id number] - LIPID Result Comment: Fast ing Glucose result greater than or equal to 126 mg/dL suggests DIABETES MELLITUS per A.D.A. criteria. Performed By: #### L 100.0100, L501.9985, L500.4050, L500.4100, L506.1000 #### [facility] [address] [place], [address] Potassium [Moles/Vol] 4.0 mmol/L Normal 3.5-5.1 [facility] Comment on above: Order Comment: Order Date: 10/18/23 Order Info: 0786- - CMP Order Info: [id number] - LIPID Performed By: #### L 100.0100, L501.9985, L500.4050, L500.4100, L506.1000 #### [facility] [address] [place], [address] Sodium [Moles/Vol] 136 mmol/L Normal 136-145 [facility] Comment on above: Order Comment: Order Date: 10/18/23 Order Info: 0786- - CMP Order Info: [id number] - LIPID Performed By: #### L 100.0100, L501.9985, L500.4050, L500.4100, L506.1000 #### [facility] [address] [place], [address] T PROT 7.6 g/dL Normal 6.4-8.2 [facility] Comment on above: Order Comment: Order Date: 10/18/23 Order Info: 0786- - CMP Order Info: [id number] - LIPID Performed By: #### L 100.0100, L501.9985, L500.4050, L500.4100, L506.1000 #### [facility] [address] [place], [address] Urea nitrogen [Mass/Vol] 24 mg/dL High 7-18 [facility] Comment on above: Order Comment: Order Date: 10/18/23 Order Info: 0786- - CMP Order Info: [id number] - LIPID Performed By: #### L 100.0100, L501.9985, L500.4050, L500.4100, L506.1000 #### [facility] [address] [place], [address] Hemoglobin A1con 02-21-2024 HbA1c (Bld) [Mass fraction] 7.0 % High 3.8-5.6 [facility] Comment on above: Order Comment: Order Date: 10/18/23 Order Info: [id number] - A1C Result Comment: Norm al < 5.7 % Prediabetic 5.7 - 6.4 % Diabetic >or= 6.5 % Please note range changes. Performed By: #### L 100.0100, L501.9985, L500.4050, L500.4100, L506.1000 #### [facility] [address] [place], [address] Lipid Profileon 02-21-2024 Cholesterol [Mass/Vol] 266 mg/dL High 200 [facility] Comment on above: Order Comment: Order Date: 10/18/23 Order Info: 0786-1 - CMP Order Info: [id number] - LIPID Result Comment: <200 mg/dL Desirable 200-240 mg/dL Borderline >240 mg/dL High Risk Performed By: #### L 100.0100, L501.9985, L500.4050, L500.4100, L506.1000 #### [facility] [address] [place], [address] Cholesterol in HDL [Mass/Vol] 73 mg/dL Normal [facility] Comment on above: Order Comment: Order Date: 10/18/23 Order Info: [id number] - CMP Order Info: [id number] - LIPID Result Comment: The drugs N-Acetylcysteine and Metamizole may falsely depress this assay. Reference Range HDL <40 mg/dL Low HDL Cholesterol HDL >or= 60 mg/dL High HDL Cholesterol Performed By: #### L 100.0100, L501.9985, L500.4050, L500.4100, L506.1000 #### [facility] [address] [place], [address] Cholesterol in LDL [Mass/Vol] 167 mg/dL High 0-130 [facility] Comment on above: Order Comment: Order Date: 10/18/23 Order Info: [id number] - CMP Order Info: [id number] - LIPID Performed By: #### L 100.0100, L501.9985, L500.4050, L500.4100, L506.1000 #### [facility] [address] [place], [address] Cholesterol in VLDL [Mass/Vol] 26 mg/dL Normal 5-40 [facility] Comment on above: Order Comment: Order Date: 10/18/23 Order Info: [id number] - [facility] Order Info: [id number] - LIPID Performed By: #### L 100.0100, L501.9985, L500.4050, L500.4100, L506.1000 #### [facility] [address] [place], [address] Triglyceride [Mass/Vol] 131 mg/dL Normal [facility] Comment on above: Order Comment: Order Date: 10/18/23 Order Info: [id number] - [facility] Order Info: [id number] - LIPID Result Comment: The drugs N-Acetylcysteine and Metamizole may falsely depress this assay. Serum Triglycerides Reference Interval Normal <150 mg/dL Borderline high 150 - 199 mg/dL High 200 - 499 mg/dL Very High > or = 500 mg/dL Performed By: #### L 100.0100, L501.9985, L500.4050, L500.4100, L506.1000 #### [facility] [address] [place], [address] Vitamin D,25 Hydroxyon 02-20 Vitamin D 25-OH 20.6 ng/mL Normal [facility] Comment on above: Order Comment: Order Date: 10/18/23 Order Info: [id number] - VITD25 Result Comment: Ellen min D 25(OH) Status Range Deficiency <20 ng/mL (50nmol/L) Insufficiency 20 - 30 ng/mL (50 - 75 nmol/L) Sufficiency 30 - 100 ng/mL (75 - 250 nmol/L) Toxicity >100 ng/mL (>250 nmol/L) Performed By: #### L 100.0100, L501.9985, L500.4050, L500.4100, L506.1000 #### [facility] [address] [place], [address] Glucoseon 11-22-2023 Glucose [Mass/Vol] 117 mg/dL High 74-106 [facility] Comment on above: Result Comment: Fast ing Glucose result from 100 to 125 mg/dL suggests IMPAIRED HOMEOSTASIS per A.D.A. criteria. Performed By: #### L 100.0100, L501.9985, L500.4050, L500.4100, L506.1000 #### [facility] [address] [place], [address] Lipid Profileon 11-22-2023 Cholesterol [Mass/Vol] 239 mg/dL High 200 [facility] Comment on above: Result Comment: <200 mg/dL Desirable 200-240 mg/dL Borderline >240 mg/dL High Risk Performed By: #### L 100.0100, L501.9985, L500.4050, L500.4100, L506.1000 #### [facility] [address] [place], [address] Cholesterol in HDL [Mass/Vol] 57 mg/dL Normal [facility] Comment on above: Result Comment: The drugs N-Acetylcysteine and Metamizole may falsely depress this assay. Reference Range HDL <40 mg/dL Low HDL Cholesterol HDL >or= 60 mg/dL High HDL Cholesterol Performed By: #### L 100.0100, L501.9985, L500.4050, L500.4100, L506.1000 #### [facility] [address] [place], [address] Cholesterol in LDL [Mass/Vol] 158 mg/dL High 0-130 [facility] Comment on above: Performed By: #### L 100.0100, L501.9985, L500.4050, L500.4100, L506.1000 #### [facility] [address] [place], [place], [id number] Cholesterol in VLDL [Mass/Vol] 24 mg/dL Normal 5-40 [facility] Comment on above: Performed By: #### L 100.0100, L501.9985, L500.4050, L500.4100, L506.1000 #### [facility] [address] [place], [address] Triglyceride [Mass/Vol] 118 mg/dL Normal [facility] Comment on above: Result Comment: The drugs N-Acetylcysteine and Metamizole may falsely depress this assay. Serum Triglycerides Reference Interval Normal <150 mg/dL Borderline high 150 - 199 mg/dL High 200 - 499 mg/dL Very High > or = 500 mg/dL Performed By: #### L 100.0100, L501.9985, L500.4050, L500.4100, L506.1000 #### [facility] [address] [place], [place], [id number] Absolute lymphocyte countOrd ered By: Yousif Murguia on 03-27-2023 Lymphocytes Auto (Unsp spec) [#/Vol] 1.59 10*3/uL 0.83-4.51 [facility] Automated lymphocyte count a s percentage of total leukocytesOrdered By: Yousif Murguia on 03-27-2023 Lymphocytes/100 WBC Auto (Unsp spec) 25.3 % 19-41 [facility] Basophil percentageOrdered B y: Yousif Murguia on 03-27-2023 Basophils/100 WBC (Bld) 0.2 % 0-1 [facility] Bilirubin [Mass/Vol] 0.30 mg/dL 0.20-1.00 [facility] Comment on above: For patients on eltr ombopag therapy, use of Dimension [place] TBIL is not recommended. Chloride [Moles/Vol] 109 mmol/L 98-107 [facility] Cholesterol [Mass/Vol] 262 mg/dL <200 [facility] Comment on above: <200 mg/dL Desirable 200-240 mg/dL Borderline >240 mg/dL High Risk Eosinophils/100 WBC (Bld) 2.1 % 0-5 [facility] Glucose [Mass/Vol] 96 mg/dL 74-106 [facility] Hemoglobin (Bld) [Mass/Vol] 12.0 g/dL 12.0-15.0 [facility] Monocytes/100 WBC (Bld) 4.0 % 0-10 [facility] Neutrophils (Bld) [#/Vol] 4.3 10*3/uL 2.0-7.7 [facility] Neutrophils/100 WBC (Bld) 68.1 % 47-70 [facility] Potassium [Moles/Vol] 4.0 mmol/L 3.5-5.1 [facility] Protein [Mass/Vol] 7.5 g/dL 6.4-8.2 [facility] Sodium [Moles/Vol] 142 mmol/L 136-145 [facility] Triglyceride [Mass/Vol] 142 mg/dL <199 [facility] Comment on above: The drugs N-Acetylcy steine and Metamizole may falsely depress this assay.Serum Triglycerides Reference Interval Normal <150 mg/dL Borderline high 150 - 199 mg/dL High 200 - 499 mg/dL Very High > or = 500 mg/dL WBC (Bld) [#/Vol] 6.3 10*3/uL 4.4-11.0 [facility] Determination of erythrocyte mean corpuscular volume (MCV)Ordered By: Yousif Murguia on 03-27-2023 MCV (RBC) [Entitic vol] 84.6 fL 81-99 [facility] Erythrocyte distribution wid th ratioOrdered By: Yousif Murguia on 03-27-2023 Erythrocyte distribution width (RBC) [Ratio] 12.2 % 11.6-14.6 [facility] Erythrocyte distribution wid th standard deviationOrdered By: Yousif Murguia on 03-27-2023 Erythrocyte distribution width (RBC) [Entitic vol] 37.5 fL 35.1-43.9 [facility] Hematocrit Auto (Bld) [Volum e fraction]Ordered By: Yousif Murguia on 03-27-2023 Hematocrit (Bld) [Volume fraction] 37.9 % 37-47 [facility] Immature granulocytes/100 WB C Auto (Bld)Ordered By: Yousif Murguia on 03-27-2023 Immature granulocytes/100 WBC (Bld) 0.300 % 0.0-0.9 [facility] Comment on above: IG% - Immature Granu locytes (promyelocytes, myelocytes and metamyelocytes) > 1% indicates that a LEFT SHIFT is Present. Laboratory - Chemistry and C hemistry - challengeOrdered By: Yousif Murguia on 03-27-2023 Albumin/Globulin [Mass ratio] 1.0 {ratio} 0.9-2.4 [facility] ALP [Catalytic activity/Vol] 116 U/L 45-117 [facility] ALT [Catalytic activity/Vol] 13 U/L 13-56 [facility] Cholesterol in HDL [Mass/Vol] 61 mg/dL >40 [facility] Comment on above: The drugs N-Acetylcy steine and Metamizole may falsely depress this assay. Reference Range HDL <40 mg/dL Low HDL Cholesterol HDL >or= 60 mg/dL High HDL Cholesterol Cholesterol in LDL [Mass/Vol] 173 mg/dL 0-130 [facility] CO2 [Moles/Vol] 26.0 mmol/L 21.0-32.0 [facility] Globulin (S) [Mass/Vol] 3.7 g/dL 2.2-4.2 [facility] Urea nitrogen/Creatinine [Mass ratio] 18.3 mg/mg 10-20 [facility] Laboratory - Hematology and Cell countsOrdered By: Yousif Murguia on 03-27-2023 MCH (RBC) [Entitic mass] 26.8 pg 27.0-32.0 [facility] MCHC (RBC) [Mass/Vol] 31.7 g/dL 32-36 [facility] Nucleated RBC/100 WBC (Bld) [Ratio] 0 % 0-5 [facility] Platelet mean volume (Bld) [Entitic vol] 9.6 fL 6.2-12.0 [facility] Platelets (Bld) [#/Vol] 225 10*3/uL 150-450 [facility] No Panel InformationOrdered By: Yousif Murguia on 03-27-2023 Estimated GFR (MDRD) Amer 98 mL/min >60 [facility] Comment on above: GFR Calc Estimated GFR (MDRD) Non-Af Amer 81 mL/min >60 [facility] Comment on above: Non- GFR Calc Urine Microalbumin/Creatinin e Ratio 44.0 mg/g CRE <30 [facility] Vitamin D 25-Hydroxy 34.5 ng/mL [facility] Comment on above: Vitamin D 25(OH) Sta tus Range Deficiency <20 ng/mL (50nmol/L) Insufficiency 20 - 30 ng/mL (50 - 75 nmol/L) Sufficiency 30 - 100 ng/mL (75 - 250 nmol/L) Toxicity >100 ng/mL (>250 nmol/L) VLDL Cholesterol 28 mg/dL 5-40 [facility] RBC Auto (Bld) [#/Vol]Ordere d By: Yousif Murguia on 03-27-2023 RBC (Bld) [#/Vol] 4.48 10*6/uL 4.2-5.4 [facility] Serum or plasma calcium romana urement (mass/volume)Ordered By: Yousif Murguia on 03-27-2023 Calcium [Mass/Vol] 9.6 mg/dL 8.5-10.1 [facility] Serum or plasma creatinine m easurement (mass/volume)Ordered By: Yousif Murguia on 03-27-2023 Creatinine [Mass/Vol] 0.77 mg/dL 0.55-1.02 [facility] Comment on above: The validity of the calculated GFR & GFRAA in patients over 70 years has not been determined. Clinical correlation is essential. Serum or plasma urea nitroge n measurement (mass/volume)Ordered By: Yousif Murguia on 03-27-2023 Urea nitrogen [Mass/Vol] 14 mg/dL 7-18 [facility] Thin prep Papanicolaou smear with manual screeningOrdered By: Yousif Murguia on 03-27-2023 Thin prep Papanicolaou smear with manual screening 3.8 g/dL 3.2-5.0 [facility] Thin prep Papanicolaou smear with manual screening 14 U/L 15-37 [facility] Thin prep Papanicolaou smear with manual screening 7 5-15 [facility] Thin prep Papanicolaou smear with manual screening 18.9 mg/L NO RANGE EST. [facility] Urine creatinine measurement (mass/volume)Ordered By: Yousif Murguia on 03-27-2023 Creatinine (U) [Mass/Vol] 43.00 mg/dL NO RANGE EST. [facility] Whole blood hemoglobin A1c/t otal hemoglobin ratio (mass fraction)Ordered By: Yousif Murguia on 03-27-2023 HbA1c (Bld) [Mass fraction] 6.8 % 3.8-5.6 [facility] Comment on above: Normal < 5.7 % Predi abetic 5.7 - 6.4 % Diabetic >or= 6.5 % Please note range changes. Absolute lymphocyte countOrd ered By: Yousif Murguia on 10-25-2022 Lymphocytes Auto (Unsp spec) [#/Vol] 1.92 10*3/uL 0.83-4.51 [facility] Basophil percentageOrdered B y: Yousif Murguia on 10-25-2022 Basophils/100 WBC (Bld) 0.3 % 0-1 [facility] Bilirubin [Mass/Vol] 0.20 mg/dL 0.20-1.00 [facility] Comment on above: For patients on eltr ombopag therapy, use of Dimension [place] TBIL is not recommended. Chloride [Moles/Vol] 105 mmol/L 98-107 [facility] Cholesterol [Mass/Vol] 240 mg/dL <200 [facility] Comment on above: <200 mg/dL Desirable 200-240 mg/dL Borderline >240 mg/dL High Risk Eosinophils/100 WBC (Bld) 3.1 % 0-5 [facility] Glucose [Mass/Vol] 106 mg/dL 74-106 [facility] Comment on above: Fasting Glucose resu lt from 100 to 125 mg/dL suggests IMPAIRED HOMEOSTASIS per A.D.A. criteria. Neutrophils (Bld) [#/Vol] 5.1 10*3/uL 2.0-7.7 [facility] Neutrophils/100 WBC (Bld) 66.4 % 47-70 [facility] Potassium [Moles/Vol] 3.6 mmol/L 3.5-5.1 [facility] Protein [Mass/Vol] 8.0 g/dL 6.4-8.2 [facility] Sodium [Moles/Vol] 139 mmol/L 136-145 [facility] Triglyceride [Mass/Vol] 157 mg/dL <199 [facility] Comment on above: The drugs N-Acetylcy steine and Metamizole may falsely depress this assay.Serum Triglycerides Reference Interval Normal <150 mg/dL Borderline high 150 - 199 mg/dL High 200 - 499 mg/dL Very High > or = 500 mg/dL WBC (Bld) [#/Vol] 7.7 10*3/uL 4.4-11.0 [facility] Blood erythrocytes count (nu mber/volume)Ordered By: Yousif Murguia on 10-25-2022 RBC (Bld) [#/Vol] 4.57 10*6/uL 4.2-5.4 [facility] Blood hemoglobin measurement (mass/volume)Ordered By: Yousif Murguia on 10-25-2022 Hemoglobin (Bld) [Mass/Vol] 12.3 g/dL 12.0-15.0 [facility] Blood lymphocytes/100 leukoc ytesOrdered By: Yousif Murguia on 10-25-2022 Lymphocytes/100 WBC (Bld) 25.1 % 19-41 [facility] Blood monocytes/100 leukocyt esOrdered By: Yousif Murguia on 10-25-2022 Monocytes/100 WBC (Bld) 4.6 % 0-10 [facility] Blood platelet mean volumeOr dered By: Yousif Murguia on 10-25-2022 Platelet mean volume (Bld) [Entitic vol] 9.8 fL 6.2-12.0 [facility] Determination of erythrocyte mean corpuscular volume (MCV)Ordered By: Yousif Murguia on 10-25-2022 MCV (RBC) [Entitic vol] 85.6 fL 81-99 [facility] Hematocrit Auto (Bld) [Volum e fraction]Ordered By: Yousif Murguia on 10-25-2022 Hematocrit (Bld) [Volume fraction] 39.1 % 37-47 [facility] Laboratory - Chemistry and C hemistry - challengeOrdered By: Yousif Murguia on 10-25-2022 ALP [Catalytic activity/Vol] 132 U/L 45-117 [facility] ALT [Catalytic activity/Vol] 17 U/L 13-56 [facility] CO2 [Moles/Vol] 27.0 mmol/L 21.0-32.0 [facility] Cobalamin (Vitamin B12) [Mass/Vol] 513 pg/mL 211-911 [facility] Free T4 [Mass/Vol] 1.18 ng/dL 0.76-1.46 [facility] Globulin (S) [Mass/Vol] 4.3 g/dL 2.2-4.2 [facility] Urea nitrogen/Creatinine [Mass ratio] 19.9 mg/mg 10-20 [facility] Laboratory - Hematology and Cell countsOrdered By: Yousif Murguia on 10-25-2022 Erythrocyte distribution width (RBC) [Entitic vol] 38.3 fL 35.1-43.9 [facility] Erythrocyte distribution width (RBC) [Ratio] 12.3 % 11.6-14.6 [facility] Immature granulocytes/100 WBC (Bld) 0.500 % 0.0-0.9 [facility] Comment on above: IG% - Immature Granu locytes (promyelocytes, myelocytes and metamyelocytes) > 1% indicates that a LEFT SHIFT is Present. MCH (RBC) [Entitic mass] 26.9 pg 27.0-32.0 [facility] Nucleated RBC/100 WBC (Bld) [Ratio] 0 % 0-5 [facility] MCHC Auto (RBC) [Mass/Vol]Or dered By: Yousif Murguia on 10-25-2022 MCHC (RBC) [Mass/Vol] 31.5 g/dL 32-36 [facility] No Panel InformationOrdered By: Yousif Murguia on 10-25-2022 Estimated GFR (MDRD) Amer 108 mL/min >60 [facility] Comment on above: GFR Calc Estimated GFR (MDRD) Non-Af Amer 89 mL/min >60 [facility] Comment on above: Non- GFR Calc Thyroid Stimulating Hormone (TSH) 0.96 uIU/mL 0.358-3.74 [facility] Urine Microalbumin/Creatinin e Ratio 34.5 mg/g CRE <30 [facility] Vitamin D 25-Hydroxy 27.8 ng/mL [facility] Comment on above: Vitamin D 25(OH) Sta tus Range Deficiency <20 ng/mL (50nmol/L) Insufficiency 20 - 30 ng/mL (50 - 75 nmol/L) Sufficiency 30 - 100 ng/mL (75 - 250 nmol/L) Toxicity >100 ng/mL (>250 nmol/L) Platelets bldOrdered By: Ken Murguia on 10-25-2022 Platelets (Bld) [#/Vol] 227 10*3/uL 150-450 [facility] Serum or plasma albumin romana urement (mass/volume)Ordered By: Yousif Murguia on 10-25-2022 Albumin [Mass/Vol] 3.7 g/dL 3.2-5.0 [facility] Serum or plasma albumin/glob ulin mass ratioOrdered By: Yousif Murguia on 10-25-2022 Albumin/Globulin [Mass ratio] 0.9 {ratio} 0.9-2.4 [facility] Serum or plasma calcium romana urement (mass/volume)Ordered By: Yousif Murguia on 10-25-2022 Calcium [Mass/Vol] 9.4 mg/dL 8.5-10.1 [facility] Serum or plasma cholesterol in HDL measurement (mass/volume)Ordered By: Yousif Murguia on 10-25-2022 Cholesterol in HDL [Mass/Vol] 57 mg/dL >40 [facility] Comment on above: The drugs N-Acetylcy steine and Metamizole may falsely depress this assay. Reference Range HDL <40 mg/dL Low HDL Cholesterol HDL >or= 60 mg/dL High HDL Cholesterol Serum or plasma cholesterol in VLDL measurement (mass/volume)Ordered By: Yousif Murguia on 10-25-2022 Cholesterol in VLDL [Mass/Vol] 31 mg/dL 5-40 [facility] Serum or plasma creatinine m easurement (mass/volume)Ordered By: Yousif Murguia on 10-25-2022 Creatinine [Mass/Vol] 0.70 mg/dL 0.55-1.02 [facility] Comment on above: The validity of the calculated GFR & GFRAA in patients over 70 years has not been determined. Clinical correlation is essential. Serum or plasma low density lipoprotein (LDL) cholesterol measurement (mass/volume)Ordered By: Yousif Murguia on 10-25-2022 Cholesterol in LDL [Mass/Vol] 152 mg/dL 0-130 [facility] Serum or plasma urea nitroge n measurement (mass/volume)Ordered By: Yousif Murguia on 10-25-2022 Urea nitrogen [Mass/Vol] 14 mg/dL 7-18 [facility] Thin prep Papanicolaou smear with manual screeningOrdered By: Yousif Murguia on 10-25-2022 Thin prep Papanicolaou smear with manual screening 10 U/L 15-37 [facility] Thin prep Papanicolaou smear with manual screening 7 5-15 [facility] Thin prep Papanicolaou smear with manual screening 16.2 mg/L NO RANGE EST. [facility] Urine creatinine measurement (mass/volume)Ordered By: Yousif Murguia on 10-25-2022 Creatinine (U) [Mass/Vol] 46.90 mg/dL NO RANGE EST. [facility] Whole blood hemoglobin A1c/t otal hemoglobin ratio (mass fraction)Ordered By: Yousif Murguia on 10-25-2022 HbA1c (Bld) [Mass fraction] 6.9 % 3.8-5.6 [facility] Comment on above: Normal < 5.7 % Predi abetic 5.7 - 6.4 % Diabetic >or= 6.5 % Please note range changes. CNOVon 08-28-2022 CNOV Office Visit (GENSWS ) MONSERRAT CORNEJO I ([id number]) 1960 F Date Time Provider Department 08/28/22 3:30 PM GIO CLARK During your visit today, we recorded the following information about you: Gio Clark MD 09/12/2022 9:58 AM Signed Subjective: Patient is status post an ultrasound of her thyroid gland: Nodule #1 Location: Right upper pole Size: 9 x 7 x 4 mm Characteristics: Composition: Solid or almost completely solid, 2 points Echogenicity: Hypoechoic, 2 points Shape: [id number], 0 points Margin: smooth or ill defined. 0 points Echogenic foci: Possible punctate echogenic foci, 3 points vs 0 points TI-RADS Category: 5 ACR Recommendation: Follow up imaging is advised annually for 5 years. Nodule #2 Location: Left lower pole Size: 5 x 7 x 3 mm Characteristics: Composition: Solid or almost completely solid, 2 points Echogenicity: Hypoechoic, 2 points Shape: Jieka-[id number]-[id number], 0 points Margin: smooth or ill defined. 0 points Echogenic foci: None, 0 points TI-RADS Category: 4 ACR Recommendation: No FNA or follow-up imaging is advised. Nodule #3 Location: Left isthmus Size: 6 x 6 x 4 mm Characteristics: Composition: Solid or almost completely solid, 2 points Echogenicity: Hypoechoic, 2 points Shape: Uhiso-rzbq-[id number], 0 points Margin: smooth or ill defined. 0 points Echogenic foci: None, 0 points TI-RADS Category: 4 ACR Recommendation: No FNA or follow-up imaging is advis Objective:There were no vitals taken for this visit. No hard palpable nodules are identified Assessment:Multinodul ar goiter (primary encounter diagnosis) Plan: This point I do not think that fine-needle aspiration is warranted repeat ultrasounds will be all that is needed. Referring Provider: SELF [[id number]] Allergies As of Date: 08/28/2022 Noted Allergy Reaction AMLODIPINE 08/07/2022 9 - Itching LATEX 06/13/2019 4 - Hives Date Reviewed: 08/28/2022 Reviewed by: Meche Funez, RADHA - Fully Assessed Reason for Visit: Follow Up [171] Cmt: Review thyroid ultrasound results. Primary Visit Diagnosis:Multinodula r goiter [E04.2] Prescriptions as of 09/12/2022 - lisinopril (ZESTRIL) 5 mg tablet Take 5 mg by mouth once daily. - metFORMIN ER (GLUCOPHAGE XR) 500 mg 24 hr tablet TAKE 4 TABLETS BY MOUTH ONCE DAILY FOR 90 DAYS - plecanatide (TRULANCE ORAL) Take by mouth every other day. - insulin glargine,hum.rec.anlo g (LANTUS SUBCUTANEOUS) Inject 47 Units subcutaneously daily at bedtime. - hydrocodone bit/acetaminophen(LEENA RACHEL 5 MG-500 MG TAB) Take 1-2 tablet's) every six(6) hours as needed for pain. - oxycodone hcl/acetaminophen(PER COCET 5 MG-325 MG TAB) Take one(1) tablet four(4) times daily as needed for pain. - GLYBURIDE 5 MG TAB Take one(1) tablet twice daily. Problem List As Of Date 08/28/2022 Noted Resolved Calculus of Ureter [N20.1] 10/08/2008 Renal Colic [N23] 10/08/2008 Encounter Status:Closed by GIO CLARK on 09/12/22 [facility] 08-16-2022 CNPN Telephone (GENSWS) MONSERRAT CORNEJO I ([id number]) 1960 F Date Time Provider Department 08/16/22 GIO CLARK GENLINDA During your visit today, we recorded the following information about you: Charlotte Duarte Cal Ma 08/16/2022 11:18 AM Signed Patient called in asking for thyroid ultrasound results. She can be reached at work today at [phone]. Meche Funez RN 08/17/2022 11:02 AM Signed Monserrat was instructed to follow up with Dr. Clark after her ultrasound. Could someone please contact her and put her on his schedule? Thank you. RADHA Alonso 08/17/2022 11:19 AM Signed 1st attempt to call patient on work number and primary number and couldn't leave a message. Lizbet Gallardo LPN 08/18/2022 2:14 PM Signed Patient is scheduled with Dr. Clark 08/28/22 to review results Ann Gallardo LPN Allergies As of Date: 08/16/2022 Noted Allergy Reaction AMLODIPINE 08/07/2022 9 - Itching LATEX 06/13/2019 4 - Hives Date Reviewed: 08/07/2022 Reviewed by: Jessica Starr LPN - Fully Assessed Reason for Visit: Results [95] Prescriptions as of 08/18/2022 - lisinopril (ZESTRIL) 5 mg tablet Take 5 mg by mouth once daily. - metFORMIN ER (GLUCOPHAGE XR) 500 mg 24 hr tablet TAKE 4 TABLETS BY MOUTH ONCE DAILY FOR 90 DAYS - plecanatide (TRULANCE ORAL) Take by mouth every other day. - insulin glargine,hum.rec.anlo g (LANTUS SUBCUTANEOUS) Inject 47 Units subcutaneously daily at bedtime. - hydrocodone bit/acetaminophen(LEENA RACHEL 5 MG-500 MG TAB) Take 1-2 tablet's) every six(6) hours as needed for pain. - oxycodone hcl/acetaminophen(PER COCET 5 MG-325 MG TAB) Take one(1) tablet four(4) times daily as needed for pain. - GLYBURIDE 5 MG TAB Take one(1) tablet twice daily. Problem List As Of Date 08/16/2022 Noted Resolved Calculus of Ureter [N20.1] 10/08/2008 Renal Colic [N23] 10/08/2008 Encounter Status:Closed by ANN GALLARDO on 08/18/22 Normal [facility] US THYROID/PARATHYROIDon US THYROID/PARATHYROID * * *Final Report * * * DATE OF EXAM: Aug 08 2022 2:06PM [facility] 1048 - US THYROID/PARATHYROID / PROCEDURE REASON: Thyroid mass * * * * Physician Interpretation * * * * EXAMINATION: THYROID ULTRASOUND CLINICAL HISTORY: left thyroid lump Thyroid mass . LEFT thyroid palpable abnormality TECHNIQUE: Sonography and Doppler imaging of the thyroid was performed. Images were obtained and stored in a permanent archive. MQ: UST_1 COMPARISON: None. RESULT: . The right thyroid lobe measures 4.6 x 1.6 x 2.5 cm. The left thyroid lobe measures 4.3 x 1.4 x 2 cm. The thyroid isthmus measures 3 mm in thickness. Parenchyma: Mild diffuse parenchymal heterogeneity. NODULES: Most suspicious nodules (up to 4) detailed below: Nodule #1 Location: Right upper pole Size: 9 x 7 x 4 mm Characteristics: Composition: Solid or almost completely solid, 2 points Echogenicity: Hypoechoic, 2 points Shape: Lvpgr-hnnz-[id number], 0 points Margin: smooth or ill defined. 0 points Echogenic foci: Possible punctate echogenic foci, 3 points vs 0 points TI-RADS Category: 5 ACR Recommendation: Follow up imaging is advised annually for 5 years. Nodule #2 Location: Left lower pole Size: 5 x 7 x 3 mm Characteristics: Composition: Solid or almost completely solid, 2 points Echogenicity: Hypoechoic, 2 points Shape: Thbsl-pymu-[id number], 0 points Margin: smooth or ill defined. 0 points Echogenic foci: None, 0 points TI-RADS Category: 4 ACR Recommendation: No FNA or follow-up imaging is advised. Nodule #3 Location: Left isthmus Size: 6 x 6 x 4 mm Characteristics: Composition: Solid or almost completely solid, 2 points Echogenicity: Hypoechoic, 2 points Shape: Vnfzc-ysjn-hnje, 0 points Margin: smooth or ill defined. 0 points Echogenic foci: None, 0 points TI-RADS Category: 4 ACR Recommendation: No FNA or follow-up imaging is advised. - IMPRESSION: Thyroid nodule(s) have size/category for which ultrasound surveillance is recommended. ACR Recommendation: TI-RADS 5 nodule between 0.5 cm and 1 cm in size . Follow up imaging is advised annually for 5 years. ACR recommendations are strictly based on the size and imaging appearance at the time of the exam and do not consider stability or previous biopsy results. Anesthesiology Medical Doctor: PSCB Transcribe Date/Time: Aug 10 2022 10:47P Dictated by : RUY LUCIA MD This examination was interpreted and the report reviewed and electronically signed by: RUY LUCIA MD on Aug 10 2022 10:49PM EST [id number] Normal [facility] CNOVon 08-07-2022 CNOV Office Visit (GENSWS ) MONSERRAT CORNEJO I ([id number]) 1960 F Date Time Provider Department 08/07/22 2:30 PM GIO CLARK GENGARCIAS During your visit today, we recorded the following information about you: Temperature Pulse Blood pressure Weight 98.2 degrees 89/minute 142/68 93.4 kg Height 1.651 m Jessica Starr LPN 08/07/2022 2:38 PM Signed REVIEW OF SYSTEMS: General: The patient denies fatigue, denies weight loss, denies weight gain, denies feeling hot, and denies feelings of cold. Eyes: The patient denies glaucoma, denies eye injury/surgery, wears glasses or contacts. Ear/Nose/Throat: The patient notes allergies, denies hayfever, notes ear infections, and notes bloody noses. Cardiovascular: The patient denies chest pain, denies heart disease, denies high blood pressure,denies cardiac stent, denies prior heart attack, denies irregular heart beat, notes high cholesterol, denies poor circulation, denies heart failure, other cardiac issues, denies claudication, denies cold feet, denies peripheral arterial stent. Respiratory: The patient denies tuberculosis, denies pneumonia, denies frequent cough, denies pulmonary embolism, denies shortness of breath, and denies coughing up blood. Gastrointestinal: The patient denies difficulty swallowing, notes acid reflux, denies ulcers, denies vomiting, denies jaundice/hepatitis, denies gallbladder problems, denies black or tarry stools, denies hemorrhoids, denies bleeding from rectum, denies diverticulitis, denies constipation, denies diarrhea, denies loss of stool control, and denies hernias. Kidney/Bladder: The patient notes kidney stones, notes urine infections, and denies bloody urine. Skin: The patient denies a history of skin cancer, denies bleeding/changing moles, and denies a history of skin rash. Neurologic: The patient denies a history of epilepsy/convulsions, denies headaches, denies head/spinal injuries, and denies stroke/TIA. Psychiatric: The patient denies psychiatric medications, denies depression, and denies voices, denies substance abuse. Endocrine: The patient notes thyroid disorders, notes diabetes, and denies hormonal problems. Hematologic: The patient denies a history of bruising, denies bleeding, and denies anemia, denies blood clots. Infections: The patient denies a history of measles and mumps, denies rheumatic fever, and denies sexually transmitted diseases. Musculoskeletal: The patient denies back pain/injury, denies back problems, notes sciatica, notes knee/foot trouble, notes arthritis, or denies gout. When was patient's last Mammogram screening? Over 10 years ago Last Colonoscopy: 2020 HAYDER Raza III, MD 08/07/2022 3:09 PM Signed HISTORY AND PHYSICAL Monserrat Cornejo Manolo 1960 REFERRING PHYSICIAN: CHIEF COMPLAINT: Consult (Lump on left side thyroid) HPI: The patient is a 61 year old female with a complaint of a mass on her left thyroid. Patient states that she was at her primary care physician and was told that she had a mass on her left thyroid. She was suggested to follow-up with a surgeon for evaluation. She states that her primary care doctor did not order any test. PAST MEDICAL HISTORY Diagnosis Date Calculus of kidney Diabetes mellitus without mention of complication PAST SURGICAL HISTORY Procedure Laterality Date COLONOSCOPY SCREENING 2020 EXC/DSTRJ LINGUAL TONSIL ANY METHOD SPX PAST SURGICAL HISTORY OF jaw dislocated Current Outpatient Medications Medication Sig lisinopril (ZESTRIL) 5 mg tablet Take 5 mg by mouth once daily. metFORMIN ER (GLUCOPHAGE XR) 500 mg 24 hr tablet TAKE 4 TABLETS BY MOUTH ONCE DAILY FOR 90 DAYS plecanatide (TRULANCE ORAL) Take by mouth every other day. insulin glargine,hum.rec.anlo g (LANTUS SUBCUTANEOUS) Inject 47 Units subcutaneously daily at bedtime. hydrocodone bit/acetaminophen(LEENA RACHEL 5 MG-500 MG TAB) Take 1-2 tablet's) every six(6) hours as needed for pain. (Patient not taking: Reported on 08/07/2022) oxycodone hcl/acetaminophen(PER COCET 5 MG-325 MG TAB) Take one(1) tablet four(4) times daily as needed for pain. (Patient not taking: No sig reported) GLYBURIDE 5 MG TAB Take one(1) tablet twice daily. (Patient not taking: Reported on 08/07/2022) No current facility-administered medications for this visit. ALLERGIES: Amlodipine and Latex PERSONAL HISTORY: Social History Tobacco Use Smoking status: Never Smokeless tobacco: Never Vaping Use Vaping Use: Never used Substance Use Topics Alcohol use: No Drug use: No FAMILY HISTORY: FAMILY HISTORY Problem Relation Age of Onset Stroke Mother Heart Attack Mother Heart Attack Father REVIEW OF SYMPTOMS: The review of systems data was entered by the nurse and reviewed by nc Nursing Notes: Jessica StarrHAYDER 08/07/2022 2:38 PM Signed REVIEW OF SYSTEMS: General: The (more content not included)... Normal [facility] XR CHEST 2 VIEWSon 3 XR CHEST 2 VIEWS ORIGINAL HISTORY: Wheezing COMPARISON: 28 October 2021 FINDINGS: The lungs and pleural spaces are clear. The pulmonary vasculature is unremarkable in appearance. The cardiac silhouette is within normal size limits. IMPRESSION: Clear lungs. Interpreted by: Michael Quarles MD Preliminary Report By: Michael Quarles MD Electronically signed By Michael Quarles MD Dictated Date: 07/14/2022 9:39:37 AM Prelim Date: 07/14/2022 9:40:06 AM Sign Date: 07/14/2022 9:40:06 AM Ordering Provider: VERONIKA [facility] ([place]) .Auto Diffon 07-11-2022 Basophil, Absolute 0.0 10 3/mcL Normal 0.0-0.2 [facility] ([place]) Comment on above: Performed By: #### C BC, ADIFF, ANEU, CMP, GFR, LIPID #### [address] [id number] Basophils/100 WBC (Bld) 0.4 % Normal 0.0-2.5 [facility] [place] Comment on above: Performed By: #### C BC, ADIFF, ANEU, CMP, GFR, LIPID #### [address] [id number] Eosinophil, Absolute 0.4 10 3/mcL Normal 0.0-0.4 [facility] ([place]) Comment on above: Performed By: #### C BC, ADIFF, ANEU, CMP, GFR, LIPID #### [address] [address] Eosinophils/100 WBC (Bld) 4.9 % Normal 0.0-7.0 [facility] ([place]) Comment on above: Performed By: #### C BC, ADIFF, ANEU, CMP, GFR, LIPID #### [id number] [place], [place] [address] Lymphocyte, Absolute 2.2 10 3/mcL Normal 0.8-3.9 [facility] ([place]) Comment on above: Performed By: #### C BC, ADIFF, ANEU, CMP, GFR, LIPID #### [address] [address] Lymphocytes/100 WBC (Bld) 26.4 % Normal 10.0-50.0 [facility] ([place] Comment on above: Performed By: #### C BC, ADIFF, ANEU, CMP, GFR, LIPID #### [address] [address] Monocyte, Absolute 0.4 10 3/mcL Normal 0.2-1.0 [facility] ([place]) Comment on above: Performed By: #### C BC, ADIFF, ANEU, CMP, GFR, LIPID #### [address] [address] Monocytes/100 WBC (Bld) 5.0 % Normal 1.7-13.0 [facility] ([place] Comment on above: Performed By: #### C BC, ADIFF, ANEU, CMP, GFR, LIPID #### [address] [address] Neutrophils/100 WBC (Bld) 63.3 % Normal 37.0-80.0 [facility] ([place] Comment on above: Performed By: #### C BC, ADIFF, ANEU, CMP, GFR, LIPID #### [address] [address] .GFRon 07-11-2022 GFR 76 ml/min/1.73sqm Normal [facility] ([place] Comment on above: Result Comment: GFR Population mean for , Non- Americans Ages 20-29 = 116 mL/min/1.73 sq.m. Ages 30-39 = 107 mL/min/1.73 sq.m. Ages 40-49 = 99 mL/min/1.73 sq.m. Ages 50-59 = 93 mL/min/1.73 sq.m. Ages 60-69 = 85 mL/min/1.73 sq.m. Ages 70+ = 75 mL/min/1.73 sq.m. Chronic Kidney Disease: Less than 60 mL/min/1.73 square meters End Stage Renal Disease: Less than 15 mL/min/1.73 square meters Performed By: #### C BC, ADIFF, ANEU, CMP, GFR, LIPID #### [address] [address] GFR Non- 62 ml/min/1.73sqm Normal [facility] ([place] Comment on above: Result Comment: GFR Population mean for , Non- Americans Ages 20-29 = 116 mL/min/1.73 sq.m. Ages 30-39 = 107 mL/min/1.73 sq.m. Ages 40-49 = 99 mL/min/1.73 sq.m. Ages 50-59 = 93 mL/min/1.73 sq.m. Ages 60-69 = 85 mL/min/1.73 sq.m. Ages 70+ = 75 mL/min/1.73 sq.m. Chronic Kidney Disease: Less than 60 mL/min/1.73 square meters End Stage Renal Disease: Less than 15 mL/min/1.73 square meters Performed By: #### C BC, ADIFF, ANEU, CMP, GFR, LIPID #### [address] [address] .NEUABSon 07-11-2022 Neutrophil, Absolute 5.2 10 3/mcL Normal 2.9-6.2 [facility] ([place]) Comment on above: Performed By: #### C BC, ADIFF, ANEU, CMP, GFR, LIPID #### [address] [address] CBCon 07-11-2022 Erythrocyte distribution width (RBC) [Ratio] 13.3 % Normal 11.5-14.5 [facility] ([place] Comment on above: Performed By: #### C BC, ADIFF, ANEU, CMP, GFR, LIPID #### [address] [address] Hematocrit (Bld) [Volume fraction] 35.9 % Low 37.0-47.0 [facility] ([place] Comment on above: Performed By: #### C BC, ADIFF, ANEU, CMP, GFR, LIPID #### [address] [address] Hgb 12.0 G/dL Normal 12.0-16.0 [facility] [place] Comment on above: Performed By: #### C BC, ADIFF, ANEU, CMP, GFR, LIPID #### [address] [address] MCH (RBC) [Entitic mass] 27.5 pg Normal 27.0-31.2 [facility] [place] Comment on above: Performed By: #### C BC, ADIFF, ANEU, CMP, GFR, LIPID #### [address] [address] MCHC 33.5 G/dL Normal 33.0-37.0 [facility] [place] Comment on above: Performed By: #### C BC, ADIFF, ANEU, CMP, GFR, LIPID #### [address] [address] MCV (RBC) [Entitic vol] 82.1 fL Normal 80.0-94.0 [facility] ([place] Comment on above: Performed By: #### C BC, ADIFF, ANEU, CMP, GFR, LIPID #### [address] [address] Platelet 229 10 3/mcL Normal 130-400 [facility] [place] Comment on above: Performed By: #### C BC, ADIFF, ANEU, CMP, GFR, LIPID #### [address] [address] Platelet mean volume (Bld) [Entitic vol] 7.5 fL Normal 7.4-10.4 [facility] [place] Comment on above: Performed By: #### C BC, ADIFF, ANEU, CMP, GFR, LIPID #### [address] [address] RBC 4.37 10 6/mcL Normal 4.20-5.40 [facility] [place] Comment on above: Performed By: #### C BC, ADIFF, ANEU, CMP, GFR, LIPID #### [address] [address] WBC 8.2 10 3/mcL Normal 4.6-10.8 [facility] [place] Comment on above: Performed By: #### C BC, ADIFF, ANEU, CMP, GFR, LIPID #### [address] [address] CMPon 07-11-2022 Albumin Level 3.9 G/dL Normal 3.4-4.8 [facility] [place] Comment on above: Performed By: #### C BC, ADIFF, ANEU, CMP, GFR, LIPID #### [address] [address] Albumin/Globulin [Mass ratio] 1.1 {ratio} Normal 1.1-2.5 [facility] [place] Comment on above: Performed By: #### C BC, ADIFF, ANEU, CMP, GFR, LIPID #### [address] [address] ALP [Catalytic activity/Vol] 123 U/L Normal 40-135 [facility] ([place] Comment on above: Performed By: #### C BC, ADIFF, ANEU, CMP, GFR, LIPID #### [address] [address] ALT [Catalytic activity/Vol] 18 U/L Normal 14-59 [facility] [place] Comment on above: Performed By: #### C BC, ADIFF, ANEU, CMP, GFR, LIPID #### [address] [address] AST [Catalytic activity/Vol] 13 U/L Normal 10-40 [facility] ([place] Comment on above: Performed By: #### C BC, ADIFF, ANEU, CMP, GFR, LIPID #### [address] [address] Bili Total 0.2 mg/dL Normal 0.2-1.0 [facility] ([place] Comment on above: Result Comment: Use of this assay is not recommended for patients undergoing treatment with eltrombopag due to the potential for falsely elevated results. Performed By: #### C BC, ADIFF, ANEU, CMP, GFR, LIPID #### [address] [address] BUN/Creatinine Ratio 19 ratio Normal 7-27 [facility] ([place]) Comment on above: Performed By: #### C BC, ADIFF, ANEU, CMP, GFR, LIPID #### [address] [address] Calcium [Mass/Vol] 9.2 mg/dL Normal 8.4-10.2 [facility] ([place]) Comment on above: Performed By: #### C BC, ADIFF, ANEU, CMP, GFR, LIPID #### [address] [address] Chloride [Moles/Vol] 103 mmol/L Normal 98-107 [facility] ([place]) Comment on above: Performed By: #### C BC, ADIFF, ANEU, CMP, GFR, LIPID #### [address] [address] CO2 [Moles/Vol] 28 mmol/L Normal 23-31 [facility] ([place] Comment on above: Performed By: #### C BC, ADIFF, ANEU, CMP, GFR, LIPID #### [address] [address] Creatinine [Mass/Vol] 0.91 mg/dL Normal 0.55-1.02 [facility] ([place]) Comment on above: Performed By: #### C BC, ADIFF, ANEU, CMP, GFR, LIPID #### [address] [address] Electrolyte Balance 8.0 mEq/L Normal 4.0-15.0 [facility] ([place]) Comment on above: Performed By: #### C BC, ADIFF, ANEU, CMP, GFR, LIPID #### [address] [address] Globulin 3.4 G/dL Normal [facility] ([place] Comment on above: Performed By: #### C BC, ADIFF, ANEU, CMP, GFR, LIPID #### [address] [address] Glucose [Mass/Vol] 118 mg/dL High 80-115 [facility] ([place]) Comment on above: Performed By: #### C BC, ADIFF, ANEU, CMP, GFR, LIPID #### [address] [address] Potassium [Moles/Vol] 4.2 mmol/L Normal 3.5-5.1 [facility] ([place]) Comment on above: Performed By: #### C BC, ADIFF, ANEU, CMP, GFR, LIPID #### [address] [address] Sodium [Moles/Vol] 139 mmol/L Normal 136-145 [facility] ([place]) Comment on above: Performed By: #### C BC, ADIFF, ANEU, CMP, GFR, LIPID #### [address] [address] Total Protein 7.3 G/dL Normal 6.4-8.2 [facility] ([place] Comment on above: Performed By: #### C BC, ADIFF, ANEU, CMP, GFR, LIPID #### [address] [address] Urea nitrogen [Mass/Vol] 17 mg/dL Normal 7-18 [facility] ([place] Comment on above: Performed By: #### C BC, ADIFF, ANEU, CMP, GFR, LIPID #### [address] [address] LABORATORYOrdered By: SYSTEM SYSTEM on 07-11-2022 Albumin BCP dye [Mass/Vol] 3.9 G/dL Invalid Interpretation Code 3.4 - 4.8 G/dL AO ADM SS Albumin/Globulin [Mass ratio] 1.1 {ratio} Invalid Interpretation Code 1.1 - 2.5 ratio AO ADM SS ALP [Catalytic activity/Vol] 123 U/L Invalid Interpretation Code 40 - 135 U/L AO ADM SS ALT With P-5'-P [Catalytic activity/Vol] 18 U/L Invalid Interpretation Code 14 - 59 U/L AO ADM SS AST With P-5'-P [Catalytic activity/Vol] 13 U/L Invalid Interpretation Code 10 - 40 U/L AO ADM SS Bilirubin [Mass/Vol] 0.2 mg/dL Invalid Interpretation Code 0.2 - 1.0 mg/dL AO ADM SS Calcium [Mass/Vol] 9.2 mg/dL Invalid Interpretation Code 8.4 - 10.2 mg/dL AO ADM SS Chloride [Moles/Vol] 103 mmol/L Invalid Interpretation Code 98 - 107 mmol/L AO ADM SS CO2 [Moles/Vol] 28 mmol/L Invalid Interpretation Code 23 - 31 mmol/L AO ADM SS Creatinine [Mass/Vol] 0.91 mg/dL Invalid Interpretation Code 0.55 - 1.02 mg/dL AO ADM SS Electrolyte Balance 8.0 mEq/L Invalid Interpretation Code 4.0 - 15.0 mEq/L AO ADM SS GFR/1.73 sq M.predicted among blacks MDRD (S/P/Bld) [Vol rate/Area] 76 ml/min/1.73sqm Invalid Interpretation Code AO Chemistry S GFR/1.73 sq M.predicted among non-blacks MDRD (S/P/Bld) [Vol rate/Area] 62 ml/min/1.73sqm Invalid Interpretation Code AO Chemistry S Globulin 3.4 G/dL Invalid Interpretation Code AO ADM SS Glucose [Mass/Vol] 118 mg/dL Invalid Interpretation Code 80 - 115 mg/dL AO ADM SS Potassium [Moles/Vol] 4.2 mmol/L Invalid Interpretation Code 3.5 - 5.1 mmol/L AO ADM SS Protein [Mass/Vol] 7.3 G/dL Invalid Interpretation Code 6.4 - 8.2 G/dL AO ADM SS Sodium [Moles/Vol] 139 mmol/L Invalid Interpretation Code 136 - 145 mmol/L AO ADM SS Urea nitrogen [Mass/Vol] 17 mg/dL Invalid Interpretation Code 7 - 18 mg/dL AO ADM SS Urea nitrogen/Creatinine [Mass ratio] 19 ratio Invalid Interpretation Code 7 - 27 ratio AO ADM SS LABORATORYOrdered By: Nathanael Riley on 07-11-2022 Basophil, Absolute 0.0 103/mcL Invalid Interpretation Code 0.0 - 0.2 10^3/mcL AO Workflow SS Basophils/100 WBC (Bld) 0.4 % Invalid Interpretation Code 0.0 - 2.5 % AO Workflow SS Cholesterol [Mass/Vol] 232 mg/dL Invalid Interpretation Code 0 - 200 mg/dL AO ADM SS Cholesterol in HDL [Mass/Vol] 48 mg/dL Invalid Interpretation Code 40 - 60 mg/dL AO ADM SS Cholesterol in LDL [Mass/Vol] 130 mg/dL Invalid Interpretation Code 0 - 130 mg/dL AO ADM SS Eosinophil, Absolute 0.4 103/mcL Invalid Interpretation Code 0.0 - 0.4 10^3/mcL AO Workflow SS Eosinophils/100 WBC (Bld) 4.9 % Invalid Interpretation Code 0.0 - 7.0 % AO Workflow SS Erythrocyte distribution width (RBC) [Ratio] 13.3 % Invalid Interpretation Code 11.5 - 14.5 % AO Workflow SS Hematocrit (Bld) [Volume fraction] 35.9 % Invalid Interpretation Code 37.0 - 47.0 % AO Workflow SS Hemoglobin (Bld) [Mass/Vol] 12.0 G/dL Invalid Interpretation Code 12.0 - 16.0 G/dL AO Workflow SS Lymphocyte, Absolute 2.2 103/mcL Invalid Interpretation Code 0.8 - 3.9 10^3/mcL AO Workflow SS Lymphocytes/100 WBC (Bld) 26.4 % Invalid Interpretation Code 10.0 - 50.0 % AO Workflow SS MCH (RBC) [Entitic mass] 27.5 pg Invalid Interpretation Code 27.0 - 31.2 pg AO Workflow SS MCHC 33.5 G/dL Invalid Interpretation Code 33.0 - 37.0 G/dL AO Workflow SS MCV (RBC) [Entitic vol] 82.1 fL Invalid Interpretation Code 80.0 - 94.0 fL AO Workflow SS Monocyte, Absolute 0.4 103/mcL Invalid Interpretation Code 0.2 - 1.0 10^3/mcL AO Workflow SS Monocytes/100 WBC (Bld) 5.0 % Invalid Interpretation Code 1.7 - 13.0 % AO Workflow SS Neutrophil, Absolute 5.2 103/mcL Invalid Interpretation Code 2.9 - 6.2 10^3/mcL AO Workflow SS Neutrophils/100 WBC (Bld) 63.3 % Invalid Interpretation Code 37.0 - 80.0 % AO Workflow SS Platelet mean volume (Bld) [Entitic vol] 7.5 fL Invalid Interpretation Code 7.4 - 10.4 fL AO Workflow SS Platelets (Bld) [#/Vol] 229 103/mcL Invalid Interpretation Code 130 - 400 10^3/mcL AO Workflow SS RBC (Bld) [#/Vol] 4.37 106/mcL Invalid Interpretation Code 4.20 - 5.40 10^6/mcL AO Workflow SS Triglyceride [Mass/Vol] 271 mg/dL Invalid Interpretation Code 0 - 150 mg/dL AO ADM SS WBC (Bld) [#/Vol] 8.2 103/mcL Invalid Interpretation Code 4.6 - 10.8 10^3/mcL AO Workflow SS LIPIDon 07-11-2022 Cholesterol [Mass/Vol] 232 mg/dL High 0-200 [facility] ([place]) Comment on above: Result Comment: Chol esterol Reference Interval: Less than 200 Desirable 200-239 Borderline high risk 240 and above High risk Performed By: #### C BC, ADIFF, ANEU, CMP, GFR, LIPID #### [address] [address] Cholesterol in HDL [Mass/Vol] 48 mg/dL Normal 40-60 [facility] ([place] Comment on above: Performed By: #### C BC, ADIFF, ANEU, CMP, GFR, LIPID #### [address] [address] Cholesterol in LDL [Mass/Vol] 130 mg/dL Normal 0-130 [facility] ([place] Comment on above: Performed By: #### C BC, ADIFF, ANEU, CMP, GFR, LIPID #### [address] [address] Triglyceride [Mass/Vol] 271 mg/dL High 0-150 [facility] ([place] Comment on above: Result Comment: Trig lyceride Reference Interval: Less than 150 Normal 150-199 Borderline high risk 200-499 High risk 500 or higher Very high risk Performed By: #### C BC, ADIFF, ANEU, CMP, GFR, LIPID #### [address] [address] .Auto Diffon 10-28-2021 Basophil, Absolute 0.1 10 3/mcL Normal 0.0-0.2 [facility] ([place]) Comment on above: Performed By: #### T ROPHS, BMP, GFR #### [address] [address] Basophils/100 WBC (Bld) 0.9 % Normal 0.0-2.5 [facility] ([place] Comment on above: Performed By: #### T LOLI, BMP, GFR #### [address] [address] Eosinophil, Absolute 0.2 10 3/mcL Normal 0.0-0.4 [facility] ([place]) Comment on above: Performed By: #### T ROPLELE, BMP, GFR #### [address] [address] Eosinophils/100 WBC (Bld) 2.7 % Normal 0.0-7.0 [facility] ([place]) Comment on above: Performed By: #### T LOLI, BMP, GFR #### [address] [address] Lymphocyte, Absolute 1.3 10 3/mcL Normal 0.8-3.9 [facility] ([place]) Comment on above: Performed By: #### T LOLI, BMP, GFR #### [address] [address] Lymphocytes/100 WBC (Bld) 19.2 % Normal 10.0-50.0 [facility] ([place]) Comment on above: Performed By: #### T ROPLELE, BMP, GFR #### [address] [address] Monocyte, Absolute 0.3 10 3/mcL Normal 0.2-1.0 [facility] ([place]) Comment on above: Performed By: #### T ROPLELE, BMP, GFR #### [address] [address] Monocytes/100 WBC (Bld) 4.4 % Normal 1.7-13.0 [facility] ([place]) Comment on above: Performed By: #### T ROPHS, BMP, GFR #### [address] [address] Neutrophils/100 WBC (Bld) 72.8 % Normal 37.0-80.0 [facility] ([place] Comment on above: Performed By: #### T ROPHS, BMP, GFR #### Kristi [address] [address] .GFRon 10-28-2021 GFR 93 ml/min/1.73sqm Normal [facility] ([place] Comment on above: Result Comment: GFR Population mean for , Non- Americans Ages 20-29 = 116 mL/min/1.73 sq.m. Ages 30-39 = 107 mL/min/1.73 sq.m. Ages 40-49 = 99 mL/min/1.73 sq.m. Ages 50-59 = 93 mL/min/1.73 sq.m. Ages 60-69 = 85 mL/min/1.73 sq.m. Ages 70+ = 75 mL/min/1.73 sq.m. Chronic Kidney Disease: Less than 60 mL/min/1.73 square meters End Stage Renal Disease: Less than 15 mL/min/1.73 square meters Performed By: #### C BC, ADIFF, ANEU, CMP, GFR, LIPID #### Kristi [address] [address] GFR Non- 77 ml/min/1.73sqm Normal [facility] ([place] Comment on above: Result Comment: GFR Population mean for , Non- Americans Ages 20-29 = 116 mL/min/1.73 sq.m. Ages 30-39 = 107 mL/min/1.73 sq.m. Ages 40-49 = 99 mL/min/1.73 sq.m. Ages 50-59 = 93 mL/min/1.73 sq.m. Ages 60-69 = 85 mL/min/1.73 sq.m. Ages 70+ = 75 mL/min/1.73 sq.m. Chronic Kidney Disease: Less than 60 mL/min/1.73 square meters End Stage Renal Disease: Less than 15 mL/min/1.73 square meters Performed By: #### C BC, ADIFF, ANEU, CMP, GFR, LIPID #### Kristi [address] [address] .MDWon 10-28-2021 Monocyte Distribution Width 18.23 Normal 0.00-20.00 [facility] ([place] Comment on above: Result Comment: For ED adult patients suspected of sepsis, MDW<=20.0 does not rule out sepsis or risk of sepsis Performed By: #### C BC, ADIFF, ANEU, CMP, GFR, LIPID #### [address] [address] .NEUABSon 10-28-2021 Neutrophil, Absolute 4.8 10 3/mcL Normal 2.9-6.2 [facility] ([place]) Comment on above: Performed By: #### T ROPHS, BMP, GFR #### [address] [address] BMPon 10-28-2021 BUN/Creatinine Ratio 17 ratio Normal 7-27 [facility] ([place]) Comment on above: Performed By: #### C BC, ADIFF, ANEU, CMP, GFR, LIPID #### [place] [id number] Calcium [Mass/Vol] 9.1 mg/dL Normal 8.4-10.2 [facility] ([place]) Comment on above: Performed By: #### C BC, ADIFF, ANEU, CMP, GFR, LIPID #### [address] [address] Chloride [Moles/Vol] 103 mmol/L Normal 98-107 [facility] ([place]) Comment on above: Performed By: #### C BC, ADIFF, ANEU, CMP, GFR, LIPID #### [address] [address] CO2 [Moles/Vol] 24 mmol/L Normal 23-31 [facility] ([place] Comment on above: Performed By: #### C BC, ADIFF, ANEU, CMP, GFR, LIPID #### [address] [address] Creatinine [Mass/Vol] 0.76 mg/dL Normal 0.55-1.02 [facility] ([place]) Comment on above: Performed By: #### C BC, ADIFF, ANEU, CMP, GFR, LIPID #### [address] [address] Electrolyte Balance 13.0 mEq/L Normal 4.0-15.0 [facility] ([place]) Comment on above: Performed By: #### C BC, ADIFF, ANEU, CMP, GFR, LIPID #### [address] [address] Glucose [Mass/Vol] 168 mg/dL High 80-115 [facility] ([place]) Comment on above: Performed By: #### C BC, ADIFF, ANEU, CMP, GFR, LIPID #### [address] [address] Potassium [Moles/Vol] 4.0 mmol/L Normal 3.5-5.1 [facility] ([place]) Comment on above: Performed By: #### C BC, ADIFF, ANEU, CMP, GFR, LIPID #### [address] [address] Sodium [Moles/Vol] 140 mmol/L Normal 136-145 [facility] ([place]) Comment on above: Performed By: #### C BC, ADIFF, ANEU, CMP, GFR, LIPID #### [address] [address] Urea nitrogen [Mass/Vol] 13 mg/dL Normal 7-18 [facility] ([place] Comment on above: Performed By: #### C BC, ADIFF, ANEU, CMP, GFR, LIPID #### [address] [address] CBCon 10-28-2021 Erythrocyte distribution width (RBC) [Ratio] 13.2 % Normal 11.5-14.5 [facility] ([place] Comment on above: Performed By: #### T LOLI BMP, GFR #### Kristi [address] [address] Hematocrit (Bld) [Volume fraction] 36.0 % Low 37.0-47.0 [facility] ([place] Comment on above: Performed By: #### Ulysses ENNIS, BMP, GFR #### [address] [address] Hgb 12.3 G/dL Normal 12.0-16.0 [facility] ([place] Comment on above: Performed By: #### T LOLI, BMP, GFR #### [address] [address] MCH (RBC) [Entitic mass] 27.6 pg Normal 27.0-31.2 [facility] ([place] Comment on above: Performed By: #### T LOLI, BMP, GFR #### [address] [address] MCHC 34.2 G/dL Normal 33.0-37.0 [facility] ([place] Comment on above: Performed By: #### T LOLI, BMP, GFR #### [address] [address] MCV (RBC) [Entitic vol] 80.7 fL Normal 80.0-94.0 [facility] ([place] Comment on above: Performed By: #### T LOLI, BMP, GFR #### [address] [address] Platelet 194 10 3/mcL Normal 130-400 [facility] ([place] Comment on above: Performed By: #### T LOLI, BMP, GFR #### [address] [address] Platelet mean volume (Bld) [Entitic vol] 7.6 fL Normal 7.4-10.4 [facility] ([place] Comment on above: Performed By: #### T LOLI, BMP, GFR #### [address] [address] RBC 4.46 10 6/mcL Normal 4.20-5.40 [facility] ([place] Comment on above: Performed By: #### T LOLI, BMP, GFR #### [address] [address] WBC 6.6 10 3/mcL Normal 4.6-10.8 [facility] ([place] Comment on above: Performed By: #### T ROPHS, BMP, GFR #### [address] [address] TROPHSon 10-28-2021 Troponin I High Sensitivity 8.2 ng/L Normal 0.0-51.4 [facility] ([place] Comment on above: Performed By: #### C BC, ADIFF, ANEU, CMP, GFR, LIPID #### [address] [address] Troponin I High Sensitivity 6.2 ng/L Normal 0.0-51.4 [facility] ([place] Comment on above: Performed By: #### C BC, ADIFF, ANEU, CMP, GFR, LIPID #### [address] [address] XR CHEST 1 VIEWon 10-28-2021 XR CHEST 1 VIEW ORIGINAL EXAMINATION: ONE XRAY VIEW OF THE CHEST10/28/2021 2:12 pm COMPARISON: September 30, 2021 HISTORY: ORDERING SYSTEM PROVIDED HISTORY: Reason for Exam: chest pain FINDINGS: The cardiomediastinal contours are normal.There are overlying chest leads. There is no consolidation, vascular congestion, pleural effusion, or pneumothorax. There are no acute abnormalities to osseous structures. IMPRESSION: No acute radiographic findings. Interpreted by: Bandar Barksdale DO Preliminary Report By: Bandar Barksdale DO Electronically signed By Bandar Barksdale DO Dictated Date: 10/28/2021 2:14:59 PM Prelim Date: 10/28/2021 2:15:33 PM Sign Date: 10/28/2021 2:15:33 PM Ordering Provider: BECCA Hannon [facility] ([place]) .Auto Diffon 09-30-2021 Basophil, Absolute 0.0 10 3/mcL Normal 0.0-0.2 [facility] ([place]) Comment on above: Performed By: #### C BC, ADIFF, ANEU, CMP, GFR, LIPID #### [address] [address] Basophils/100 WBC (Bld) 0.3 % Normal 0.0-2.5 [facility] ([place] Comment on above: Performed By: #### C BC, ADIFF, ANEU, CMP, GFR, LIPID #### [address] [address] Eosinophil, Absolute 0.0 10 3/mcL Normal 0.0-0.4 [facility] ([place]) Comment on above: Performed By: #### C BC, ADIFF, ANEU, CMP, GFR, LIPID #### [address] [address] Eosinophils/100 WBC (Bld) 0.3 % Normal 0.0-7.0 [facility] ([place] Comment on above: Performed By: #### C BC, ADIFF, ANEU, CMP, GFR, LIPID #### [address] [address] Lymphocyte, Absolute 0.5 10 3/mcL Low 0.8-3.9 [facility] ([place]) Comment on above: Performed By: #### C BC, ADIFF, ANEU, CMP, GFR, LIPID #### [address] [address] Lymphocytes/100 WBC (Bld) 6.2 % Low 10.0-50.0 [facility] ([place] Comment on above: Performed By: #### C BC, ADIFF, ANEU, CMP, GFR, LIPID #### [address] [address] Monocyte, Absolute 0.4 10 3/mcL Normal 0.2-1.0 [facility] ([place]) Comment on above: Performed By: #### C BC, ADIFF, ANEU, CMP, GFR, LIPID #### [address] [address] Monocytes/100 WBC (Bld) 5.5 % Normal 1.7-13.0 [facility] ([place] Comment on above: Performed By: #### C BC, ADIFF, ANEU, CMP, GFR, LIPID #### [address] [address] Neutrophils/100 WBC (Bld) 87.7 % High 37.0-80.0 [facility] ([place] Comment on above: Performed By: #### C BC, ADIFF, ANEU, CMP, GFR, LIPID #### [address] [address] .GFRon 09-30-2021 GFR 84 ml/min/1.73sqm Normal [facility] ([place] Comment on above: Result Comment: GFR Population mean for , Non- Americans Ages 20-29 = 116 mL/min/1.73 sq.m. Ages 30-39 = 107 mL/min/1.73 sq.m. Ages 40-49 = 99 mL/min/1.73 sq.m. Ages 50-59 = 93 mL/min/1.73 sq.m. Ages 60-69 = 85 mL/min/1.73 sq.m. Ages 70+ = 75 mL/min/1.73 sq.m. Chronic Kidney Disease: Less than 60 mL/min/1.73 square meters End Stage Renal Disease: Less than 15 mL/min/1.73 square meters Performed By: #### C BC, ADIFF, ANEU, CMP, GFR, LIPID #### [address] [address] GFR Non- 70 ml/min/1.73sqm Normal [facility] ([place] Comment on above: Result Comment: GFR Population mean for , Non- Americans Ages 20-29 = 116 mL/min/1.73 sq.m. Ages 30-39 = 107 mL/min/1.73 sq.m. Ages 40-49 = 99 mL/min/1.73 sq.m. Ages 50-59 = 93 mL/min/1.73 sq.m. Ages 60-69 = 85 mL/min/1.73 sq.m. Ages 70+ = 75 mL/min/1.73 sq.m. Chronic Kidney Disease: Less than 60 mL/min/1.73 square meters End Stage Renal Disease: Less than 15 mL/min/1.73 square meters Performed By: #### C BC, ADIFF, ANEU, CMP, GFR, LIPID #### [address] [address] .MDWon 09-30-2021 Monocyte Distribution Width 23.09 High 0.00-20.00 [facility] ([place] Comment on above: Result Comment: For adults in ED, MDW>20.0 may be associated with a higher risk of sepsis during the first 12hrs of hospital admission Performed By: #### C BC, ADIFF, ANEU, CMP, GFR, LIPID #### [address] [address] .NEUABSon 09-30-2021 Neutrophil, Absolute 6.9 10 3/mcL High 2.9-6.2 [facility] ([place]) Comment on above: Performed By: #### C BC, ADIFF, ANEU, CMP, GFR, LIPID #### [address] [address] BMPon 09-30-2021 BUN/Creatinine Ratio 16 ratio Normal 7-27 [facility] ([place]) Comment on above: Performed By: #### C BC, ADIFF, ANEU, CMP, GFR, LIPID #### [address] [address] Calcium [Mass/Vol] 8.8 mg/dL Normal 8.4-10.2 [facility] ([place]) Comment on above: Performed By: #### C BC, ADIFF, ANEU, CMP, GFR, LIPID #### [address] [address] Chloride [Moles/Vol] 99 mmol/L Normal 98-107 [facility] ([place]) Comment on above: Performed By: #### C BC, ADIFF, ANEU, CMP, GFR, LIPID #### [address] [address] CO2 [Moles/Vol] 27 mmol/L Normal 23-31 [facility] ([place]) Comment on above: Performed By: #### C BC, ADIFF, ANEU, CMP, GFR, LIPID #### [address] [address] Creatinine [Mass/Vol] 0.83 mg/dL Normal 0.55-1.02 [facility] ([place]) Comment on above: Performed By: #### C BC, ADIFF, ANEU, CMP, GFR, LIPID #### [address] [address] Electrolyte Balance 10.0 mEq/L Normal 4.0-15.0 [facility] ([place]) Comment on above: Performed By: #### C BC, ADIFF, ANEU, CMP, GFR, LIPID #### [address] [address] Glucose [Mass/Vol] 171 mg/dL High 80-115 [facility] ([place]) Comment on above: Performed By: #### C BC, ADIFF, ANEU, CMP, GFR, LIPID #### [address] [address] Potassium [Moles/Vol] 4.0 mmol/L Normal 3.5-5.1 [facility] ([place]) Comment on above: Performed By: #### C BC, ADIFF, ANEU, CMP, GFR, LIPID #### [address] [address] Sodium [Moles/Vol] 136 mmol/L Normal 136-145 [facility] ([place]) Comment on above: Performed By: #### C BC, ADIFF, ANEU, CMP, GFR, LIPID #### [address] [address] Urea nitrogen [Mass/Vol] 13 mg/dL Normal 7-18 [facility] ([place]) Comment on above: Performed By: #### C BC, ADIFF, ANEU, CMP, GFR, LIPID #### [address] [address] CBCon 09-30-2021 Erythrocyte distribution width (RBC) [Ratio] 12.8 % Normal 11.5-14.5 [facility] ([place]) Comment on above: Performed By: #### C BC, ADIFF, ANEU, CMP, GFR, LIPID #### [address] [address] Hematocrit (Bld) [Volume fraction] 38.9 % Normal 37.0-47.0 [facility] ([place]) Comment on above: Performed By: #### C BC, ADIFF, ANEU, CMP, GFR, LIPID #### [address] [address] Hgb 13.2 G/dL Normal 12.0-16.0 [facility] ([place]) Comment on above: Performed By: #### C BC, ADIFF, ANEU, CMP, GFR, LIPID #### [address] [address] MCH (RBC) [Entitic mass] 27.4 pg Normal 27.0-31.2 [facility] ([place] Comment on above: Performed By: #### C BC, ADIFF, ANEU, CMP, GFR, LIPID #### [place] [address] MCHC 34.0 G/dL Normal 33.0-37.0 [facility] ([place] Comment on above: Performed By: #### C BC, ADIFF, ANEU, CMP, GFR, LIPID #### [place] [address] MCV (RBC) [Entitic vol] 80.6 fL Normal 80.0-94.0 [facility] ([place]) Comment on above: Performed By: #### C BC, ADIFF, ANEU, CMP, GFR, LIPID #### [place] [address] Platelet 181 10 3/mcL Normal 130-400 [facility] ([place] Comment on above: Performed By: #### C BC, ADIFF, ANEU, CMP, GFR, LIPID #### [place] [address] Platelet mean volume (Bld) [Entitic vol] 7.7 fL Normal 7.4-10.4 [facility] ([place] Comment on above: Performed By: #### C BC, ADIFF, ANEU, CMP, GFR, LIPID #### [place] [id number] RBC 4.82 10 6/mcL Normal 4.20-5.40 [facility] ([place] Comment on above: Performed By: #### C BC, ADIFF, ANEU, CMP, GFR, LIPID #### [place] [address] WBC 7.9 10 3/mcL Normal 4.6-10.8 [facility] ([place]) Comment on above: Performed By: #### C BC, ADIFF, ANEU, CMP, GFR, LIPID #### [place] [address] [id number] 09-30-2021 Date of Onset [id number] Invalid Interpretation Code [facility] ([place]) Comment on above: Performed By: #### C BC, ADIFF, ANEU, CMP, GFR, LIPID #### [place] [address] 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 No [facility] ([place]) Comment on above: Performed By: #### C BC, ADIFF, ANEU, CMP, GFR, LIPID #### [place] [address] First Test No [facility] ([place]) Comment on above: Performed By: #### C BC, ADIFF, ANEU, CMP, GFR, LIPID #### [place] [address] Hospitalized No [facility] ([place]) Comment on above: Performed By: #### C BC, ADIFF, ANEU, CMP, GFR, LIPID #### [place] [address] ICU No [facility] ([place]) Comment on above: Performed By: #### C BC, ADIFF, ANEU, CMP, GFR, LIPID #### [place] [address] Not [facility] ([place]) Comment on above: Performed By: #### C BC, ADIFF, ANEU, CMP, GFR, LIPID #### [place] [address] Resides in Congregate Care Setting No [facility] ([place]) Comment on above: Performed By: #### C BC, ADIFF, ANEU, CMP, GFR, LIPID #### [place] [address] [place], [place] [address] SARS-CoV-2 (COVID-19) RNA SHIELA+probe Ql (Unsp spec) Positive Abnormal Negative [facility] ([place]) Comment on above: Performed By: #### C BC, ADIFF, ANEU, CMP, GFR, LIPID #### [place] [address] [place], [place] [address] SARS-CoV-2 (COVID-19) RNA SHIELA+probe Ql (Unsp spec) Normal [facility] ([place]) Comment on above: Result Comment: Posi tive results are indicative of the presence of SARS-CoV-2 RNA; clinical correlation with patient history and other diagnostic information is necessary to determine patient infection status. Positive results do not rule out bacterial infection or co-infection with other viruses. The agent detected may not be the definite cause of disease. Laboratories within the [facility] and its territories are required to report all positive results to the appropriate public health authorities. Detection of analyte target(s) does not imply that the corresponding virus(es) are infectious or are the causative agents for clinical symptoms. There is a risk of false positive values resulting from cross-contamination by target organisms, their nucleic acids or amplified product, or from non-specific signals in the assay. SUNITA SARS-CoV-2 Assay is a Real-Time reverse-transcriptase polymerase chain reaction (RT-PCR) based qualitative in vitro diagnostic test intended for the qualitative detection of nucleic acid from the SARS-CoV-2 in nasopharyngeal swab specimens collected from individuals suspected of COVID-19 by their healthcare provider. Testing is limited to laboratories certified under the Clinical Laboratory Improvement Amendments of 1988 (CLIA), 42 U.S.C. ?263a, to perform moderate and high complexity tests. COVID-19 Int Performed By: #### C BC, ADIFF, ANEU, CMP, GFR, LIPID #### [address] [address] Symptomatic as Defined by CDC No Normal [facility] ([place]) Comment on above: Performed By: #### C BC, ADIFF, ANEU, CMP, GFR, LIPID #### [place] [address] [place], [place] [address] LABORATORYOrdered By: Nathanael Riley on 09-30-2021 ADMITTED TO INTENSIVE CARE UNIT FOR CONDITION OF INTEREST:FIND:PT:^WESLEY ENT:ORD: No (09/30/21 5:42 PM) Invalid Interpretation Code AO Auto Urine SS Basophil, Absolute 0.0 103/mcL Invalid Interpretation Code 0.0 - 0.2 10^3/mcL AO Workflow SS Basophils/100 WBC (Bld) 0.3 % Invalid Interpretation Code 0.0 - 2.5 % AO Workflow SS Calcium [Mass/Vol] 8.8 mg/dL Invalid Interpretation Code 8.4 - 10.2 mg/dL AO ADM SS Chloride [Moles/Vol] 99 mmol/L Invalid Interpretation Code 98 - 107 mmol/L AO ADM SS CO2 [Moles/Vol] 27 mmol/L Invalid Interpretation Code 23 - 31 mmol/L AO ADM SS Creatinine [Mass/Vol] 0.83 mg/dL Invalid Interpretation Code 0.55 - 1.02 mg/dL AO ADM SS Electrolyte Balance 10.0 mEq/L Invalid Interpretation Code 4.0 - 15.0 mEq/L AO ADM SS EMPLOYED IN A HEALTHCARE SETTING:FIND:PT:^WESLEYE NT:ORD: No (09/30/21 5:42 PM) Invalid Interpretation Code AO Auto Urine SS Eosinophil, Absolute 0.0 103/mcL Invalid Interpretation Code 0.0 - 0.4 10^3/mcL AO Workflow SS Eosinophils/100 WBC (Bld) 0.3 % Invalid Interpretation Code 0.0 - 7.0 % AO Workflow SS Erythrocyte distribution width (RBC) [Ratio] 12.8 % Invalid Interpretation Code 11.5 - 14.5 % AO Workflow SS FIRST TEST FOR CONDITION OF INTEREST:FIND:PT:^WESLEY ENT:ORD: No (09/30/21 5:42 PM) Invalid Interpretation Code AO Auto Urine SS Glucose [Mass/Vol] 171 mg/dL Invalid Interpretation Code 80 - 115 mg/dL AO ADM SS HAS SYMPTOMS RELATED TO CONDITION OF INTEREST:FIND:PT:^WESLEY ENT:ORD: No (09/30/21 5:42 PM) Invalid Interpretation Code AO Auto Urine SS Hematocrit (Bld) [Volume fraction] 38.9 % Invalid Interpretation Code 37.0 - 47.0 % AO Workflow SS Hemoglobin (Bld) [Mass/Vol] 13.2 G/dL Invalid Interpretation Code 12.0 - 16.0 G/dL AO Workflow SS Illness or injury onset date and time [id number] Invalid Interpretation Code AO Auto Urine SS Lymphocyte, Absolute 0.5 103/mcL Invalid Interpretation Code 0.8 - 3.9 10^3/mcL AO Workflow SS Lymphocytes/100 WBC (Bld) 6.2 % Invalid Interpretation Code 10.0 - 50.0 % AO Workflow SS MCH (RBC) [Entitic mass] 27.4 pg Invalid Interpretation Code 27.0 - 31.2 pg AO Workflow SS MCHC 34.0 G/dL Invalid Interpretation Code 33.0 - 37.0 G/dL AO Workflow SS MCV (RBC) [Entitic vol] 80.6 fL Invalid Interpretation Code 80.0 - 94.0 fL AO Workflow SS Monocyte distribution width Auto (Bld) [Entitic vol] 23.09 Invalid Interpretation Code 0.00 - 20.00 AO Workflow SS Comment on above: Result Comment: For adults in ED, MDW>20.0 may be associated with a higher risk of sepsis during the first 12hrs of hospital admission Monocyte, Absolute 0.4 103/mcL Invalid Interpretation Code 0.2 - 1.0 10^3/mcL AO Workflow SS Monocytes/100 WBC (Bld) 5.5 % Invalid Interpretation Code 1.7 - 13.0 % AO Workflow SS Neutrophil, Absolute 6.9 103/mcL Invalid Interpretation Code 2.9 - 6.2 10^3/mcL AO Workflow SS Neutrophils/100 WBC (Bld) 87.7 % Invalid Interpretation Code 37.0 - 80.0 % AO Workflow SS Patient was hospitalized because of this condition No (09/30/21 5:42 PM) Invalid Interpretation Code AO Auto Urine SS Platelet mean volume (Bld) [Entitic vol] 7.7 fL Invalid Interpretation Code 7.4 - 10.4 fL AO Workflow SS Platelets (Bld) [#/Vol] 181 103/mcL Invalid Interpretation Code 130 - 400 10^3/mcL AO Workflow SS Potassium [Moles/Vol] 4.0 mmol/L Invalid Interpretation Code 3.5 - 5.1 mmol/L AO ADM SS status Not (09/30/21 5:42 PM) Invalid Interpretation Code AO Auto Urine SS RBC (Bld) [#/Vol] 4.82 106/mcL Invalid Interpretation Code 4.20 - 5.40 10^6/mcL AO Workflow SS RESIDES IN A CONGREGATE CARE SETTING:FIND:PT:^PATIE NT:ORD: No (09/30/21 5:42 PM) Invalid Interpretation Code AO Auto Urine SS SARS-CoV-2 (COVID-19) RNA SHIELA+probe Ql (Unsp spec) Positive results are indicative of the presence of SARS-CoV-2 RNA; clinical correlation with patient history and other diagnostic information is necessary to determine patient infection status. Positive results do not rule out bacterial infection or co-infection with other viruses. The agent detected may not be the definite cause of disease. Laboratories within the [facility] and its territories are required to report all positive results to the appropriate public health authorities.Detection of analyte target(s) does not imply that the corresponding virus(es) are infectious or are the causative agents for clinical symptoms.There is a risk of false positive values resulting from cross-contamination by target organisms, their nucleic acids or amplified product, or from non-specific signals in the assay.SUNITA SARS-CoV-2 Assay is a Real-Time reverse-transcriptase polymerase chain reaction (RT-PCR) based qualitative in vitro diagnostic test intended for the qualitative detection of nucleic acid from the SARS-CoV-2 in nasopharyngeal swab specimens collected from individuals suspected of COVID-19 by their healthcare provider. Testing is limited to laboratories certified under the Clinical Laboratory Improvement Amendments of 1988 (CLIA), 42 U.S.C. 263a, to perform moderate and high complexity tests. Invalid Interpretation Code AO Auto Urine SS Sodium [Moles/Vol] 136 mmol/L Invalid Interpretation Code 136 - 145 mmol/L AO ADM SS Urea nitrogen [Mass/Vol] 13 mg/dL Invalid Interpretation Code 7 - 18 mg/dL AO ADM SS Urea nitrogen/Creatinine [Mass ratio] 16 ratio Invalid Interpretation Code 7 - 27 ratio AO ADM SS WBC 7.9 103/mcL Invalid Interpretation Code 4.6 - 10.8 10^3/mcL AO Workflow SS LABORATORYOrdered By: SYSTEM SYSTEM on 09-30-2021 GFR 84 ml/min/1.73sqm Invalid Interpretation Code AO Chemistry S GFR Non- 70 ml/min/1.73sqm Invalid Interpretation Code AO Chemistry S XR CHEST 1 VIEWon 09-30-2021 XR CHEST 1 VIEW ORIGINAL EXAMINATION: ONE XRAY VIEW OF THE CHEST 09/30/2021 6:00 pm COMPARISON: Chest radiograph July 19, 2021 HISTORY: ORDERING SYSTEM PROVIDED HISTORY: Reason for Exam: SOB/cough/fever FINDINGS: The cardiomediastinal silhouette appears normal. There is no focal consolidation or pulmonary edema. There is no evidence of pleural effusion or pneumothorax. No fracture is identified. IMPRESSION: No acute radiographic abnormality is identified. Interpreted by: Gio Mendez Preliminary Report By: Gio Mendez Electronically signed By Gio Mendez Dictated Date: 09/30/2021 7:13:42 PM Prelim Date: 09/30/2021 7:15:16 PM Sign Date: 09/30/2021 7:15:16 PM Ordering Provider: BECCA FARNSWORTH [facility] ([place]) LABORATORYOrdered By: Teresa Lee on 11-26-2020 Basophil, Absolute 0.10 103/mcL Invalid Interpretation Code 0.00 - 0.19 10^3/mcL AO Auto Heme SS Basophils/100 WBC (Bld) 1.0 % Invalid Interpretation Code 0.0 - 2.5 % AO Auto Heme SS Eosinophil, Absolute 0.30 103/mcL Invalid Interpretation Code 0.00 - 0.40 10^3/mcL AO Auto Heme SS Eosinophils/100 WBC (Bld) 3.2 % Invalid Interpretation Code 0.0 - 7.0 % AO Auto Heme SS Erythrocyte distribution width (RBC) [Ratio] 13.0 % Invalid Interpretation Code 11.5 - 14.5 % AO Auto Heme SS Hematocrit (Bld) [Volume fraction] 39.6 % Invalid Interpretation Code 37.0 - 47.0 % AO Auto Heme SS Hemoglobin (Bld) [Mass/Vol] 13.5 G/dL Invalid Interpretation Code 12.0 - 16.0 G/dL AO Auto Heme SS Lymphocyte, Absolute 2.30 103/mcL Invalid Interpretation Code 0.77 - 3.85 10^3/mcL AO Auto Heme SS Lymphocytes/100 WBC (Bld) 27.2 % Invalid Interpretation Code 10.0 - 50.0 % AO Auto Heme SS MCH (RBC) [Entitic mass] 28.3 pg Invalid Interpretation Code 27.0 - 31.2 pg AO Auto Heme SS MCHC (RBC) [Mass/Vol] 34.0 G/dL Invalid Interpretation Code 33.0 - 37.0 G/dL AO Auto Heme SS MCV (RBC) [Entitic vol] 83.1 fL Invalid Interpretation Code 80.0 - 94.0 fL AO Auto Heme SS Monocyte, Absolute 0.30 103/mcL Invalid Interpretation Code 0.15 - 1.00 10^3/mcL AO Auto Heme SS Monocytes/100 WBC (Bld) 4.0 % Invalid Interpretation Code 1.7 - 13.0 % AO Auto Heme SS Neutrophil, Absolute 5.40 103/mcL Invalid Interpretation Code 2.85 - 6.16 10^3/mcL AO Auto Heme SS Neutrophils/100 WBC (Bld) 64.6 % Invalid Interpretation Code 37.0 - 80.0 % AO Auto Heme SS Platelet mean volume (Bld) [Entitic vol] 7.5 fL Invalid Interpretation Code 7.4 - 10.4 fL AO Auto Heme SS Platelets (Bld) [#/Vol] 234 103/mcL Invalid Interpretation Code 130 - 400 10^3/mcL AO Auto Heme SS RBC (Bld) [#/Vol] 4.77 106/mcL Invalid Interpretation Code 4.20 - 5.40 10^6/mcL AO Auto Heme SS WBC (Bld) [#/Vol] 8.30 103/mcL Invalid Interpretation Code 4.60 - 10.80 10^3/mcL AO Auto Heme SS LABORATORYOrdered By: Sergo Concepcion on 11-26-2020 Calcium [Mass/Vol] 9.1 mg/dL Invalid Interpretation Code 8.4 - 10.2 mg/dL AO ADM SS Chloride [Moles/Vol] 103 mmol/L Invalid Interpretation Code 98 - 107 mmol/L AO ADM SS CO2 [Moles/Vol] 27 mmol/L Invalid Interpretation Code 23 - 31 mmol/L AO ADM SS Creatinine [Mass/Vol] 0.81 mg/dL Invalid Interpretation Code 0.55 - 1.02 mg/dL AO ADM SS Electrolyte Balance 11.0 mEq/L Invalid Interpretation Code AO ADM SS Glucose [Mass/Vol] 118 mg/dL Invalid Interpretation Code 80 - 115 mg/dL AO ADM SS Potassium [Moles/Vol] 4.1 mmol/L Invalid Interpretation Code 3.5 - 5.1 mmol/L AO ADM SS Sodium [Moles/Vol] 141 mmol/L Invalid Interpretation Code 136 - 145 mmol/L AO ADM SS Troponin I.cardiac DL <= 0.01 ng/mL [Mass/Vol] 6.9 ng/L Invalid Interpretation Code 0.0 - 51.4 ng/L AO ADM SS Urea nitrogen [Mass/Vol] 15 mg/dL Invalid Interpretation Code 7 - 18 mg/dL AO ADM SS Urea nitrogen/Creatinine [Mass ratio] 19 ratio Invalid Interpretation Code 7 - 27 ratio AO ADM SS LABORATORYOrdered By: SYSTEM SYSTEM on 11-26-2020 GFR 87 ml/min/1.73sqm Invalid Interpretation Code AO Chemistry S GFR Non- 72 ml/min/1.73sqm Invalid Interpretation Code AO Chemistry S Vital Signs Date Time Vital Sign Value Performing Clinician Facility 06-18-2023 09:02-0400 Body height 162.56 cm [facility] 06-18-2023 09:02-0400 Body mass index (BMI) [Ratio] 33.7 kg/m2 [facility] 06-18-2023 09:02-0400 Body temperature 97.4 [degF] [facility] 06-18-2023 09:02-0400 Body weight 89.35 kg [facility] 06-18-2023 09:02-0400 Diastolic blood pressure 63 mm[Hg] [facility] 06-18-2023 09:02-0400 Heart rate 78 /min [facility] 06-18-2023 09:02-0400 Respiratory rate 16 /min [facility] 06-18-2023 09:02-0400 SaO2% (BldA) [Mass fraction] 97 % [facility] 06-18-2023 09:02-0400 Systolic blood pressure 161 mm[Hg] [facility] 06-16-2023 23:37-0400 Body temperature 97.6 [degF] [facility] 06-16-2023 23:37-0400 Diastolic blood pressure 78 mm[Hg] [facility] 06-16-2023 23:37-0400 Heart rate 80 /min [facility] 06-16-2023 23:37-0400 Respiratory rate 18 /min [facility] 06-16-2023 23:37-0400 SaO2% (BldA) [Mass fraction] 95 % [facility] 06-16-2023 23:37-0400 Systolic blood pressure 165 mm[Hg] [facility] 06-16-2023 22:15-0400 Body height 162.56 cm [facility] 06-16-2023 22:15-0400 Body mass index (BMI) [Ratio] 34.1 kg/m2 [facility] 06-16-2023 22:15-0400 Body weight 90.26 kg [facility] 10-25-2022 16:10-0400 Body height 166.[address] Yousif Murguia Work Phone: [facility] 10-25-2022 16:10-0400 Body mass index (BMI) [Ratio] 33 kg/m2 Dr. Yousif Murguia Work Phone: [facility] 10-25-2022 16:10-0400 Body temperature 98.2 [degF] Dr. Yousif Murguia Work Phone: [facility] 10-25-2022 16:10-0400 Body weight 91.[address] Yousif Murguia Work Phone: [facility] 10-25-2022 16:10-0400 Diastolic blood pressure 78 mm[Hg] Dr. Yousif Murguia Work Phone: [facility] 10-25-2022 16:10-0400 Heart rate 67 /min Dr. Yousif Murguia Work Phone: [facility] 10-25-2022 16:10-0400 Respiratory rate 14 /min Dr. Yousif Murguia Work Phone: [facility] 10-25-2022 16:10-0400 SaO2% (BldA) [Mass fraction] 97 % Dr. Yousif Murguia Work Phone: [facility] 10-25-2022 16:10-0400 Systolic blood pressure 144 mm[Hg] Dr. Yousif Murguia Work Phone: [facility] 09-30-2021 18:56-0400 Diastolic blood pressure 76 mm[Hg] BECCA FARNSWORTH MD [facility] 09-30-2021 18:56-0400 Heart rate 81 /min BECCA FARNSWORTH MD [facility] 09-30-2021 18:56-0400 Mean blood pressure 101 mm[Hg] BECCA FARNSWORTH MD [facility] 09-30-2021 18:56-0400 Reason For Taking VItal Signs BECCA FARNSWORTH MD [facility] 09-30-2021 18:56-0400 Respiratory rate 15 /min BECCA FARNSWORTH MD [facility] 09-30-2021 18:56-0400 Systolic blood pressure 150 mm[Hg] BECCA FARNSWORTH MD [facility] 09-30-2021 17:35-0400 Body height 165.1 cm BECCA FARNSWORTH MD [facility] 09-30-2021 17:35-0400 Body temperature 99.86 [degF] BECCA FARNSWORTH MD [facility] 09-30-2021 17:35-0400 Body weight 94.5 kg BECCA FARNSWORTH MD [facility] 09-30-2021 17:35-0400 Diastolic blood pressure 74 mm[Hg] BECCA FARNSWORTH MD [facility] 09-30-2021 17:35-0400 Heart rate 107 /min BECCA FARNSWORTH MD [facility] 09-30-2021 17:35-0400 Respiratory rate 18 /min BECCA FARNSWORTH MD [facility] 09-30-2021 17:35-0400 Systolic blood pressure 161 mm[Hg] BECCA FARNSWORTH MD [facility] 11-26-2020 19:02-0400 Diastolic blood pressure 74 mm[Hg] NEAL BARON DO [facility] 11-26-2020 19:02-0400 Heart rate 71 /min NEAL BARON DO [facility] 11-26-2020 19:02-0400 Reason For Taking VItal Signs NEAL BARON DO [facility] 11-26-2020 19:02-0400 Respiratory rate 18 /min NEAL BARON DO [facility] 11-26-2020 19:02-0400 Systolic blood pressure 132 mm[Hg] NEAL BARON DO [facility] 11-26-2020 17:25-0400 Body temperature 99.14 [degF] NEAL BARON DO [facility] 11-26-2020 17:25-0400 Diastolic blood pressure 94 mm[Hg] NEAL BARON DO [facility] 11-26-2020 17:25-0400 Heart rate 75 /min NEAL BARON DO [facility] 11-26-2020 17:25-0400 Mean blood pressure 121 mm[Hg] NEAL BARON DO [facility] 11-26-2020 17:25-0400 Respiratory rate 16 /min NEAL BARON DO [facility] 11-26-2020 17:25-0400 Systolic blood pressure 175 mm[Hg] NEAL BARON DO [facility] Encounters Encounter Date Encounter Type Care Provider Facility Start: 10-03-2024 ambulatory Yousif Murguia Facilit y:[facility] Start: 09-25-2024 End: 09-25-[address] Yousif Murguia MD Work Phone: -Outpatient Bone Densitometry Start: 09-25-2024 End: 09-25-[address] Yousif Murguia MD -Outpatient Bone Densitometry Work Phone: Start: 09-25-2024 End: 09-25-2024 ambulatory Yousif Murguia Facility:[facility] Start: 03-08-2024 End: 03-08-2024 ambulatory Shaista Haquest. [place] Facility[facility] Start: 03-05-2024 End: 03-08-2024 Evaluation and management of inpatient Yousif Murguia Facility:[facility] Start: 03-05-2024 ambulatory Yousif Murguia Facilit y:[facility] Start: 02-27-2024 End: 02-27-2024 ambulatory Yousif Murguia Facility:[facility] Start: 02-21-2024 End: 02-21-2024 ambulatory Yousif Murguia Facility:[facility] Start: 11-22-2023 ambulatory Health Risk Assessment Facility:[facility] Start: 06-18-2023 End: 06-18-2023 Emergency department patient visit [facility]-Emergency Department Work Phone: Start: 06-16-2023 End: 06-16-2023 Emergency department patient visit [facility]-Emergency Department Work Phone: Start: 06-14-2023 End: 06-14-2023 ambulatory [facility] Work Phone: Start: 06-14-2023 End: 06-14-2023 [facility] Start: 05-29-2023 End: 05-29-2023 ambulatory [facility] Work Phone: Start: 05-29-2023 End: 05-29-2023 Patient encounter procedure [facility]-Outpatient Breast Imaging Work Phone: Start: 03-27-2023 End: 03-27-2023 ambulatory [facility] Work Phone: Start: 03-27-2023 End: 03-27-2023 Patient encounter procedure [facility] Work Phone: Start: 10-26-2022 End: 10-26-[address] Yousif Murguia Work Phone: [facility] Work Phone: Start: 10-25-2022 End: 10-25-[address] Yousif Murguia Work Phone: [facility] Work Phone: Start: 10-25-2022 End: 10-25-[address] Yousif Murguia Work Phone: [facility] Start: 08-28-2022 End: 08-28-2022 ambulatory VERONIKA SAAB Facility:[facility] Start: 08-08-2022 End: 08-08-2022 ambulatory GIO CLARK Facility:[facility] Start: 08-07-2022 End: 08-07-2022 ambulatory GIO CLARK Facility:[facility] Start: 07-11-2022 End: 07-12-[address] VERONIKA SAAB DO Facility:[facility] Start: 07-11-2022 End: 07-11-[address] VERONIKA SAAB DO [facility] Start: 01-03-2022 End: 01-08-2022 ambulatory RAFA LAM MD Facility:B Start: 10-28-2021 End: 10-28-2021 Emergency department patient visit DR VERONIKA SAAB DO Facility:B Start: 09-30-2021 End: 09-30-2021 Emergency department patient visit DR VERONIKA SAAB DO Facility:B Start: 09-30-2021 End: 09-30-2021 Emergency department patient visit BECCA FARNSWORTH MD [facility] Start: 07-19-2021 End: 07-19-[address] VERONIKA SAAB DO [facility] Start: 12-24-2020 End: 2020 Outreach Lab RAFA LAM MD [facility] Start: 11-26-2020 End: 11-26-2020 Emergency department patient visit NEAL Felicia TOD DO [facility] Procedures Date Procedure Procedure Detail Performing Clinician Start: 09-25-2024 Dual energy X-ray absorptiometry Dr. Yousif Murguia MD Work Phone: Start: 09-25-2024 Screening mammography Zohra Murguia MD Work Phone: Start: 06-16-2023 Radiography of sacrococcygeal spine Start: 06-16-2023 Radiologic examinati on of knee Start: 05-29-2023 Screening mammography Plan of Treatment Date Care Activity Detail Author Start: 06-18-2023 [facility] Start: 06-16-2023 [facility] Start: 05-29-2023 Screening mammography SCRN SAHIL M (CAD)W/JOSEP PATRICK [facility] Path report.final Dx Spec Wo [facility] Patient Education [facility] Work Phone: Patient referral [facility] Work Phone: Immunizations Immunization Date Immunization Notes Care Provider Alfa georges 11-12-2013 influenza virus vaccine, unspecified formulation DR VERONIKA SAAB DO [facility] 09-13-2012 tetanus toxoid, redu laura diphtheria toxoid, and acellular pertussis vaccine, adsorbed DR VERONIKA SAAB DO [facility] Payers Date Payer Category Payer Self-pay [id number] 2014 Unknown [id number] 1960 Unknown [id number] 2.16.8 [id number] 1960 Unknown [id number] 2.16.8 [id number] 1960 Unknown [id number] 2.16.8 [id number] 1960 Unknown [id number] 2.16.8 [id number] Unknown [id number] 2.16.8 40.1.091755.3.579.2.462 Unknown [id number] 2.16.8 40.1.808606.3.579.2.462 Unknown [id number] 2.16.8 40.1.372492.3.579.2.462 Unknown [id number] 2.16.8 40.1.695968.3.579.2.462 Unknown [id number] 2.16.8 40.1.115051.3.579.2.462 Unknown [id number] 2.16.8 40.1.504223.3.579.2.462 Unknown [id number] 2.16.8 40.1.920513.3.579.2.462 Unknown [id number] 2.16.8 40.1.020048.3.579.2.462 Unknown [id number] 2.16.8 40.1.400089.3.579.2.462 Unknown [id number] 2.16.8 40.1.275329.3.579.2.462 Unknown [id number] 2.16.8 [id number] Social History Date Type Detail Facility Start: 01-08-2019 End: 03-05-2024 Never smoked tobacco (finding) [facility] Comment on above: no tobacco smoke exp osure Sex Assigned At [facility] Start: 1960 Sex Assigned At Female W [facility] Start: 10-26-2022 End: 06-18-2023 Tobacco smoking status NHIS Unknown if ever smoked [facility] Start: 04-07-2019 Alone [facility] Medical Equipment Procedure Code Equipment Code Equipment Origin al Text Equipment Identifier Dates Cystoscopic insertion of stent ([id number]) Polymeric ureteral stent [id number] [facility] Start: 03-05-2024 BD UF SHORT PEN NEEDLE [id number] Start: 02-09-[address] Strips Start: 02-27-2020 BD UF SHORT PEN NEEDLE [id number] Start: 02-09-[address] Strips Start: 02-27-2020 BD UF SHORT PEN NEEDLE [id number], See Instructions, USE 1 PEN NEEDLE DAILY, # 30 syringe, 43 Refill(s), Pharmacy: [id number], 163, cm, 12/05/19 13:11:00 EDT, Height, 95.5, kg, 12/05/19 13:11:00 EDT, Dosing Weight Start: 02-09-2020 See Instructions , Ultra mini test strips 2 boxes of 100. She is to use 2 daily. 1 year refill., # 1 EA, 3 Refill(s), Pharmacy: [facility]/pharmacy #[id number], Abdominal pain Pelvic pain, 165, cm, 12/24/20 8:09:00 EST, Height, 98.7, kg, 12/24/20 8:09:00 EST,... Start: 01-14-2021 See Instructions , One Touch Ultra Blue Test Strips Testing once daily #100 x 3 refills DX:diabetes, # 1 EA, 3 Refill(s), [id number], 165, cm, 12/24/20 8:09:00 EST, Height, 98.7, kg, 12/24/20 8:09:00 EST, Dosing Weight Start: 05-06-2021 BD UF SHORT PEN NEEDLE [id number], See Instructions, USE 1 PEN NEEDLE DAILY, # 30 syringe, 43 Refill(s), Pharmacy: [facility] STORE [id number], 163, cm, 12/05/19 13:11:00 EDT, Height, 95.5, kg, 12/05/19 13:11:00 EDT, Dosing Weight Start: 02-09-2020 See Instructions , Ultra mini test strips 2 boxes of 100. She is to use 2 daily. 1 year refill., # 1 EA, 3 Refill(s), [id number], Abdominal pain Pelvic pain, 165, cm, 12/24/20 8:09:00 EST, Height, 98.7, kg, 12/24/20 8:09:00 EST,... Start: 01-14-2021 See Instructions , One Touch Ultra Blue Test Strips Testing once daily #100 x 3 refills DX:diabetes, # 1 EA, 3 Refill(s), [id number], 165, cm, 12/24/20 8:09:00 EST, Height, 98.7, kg, 12/24/20 8:09:00 EST, Dosing Weight Start: 05-06-2021 BD UF SHORT PEN NEEDLE [id number], See Instructions, USE 1 PEN NEEDLE DAILY, # 30 syringe, 43 Refill(s), Pharmacy: [facility] STORE [id number], 163, cm, 12/05/19 13:11:00 EDT, Height, 95.5, kg, 12/05/19 13:11:00 EDT, Dosing Weight Start: 02-09-2020 See Instructions , Ultra mini one touch test strips 2 boxes of 100. She is to use 3 times daily. 1 year refill., # 1 EA, 11 Refill(s), [id number], Abdominal pain Pelvic pain, 164, cm, 10/18/21 14:34:00 EDT, Height, 95.1, kg, 10/18... Start: 10-18-2021 See Instructions , One Touch Ultra Blue Test Strips Testing once daily #100 x 3 refills DX:diabetes, # 1 EA, 3 Refill(s), [id number], 165, cm, 12/24/20 8:09:00 EST, Height, 98.7, kg, 12/24/20 8:09:00 EST, Dosing Weight Start: 05-06-2021 Functional Status Date Assessment Result Facility 09-30-2021 Functional Status Up ad fatoumata [facility] Mental Status Date Assessment Result Facility 09-30-2021 Mental Status Orientation Oriented x 4 [facility] 09-30-2021 Mental Status [facility] Clinical Notes 11-26-2020 to 03-08-2024 Note Date & Type Note Facility 03-08-2024 Note [facility] Medical Records Department [address] [place] [address] Discharge Summary 03/08/24 1406 MR#: [id number] Acct: [id number] Name: MONSERRAT CORNEJO I Rep #: [id number] : 1960 63 From: Eva Quezada MD PCP: Dr. Yousif Murguia MD Status:ADM IN Location: [place] [address] Providers Date of Admission: 03/05/24 Date of Discharge: 03/08/24 Primary Care Physician: Dr. Yousif Murguia MD Consultations 03/05/24 23:34 Consult: Urology Routine Consulting Provider: Dalton Carpenter Reason for Consult: Pyelo, obstructive stone, MARYBEL EMERGENT Consult: No MD Notified: Yes Date Notified: 03/05/24 Time Notified: 22:23 Method of Notification: ED Physician Initiated Reason For Visit: COMP;ICATED UTI/PYELONEPHRITIS MARYBEL Diagnosis Discharge Diagnosis (1) Complicated UTI (urinary tract infection): Status: Acute Code(s): N39.0 - Urinary tract infection, site not specified (2) Hydronephrosis with renal calculous obstruction: Status: Acute Code(s): N13.2 - Hydronephrosis with renal and ureteral calculous obstruction (3) Pyelonephritis: Status: Acute Code(s): N12 - Tubulo-interstitial nephritis, not specified as acute or chronic (4) Kidney stones: Status: Acute Code(s): N20.0 - Calculus of kidney Plan #Acute right pyelonephritis due to right obstructive kidney stone * admitted with a complaint of right sided flank pain. CT abdomen and pelvis showed obstructive uropathy due to right sided kidney stone * s/p cystoscopy with right ureteral stent insertion. * on IV zosyn. * Urine cultures growing gram-negative rods lactose seamless tube roller. Speciation is pending. Blood cultures pending. * urology on board; per urology, to have the stone treated once the infection clears * WBC is down to 9.9 from 24 yesterday. * Will add on Pyridium to help with the pain with urination. * #Hyponatremia: resolved. #Type 2 diabetes mellitus: on lantus. ISS. Accuchecks ACHS #Hypertension: on amlodipine. Lisinopril on hold. IV hydralazine prn #Chronic constipation: on trulance. DVT prophylaxis: SCDs Medications at Discharge Home Medications metformin 500 mg tablet 500 mg PO BIDCM 11/24/13 insulin glargine 100 unit/mL (3 mL) subcutaneous pen (Lantus Solostar U-100 Insulin) 10 unit subcut QPM 10/26/22 plecanatide 3 mg tablet (Trulance) 3 mg PO DAILY 10/26/22 amlodipine 5 mg tablet 5 mg PO DAILY 03/05/24 ergocalciferol (vitamin D2) 1,250 mcg (50,000 unit) capsule 1,250 mcg PO QWEEK 03/05/24 lisinopril 20 mg tablet 20 mg PO DAILY 03/05/24 cefdinir 300 mg capsule 300 mg PO BID #14 caps 03/08/24 Hospital Course Operations None Procedures - (cystoscopy and right stent placement) Summary of Care Provided Minutes Spent on Discharge: 47 Hospital Course: Patient is a 63-year-old female with past medical history as outlined was admitted through the ED on 03/05/2024 with a complaint of right-sided flank pain, chills, nausea and vomiting. The pain on her right side went from her ribs down to her groin and she had associated nausea and emesis. The pain was colicky and rated at 10 out of 10. She had had a recent plain film of the abdomen which showed evidence of kidney stones but she denied ever passing a kidney stone. In the ED WBC was 13.1. Initial potassium was 6.2 but was 4.3 with repeat. Urinalysis showed evidence of UTI with 2+ bacteria and elevated leukocyte esterase. Creatinine was 1.12. CT of the abdomen and pelvis showed right perinephric stranding and severe right-sided hydronephrosis associated with a stone at the right ureteropelvic junction measuring 1.2 cm with an additional right lower pole calyceal stone measuring 0.7 cm with no left-sided urolithiasis or hydronephrosis and cholelithiasis without secondary evidence of acute cholecystitis as well as evidence of diverticulosis without evidence of acute diverticulitis. She was admitted and managed for hydronephrosis and complicated UTI due to obstructed kidney stone. She was started on IV Zosyn, IV morphine and hydrated with IV fluids. Urology was consulted. Patient had cystoscopy with right ureteral stent placement on 03/05/2024. Blood and urine cultures were obtained. Antibiotics were transitioned to IV ceftriaxone. Her pain improved and she felt much better. Blood cultures were negative at time of discharge. Urine cultures grew E. coli with a low yield. She was therefore discharged home on 03/08/2024 on PO cefdinir 300mg bid x 7 days. She is to follow up with her PCP and to follow up with urology within one week for urology to schedule an outpatient lithotripsy for the stone. Patient seen and examined prior to discharge. She had no active complaints and felt well. She denied any fever or chills, abdominal pain, palpitations, nausea vomiting or diarrhea. Review of systems otherwise negative. Labs and vitals reviewed. Home medic (more content not included)... [facility] 06-16-2023 Discharge summary Note Date/Time June 16, 2023 10:31p m [facility] Medical Records Department [address] [place] [address] Emergency Department Summary 06/16/23 MR#: [id number] Acct: [id number] Name: MONSERRAT CORNEJO I Rep #:[id number] : 1960 62 From: Howard Fenton MD PCP: Dr. Yousif Murguia MD Status:RE G ER Location: ED HPI HPI - Fall History of Present Illness Chief Complaint: Fall Narrative Narrative: 62-year-old female past medical history of diabetes, hypertension, presents withinjury to her tailbone and right knee status post fall. She states that around 8:30 in the evening, approximately 2 hours ago, she was going to change a light bulb in the kitchen. She went to stand on a chair, and when she was getting half-way up, it slid out from under her on the hardwood floor. She fell backwards onto her buttocks, but as she came down, she felt her right knee twistin an awkward position. She denies hitting her head or loss of consciousness. She does not take blood thinners. She was able to ambulate gingerly, but when she was getting ready for bed, her pain in her knee became worse. She was able to have a bowel movement after the injury and states that it was not painful to defecate. She is concerned mainly about her right knee pain that is worse with weightbearing and ambulating. PFSH PFS Medical History Arthritis Chronic neck and back pain Diabetes HTN (hypertension) Hx of nephrolithotomy with removal of calculi Kidney stones Knee pain Shoulder pain Tiredness Home Medications metformin 500 mg tablet 500 mg PO BIDCM 11/24/13 [History Last Taken Unknown] insulin glargine 100 unit/mL (3 mL) subcutaneous pen (Lantus Solostar U-100 Insulin) 10 unit subcut QPM 10/26/22 [History Last Taken Unknown] plecanatide 3 mg tablet (Trulance) 3 mg PO DAILY 10/26/22 [History Last Taken Unknown] Allergy/AdvReac Type Severity Reaction Status Date / Time latex AdvReac Mild Hives Verified 05/04/24 22:19 BP MED Allergy Itching Uncoded 06/13/19 12:25 Family History Father Heart disease Mother Heart disease CVA (cerebral vascular accident) Brother Hypertension Social History Smoking Status: Never smoker alcohol intake: never ROS ROS ED ROS Narrative Constitutional: No fever, no chills. HEENT: No sore throat. No neck pain. No loss of vision. No rhinorrhea. Cardiovascular: No chest pain. No palpitations. No pedal edema. Respiratory: No cough, no shortness of breath. Abdominal: No abdominal pain. No nausea. No vomiting. Genitourinary: No dysuria. No hematuria. Musculoskeletal: No myalgias. Right knee pain worse with weightbearing and walking. Positive tailbone/coccyx pain. Can only sit in certain positions. Neurologic: No headaches. No dizziness. No lightheadedness. Skin: No rash. No change in color. Psychiatric: No depression. No anxiety. EXAM Physical Exam Narrative Exam Narrative: Afebrile. Vital signs noted. GCS 15. ABCs intact. HEENT: Normocephalic. Atraumatic. PERRL, EOMI. Neck soft and supple. No pointtenderness or step off. Cardiovascular: Regular rate and rhythm. No murmurs, rubs, or gallops appreciated. Respiratory: No tachypnea. Lungs clear to auscultation bilaterally. Gastrointestinal: Abdomen soft, nontender, with normoactive bowel sounds. No rebound or guarding. Neurological: Awake. Alert. Nonfocal, nonlateralizing. Skin: No rash. Normal color. No pallor. Musculoskeletal: No pedal edema. Full range of motion extremities. Diffuse tenderness to palpation right knee especially medially, more on proximal tibia. Neurovascular intact distally. Antalgic gait walking to room in emergency department. Mild tenderness to palpation sacral and coccyx area diffusely. Const Vital Signs: 06/16/23 22:15 Temperature 97.6 F L Temperature Source Temporal Pulse Rate 76 Respiratory Rate 15 Blood Pressure 177/57 H Blood Pressure Mean 97 Pulse Ox 97 Oxygen Delivery Method Room Air MDM MDM MDM Narrative Medical decision making narrative: In the differential diagnosis is sacral/coccyx contusion versus fracture. In discussion with the patient, she realizes that not much can be done for a coccyxfracture other than taking myru-bss-mjkthyh stool softeners. In regards to her knee, concern is for knee sprain versus tibial plateau fracture versus effusion from ligament strain. Patient states that she already ice the area and declinedice pack. Additionally, she declined any oral analgesics. X-rays were obtainedof the coccyx and sacrum as well as the right knee. X-rays interpreted by myself independently. On my independent interpretation there is no evidence of a fracture of the sacrum or coccyx. I reviewed the radiology report which confirms my independent interpretation. On my interpretation of the x-rays and 4 views of the right knee, there is no evidence of fracture. I reviewed the radiology report which confirms my independent interpretation as well. Patient will take lxki-icm-dafcsmb medications as needed for pain. I offered her crutches, but she states she has a pair at home. She was given a note to beoff work for the next 2 days as she states that she stands all day. At this point in time, I feel she can be discharged to follow-up with her primary care provider in 7 to 10 days if not improving. She was told that she may need referral to orthopedics for her knee injury. Return instructions to the emergency department were reviewed. Disposition is discharged home in stable condition. Radiography Diagnostic Testing: Clinical Impression(s) from Imaging Studies Knee X-Ray 06/16/23 22:40 IMPRESSION: No acute fracture or dislocation. Electronically Signed: John Layne MD at 23:16 EDT Reading Location ID and State: 140 / [facility] Tel , Service support , Sacrum and Coccyx X-Ray 06/16/23 22:40 IMPRESSION: Normal x-rays of the sacrum and coccyx. Electronically Signed: John Layne MD at 23:21 EDT , Discharge Plan Triage Chief Complaint: Fall ED Provider: Howard Fenton Dx/Rx/DC Orders Prescriptions: No Action Trulance 3 mg tablet 3 mg PO DAILY insulin glargine [Lantus Solostar U-100 Insulin] 100 unit/mL (3 mL) insulin pen 10 unit subcut QPM metformin 500 MG tablet 500 mg PO BIDCM Primary Care Provider: Yousif Murguia Referrals: Yousif Murguia MD [Primary Care Provider] - What to do if you have Problems For any increased pain, shortness of breath, bleeding, nausea or vomiting, chestpain, or any unexpected problems, contact your Primary Care Provider. Call [facility] ([phone]) or report to the closest Emergency Room. Call 911 if necessary. 06/16/232326 <Electronically signed by Howard Fenton MD> Cosigner Signature (if applicable): CC: Dr. Yousif Murguia MD ~ Signed [facility] Work Phone: 1(221) 198-779708-01-2023 NoteHNO ID: [id number] Author: Gio Clark MD Service: ? Author Type: Physician Type: Progress Notes Filed: 09/12/2022 9:58 AM Note Text: Subjective: Patient is status post an ultrasound of her thyroid gland: Nodule #1 Location: Right upper pole Size: 9 x 7 x 4 mm Characteristics: Composition: Solid or almost completely solid, 2 points Echogenicity: Hypoechoic, 2 points Shape: Nmihs-fskw-kuvu, 0 points Margin: smooth or ill defined. 0 points Echogenic foci: Possible punctate echogenic foci, 3 points vs 0 points TI-RADS Category: 5 ACR Recommendation: Follow up imaging is advised annually for 5 years. Nodule #2 Location: Left lower pole Size: 5 x 7 x 3 mm Characteristics: Composition: Solid or almost completely solid, 2 points Echogenicity: Hypoechoic, 2 points Shape: Tolgu-bhac-zuio, 0 points Margin: smooth or ill defined. 0 points Echogenic foci: None, 0 points TI-RADS Category: 4 ACR Recommendation: No FNA or follow-up imaging is advised. Nodule #3 Location: Left isthmus Size: 6 x 6 x 4 mm Characteristics: Composition: Solid or almost completely solid, 2 points Echogenicity: Hypoechoic, 2 points Shape: Ddgtp-jzxk-mqtd, 0 points Margin: smooth or ill defined. 0 points Echogenic foci: None, 0 points TI-RADS Category: 4 ACR Recommendation: No FNA or follow-up imaging is advis Objective:There were no vitals taken for this visit. No hard palpable nodules are identified Assessment:Multinodular goiter (primary encounter diagnosis) Plan: This point I do not think that fine-needle aspiration is warranted repeat ultrasounds will be all that is needed.[facility] 08-08-2022 NoteHNO ID: [id number] Author: RT Apurva(Braydon) Service: Radiology Author Type: Technologist Type: Progress Notes Filed: 08/08/2022 2:08 PM Note Text: Radiology Service Progress Note PATIENT NAME: Monserrat Cornejo I DATE OF SERVICE: August 08, 2022 TIME: 2:08 PM PATIENT IDENTITY VERIFICATION COMPLETED USING TWO (2) IDENTIFIERS: Name and Date of confirmed by patient verbally. FALL SCREENING: Has the patient had 2 falls in the last year or 1 fall with injury or currently using an Ambulatory Assistive Device (Walker, Cane, Wheelchair, Crutches, etc.)? No PATIENT GENDER DATA: Female. status: : No status: N/A PATIENT RELEVANT IMPLANT DATA REVIEWED: Not Applicable RADIOLOGY DEPARTMENT: Ultrasound PERIPHERAL IV DATA: Not applicable SIGNED BY: Amy Zambrano Rdms August 08, 2022 2:08 [facility]06-26-2023 NoteHNO ID: [id number] Author: Gio Clark MD Service: ? Author Type: Physician Type: Progress Notes Filed: 08/07/2022 3:09 PM Note Text: HISTORY AND PHYSICAL Monserrat Cornejo I 1960 REFERRING PHYSICIAN: CHIEF COMPLAINT: Consult (Lump on left side thyroid) HPI: The patient is a 61 year old female with a complaint of a mass on her left thyroid. Patient states that she was at her primary care physician and was told that she had a mass on her left thyroid. She was suggested to follow-up with a surgeon for evaluation. She states that her primary care doctor did not order any test. PAST MEDICAL HISTORY Diagnosis Date Calculus of kidney Diabetes mellitus without mention of complication PAST SURGICAL HISTORY Procedure Laterality Date COLONOSCOPY SCREENING 2020 EXC/DSTRJ LINGUAL TONSIL ANY METHOD SPX PAST SURGICAL HISTORY OF jaw dislocated Current Outpatient Medications Medication Sig lisinopril (ZESTRIL) 5 mg tablet Take 5 mg by mouth once daily. metFORMIN ER (GLUCOPHAGE XR) 500 mg 24 hr tablet TAKE 4 TABLETS BY MOUTH ONCE DAILY FOR 90 DAYS plecanatide (TRULANCE ORAL) Take by mouth every other day. insulin glargine,hum.rec.anlog (LANTUS SUBCUTANEOUS) Inject 47 Units subcutaneously daily at bedtime. hydrocodone bit/acetaminophen(VICODIN 5 MG-500 MG TAB) Take 1-2 tablet's) every six(6) hours as needed for pain. (Patient not taking: Reported on 08/07/2022) oxycodone hcl/acetaminophen(PERCOCET 5 MG-325 MG TAB) Take one(1) tablet four(4) times daily as needed for pain. (Patient not taking: No sig reported) GLYBURIDE 5 MG TAB Take one(1) tablet twice daily. (Patient not taking: Reported on 08/07/2022) No current facility-administered medications for this visit. ALLERGIES: Amlodipine and Latex PERSONAL HISTORY: Social History Tobacco Use Smoking status: Never Smokeless tobacco: Never Vaping Use Vaping Use: Never used Substance Use Topics Alcohol use: No Drug use: No FAMILY HISTORY: FAMILY HISTORY Problem Relation Age of Onset Stroke Mother Heart Attack Mother Heart Attack Father REVIEW OF SYMPTOMS: The review of systems data was entered by the nurse and reviewed by nc Nursing Notes: Jessica Starr LPN 08/07/2022 2:38 PM Signed REVIEW OF SYSTEMS: General: The patient denies fatigue, denies weight loss, denies weight gain, denies feeling hot, and denies feelings of cold. Eyes: The patient denies glaucoma, denies eye injury/surgery, wears glasses or contacts. Ear/Nose/Throat: The patient notes allergies, denies hayfever, notes ear infections, and notes bloody noses. Cardiovascular: The patient denies chest pain, denies heart disease, denies high blood pressure,denies cardiac stent, denies prior heart attack, denies irregular heart beat, notes high cholesterol, denies poor circulation, denies heart failure, other cardiac issues, denies claudication, denies cold feet, denies peripheral arterial stent. Respiratory: The patient denies tuberculosis, denies pneumonia, denies frequent cough, denies pulmonary embolism, denies shortness of breath, and denies coughing up blood. Gastrointestinal: The patient denies difficulty swallowing, notes acid reflux, denies ulcers, denies vomiting, denies jaundice/hepatitis, denies gallbladder problems, denies black or tarry stools, denies hemorrhoids, denies bleeding from rectum, denies diverticulitis, denies constipation, denies diarrhea, denies loss of stool control, and denies hernias. Kidney/Bladder: The patient notes kidney stones, notes urine infections, and denies bloody urine. Skin: The patient denies a history of skin cancer, denies bleeding/changing moles, and denies a history of skin rash. Neurologic: The patient denies a history of epilepsy/convulsions, denies headaches, denies head/spinal injuries, and denies stroke/TIA. Psychiatric: The patient denies psychiatric medications, denies depression, and denies voices, denies substance abuse. Endocrine: The patient notes thyroid disorders, notes diabetes, and denies hormonal problems. Hematologic: The patient denies a history of bruising, denies bleeding, and denies anemia, denies blood clots. Infections: The patient denies a history of measles and mumps, denies rheumatic fever, and denies sexually transmitted diseases. Musculoskeletal: The patient denies back pain/injury, denies back problems, notes sciatica, notes knee/foot trouble, notes arthritis, or denies gout. When was patient's last Mammogram screening? Over 10 years ago Last Colonoscopy: 2020 Jessica Starr LPN PHYSICAL EXAMINATION: General: The patient is 61 year old female, well nourished, well hydrated in no acute distress. The patient is oriented to time, place, and person. VITALS: Blood pressure 142/68, pulse 89, temperature 36.8 ?C (98.2 ?F), height 165.1 cm (5' 5), weight 93.4 kg (206 lb), SpO2 99 %. HEENT: Normal cephalic, ataumatic, pupils are equally ro (more content not included)...[facility]11-24-2022 Note. MICRO - Microbiology PROCEDURE: Urine Culture [*1] SOURCE: Urine, Clean Catch BODY SITE: COLLECTED DATE/TIME: 01/03/2022 13:31 EST RECEIVED DATE/TIME: 01/03/2022 21:10 EST START DATE/TIME: 01/03/2022 21:10 EST FREE TEXT SOURCE: FINAL REPORTS Final Report [] Verified Date/Time/Personnel: 01/05/2022 08:33 EST >100,000 cfu/ml Citrobacter freundii complex PRELIMINARY REPORTS Preliminary Report [] Verified Date/Time/Personnel: 01/04/2022 12:52 EST >100,000 cfu/ml Citrobacter freundii complex RODERICK to follow SUSCEPTIBILITY RESULTS Citrobacter freundii complex Antibiotic RODERICK Dilut RODERICK Inter Ampicillin 16 Resistant Ampicillin/ <=4/2 Resistant Sulbactam Aztreonam <=4 Susceptible Cefazolin >16 Resistant Cefotaxime <=2 Susceptible Cefuroxime <=4 Resistant Ciprofloxacin <=0.25 Susceptible Ertapenem <=0.5 Susceptible Gentamicin <=2 Susceptible Imipenem <=1 Susceptible Levofloxacin <=0.5 Susceptible Meropenem <=1 Susceptible Minocycline <=4 Susceptible Nitrofurantoin <=32 Susceptible Piperacillin/ <=8 Susceptible Tazobactam Trimethoprim/ <=0.5/9.5 Susceptible Sulfa Performing Locations *1: This test was performed at: [address], [facility] [place] [facility] [place]09[place]30-2021 Hospital Discharge instructions Patient Education 09/30/2021 18:21:43 Adult Self-Care for Colds Adult Self-Care for Colds Colds are caused by viruses. They can't be cured with antibiotics. However, you can ease symptoms and support your body's efforts to heal itself. No matter which symptoms you have, be sure to: Drink plenty of fluids (water or clear soup) Stop smoking and drinking alcohol Get plenty of rest Understand a fever Take your temperature several times a day. If your fever is 100.4 F (38.0 C) for more than a day, call your healthcare provider. Relax, lie down. Go to bed if you want. Just get off your feet and rest. Also, drink plenty of fluids to avoid dehydration. Take acetaminophen or a nonsteroidal anti-inflammatory agent (NSAID), such as ibuprofen. Treat a troubled nose kindly Breathe steam or heated humidified air to open blocked nasal passages. laminating machine feeder a hot shower or usea vaporizer. Be careful not to get burned by the steam. Saline nasal sprays and decongestant tablets help open a stuffy nose. Antihistamines can also help,but they can cause side effects such as drowsiness and drying of the eyes, nose, and mouth. Soothe a sore throat and cough Gargle every 2 hours with 1/4 teaspoon of salt dissolved in 1/2 cup of warm water. Suck on throat lozenges and cough drops to moisten your throat. Cough medicines are available but it is unclear how well they actually work. Take acetaminophen or an NSAID, such as ibuprofen, to ease throat pain Ease digestive problems Put fluids back into your body. Take frequent sips of clear liquids such as water or broth. Avoid drinks that have a lot of sugar in them, such as juices and sodas. These can make diarrhea worse. Older children and adults can drink sports drinks. As your appetite returns, you can resume your normal diet. Ask your healthcare provider if there are any foods you should avoid. When you first notice symptoms, ask your healthcare provider if antiviral medicines are appropriate. Antibiotics should not be taken for colds or flu. Also, call your healthcare provider if you have any of the following symptoms or if you aren't feeling better after 7 days: Shortness of breath Pain or pressure in the chest or belly (abdomen) Worsening symptoms, especially after a period of improvement Fever of 100.4 F (38.0 C) or higher, or fever that doesn't go down with medicine Sudden dizziness or confusion Severe or continued vomiting Signs of dehydration, including extreme thirst, dark urine, infrequent urination, dry mouth Spotted, red, or very sore throat [id number] [employer]. [address] [place] [address], [place] [address]. All rights reserved. This information is not intended as a substitute for professional medical care. Always follow yourhealthcare professional's instructions. Follow Up Care 09/30/2021 17:24:40 With:VERONIKA SAAB DO Address: [address] [place] [address] [place] [phone] When:2-[address] [facility] 08-19-2022 Note ORIGINAL EXAMINATION: ONE XRAY VIEW OF THE CHEST 09/30/2021 6:00 pm COMPARISON: Chest radiograph July 19, 2021 HISTORY: ORDERING SYSTEM PROVIDED HISTORY: Reason for Exam: SOB/cough/fever FINDINGS: The cardiomediastinal silhouette appears normal. There is no focal consolidation or pulmonary edema. There is no evidence of pleural effusion or pneumothorax. No fracture is identified. IMPRESSION: No acute radiographic abnormality is identified. Interpreted by: Gio Mendez Preliminary Report By: Gio Mendez Electronically signed By Gio Mendez Dictated Date: 09/30/2021 7:13:42 PM Prelim Date: 09/30/2021 7:15:16 PM Sign Date: 09/30/2021 7:15:16 PM [facility]ing [facility] department Discharge summary Discharge Instructions Thank you for allowing [facility] to assist you with your healthcare needs. The following is importantdischarge information regarding your hospital visit. Diagnosis from Today's Visit Congestion of throat Sinus Pain/Congestion What to Do Next Instructions from Your Care Team we tested you for covid today. the results are pending. you will be contacted with the results. isolate from others until you know the result. No qualifying data available. Post Acute Orders No qualifying data available. You Need to Schedule the Following Appointments Follow Up with VERONIKA SAAB DO When Within 2-4 days Where: 0 [facility] [place] [phone] Allergies amLODIPine (Itching) Medications Please ask your primary doctor or pharmacist before taking any other medication not listed, including over the counter drugs, herbal medications, vitamins and or supplements as they may interact withyour home medications. What How Much When Why Instructions Last Dose New ondansetron (Zofran ODT use ondansetron oral tablet, disintegrating ) 4 Milligram by mouth Every 8 hours Congestion of throat Duration: 5 Days Printed Prescription Unchanged DME (Blood Glucose Test Strips) See instructions Abdominal pain Pelvic pain Ultra mini test strips 2 boxes of 100. She is to use 2 daily. 1 year refill. Unchanged DME (DME MISCellaneous) See instructions One Touch Ultra Blue Test Strips Testing once daily #100 x 3 refills DX:diabetes Unchanged DME (needles 8 mm 5/ 16 inch) See instructions Diabetes Hypertension Please refill her insulin needles. Please give her the same needle she had previously. Thank you # 2 boxes Unchanged insulin glargine (Lantus Solostar Pen 100 units/ mL 3 mL Pen) 47 unit(s) Subcutaneous Daily at bedtime Duration: 90 Days rotate injection sites Unchanged lisinopril (lisinopril 5 mg oral tablet) See instructions TAKE 1 TABLET BY MOUTH EVERY DAY Unchanged metFORMIN (MetFORMIN (Eqv-Glucophage XR) 500 mg oral tablet, EXTENDED RELEASE) 4 tab(s) by mouth Once a day Duration: 90 Days Unchanged Misc Medication Radiant Woman Unchanged Misc Medication Lean Advantage Unchanged Misc Medication (BD UF SHORT PEN NEEDLE [id number]) See instructions USE 1 PEN NEEDLE DAILY Unchanged plecanatide (Trulance 3 mg oral tablet) 1 tab(s) by mouth Every other day Unchanged simvastatin (simvastatin 20 mg oral tablet) 1 tab(s) by mouth Daily at bedtime Duration: 60 Days Please take this list to your next doctor s visit. Bring all medications you take, including over the counter medications, herbals and other supplements with you to your doctor s visit. Patients and families are reminded to discard old lists and to update any records with all medication providers or retail pharmacies. Education Materials Adult Self-Care for Colds Colds are caused by viruses. They can't be cured with antibiotics. However, you can ease symptoms and support your body's efforts to heal itself. No matter which symptoms you have, be sure to: Drink plenty of fluids (water or clear soup) Stop smoking and drinking alcohol Get plenty of rest Understand a fever Take your temperature several times a day. If your fever is 100.4 F (38.0 C) for more than a day, call your healthcare provider. Relax, lie down. Go to bed if you want. Just get off your feet and rest. Also, drink plenty of fluids to avoid dehydration. Take acetaminophen or a nonsteroidal anti-inflammatory agent (NSAID), such as ibuprofen. Treat a troubled nose kindly Breathe steam or heated humidified air to open blocked nasal passages. laminating machine feeder a hot shower or usea vaporizer. Be careful not to get burned by the steam. Saline nasal sprays and decongestant tablets help open a stuffy nose. Antihistamines can also help,but they can cause side effects such as drowsiness and drying of the eyes, nose, and mouth. Soothe a sore throat and cough Gargle every 2 hours with 1/4 teaspoon of salt dissolved in 1/2 cup of warm water. Suck on throat lozenges and cough drops to moisten your throat. Cough medicines are available but it is unclear how well they actually work. Take acetaminophen or an NSAID, such as ibuprofen, to ease throat pain Ease digestive problems Put fluids back into your body. Take frequent sips of clear liquids such as water or broth. Avoid drinks that have a lot of sugar in them, such as juices and sodas. These can make diarrhea worse. Older children and adults can drink sports drinks. As your appetite returns, you can resume your normal diet. Ask your healthcare provider if there are any foods you should avoid. When you first notice symptoms, ask your healthcare provider if antiviral medicines are appropriate. Antibiotics should not be taken for colds or flu. Also, call your healthcare provider if you have any of the following symptoms or if you aren't feeling better after 7 days: Shortness of breath Pain or pressure in the chest or belly (abdomen) Worsening symptoms, especially after a period of improvement Fever of 100.4 F (38.0 C) or higher, or fever that doesn't go down with medicine Sudden dizziness or confusion Severe or continued vomiting Signs of dehydration, including extreme thirst, dark urine, infrequent urination, dry mouth Spotted, red, or very sore throat [phone] [employer]. [address] [place] [address]. All rights reserved. This information is not intended as a substitute for professional medical care. Always follow yourhealthcare professional's instructions. Additional Information VACCINATE! IT SAVES LIVES! Members of the community who have not yet received the COVID-19 vaccine and would like to receive it can visit one of [facility] vaccine clinics. There are many vaccine clinic locations within the [facility]. For locations and available times, please visit [email or web address]. It is important to note that some COVID mobile vaccine clinics are held outdoors and may be canceled in rainy orstormy conditions. To learn more about pediatric vaccinations (ages 5-11), we invite you to visit the [facility] webpage. [email or web address] [email or web address] learn more about the COVID-19 vaccine, we invite you to visit the [facility] website for a list of frequently asked questions. [email or web address] [facility] Patient Portal Access Instructions: Stay connected with your healthcare team and access your personal medical information anytime with the [facility] Patient Portal. If you would like a full copy of your medical records please contact the [facility] Medical Records Department Sunday through Sunday between 8a.m. and 4:30p.m. Please follow the directions below to access the portal: 1.Access the email account you provided upon registration to the [facility].2.Look for an invitation email from [facility].3.Open the email and access the invitation link: Accept Invitation to [facility]4.Fill in the required harrell to create your account. Sign into www.[email or web address] with your username and password that you created in the above steps to stay up to date. You can then view a summary of results, a summary of your visits, and the ability to download your summaries to your computer or send the information securely to a physician. Remember that your healthcare information is confidential, so carefully consider who you will allow to register on the [facility] Patient Portal for access to your information. You can also access the [facility] Patient Portal on the [employer]. Simply click on Health Records under [employer] and then click on the [employer] logo. HOW TO SAFELY DISPOSE OF PRESCRIPTION MEDICATIONS Please use one of the following methods to safely dispose of your unused medications. 1.Use a drug disposal kit: the drug disposal pouch allows you to safely discard your old and unuseddrugs. Ask your nurse to give you one when you are discharged.2.Visit a local take-back location: Many local pharmacies and police departments have programs that collect old and unwanted prescriptiondrugs. Call your local pharmacy or go to http://bit.RooT/4Y1Iy6i to find one close to you.3.Make use of household items: Use cat litter or old coffee grounds to dispose medications if other options arenot available. Mix your drugs with these household products, seal them in an airtight container andthrow it into the garbage. Call [facility]: [phone] to be sure your drugs can be disposed of in this way. Some medicines may require a different approach.4.Never flush your medications down the toilet. IF YOU HAVE BEEN PRESCRIBED AN OPIOIDS FOR PAIN If you have been prescribed an opioid (such as hydrocodone, oxycodone or morphine), it is critical to understand the possible side effects and risks of opioid pain medications. Even when taken as directed, opioids can have several side effects including: Tolerance, meaning you might need to take more of a medication for the same pain relief. Nausea, vomiting and/or constipation. Sleepiness, dizziness, dry mouth, confusion, depression or itching. Physical dependence, meaning you have withdrawal symptoms when a medication is stopped ? this can develop within a few days. KNOW YOUR RESPONSIBILITIES It is important to know exactly how much and how often to take the opioid pain medications you are prescribed. Never take opioids in higher amounts or more often than prescribed. Do not combine opioids with alcohol or other drugs that cause drowsiness, such as benzodiazepines, also known as benzos,including diazepam and alprazolam, muscle relaxants or sleep aids. Never sell or share prescriptionopioids. This is illegal. Store opioids in a secure place and out of reach of others (including children, family, friends and visitors). The last page(s) of this document has been signed and retained as a CHART COPY Signatures Patient Education Materials Adult Self-Care for Colds Medication Leaflets My discharge plan and instructions have been reviewed and explained to me and I,MONSERRAT CORNEJO I understand my current condition and have read and understand these discharge instructions. I have received a written copy of the plan/instructions. If I have questions, I am aware that I should contact my doctor. 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08-19-2022 Note ORIGINAL EXAMINATION: ONE XRAY VIEW OF THE CHEST 09/30/2021 6:00 pm COMPARISON: Chest radiograph July 19, 2021 HISTORY: ORDERING SYSTEM PROVIDED HISTORY: Reason for Exam: SOB/cough/fever FINDINGS: The cardiomediastinal silhouette appears normal. There is no focal consolidation or pulmonary edema. There is no evidence of pleural effusion or pneumothorax. No fracture is identified. IMPRESSION: No acute radiographic abnormality is identified. Interpreted by: Gio Mendez Preliminary Report By: Gio Mendez Electronically signed By Gio Mendez Dictated Date: 09/30/2021 7:13:42 PM Prelim Date: 09/30/2021 7:15:16 PM Sign Date: 09/30/2021 7:15:16 PM [facility]ing [facility] SARS-CoV-2 (COVID-19) RNA SHIELA+probe Ql (Nph)Positive *ABN* (09/30/21 5:42 PM)AO Auto Urine [id number] Evaluation + Plan note Future Scheduled Tests Laboratory* Thyroid Stimulating Hormone 12/10/20 * A1C Hemoglobin 12/10/20 * Complete Blood Count 12/10/20 * Lipid Profile 12/10/20 * Complete Metabolic Panel 12/10/20 Radiology* [place] Mammo Screening Bilateral w/ Josep 06/18/20 [facility] 10-15-2021 Hospital Discharge instructions Patient Education 11/26/2020 18:53:10 Chest Pain, Uncertain Cause Uncertain Causes of Chest Pain Chest pain can happen for a number of reasons. Sometimes the cause can't be determined. If your condition does not seem serious, and your pain does not appear to be coming from your heart, your healthcare provider may recommend watching it closely. Sometimes the signs of a serious problem take moretime to appear. Many problems not related to your heart can cause chest pain. These include: Musculoskeletal. Costochondritis is an inflammation of the tissues around the ribs that can occur from trauma or overuse injuries, or a strain of the muscles of the chest wall Respiratory. Pneumonia, collapsed lung (pneumothorax), or inflammation of the lining of the chest and lungs (pleurisy) Gastrointestinal. Esophageal reflux, heartburn, ulcers, or gallbladder disease Anxiety and panic disorders Nerve compression and inflammation Rare miscellaneous problems such as aortic aneurysm (a swelling of the large artery coming out of the heart) or pulmonary embolism (a blood clot in the lungs) Home care After your visit, follow these recommendations: Rest today and avoid strenuous activity. Take any prescribed medicine as directed. Be aware of any recurrent chest pain and notice any changes Follow-up care Follow up with your healthcare provider if you do not start to feel better within 24 hours, or as advised. Call 911 Call 911 if any of these occur: A change in the type of pain: if it feels different, becomes more severe, lasts longer, or begins to spread into your shoulder, arm, neck, jaw or back Shortness of breath or increased pain with breathing Weakness, dizziness, or fainting Rapid heart beat Crushing sensation in your chest When to seek medical advice Call your healthcare provider right away if any of the following occur: Cough with dark colored sputum (phlegm) or blood Fever of 100.4 F (38 C) or higher, or as directed by your healthcare provider Swelling, pain or redness in one leg [phone] [employer]. [address] [place] [address]. All rights reserved. This information is not intended as a substitute for professional medical care. Always follow yourhealthcare professional's instructions. Follow Up Care 11/26/2020 17:05:30 With:RAFA LAM MD Address: [address] [place] [address] [place] [address]- When:2-[address] [facility] Discharge summary Author Ryan Jackman [facility] June 18, 2023 9:24am Note Date/Time June 18, 2023 9:24am [facility] Medical Records Department [address] [place] [address] Emergency Department Summary 06/18/23 MR#: [id number] Acct: [id number] Name: MONSERRAT CORNEJO I Rep #:[id number] : 1960 62 From: Ryan Jackman MD PCP: Dr. Yousif Murguia MD Status:NY E ER Location: ED HPI History of Present Illness Chief Complaint: Fall Detail of Chief Complaint: Patient presents for additional time off from work Informant: patient Onset/Context/Timing Onset: - (Patient was seen on Sunday by Dr. Henrry le) Quality: Patient asking for additional time off because she did not work on Sunday Location: Not applicable Narrative Narrative: patient is a 62-year-old woman. She presents for additional time off. She wasseen on Sunday. She was given Sunday and Sunday off. She states since she did not work Sunday she should have Sunday and Sunday off. Patient was informed our policy is excuse for 2 days unless you have a fracture. Her records from Sunday reviewed. There is no evidence of fracture. Patient was made aware that she needs to return to work on Sunday. She understands. Prior similar symptoms: Yes PFSH PFSH Medical History Arthritis Chronic neck and back pain Diabetes HTN (hypertension) Hx of nephrolithotomy with removal of calculi Kidney stones Knee pain Shoulder pain Tiredness Home Medications metformin 500 mg tablet 500 mg PO BIDCM 11/24/13 [History Last Taken Unknown] insulin glargine 100 unit/mL (3 mL) subcutaneous pen (Lantus Solostar U-100 Insulin) 10 unit subcut QPM 10/26/22 [History Last Taken Unknown] plecanatide 3 mg tablet (Trulance) 3 mg PO DAILY 10/26/22 [History Last Taken Unknown] Allergy/AdvReac Type Severity Reaction Status Date / Time latex AdvReac Mild Hives Verified 06/18/23 09:08 BP MED Allergy Itching Uncoded 06/13/19 12:25 Family History Father Heart disease Mother Heart disease CVA (cerebral vascular accident) Brother Hypertension Social History Smoking Status: Never smoker alcohol intake: never ROS ROS ED Musculoskeletal Musculoskeletal: Reports other Details: Positive right knee pain ; Denies arthralgias or myalgias Neurologic Neurologic: Denies headache(s) or paresthesias Hematologic/Lymphatic Hematologic/Lymphatic: Reports systems reviewed and no addt'l complaints, exceptas documented EXAM Physical Exam Const Vital Signs: 06/18/23 09:02 06/18/23 09:12 Temperature 97.4 F L Temperature Source Temporal Pulse Rate 78 Respiratory Rate 16 Respiratory Effort Normal Non-Labored Blood Pressure 161/63 H Blood Pressure Mean 95 Pulse Ox 97 Oxygen Delivery Method Room Air Room Air Positive well nourished, well developed and obese General Appearance ED: well developed and NAD Nutritional Appearance: obese HEENT HEENT Narrative: Head is atraumatic no cephalic. Ears normal. Eyes PERRL and EOMs intact bilaterally Resp normal respiratory effort Cardio regular rate and regular rhythm Extremity Extremity Narrative: Patient has an Srinivasa wrap on her right knee. Neuro oriented x3 and CN's II-XII intact bilaterally Psych mental status grossly normal MDM MDM MDM Narrative Medical decision making narrative: Patient presents with work excuse. Patient was informed 2 days is 2 days and does not make a difference whether you are off a day or not. Since patient ableto ambulate and has really no other complaints other than she wants additional days off she was discharged home Discharge Plan Triage Chief Complaint: Fall ED Provider: Ryan Jackman Dx/Rx/DC Orders Clinical Impression: Encounter to obtain excuse from work Instructions: ED Screening Exam Medical Nonurgent Prescriptions: No Action Trulance 3 mg tablet 3 mg PO DAILY insulin glargine [Lantus Solostar U-100 Insulin] 100 unit/mL (3 mL) insulin pen 10 unit subcut QPM metformin 500 MG tablet 500 mg PO BIDCM Primary Care Provider: Yousif Murguia Referrals: Yousif Murguia MD [Primary Care Provider] - As Needed Disposition Disposition: Home, Self Care What to do if you have Problems For any increased pain, shortness of breath, bleeding, nausea or vomiting, chestpain, or any unexpected problems, contact your Primary Care Provider. Call [employer] [facility] ([phone]) or report to the closest Emergency Room. Call 911 if necessary. 06/18/23923 <Electronically signed by Ryan Jackman MD> Cosigner Signature (if applicable): CC: Dr. Yousif Murguia MD ~ Signed [facility] Work Phone: Evaluation + Plan note Future Appointments Appointment Date:12/10/2020 04:15:00 PM Scheduled Provider:RAFA LAM MD Location:[facility] Appointment Type:PC OV Follow Up Future Scheduled Tests Radiology* MA Mammo Screening Bilateral w/ Josep 06/18/20 [facility] Evaluation + Plan note Future Appointments Appointment Date:08/18/2021 10:00:00 AM Scheduled Provider:VERONIKA SAAB DO Location:[facility] Appointment Type:PC OV Diagnostic Tests Pending * Urine Culture 07/19/21 Future Scheduled Tests Laboratory* Thyroid Stimulating Hormone 12/10/20 * A1C Hemoglobin 12/10/20 * Complete Blood Count 12/10/20 * Lipid Profile 12/10/20 * Complete Metabolic Panel 12/10/20 Radiology* XR Chest 2 Views (PA & Lateral) 07/19/21 [facility] Evaluation + Plan note Future Appointments Appointment Date:10/18/2021 02:30:00 PM Scheduled Provider:VERONIKA SAAB DO Location:[facility] Appointment Type:PC OV Future Scheduled Tests Laboratory* Thyroid Stimulating Hormone 12/10/20 * A1C Hemoglobin 12/10/20 * Complete Blood Count 12/10/20 * Lipid Profile 12/10/20 * Complete Metabolic Panel 12/10/20 Radiology* XR Chest 2 Views (PA & Lateral) 07/19/21 [facility] Evaluation + Plan note Future Appointments Appointment Date:07/19/2022 02:30:00 PM Scheduled Provider:VERONIKA SAAB DO Location:[facility] Appointment Type:PC OV Future Scheduled Tests Radiology* US Thyroid 04/19/22 [facility] Evaluation noteNo assessment information available [facility] Work Phone: Evaluation note* Diagnosis Onset Date Resolution Status Acute bacterial conjunctivitis acute [facility] Work Phone: Hospital course Narrative No data available for this section [facility] Hospital Discharge instructions No data available for this section [facility] Progress note No data available for this section [facility] Reason for referral (narrative)No reason for referral information [facility] Work Phone: Summary Purpose Family History No Family History Records Found Relationship Condition Age at Onset Recorded Date/T basilio father Cardiac disease Unknown mother Cardiac disease Unknown Cerebrovascular accident (CVA) Unknown brother Hypertension Unknown Advance Directives No Advanced Directives Records Found Advance Directive Response Recorded Date/ Time Advance Directives No March 04, 2016 12:18am Living Will No June 13, 2019 12 :33pm Power of Missile And Missile Checkout Technician No June 13, 2019 12:33pm Advance Directive Response Recorded Date/ Time Advance Directives No March 03, 2016 11:18pm Living Will No November 29 12:27pm Power of Missile And Missile Checkout Technician No November 29, 2022 12:27pm Advance Directive Response Recorded Date/ Time Advance Directives No March 04, 2016 12:18am Living Will No November 29 1:27pm Power of Missile And Missile Checkout Technician No November 29, 2022 1:27pm Advance Directive Response Recorded Date/ Time Advance Directives No March 04, 2016 12:18am Living Will No June 16, 2023 10 :24pm Power of Missile And Missile Checkout Technician No June 16, 2023 10:24pm Advance Directive Response Recorded Date/ Time Advance Directives No March 04, 2016 12:18am Living Will No June 18, 2023 9: 24am Power of Missile And Missile Checkout Technician No June 18, 2023 9:24am Advance Directive Response Recorded Date/ Time Advance Directives No March 04, 2016 12:18am Chief Complaint and Reason for Visit Chief Complaint PINK EYE Reason for Visit Acute bacterial conj unctivitis Chief Complaint EORDER Chief Complaint EORDER SCREENING Chief Complaint EORDER SCREENING S/P FALL Chief Complaint EORDER SCREENING S/P FALL FALL Chief Complaint Admit Date POSTMENOPAUSAL,SCREENING September 25 2:48pm Additional Source Comments Care Team (unrecognized sect ion and content) Team Status: Active Member Role Status Dates Dr. Rafa Lam MD Family Provider Active Dr. Yousif Murguia MD Primary Care Provider Active Team Status: Inactive Member Role Status Dates Dr. Yousif Murguia MD Primary Care Provider, Referr ing Provider Active Tate BARRERA, PA Attending Provider Active Team Status: Inactive Member Role Status Dates Dr. Yousif Murguia MD Primary Care Provider, Attend ing Provider Active Team Status: Inactive Member Role Status Dates Dr. Yousif Murguia MD Primary Care Pr ovider, Attending Provider, Referring Provider Active Team Status: Active Member Role Status Dates Dr. Yousif Murguia MD Primary Care Provider, Attend ing Provider Active Team Status: Inactive Member Role Status Dates Dr. Yousif Murguia MD Primary Care Provider Active Howard Fenton MD Emergency Provider Active Team Status: Inactive Member Role Status Dates Dr. Yousif Murguia MD Primary Care Provider Active Dr. Ryan Jackman MD Emergency Provider Active Team Status: Active Member Role/Relationship Status Dates Dr. Yousif Murguia MD Primary Care Provider Active Team Status: Inactive Member Role/Relationship Status Dates Dr. Yousif Murguia MD Primary Care Provider Active Start: September 25, 2024 End: September 25, 2024 Dr. Yousif Murguia MD Attending Provider Active Start: September 25, 2024 End: September 25, 2024 Dr. Yousif Murguia MD Referring Provider Active Start: September 25, 2024 End: September 25, 2024 Care Team (unrecognized sect ion and content) Care Team Personnel Name: VERONIKA SAAB DO Position: P4 Physician - Primary Care Med Service: Active Provider Member Role: Primary Care Physician Address: Address: [address] [place] [id number] Care Team Related Persons Name: THANG KIRBY Name: CLEMENTEMASOOD COLORADOHAEVeena Duarte Address: Home [address] [place], [place] [id number] [place] Address: [address] [phone] Goals (unrecognized section and content) Goals may be documented in a n alternate section INFORMATION SOURCE (unrecogn ized section and content) DATE CREATED AUTHOR 07/24/2022 [facility] ([place]) DATE CREATED AUTHOR AUTHOR'S ORGANJENNI ATION 09/13/2022 [facility] DATE CREATED AUTHOR AUTHOR'S ORGANIZ ATION 10/03/2024 [facility] FOR RECORDS PERTAINING TO PATIENTS WHO ARE OR HAVE BEEN ENROLLED IN A CHEMICAL DEPENDENCY/SUBSTANCEABUSE PROGRAM, SOME INFORMATION MAY BE OMITTED. This clinical summary was aggregated from multiple sources. Caution should be exercised in using it in the provision of clinical care. This summary normalizes information from multiple sources, and as a consequence, information in this document may materially change the coding, format and clinical context of patient data. In addition, data may be omitted in some cases. CLINICAL DECISIONS SHOULD BE BASED ON THE PRIMARY CLINICAL RECORDS. [facility]. provides no warranty or guarantee of the accuracy or completeness of information in this document.
[2024-10-04 09:02] LABS: Creatinine, Urine (random) 45.10 mg/dL (28.00-217.00)
[2024-10-04 09:32] LABS: Microalbumin,Random Urine 13.2 mg/L (<20 mg/L)
== END | disposition home or self-care (01) ==
LOC: LABSPEC 06:56
PROVIDERS: PCP Family Medicine; Referring Provider Family Medicine; Visit Provider Family Medicine
DX: E11.29 Type 2 diabetes mellitus with other diabetic kidney complication (principal); N12 Tubulo-interstitial nephritis, not specified as acute or chronic
CPT/HCPCS: 82043; 82570

== ENCOUNTER → 2024-10-16 | Outpatient (CLI) | payer BC, SELFPAY ==
[2024-10-16 18:29] LABS: Anion Gap 13 (5-15); BUN 21 mg/dL (4-19); BUN/Creat Ratio 20.7 RATIO (10-20); Calcium,Total 9.4 mg/dL (7.6-11.0); Carbon Dioxide 20.8 mmol/L (21.0-32.0); Chloride 107 mmol/L (98-108); Glucose 119 mg/dL (70-99); Potassium 4.1 mmol/L (3.3-5.1)
== END | disposition home or self-care (01) ==
LOC: MFPLAB 16:51
PROVIDERS: PCP Family Medicine; Visit Provider Family Medicine
DX: E11.59 Type 2 diabetes mellitus with other circulatory complications (principal); I10 Essential (primary) hypertension
CPT/HCPCS: 36415; 80048

== ENCOUNTER → 2025-01-30 | Outpatient (CLI) | payer BC, SELFPAY ==
--- OUTSIDE RECORDS SUMMARY | 2025-01-30 17:15 | XMS RPT_ITS | CCD ---
Author Organization [facility] CliniSyne Care Team Providers Care Clinical Genetics Laboratory Chief Name Role Phone CAROLE CAZARES, RAFA Wallace Primary Care Physician [phone] KATIANA DO, DR BANDA Primary Care Physician [phone] KATIANA HECTOR, DR BANDA Primary Care Unavailable DAJA CAZARES, BECCA Peralta Attending Unavail able CAROLE CAZARES, RAFA Wallace Attending Unavailable ELIZABETHAR DO, DR BANDA Primary Care Unavailable ROMAR DO, DR BANDA Attending Unavailable ROMAR DO, DR BANDA Primary Care Unavailable KATIANA DO, DR BANDA Primary Care Unavailable DAJA CAZARES, BECCA Peralta Attending Unavail able VERONIKA SAAB Primary Care Unavailable GIO MCCABE Attending Unavailable GIO MCCABE Referring Unavailable RAFA CHAVEZ Primary Care Unavailab GIO Nicole Attending Unavailable RAFA CHAVEZ Primary Care Unavailab Dr. Yousif Field Primary Care Provider Dr. Yousif Murguia Referring Provider [phone] BRUCE To Attending Provider [phone] Dr. Yousif Murguia MD Primary Care Provider [phone] Yousif Murguia MD Attending Provider Dr. Yousif Murguia MD Referring Provider Dr. Yousif Murguia MD Primary Care Physician Dr. Yousif Murguia MD Attending Physician Yousif Murguia Referring Unavailable Yousif Murguia Primary Care Unavailable Yousif Murguia Attending Unavailable Dalton Carpenter Attending Unavailable Dalton Carpenter Consulting Unavailable Ashley Magallon Admitting Unavailable Yousif Murguia Primary Care Unavailable Eva Quezada Consulting Unavailable Assessment, Health Risk Attending Unavaila ble Blade, Yousif E Primary Care Unavailable SchYousif degroot E Referring Unavailable Yousif Murguia E Primary Care Unavailable Yousif Murguia Attending Unavailable Blade, Yousif E Primary Care Unavailable Yousif Murguia Attending Unavailable Dalton Carpenter Referring Unavailable Yousif Murguia Primary Care Unavailable Shaista Carlton Attending UnavailDalton Duke Consulting Unavailable Ashley Magallon Attending Unavailable Blade, Yousif Peralta Primary Care Unavailable Dalton Carpenter Consulting Unavailable Ashley Magallon Admitting Unavailable Damien, Eva Mary Ann Attending Unavailable Blade, Yousif E Primary Care Unavailable Damien, Eva Mary Ann Consulting Unavailable Yousif Murguia E Attending Unavailable Schinkatie, Yousif E Primary Care Unavailable Schzane, Yousif E Referring Unavailable SchYousif degroot Attending Unavailable Schzane, Yousif E Primary Care Unavailable SchYousif degroot E Referring Unavailable Yousif Murguia E Primary Care Unavailable Yousif Murguia Attending Unavailable Yousif Murguia Referring Unavailable Allergies Allergy Classification Reported Allergen(s) Allergy Type Date of Onset Reaction(s) Facility (6 sources) amLODIPine; Translations: [amlodipine] Drug Allergy 08-07-2022 [facility] (12 sources) Latex; Translations: [LATEX] Allergy to substance 06-13-2019 [facility] Repository (12 sources) BP MED; Translations: [BP MED] Allergy to substance 06-13-2019 [facility] (1 source) Latex Drug allergy (disorder) 07-19-2023 [facility] Repository Medications Current Medications Medication Drug Class(es) Dates Sig (Normalized) Sig (Original) amLODIPine 5 mg oral tablet (4 sources) Dihydropyridine Calcium Channel Estefani Start: 03-05-2024 take 1 tablet by mouth once daily atorvastatin 10 mg oral tablet (1 source) HMG-CoA Reductase Inhibitor Start: 01-04-2021 atorvastatin 10 mg oral tablet Dose : 10 mg = 1 tab(s), Oral, qDay, # 90 tab(s), 3 Refill(s), Pharmacy: [id number], 165, cm, 12/24/20 8:09:00 EST, Height, kg, 12/24/20 8:09:00 EST, Dosing Weight Start Date: 01/04/21 Status: Ordered cefdinir 300 mg oral capsule (4 sources) Cephalosporin Antibacterial Start: 03-08-2024 take 1 capsule by mouth twice daily ergocalciferol 1.25 mg oral capsule (4 sources) Provitamin D2 Compound Start: 03-05-2024 3 ml insulin glargine 100 unt/ml pen injector (20 sources) Insulin Analog Start: 10-26-2022 Start: 04-19-2022 End: 10-16-2022 inject 1 dose by subcutaneous injection twice daily Lantus Solostar Pen 100 units/mL 3 mL Pen Dose : 24 unit(s) =, Subcutaneous, BID, rotate injection sites, # 15 mL, 1 Refill(s), Pharmacy: [facility]/pharmacy #[id number], 166, cm, 04/19/22 14:31:00 EST, Height, [...] months., # 3 mL, 3 Refill(s), Pharmacy: [facility]/pharmacy #[id number], 165, cm, 12/24/20 8:09:00 EST, Height, kg, 12/24/20 8:09:00 EST, Dosing Weight Start Date: 01/14/21 Status: Ordered Start: 12-05-2019 Lantus Solosta r Pen 100 units/mL 3 mL Pen See Instructions, 45 units qHS is give test strips 2 times a day. Please give enough Lantus and test strips for 3 months., # 3 mL, 3 Refill(s), Pharmacy: [facility]/pharmacy #[id number], 163, cm, 12/05/19 13:11:00 EDT, Height, [...] 2022 12:29pm lisinopril 20 mg oral tablet (20 sources) Angiotensin Converting Enzyme Inhibitor Start: 03-05-2024 take 1 tablet by mouth once daily Start: 03-05-2024 End: 03-06-2024 take 1 tablet by mouth once daily Lisinopril 5 mg tablet Discontinued 5 mg PO DAILY March 05, 2024 1:00am March 06, 2024 7:32am Start: 04-07-2019 End: 10-26-2022 take 1 tablet by mouth once daily Lisinopril 5 MG tablet Discontinued 5 mg PO DAILY April 07, 2019 1:00am October 26, 2022 12:29pm metFORMIN hydrochloride 500 mg oral tablet (14 sources) Biguanide Start: 11-24-2013 End: 08-13-2022 take 1 tablet by mouth twice daily at mealtime Mis Medication (2 sources) Start: 08-18-2021 Mis Medicatio n Lean Advantage, 0 Refill(s), 97.3 Start Date: 08/18/21 Status: Ordered Start: 08-18-2021 [facility] Radiant Woman, 0 Refill(s), 97.3 Start Date: 08/18/21 Status: Ordered needles 8 mm 5/16 inch (4 sources) Start: 01-14-2021 needles 8 mm 5 /16 inch See Instructions, Please refill her insulin needles. Please give her the same needle she had previously. Thank you # 2 boxes, # 2 EA, 12 Refill(s), Pharmacy: [facility]/pharmacy #[id number], Diabetes Hypertension, 165, cm, 12/24/20 8:09:00 EST, Height, 98.7,... Start Date: 01/14/21 Status: Ordered Start: 02-03-2020 needles 8 mm 5 /16 inch See Instructions, Please refill her insulin needles. Please give her the same needle she had previously. Thank you # 2 boxes, # 2 EA, 12 Refill(s), Pharmacy: [facility]/pharmacy #[id number], Diabetes Hypertension, 163, cm, 12/05/19 13:11:00 EDT, Height, 95.5,... Start Date: 02/03/20 Status: Ordered omeprazole 20 mg delayed release oral capsule (1 source) Proton Pump Inhibitor Start: 01-31-2022 omeprazole 20 mg oral delayed release capsule Dose : 20 mg = 1 cap(s), Oral, qDay, # 30 cap(s), 0 Refill(s), Pharmacy: [facility]/pharmacy #[id number], Acid reflux, 166, cm, 01/31/22 10:19:00 EST, Height Start Date: 01/31/22 Status: Ordered ondansetron 4 mg oral tablet (12 sources) Serotonin-3 Receptor Antagonist Start: 09-30-2021 End: [...] DAY, # 100 strip, 3 Refill(s), Pharmacy: [facility]ORE [id number], 163, cm, 12/05/19 13:11:00 EDT, Height, 95.5, kg, 12/05/19 13:11:00 EDT, Dosing Weight Start Date: 02/09/20 Status: Ordered Pen needles (1 source) Start: 12-29-2021 Pen needles Se e Instructions, Lantus solostar pen needles, BID for 3 month supply, # 1 EA, 11 Refill(s), [id number] 164, cm, 12/29/21 9:54:00 EST, Height, 92.1 Start Date: 12/29/21 Status: Ordered plecanatide 3 mg oral tablet (20 sources) Start: 02-25-2019 End: 10-26-2022 take 1 tablet by mouth once daily simvastatin 20 mg oral tablet (1 source) HMG-CoA Reductase Inhibitor Start: 08-18-2021 End: 10-17-2021 simvastatin 20 mg oral tablet Dose : 20 mg = 1 tab(s), Oral, qHS, # 60 tab(s), 0 Refill(s), [id number] 164, cm, 08/18/21 9:59:00 EDT, Height Start Date: 08/18/21 Stop Date: 10/17/21 Status: Ordered Completed/Discontinued Medications Medication Drug Class(es) Dates Sig (Normalized) Sig (Original) acetaminophen 325 mg / HYDROcodone bitartrate 5 mg oral tablet (11 sources) Opioid Agonist Start: 06-13-2019 End: 06-15-2019 [...] 2019 12:02am ciprofloxacin 500 mg oral tablet (11 sources) Quinolone Antimicrobial Start: 06-13-2019 End: 10-26-2022 take 1 tablet by mouth twice daily Ciprofloxacin Hcl 500 MG tablet Discontinued 500 mg PO TWICE A DAY 20 0 June 13, 2019 12:00am October 26, 2022 12:28pm metroNIDAZOLE 500 mg oral tablet (11 sources) Nitroimidazole Antimicrobial Start: 06-13-2019 End: 10-26-2022 take 1 tablet by mouth every six hours Metronidazole 500 MG tablet Discontinued 500 mg PO EVERY 6 HOURS June 13, 2019 12:00am October 26, 2022 12:29pm polymyxin b 36095 unt/ml / trimethoprim 1 mg/ml ophthalmic solution (10 sources) Dihydrofolate Reductase Inhibitor Antibacterial, Polymyxin-class Antibacterial Start: 10-26-2022 End: 11-02-2022 Polymyxin B Sulf-Trimethoprim (Polytrim) 10,000 unit- 1 mg/mL drops Discontinued 1 NMA OPHTHALMIC Q3H 10 7 0 October 26, 2022 12:00am November 01, 2022 12:00am November 02, 2022 12:04am while awake; do not exceed 6 doses in 24 hours sulfamethoxazole 800 mg / trimethoprim 160 mg oral tablet (4 sources) Dihydrofolate Reductase Inhibitor Antibacterial, Sulfonamide Antimicrobial Start: 07-19-2023 End: 03-05-2024 Sulfamethoxazole-T rimethoprim (Bactrim Ds) 800-160 mg tablet Discontinued 1 {tbl} PO TWICE A DAY 20 0 July 19, 2023 12:00am March 05, 2024 10:56pm Problems Active Problems Problem Classification Problem Date Documented Date Episodic/Chronic Administrative/social admission (6 sources) Patient encounter status; Translations: [Encounter for other administrative examinations] 06-18-2023 Episodic Bacterial infection; unspecified site (2 sources) Infection due to Enterobacteriaceae 07-21-2021 Episodic Diabetes mellitus with complications (6 sources) Microalbuminuria due to type 2 diabetes mellitus; Translations: [Hyperglycemia due to type 2 diabetes mellitus] Onset: 08-22-2021 Chronic Diabetes mellitus without complication (15 sources) Diabetes mellitus; Translations: [Type 2 diabetes mellitus without complications] 04-02-2019 Chronic Disorders of lipid metabolism (6 sources) Hyperlipidemia; Translations: [Mixed hyperlipidemia] 03-19-2020 Chronic E Codes: Fall (7 sources) Fall; Translations: [Unspecified fall, initial encounter] 06-16-2023 Episodic Genitourinary symptoms and ill-defined conditions (5 sources) Dysuria 11-28-2018 Episodic Inflammation; infection of eye (except that caused by tuberculosis or sexually transmitteddisease) (11 sources) Acute infectious conjunctivitis; Translations: [Unspecified acute conjunctivitis, unspecified eye] 10-26-2022 Episodic Nausea and vomiting (9 sources) Nausea; Translations: [Nausea] 12-07-2022 Episodic Other [...] Wheezing 07-19-2021 Episodic Other lower respiratory disease (13 sources) Dyspnea; Translations: [Dyspnea, unspecified] 08-18-2021 Episodic Other nutritional; endocrine; and metabolic disorders (9 sources) H/O: diabetes mellitus; Translations: [Personal history [...] of aorta 07-20-2021 Chronic Residual codes; unclassified (9 sources) Flushing; Translations: [Flushing] 12-07-2022 Episodic Spondylosis; intervertebral disc disorders; other back problems (1 source) Spasm of muscle of lower back 01-07-2022 Episodic Sprains and strains (7 sources) Sprain of right knee; Translations: [Sprain of unspecified site of right knee, initial encounter] 06-16-2023 Episodic Superficial injury; contusion (7 sources) Contusion of sacral region; Translations: [Contusion [...] Problem Date Documented Date Episodic/Chronic Abdominal pain (12 sources) Chronic abdominal pain; Translations: [Right lower quadrant pain] Onset: 03-14-2024 04-08-2019 Episodic Calculus of urinary tract (5 sources) Kidney stone; Translations: [Calculus of kidney] Onset: 03-08-2024 03-16-2024 Episodic Deficiency and other anemia (1 source) Anemia, unspecified; Translations: [Anemia, unspecified] Onset: 03-13-2024 Episodic Other diseases of kidney and ureters (5 sources) Hydronephrosis with renal and ureteral calculous obstruction; Translations: [Hydronephrosis with urinary obstruction due to renal calculus] Onset: 03-08-2024 03-16-2024 Episodic Unclassified (1 source) Low back pain, unspecified; Translations: [Low back pain, unspecified] Onset: 01-03-2022 Urinary tract infections (20 sources) Urinary tract infectious disease; Translations: [Urinary tract infection, site not specified] Onset: 03-08-2024 10-30-2020 Episodic Results Test Name Value Interpretation Reference Range Facility Anion gap in Serum or Plasma Ordered By: Yousif Murguia on 10-16-2024 Anion gap [Moles/Vol] 13 mmol/L 5-15 [facility] BUN/creatinine ratioOrdered By: Yousif Murguia on 10-16-2024 Urea nitrogen/Creatinine [Mass ratio] 20.7 mg/mg High 12-01 [facility] Basic Metabolic Profile (BMP )on 10-16-2024 BUN/CRE 20.7 RATIO High 12-01 [facility] Comment on above: Order Comment: Order Date: 10/16/24Order Info: 666-02 - BMPlab Performed By: #### L 500.2500 ####[facility] [id number] [place], [address] Calcium [Mass/Vol] 9.4 mg/dL Normal 7.6-11.0 [facility] Comment on above: Order Comment: Order Date: 10/16/24Order Info: 666- - BMPlab Performed By: #### L 500.2500 ####[facility] [id number] [place], [address] Chloride [Moles/Vol] 107 mmol/L Normal 98-108 [facility] Comment on above: Order Comment: Order Date: 10/16/24Order Info: 666-02 - BMPlab Performed By: #### L 500.2500 ####[facility] [id number] [place], [address] CO2 [Moles/Vol] 20.8 mmol/L Low 21.0-32.0 [facility] Comment on above: Order Comment: Order Date: 10/16/24Order Info: 666-02 - BMPlab Performed By: #### L 500.2500 ####[facility] [id number] [place], [address] Creatinine [Mass/Vol] 1.01 mg/dL Normal 0.70-1.20 [facility] Comment on above: Order Comment: Order Date: 10/16/24Order Info: 666- - BMPlab Performed By: #### L 500.2500 ####[facility] [id number] [place], [address] GAP 13 Normal 5-15 [facility] Comment on above: Order Comment: Order Date: 10/16/24Order Info: 666- - BMPlab Performed By: #### L 500.2500 ####[facility] [id number] [place], [address] GFR/1.73 sq M.predicted among non-blacks MDRD (S/P/Bld) [Vol rate/Area] 62 mL/min/{1.73_m2} Normal >60 [facility] Comment on above: Order Comment: Order Date: 10/16/24Order Info: 666-1 - BMPlab Result Comment: mL/m in/1.73m2 CKD-EPI Creatinine Equation (2020) Performed By: #### L 500.2500 ####[facility] [address] [place], [address] Glucose [Mass/Vol] 119 mg/dL High 70-99 [facility] Comment on above: Order Comment: Order Date: 10/16/24Order Info: 666- - BMPlab Performed By: #### L 500.2500 ####[facility] [address] [place], [address] Potassium [Moles/Vol] 4.1 mmol/L Normal 3.3-5.1 [facility] Comment on above: Order Comment: Order Date: 10/16/24Order Info: 666- - BMPlab Performed By: #### L 500.2500 ####[facility] [address] [place], [address] Sodium [Moles/Vol] 141 mmol/L Normal 133-145 [facility] Comment on above: Order Comment: Order Date: 10/16/24Order Info: 666- - BMPlab Performed By: #### L 500.2500 ####[facility] [address] [place], [address] Urea nitrogen [Mass/Vol] 21 mg/dL High 4-19 [facility] Comment on above: Order Comment: Order Date: 10/16/24Order Info: 666- - BMPlab Performed By: #### L 500.2500 ####[facility] [id number] [place], [address] Carbon dioxide, total [Moles /volume] in Central venous bloodOrdered By: Yousif Murguia on 10-16-2024 CO2 [Moles/Vol] 20.8 mmol/L Low 21.0-32.0 [facility] Chloride assayOrdered By: Corry Murguia on 10-16-2024 Chloride [Moles/Vol] 107 mmol/L 98-108 [facility] Glomerular filtration rate ( GFR) estimation/1.73 sq m using serum, plasma, or whole bOrdered By: Yousif Murguia on 10-16-2024 GFR/1.73 sq M.predicted among non-blacks MDRD (S/P/Bld) [Vol rate/Area] 62 mL/min/{1.73_m2} >60 [facility] Comment on above: mL/min/1.73m2 CKD-EP I Creatinine Equation (2020) Potassium measurement (mass/ volume)Ordered By: Yousif Murguia on 10-16-2024 Potassium (Unsp spec) [Mass/Vol] 4.1 mmol/L 3.3-5.1 [facility] Serum creatinine measurement (mass/volume)Ordered By: Yousif Murguia on 10-16-2024 Creatinine [Mass/Vol] 1.01 mg/dL 0.70-1.20 [facility] Serum glucose measurement (m ass/volume)Ordered By: Yousif Murguia on 10-16-2024 Glucose [Mass/Vol] 119 mg/dL High 70-99 [facility] Serum or plasma calcium romana urement (mass/volume)Ordered By: Yousif Murguia on 10-16-2024 Calcium [Mass/Vol] 9.4 mg/dL 7.6-11.0 [facility] Serum or plasma urea nitroge n measurement (mass/volume)Ordered By: Yousif Murguia on 10-16-2024 Urea nitrogen [Mass/Vol] 21 mg/dL High 4-19 [facility] Sodium levelOrdered By: Yousif Murguia on 10-16-2024 Sodium [Moles/Vol] 141 mmol/L 133-145 [facility] CBC W/Diff, Automatedon - Absolute Neut Normal 2.0-7.7 [facility] Comment on above: Order Comment: Order Date: 03/14/24Order Info: [id number] - CBCD Result Comment: @BRITTANI ARING SOME OLD ORDERS OUT THAT ARE DUPLICATES. THESE ARE @ ORDERED 08/27/24 AND 10/03/24 Performed By: #### L 100.0100, L500.2500 #### [facility] [address] [place], [address] HCT Normal 37-47 [facility] Comment on above: Order Comment: Order Date: 03/14/24Order Info: [id number] - CBCD Result Comment: @BRITTANI ARING SOME OLD ORDERS OUT THAT ARE DUPLICATES. THESE ARE @ ORDERED 08/27/24 AND 10/03/24 Performed By: #### L 100.0100, L500.2500 #### [facility] [address] [place], [address] HGB Normal 12.0-15.0 [facility] Comment on above: Order Comment: Order Date: 03/14/24Order Info: 183- - CBCD Result Comment: @BRITTANI ARING SOME OLD ORDERS OUT THAT ARE DUPLICATES. THESE ARE @ ORDERED 08/27/24 AND 10/03/24 Performed By: #### L 100.0100, L500.2500 #### [facility] [address] [place], [address] MCH Normal 27.0-32.0 [facility] Comment on above: Order Comment: Order Date: 03/14/24Order Info: [id number]- - CBCD Result Comment: @BRITTANI ARING SOME OLD ORDERS OUT THAT ARE DUPLICATES. THESE ARE @ ORDERED 08/27/24 AND 10/03/24 Performed By: #### L 100.0100, L500.2500 #### [facility] [address] [place], [address] MCHC Normal 32-36 [facility] Comment on above: Order Comment: Order Date: 03/14/24Order Info: [id number] - CBCD Result Comment: @BRITTANI ARING SOME OLD ORDERS OUT THAT ARE DUPLICATES. THESE ARE @ ORDERED 08/27/24 AND 10/03/24 Performed By: #### L 100.0100, L500.2500 #### [facility] [address] [place], [address] MCV Normal 81-99 [facility] Comment on above: Order Comment: Order Date: 03/14/24Order Info: [id number] - CBCD Result Comment: @BRITTANI ARING SOME OLD ORDERS OUT THAT ARE DUPLICATES. THESE ARE @ ORDERED 08/27/24 AND 10/03/24 Performed By: #### L 100.0100, L500.2500 #### [facility] [address] [place], [address] NEUT% Normal 47-70 [facility] Comment on above: Order Comment: Order Date: 03/14/24Order Info: [id number]- - CBCD Result Comment: @BRITTANI ARING SOME OLD ORDERS OUT THAT ARE DUPLICATES. THESE ARE @ ORDERED 08/27/24 AND 10/03/24 Performed By: #### L 100.0100, L500.2500 #### [facility] [address] [place], [address] PLT Normal 150-450 [facility] Comment on above: Order Comment: Order Date: 03/14/24Order Info: [id number] - CBCD Result Comment: @BRITTANI ARING SOME OLD ORDERS OUT THAT ARE DUPLICATES. THESE ARE @ ORDERED 08/27/24 AND 10/03/24 Performed By: #### L 100.0100, L500.2500 #### [facility] [address] [place], [address] RBC Normal 4.2-5.4 [facility] Comment on above: Order Comment: Order Date: 03/14/24Order Info: [id number] - CBCD Result Comment: @BRITTANI ARING SOME OLD ORDERS OUT THAT ARE DUPLICATES. THESE ARE @ ORDERED 08/27/24 AND 10/03/24 Performed By: #### L 100.0100, L500.2500 #### [facility] [address] [place], [address] RDW CV Normal 11.6-14.6 [facility] Comment on above: Order Comment: Order Date: 03/14/24Order Info: [id number] - CBCD Result Comment: @BRITTANI ARING SOME OLD ORDERS OUT THAT ARE DUPLICATES. THESE ARE @ ORDERED 08/27/24 AND 10/03/24 Performed By: #### L 100.0100, L500.2500 #### [facility] [address] [place], [address] RDW SD Normal 35.1-43.9 [facility] Comment on above: Order Comment: Order Date: 03/14/24Order Info: [id number] - CBCD Result Comment: @BRITTANI ARING SOME OLD ORDERS OUT THAT ARE DUPLICATES. THESE ARE @ ORDERED 08/27/24 AND 10/03/24 Performed By: #### L 100.0100, L500.2500 #### [facility] [address] [place], [address] WBC Normal 4.4-11.0 [facility] Comment on above: Order Comment: Order Date: 03/14/24Order Info: [id number] - CBCD Result Comment: @BRITTANI ARING SOME OLD ORDERS OUT THAT ARE DUPLICATES. THESE ARE @ ORDERED 08/27/24 AND 10/03/24 Performed By: #### L 100.0100, L500.2500 #### [facility] [address] [place], [address] Comprehensive Metabolic Prof ilon 10-04-2024 ALB Normal 3.4-4.8 [facility] Comment on above: Order Comment: Order Date: 03/14/24Order Info: [id number] - CMP Result Comment: @BRITTANI ARING SOME OLD ORDERS OUT THAT ARE DUPLICATES. THESE ARE @ ORDERED 08/27/24 AND 10/03/24 Performed By: #### L 100.0100, L500.2500 #### [facility] [address] [place], [address] ALK PHOS Normal 35-104 [facility] Comment on above: Order Comment: Order Date: 03/14/24Order Info: [id number] - CMP Result Comment: @BRITTANI ARING SOME OLD ORDERS OUT THAT ARE DUPLICATES. THESE ARE @ ORDERED 08/27/24 AND 10/03/24 Performed By: #### L 100.0100, L500.2500 #### [facility] [address] [place], [address] ALT Normal <=34 [facility] Comment on above: Order Comment: Order Date: 03/14/24Order Info: [id number] - CMP Result Comment: @BRITTANI ARING SOME OLD ORDERS OUT THAT ARE DUPLICATES. THESE ARE @ ORDERED 08/27/24 AND 10/03/24 Performed By: #### L 100.0100, L500.2500 #### [facility] [address] [place], [address] AST Normal <=31 [facility] Comment on above: Order Comment: Order Date: 03/14/24Order Info: [id number] - CMP Result Comment: @BRITTANI ARING SOME OLD ORDERS OUT THAT ARE DUPLICATES. THESE ARE @ ORDERED 08/27/24 AND 10/03/24 Performed By: #### L 100.0100, L500.2500 #### [facility] [address] [place], [address] BUN Normal 4-19 [facility] Comment on above: Order Comment: Order Date: 03/14/24Order Info: [id number] - CMP Result Comment: @BRITTANI ARING SOME OLD ORDERS OUT THAT ARE DUPLICATES. THESE ARE @ ORDERED 08/27/24 AND 10/03/24 Performed By: #### L 100.0100, L500.2500 #### [facility] [address] [place], [address] BUN/CRE Normal 10-20 [facility] Comment on above: Order Comment: Order Date: 03/14/24Order Info: [id number] - CMP Result Comment: @BRITTANI ARING SOME OLD ORDERS OUT THAT ARE DUPLICATES. THESE ARE @ ORDERED 08/27/24 AND 10/03/24 Performed By: #### L 100.0100, L500.2500 #### [facility] [address] [place], [address] Calcium Normal 7.6-11.0 [facility] Comment on above: Order Comment: Order Date: 03/14/24Order Info: [id number] - CMP Result Comment: @BRITTANI ARING SOME OLD ORDERS OUT THAT ARE DUPLICATES. THESE ARE @ ORDERED 08/27/24 AND 10/03/24 Performed By: #### L 100.0100, L500.2500 #### [facility] [address] [place], [place], [address] CL Normal 98-108 [facility] Comment on above: Order Comment: Order Date: 03/14/24Order Info: [id number] - CMP Result Comment: @BRITTANI ARING SOME OLD ORDERS OUT THAT ARE DUPLICATES. THESE ARE @ ORDERED 08/27/24 AND 10/03/24 Performed By: #### L 100.0100, L500.2500 #### [facility] [address] [place], [address] CO2 Normal 21.0-32.0 [facility] Comment on above: Order Comment: Order Date: 03/14/24Order Info: [id number] - CMP Result Comment: @BRITTANI ARING SOME OLD ORDERS OUT THAT ARE DUPLICATES. THESE ARE @ ORDERED 08/27/24 AND 10/03/24 Performed By: #### L 100.0100, L500.2500 #### [facility] [address] [place], [address] CREAT,SERUM Normal 0.70-1.20 [facility] Comment on above: Order Comment: Order Date: 03/14/24Order Info: [id number] - CMP Result Comment: @BRITTANI ARING SOME OLD ORDERS OUT THAT ARE DUPLICATES. THESE ARE @ ORDERED 08/27/24 AND 10/03/24 Performed By: #### L 100.0100, L500.2500 #### [facility] [address] [place], [address] eGFR Normal >60 [facility] Comment on above: Order Comment: Order Date: 03/14/24Order Info: [id number] - CMP Result Comment: @BRITTANI ARING SOME OLD ORDERS OUT THAT ARE DUPLICATES. THESE ARE @ ORDERED 08/27/24 AND 10/03/24 Performed By: #### L 100.0100, L500.2500 #### [facility] [address] [place], [address] GAP Normal 5-15 [facility] Comment on above: Order Comment: Order Date: 03/14/24Order Info: [id number] - CMP Result Comment: @BRITTANI ARING SOME OLD ORDERS OUT THAT ARE DUPLICATES. THESE ARE @ ORDERED 08/27/24 AND 10/03/24 Performed By: #### L 100.0100, L500.2500 #### [facility] [address] [place], [address] GLU Normal 70-99 [facility] Comment on above: Order Comment: Order Date: 03/14/24Order Info: [id number] - CMP Result Comment: @BRITTANI ARING SOME OLD ORDERS OUT THAT ARE DUPLICATES. THESE ARE @ ORDERED 08/27/24 AND 10/03/24 Performed By: #### L 100.0100, L500.2500 #### [facility] [address] [place], [address] Potassium Normal 3.3-5.1 [facility] Comment on above: Order Comment: Order Date: 03/14/24Order Info: [id number] - CMP Result Comment: @BRITTANI ARING SOME OLD ORDERS OUT THAT ARE DUPLICATES. THESE ARE @ ORDERED 08/27/24 AND 10/03/24 Performed By: #### L 100.0100, L500.2500 #### [facility] [address] [place], [address] T BILI Normal 0.00-1.30 [facility] Comment on above: Order Comment: Order Date: 03/14/24Order Info: [id number] - CMP Result Comment: @BRITTANI ARING SOME OLD ORDERS OUT THAT ARE DUPLICATES. THESE ARE @ ORDERED 08/27/24 AND 10/03/24 Performed By: #### L 100.0100, L500.2500 #### [facility] [address] [place], [address] T PROT Normal 5.9-8.4 [facility] Comment on above: Order Comment: Order Date: 03/14/24Order Info: [id number] - CMP Result Comment: @BRITTANI ARING SOME OLD ORDERS OUT THAT ARE DUPLICATES. THESE ARE @ ORDERED 08/27/24 AND 10/03/24 Performed By: #### L 100.0100, L500.2500 #### [facility] [address] [place], [address] Comprehensive Metabolic Profil Normal 133-145 [facility] Comment on above: Order Comment: Order Date: 03/14/24Order Info: [id number] - CMP Result Comment: @BRITTANI ARING SOME OLD ORDERS OUT THAT ARE DUPLICATES. THESE ARE @ ORDERED 08/27/24 AND 10/03/24 Performed By: #### L 100.0100, L500.2500 #### [facility] [address] [place], [address] Microalb:Creat Ratio,Random URon 10-04-2024 MALB:CREAT Normal <30 mg/g [facility] Comment on above: Order Comment: Order Date: 10/18/23Order Info: [id number] - MIACRE Result Comment: EXPI RED Performed By: #### L 100.0100, L500.2500 #### [facility] [address] [place], [address] MICROALBUMIN,UR Normal <20 mg/L [facility] Comment on above: Order Comment: Order Date: 10/18/23Order Info: [id number] - MIACRE Result Comment: EXPI RED Performed By: #### L 100.0100, L500.2500 #### [facility] [address] [place], [address] UR CREAT Normal 28.00-217.00 [facility] Comment on above: Order Comment: Order Date: 10/18/23Order Info: [id number] - MIACRE Result Comment: EXPI RED Performed By: #### L 100.0100, L500.2500 #### [facility] [address] [place], [place], [id number] MALB:CREAT 29.3 mg/g CRE Normal <30 mg/g CRE [facility] Comment on above: Performed By: #### L 502.0250 ####[facility] [address] [place], [place], [id number] MICROALBUMIN,UR 13.2 mg/L Normal <20 mg/L [facility] Comment on above: Performed By: #### L 502.0250 ####[facility] [address] [place], [place], [id number] Random urine creatinine romana urement (mass/volume)Ordered By: Yousif Murguia on 10-04-2024 Creatinine Unsp time (U) [Mass/Vol] 45.10 mg/dL 28.00-217.00 [facility] Urine albumin measurement wi detection limit of 20 mg/L or less (mass/volume)Ordered By: Yousif Murguia on 10-04-2024 Albumin DL <= 20 mg/L (U) [Mass/Vol] 13.2 mg/L <20 mg/L [facility] Absolute lymphocyte countOrd ered By: Yousif Murguia on 10-03-2024 Lymphocytes Auto (Unsp spec) [#/Vol] 2.42 10*3/uL 0.83-4.51 [facility] Absolute neutrophil countOrd ered By: Yousif Murguia on 10-03-2024 Neutrophils (Bld) [#/Vol] 4.6 10*3/uL 2.0-7.7 [facility] Anion gap in Serum or Plasma Ordered By: Yousif Murguia on 10-03-2024 Anion gap [Moles/Vol] 14 mmol/L 5-15 [facility] Automated lymphocyte count a s percentage of total leukocytesOrdered By: Yousif Murguia on 10-03-2024 Lymphocytes/100 WBC Auto (Unsp spec) 31.5 % 19-41 [facility] BUN/creatinine ratioOrdered By: Yousif Bolivarzane on 10-03-2024 Urea nitrogen/Creatinine [Mass ratio] 21.0 mg/mg High 10- [facility] Basophil percentageOrdered B y: Yousif Bolivarzane on 10-03-2024 Basophils/100 WBC (Bld) 0.3 % 0-1 [facility] Bilirubin, totalOrdered By: Yousif Murguia on 10-03-2024 Bilirubin [Mass/Vol] 0.25 mg/dL 0.00-1.30 [facility] CBC W/Diff, Automatedon 09-13 Absolute Lymph 2.42 X10 3/uL Normal 0.83-4.51 [facility] Comment on above: Order Comment: Order Date: 10/03/24Order Info: [id number] - CBCD Performed By: #### L 100.0100, L500.2500 #### [facility] [address] [place], [address] Absolute Neut 4.6 X10 3/uL Normal 2.0-7.7 [facility] Comment on above: Order Comment: Order Date: 10/03/24Order Info: [id number] - CBCD Performed By: #### L 100.0100, L500.2500 #### [facility] [address] [place], [address] Basophils/100 WBC (Bld) 0.3 % Normal 0-1 [facility] Comment on above: Order Comment: Order Date: 10/03/24Order Info: [id number] - CBCD Performed By: #### L 100.0100, L500.2500 #### [facility] [address] [place], [address] Eosinophils/100 WBC (Bld) 3.3 % Normal 0-5 [facility] Comment on above: Order Comment: Order Date: 10/03/24Order Info: [id number] - CBCD Performed By: #### L 100.0100, L500.2500 #### [facility] [address] [place], [address] Erythrocyte distribution width (RBC) [Ratio] 12.5 % Normal 11.6-14.6 [facility] Comment on above: Order Comment: Order Date: 10/03/24Order Info: [id number] - CBCD Performed By: #### L 100.0100, L500.2500 #### [facility] [address] [place], [address] Hematocrit (Bld) [Volume fraction] 36.6 % Low 37-47 [facility] Comment on above: Order Comment: Order Date: 10/03/24Order Info: 018- - CBCD Performed By: #### L 100.0100, L500.2500 #### [facility] [address] [place], [address] Hemoglobin (Bld) [Mass/Vol] 11.9 g/dL Low 12.0-15.0 [facility] Comment on above: Order Comment: Order Date: 10/03/24Order Info: 018- - CBCD Performed By: #### L 100.0100, L500.2500 #### [facility] [address] [place], [address] IG% 0.400 Normal 0.0-0.9 [facility] Comment on above: Order Comment: Order Date: 10/03/24Order Info: [id number]- - CBCD Result Comment: IG% - Immature Granulocytes (promyelocytes, myelocytes and metamyelocytes) > 1% indicates that a LEFT SHIFT is Present. Performed By: #### L 100.0100, L500.2500 #### [facility] [address] [place], [address] Lymphocytes/100 WBC (Bld) 31.5 % Normal 19-41 [facility] Comment on above: Order Comment: Order Date: 10/03/24Order Info: [id number] - CBCD Performed By: #### L 100.0100, L500.2500 #### [facility] [address] [place], [address] MCH (RBC) [Entitic mass] 27.4 pg Normal 27.0-32.0 [facility] Comment on above: Order Comment: Order Date: 10/03/24Order Info: [id number] - CBCD Performed By: #### L 100.0100, L500.2500 #### [facility] [address] [place], [address] MCHC (RBC) [Mass/Vol] 32.5 g/dL Normal 32-36 [facility] Comment on above: Order Comment: Order Date: 10/03/24Order Info: 4- - CBCD Performed By: #### L 100.0100, L500.2500 #### [facility] [address] [place], [address] MCV (RBC) [Entitic vol] 84.3 fL Normal 81-99 [facility] Comment on above: Order Comment: Order Date: 10/03/24Order Info: [id number]- - CBCD Performed By: #### L 100.0100, L500.2500 #### [facility] [address] [place], [address] Monocytes/100 WBC (Bld) 5.1 % Normal 0-10 [facility] Comment on above: Order Comment: Order Date: 10/03/24Order Info: [id number] - CBCD Performed By: #### L 100.0100, L500.2500 #### [facility] [address] [place], [address] Neutrophils/100 WBC (Bld) 59.4 % Normal 47-70 [facility] Comment on above: Order Comment: Order Date: 10/03/24Order Info: [id number] - CBCD Performed By: #### L 100.0100, L500.2500 #### [facility] [address] [place], [address] Nucleated RBC (Bld) [#/Vol] 0 10*3/uL Normal 0-5 [facility] Comment on above: Order Comment: Order Date: 10/03/24Order Info: [id number] - CBCD Performed By: #### L 100.0100, L500.2500 #### [facility] [address] [place], [address] Platelet mean volume (Bld) [Entitic vol] 10.6 fL Normal 6.2-12.0 [facility] Comment on above: Order Comment: Order Date: 10/03/24Order Info: 018- - CBCD Performed By: #### L 100.0100, L500.2500 #### [facility] [address] [place], [address] Platelets (Bld) [#/Vol] 200 10*3/uL Normal 150-450 [facility] Comment on above: Order Comment: Order Date: 10/03/24Order Info: 018- - CBCD Performed By: #### L 100.0100, L500.2500 #### [facility] [address] [place], [address] RBC (Bld) [#/Vol] 4.34 10*6/uL Normal 4.2-5.4 [facility] Comment on above: Order Comment: Order Date: 10/03/24Order Info: 018- - CBCD Performed By: #### L 100.0100, L500.2500 #### [facility] [address] [place], [address] RDW SD 37.9 fl Normal 35.1-43.9 [facility] Comment on above: Order Comment: Order Date: 10/03/24Order Info: 018- - CBCD Performed By: #### L 100.0100, L500.2500 #### [facility] [address] [place], [address] WBC (Bld) [#/Vol] 7.7 10*3/uL Normal 4.4-11.0 [facility] Comment on above: Order Comment: Order Date: 10/03/24Order Info: [id number] - CBCD Performed By: #### L 100.0100, L500.2500 #### [facility] [address] [place], [address] Calculated very low density lipoprotein (VLDL) cholesterol measurementOrdered By: Yousif Murguia on 10-03-2024 Calculated very low density lipoprotein (VLDL) cholesterol measurement 28 mg/dL 5-40 [facility] Carbon dioxide, total [Moles /volume] in Central venous bloodOrdered By: Yousif Murguia on 10-03-2024 CO2 [Moles/Vol] 23.2 mmol/L 21.0-32.0 [facility] Chloride assayOrdered By: Corry Murguia on 10-03-2024 Chloride [Moles/Vol] 103 mmol/L 98-108 [facility] Comprehensive Metabolic Prof ilon 10-03-2024 Albumin [Mass/Vol] 4.4 g/dL Normal 3.4-4.8 [facility] Comment on above: Order Comment: Order Date: 10/03/24Order Info: [id number] - CMPOrder Info: [id number] - LIPID Performed By: #### L 100.0100, L500.2500 #### [facility] [address] [place], [address] Albumin/Globulin [Mass ratio] 1.4 {ratio} Normal 0.9-2.4 [facility] Comment on above: Order Comment: Order Date: 10/03/24Order Info: [id number] - CMPOrder Info: [id number] - LIPID Performed By: #### L 100.0100, L500.2500 #### [facility] [address] [place], [address] ALK PHOS 137 U/L High 35-104 [facility] Comment on above: Order Comment: Order Date: 10/03/24Order Info: [id number] - CMPOrder Info: [id number] - LIPID Performed By: #### L 100.0100, L500.2500 #### [facility] [address] [place], [address] ALT [Catalytic activity/Vol] 9 U/L Normal <=34 [facility] Comment on above: Order Comment: Order Date: 10/03/24Order Info: 785- - CMPOrder Info: - LIPID Performed By: #### L 100.0100, L500.2500 #### [facility] [address] [place], [address] AST [Catalytic activity/Vol] 17 U/L Normal <=31 [facility] Comment on above: Order Comment: Order Date: 10/03/24Order Info: [id number] - CMPOrder Info: - LIPID Performed By: #### L 100.0100, L500.2500 #### [facility] [address] [place], [address] Bilirubin [Mass/Vol] 0.25 mg/dL Normal 0.00-1.30 [facility] Comment on above: Order Comment: Order Date: 10/03/24Order Info: [id number] - CMPOrder Info: - LIPID Performed By: #### L 100.0100, L500.2500 #### [facility] [address] [place], [address] BUN/CRE 21.0 RATIO High 10-20 [facility] Comment on above: Order Comment: Order Date: 10/03/24Order Info: 07- - CMPOrder Info: [id number] - LIPID Performed By: #### L 100.0100, L500.2500 #### [facility] [address] [place], [address] Calcium [Mass/Vol] 9.7 mg/dL Normal 7.6-11.0 [facility] Comment on above: Order Comment: Order Date: 10/03/24Order Info: [id number] - CMPOrder Info: [id number] - LIPID Performed By: #### L 100.0100, L500.2500 #### [facility] [address] [place], [address] Chloride [Moles/Vol] 103 mmol/L Normal 98-108 [facility] Comment on above: Order Comment: Order Date: 10/03/24Order Info: 86-1 - CMPOrder Info: [id number] - LIPID Performed By: #### L 100.0100, L500.2500 #### [facility] [address] [place], [address] CO2 [Moles/Vol] 23.2 mmol/L Normal 21.0-32.0 [facility] Comment on above: Order Comment: Order Date: 10/03/24Order Info: 785- - CMPOrder Info: - LIPID Performed By: #### L 100.0100, L500.2500 #### [facility] [address] [place], [address] Creatinine [Mass/Vol] 0.87 mg/dL Normal 0.70-1.20 [facility] Comment on above: Order Comment: Order Date: 10/03/24Order Info: 07- - CMPOrder Info: [id number] - LIPID Performed By: #### L 100.0100, L500.2500 #### [facility] [address] [place], [address] GAP 14 Normal 5-15 [facility] Comment on above: Order Comment: Order Date: 10/03/24Order Info: 07-1 - CMPOrder Info: [id number] - LIPID Performed By: #### L 100.0100, L500.2500 #### [facility] [address] [place], [address] GFR/1.73 sq M.predicted among non-blacks MDRD (S/P/Bld) [Vol rate/Area] 74 mL/min/{1.73_m2} Normal >60 [facility] Comment on above: Order Comment: Order Date: 10/03/24Order Info: [id number] - CMPOrder Info: [id number] - LIPID Result Comment: mL/m in/1.73m2 CKD-EPI Creatinine Equation (2020) Performed By: #### L 100.0100, L500.2500 #### [facility] [address] [place], [address] Globulin (S) [Mass/Vol] 3.2 g/dL Normal 2.2-4.2 [facility] Comment on above: Order Comment: Order Date: 10/03/24Order Info: 07-1 - CMPOrder Info: [id number] - LIPID Performed By: #### L 100.0100, L500.2500 #### [facility] [address] [place], [address] Glucose [Mass/Vol] 92 mg/dL Normal 70-99 [facility] Comment on above: Order Comment: Order Date: 10/03/24Order Info: 0786- - CMPOrder Info: [id number] - LIPID Performed By: #### L 100.0100, L500.2500 #### [facility] [address] [place], [address] Potassium [Moles/Vol] 4.1 mmol/L Normal 3.3-5.1 [facility] Comment on above: Order Comment: Order Date: 10/03/24Order Info: [id number] - CMPOrder Info: [id number] - LIPID Performed By: #### L 100.0100, L500.2500 #### [facility] [address] [place], [address] Sodium [Moles/Vol] 140 mmol/L Normal 133-145 [facility] Comment on above: Order Comment: Order Date: 10/03/24Order Info: [id number] - CMPOrder Info: [id number] - LIPID Performed By: #### L 100.0100, L500.2500 #### [facility] [address] [place], [address] T PROT 7.6 g/dL Normal 5.9-8.4 [facility] Comment on above: Order Comment: Order Date: 10/03/24Order Info: [id number] - CMPOrder Info: [id number] - LIPID Performed By: #### L 100.0100, L500.2500 #### [facility] [address] [place], [address] Urea nitrogen [Mass/Vol] 18 mg/dL Normal 4-19 [facility] Comment on above: Order Comment: Order Date: 10/03/24Order Info: [id number] - CMPOrder Info: [id number] - LIPID Performed By: #### L 100.0100, L500.2500 #### [facility] [address] [place], [address] Eosinophil percentageOrdered By: Yousif Murguia on 10-03-2024 Eosinophils/100 WBC (Bld) 3.3 % 0-5 [facility] Erythrocyte distribution wid th ratioOrdered By: Yousif Murguia on 10-03-2024 Erythrocyte distribution width (RBC) [Ratio] 12.5 % 11.6-14.6 [facility] Erythrocyte distribution wid th standard deviationOrdered By: Yousif Murguia on 10-03-2024 Erythrocyte distribution width (RBC) [Ratio] 37.9 fl 35.1-43.9 [facility] Glomerular filtration rate ( GFR) estimation/1.73 sq m using serum, plasma, or whole bOrdered By: Yousif Murguia on 10-03-2024 GFR/1.73 sq M.predicted among non-blacks MDRD (S/P/Bld) [Vol rate/Area] 74 mL/min/{1.73_m2} >60 [facility] Comment on above: mL/min/1.73m2 CKD-EP I Creatinine Equation (2020) Hematocrit Auto (Bld) [Volum e fraction]Ordered By: Yousif Murguia on 10-03-2024 Hematocrit (Bld) [Volume fraction] 36.6 % Low 37-47 [facility] Hemoglobin A1con 10-03-2024 HbA1c (Bld) [Mass fraction] 7.0 % High <=5.6 [facility] Comment on above: Order Comment: Order Date: 10/03/24Order Info: [id number] - A1C Result Comment: Norm al < 5.7 % Prediabetic 5.7 - 6.4 % Diabetic >or= 6.5 % Please note range changes. Performed By: #### L 100.0100, L500.2500 #### [facility] [address] [place], [address] Hemoglobin A1c percentageOrd ered By: Yousif Murguia on 10-03-2024 HbA1c (Bld) [Mass fraction] 7.0 % High <5.7 [facility] Comment on above: Normal < 5.7 % Predi abetic 5.7 - 6.4 % Diabetic >or= 6.5 % Please note range changes. Hemoglobin measurementOrdere d By: Yousif Murguia on 10-03-2024 Hemoglobin (Bld) [Mass/Vol] 11.9 g/dL Low 12.0-15.0 [facility] Immature granulocytes/100 WB C Auto (Bld)Ordered By: Yousif Murguia on 10-03-2024 Immature granulocytes/100 WBC (Bld) 0.400 % 0.0-0.9 [facility] Comment on above: IG% - Immature Granu locytes (promyelocytes, myelocytes and metamyelocytes) > 1% indicates that a LEFT SHIFT is Present. LDL calc ser/plasOrdered By: Yousif Murguia on 10-03-2024 Cholesterol in LDL [Mass/Vol] 167 mg/dL [facility] Comment on above: Tgaejiuwcm=380-234 m g/dL & Higher Nmro=620 mg/dL or greaterFriedwald Equation for LDL-C Laboratory - Chemistry and C hemistry - challengeOrdered By: Yousif Murguia on 10-03-2024 AST [Catalytic activity/Vol] 17 U/L <32 [facility] Lipid Profileon 10-03-2024 CHOL:HDL 3.95 Normal [facility] Comment on above: Order Comment: Order Date: 10/03/24Order Info: [id number] - CMPOrder Info: [id number] - LIPID Performed By: #### L 100.0100, L500.2500 #### [facility] [address] [place], [address] Cholesterol [Mass/Vol] 261 mg/dL High <=200 [facility] Comment on above: Order Comment: Order Date: 10/03/24Order Info: [id number] - CMPOrder Info: [id number] - LIPID Result Comment: Chol esterol level, Desirable <200 mg/dL Borderline high cholesterol 200-239 mg/dL High cholesterol >=240 mg/dL Recommendations of the NCEP Adult Treatment Panel for the following risk-cutoff thresholds for the [place] population. Performed By: #### L 100.0100, L500.2500 #### [facility] [address] [place], [address] Cholesterol in HDL [Mass/Vol] 66 mg/dL Normal [facility] Comment on above: Order Comment: Order Date: 10/03/24Order Info: 07 - CMPOrder Info: [id number] - LIPID Result Comment: Yamileth onal Cholesterol Education Program (NCEP) guidelines: <40 mg/dL: Low HDL-cholesterol (major risk factor for CHD) >= 60 mg/dL: High HDL-cholesterol (negative risk factor for CHD) HDL-cholesterol is affected by a number of factors, e.g. smoking, exercise, hormones, sex and age. Performed By: #### L 100.0100, L500.2500 #### [facility] [address] [place], [address] Cholesterol in LDL [Mass/Vol] 167 mg/dL Normal [facility] Comment on above: Order Comment: Order Date: 10/03/24Order Info: 07-1 - CMPOrder Info: [id number] - LIPID Result Comment: Bord imvzzu=968-895 mg/dL Higher Gzzr=890 mg/dL or greater Friedwald Equation for LDL-C Performed By: #### L 100.0100, L500.2500 #### [facility] [address] [place], [address] Cholesterol in VLDL [Mass/Vol] 28 mg/dL Normal 5-40 [facility] Comment on above: Order Comment: Order Date: 10/03/24Order Info: [id number] - CMPOrder Info: [id number] - LIPID Performed By: #### L 100.0100, L500.2500 #### [facility] [address] [place], [address] Triglyceride [Mass/Vol] 141 mg/dL Normal [facility] Comment on above: Order Comment: Order Date: 10/03/24Order Info: [id number] - CMPOrder Info: [id number] - LIPID Result Comment: The drugs N-Acetylcysteine and Metamizole may falsely depress this assay. Normal range: <150 mg/dL Borderline High: 150-199 mg/dL High: 200-499 mg/dL Very High: >500 mg/dL Performed By: #### L 100.0100, L500.2500 #### [facility] [address] [place], [address] MCV (mean corpuscular volume ) determinationOrdered By: Yousif Murguia on 10-03-2024 MCV (RBC) [Entitic vol] 84.3 fL 81-99 [facility] Mean corpuscular hemoglobin (MCH) determinationOrdered By: Yousif Murguia on 10-03-2024 MCH (RBC) [Entitic mass] 27.4 pg 27.0-32.0 [facility] Mean corpuscular hemoglobin concentration (MCHC) determinationOrdered By: Yousif Murguia on 10-03-2024 MCHC (RBC) [Mass/Vol] 32.5 g/dL 32-36 [facility] Mean platelet volume determi nationOrdered By: Yousif Murguia on 10-03-2024 Platelet mean volume (Bld) [Entitic vol] 10.6 fL 6.2-12.0 [facility] Monocyte percentageOrdered B y: Yousif Murguia on 10-03-2024 Monocytes/100 WBC (Bld) 5.1 % 0-10 [facility] Neutrophil percentageOrdered By: Yousif Murguia on 10-03-2024 Neutrophils/100 WBC (Bld) 59.4 % 47-70 [facility] Nucleated red blood cell per centageOrdered By: Yousif Murguia on 10-03-2024 Nucleated RBC/100 WBC (Bld) [Ratio] 0 % 0-5 [facility] Platelet countOrdered By: Corry Murguia on 10-03-2024 Platelets (Bld) [#/Vol] 200 10*3/uL 150-450 [facility] Potassium measurement (mass/ volume)Ordered By: Yousif Murguia on 10-03-2024 Potassium (Unsp spec) [Mass/Vol] 4.1 mmol/L 3.3-5.1 [facility] RBC Auto (Bld) [#/Vol]Ordere d By: Yousif Murguia on 10-03-2024 RBC (Bld) [#/Vol] 4.34 10*6/uL 4.2-5.4 [facility] Screening total cholesterol/ high density lipoprotein (HDL) cholesterol ratioOrdered By: Yousif Murguia on 10-03-2024 Cholesterol.total/Essence sterol in HDL [Mass ratio] 3.95 {ratio} [facility] Serum creatinine measurement (mass/volume)Ordered By: Yousif Murguia on 10-03-2024 Creatinine [Mass/Vol] 0.87 mg/dL 0.70-1.20 [facility] Serum globulin measurementOr dered By: Yousif Murguia on 10-03-2024 Globulin (S) [Mass/Vol] 3.2 g/dL 2.2-4.2 [facility] Serum glucose measurement (m ass/volume)Ordered By: Yousif Murguia on 10-03-2024 Glucose [Mass/Vol] 92 mg/dL 70-99 [facility] Serum or plasma alanine ochoa otransferase (ALT) measurementOrdered By: Yousif Murguia on 10-03-2024 ALT [Catalytic activity/Vol] 9 U/L <35 [facility] Serum or plasma albumin romana urement (mass/volume)Ordered By: Yousif Murguia on 10-03-2024 Albumin [Mass/Vol] 4.4 g/dL 3.4-4.8 [facility] Serum or plasma albumin/glob ulin mass ratioOrdered By: Yousif Murguia on 10-03-2024 Albumin/Globulin [Mass ratio] 1.4 {ratio} 0.9-2.4 [facility] Serum or plasma alkaline jocelyn sphatase measurementOrdered By: Yousif Murguia on 10-03-2024 ALP [Catalytic activity/Vol] 137 U/L High 35-104 [facility] Serum or plasma calcium romana urement (mass/volume)Ordered By: Yousif Murguia on 10-03-2024 Calcium [Mass/Vol] 9.7 mg/dL 7.6-11.0 [facility] Serum or plasma cholesterol in HDL measurement (mass/volume)Ordered By: Yousif Murguia on 10-03-2024 Cholesterol in HDL [Mass/Vol] 66 mg/dL >40 [facility] Comment on above: National Cholesterol Education Program (NCEP) guidelines:<40 mg/dL: Low HDL-cholesterol (major risk factor for CHD)>= 60 mg/dL: High HDL-cholesterol (negative risk factor for CHD)HDL-cholesterol is affected by a number of factors, e.g. smoking, exercise, hormones, sex and age. Serum or plasma cholesterol measurement (mass/volume)Ordered By: Yousif Murguia on 10-03-2024 Cholesterol [Mass/Vol] 261 mg/dL High <201 [facility] Comment on above: Cholesterol level, D esirable <200 mg/dLBorderline high cholesterol 200-239 mg/dLHigh cholesterol >=240 mg/dLRecommendations of the NCEP Adult Treatment Panel for the following risk-cutoff thresholds for the [place] population. Serum or plasma urea nitroge n measurement (mass/volume)Ordered By: Yousif Murguia on 10-03-2024 Urea nitrogen [Mass/Vol] 18 mg/dL 4-19 [facility] Sodium levelOrdered By: Yousif Murguia on 10-03-2024 Sodium [Moles/Vol] 140 mmol/L 133-145 [facility] Total proteinOrdered By: Ken Murguia on 10-03-2024 Protein [Mass/Vol] 7.6 g/dL 5.9-8.4 [facility] Triglycerides measurementOrd ered By: Yousif Murguia on 10-03-2024 Triglyceride [Mass/Vol] 141 mg/dL <199 [facility] Comment on above: The drugs N-Acetylcy steine and Metamizole may falsely depress this assay. Normal range: <150 mg/dLBorderline High: 150-199 mg/dLHigh: 200-499 mg/dLVery High: >500 mg/dL White blood cell (WBC) count Ordered By: Yousif Murguia on 10-03-2024 WBC (Bld) [#/Vol] 7.7 10*3/uL 4.4-11.0 [facility] Bone density reportOrdered B y: Sreedhar Ryan on 09-26-2024 Study report Skeletal system DXA [facility] Imaging Services [address] [facility] [address] [place], [place] [address] Dexa Bone Density Study MR#: [id number] Acct: [id number] Name: MONSERRAT CORNEJO I Rep #: [id number] : 1960 F 63 From: Jevon Ryan MD PCP: Dr. Yousif Murguia MD Status: RE G CLI Study:Dexa Bone Density Study Date of Exam: 09/25/24 Exam# [id number] Ordering Dr: Yousif Murguia MD PROCEDURE: DEXA [...] Recommend follow-up as clinically warranted. Reading Location: [place] [address] CC: Dr. Yousif Murguia MD ~ Airport Location Manager: Signed [facility] Breast imaging reportOrdered By: Sreedhar Ryan on 09-25-2024 Study report [facility] Imaging Services [address] [place] [address] SCRN MAMM (CAD)W/JOSEP BILAT MR#: [id number] Acct: [id number] Name: MONSERRAT CORNEJO I Rep #: [id number] : 1960 F 63 From: Jevon Ryan MD PCP: Dr. Yousif Murguia MD Status: RE G CLI Study:SCRN MAMM (CAD)W/JOSEP BILAT Date of Exa m: 09/25/24 Exam# [id number] Ordering Dr: Yousif Murguia MD EXAM: SCRN [...] be mailed to the patient. Reading Location: [facility] CC: Dr. Yousif Murguia MD ~ Airport Location Manager: Signed [facility] Dexa Bone Density Studyon Dexa Bone Density Study [facility] Imaging Services [address] [place] [address] Dexa Bone Density Study MR#: [id number] Acct: [id number] Name: MONSERRAT CORNEJO I Rep #: [id number] : 1960 F 63 From: Sreedhar rm MD PCP: Dr. Yousif Murguia MD Status: [facility] Study: Dexa Bone Density Study Date of Exam: 09/25/24 Exam# [id number] Ordering Dr: Yousif Murguia MD ADDENDUM by Dr. Sreedhar Ryan MD on 10/06/24 at 1400 Addendum report for FRAX score 10 year fracture risk: Major osteoporotic fracture: 11% Hip fracture: 1.7% Reading Location: [facility] 10/06/24 1401 Date cc: Dr. Yousif Murguia MD * Signed PROCEDURE: DEXA BONE DENSITY STUDY 09/25/2024 REASON [...] Recommend follow-up as clinically warranted. Reading Location: [place] [address] CC: Dr. Yousif Murguia MD Airport Location Manager: Signed Normal [facility] SCRN MAMM (CAD)W/JOSEP BILATo n 09-25-2024 SCRN MAMM (CAD)W/JOSEP BILAT [facility] Imaging Services [address] [place] [phone] SCRN MAMM (CAD)W/JOSEP BILAT MR#: [id number] Acct: [id number] Name: MONSERRAT CORNEJO I Rep #: [id number] : 1960 F 63 From: Sreedhar rm MD PCP: Dr. Yousif Murguia MD Status: [facility] Study: SCRN MAMM (CAD)W/JOSEP BILAT Date of Exam: 09/12 06/06 Exam# [id number] Ordering Dr: Yousif Murguia MD EXAM: SCRN [...] be mailed to the patient. Reading Location: [facility] CC: Dr. Yousif Murguia MD Airport Location Manager: Signed Normal [facility] Basic Metabolic Profile (BMP )on 03-14-2024 BUN Normal 7-18 [facility] Comment on above: Result Comment: Canc elled via OM: Order cancelled - Patient discharged Performed By: #### L 500.4050, L501.9985, L506.1000, L500.4100, L100.0100 #### [facility] [address] [place], [address] BUN/CRE Normal 10-20 [facility] Comment on above: Result Comment: Canc elled via OM: Order cancelled - Patient discharged Performed By: #### L 500.4050, L501.9985, L506.1000, L500.4100, L100.0100 #### [facility] [address] [place], [address] CA,Total Normal 8.5-10.1 [facility] Comment on above: Result Comment: Canc elled via OM: Order cancelled - Patient discharged Performed By: #### L 500.4050, L501.9985, L506.1000, L500.4100, L100.0100 #### [facility] [address] [place], [address] CL Normal 98-107 [facility] Comment on above: Result Comment: Canc elled via OM: Order cancelled - Patient discharged Performed By: #### L 500.4050, L501.9985, L506.1000, L500.4100, L100.0100 #### [facility] [address] [place], [address] CO2 Normal 21.0-32.0 [facility] Comment on above: Result Comment: Canc elled via OM: Order cancelled - Patient discharged Performed By: #### L 500.4050, L501.9985, L506.1000, L500.4100, L100.0100 #### [facility] [address] [place], [address] CREAT,SERUM Normal 0.55-1.02 [facility] Comment on above: Result Comment: Canc elled via OM: Order cancelled - Patient discharged Performed By: #### L 500.4050, L501.9985, L506.1000, L500.4100, L100.0100 #### [facility] [address] [place], [address] EST GFR Normal >60 [facility] Comment on above: Result Comment: Canc elled via OM: Order cancelled - Patient discharged Performed By: #### L 500.4050, L501.9985, L506.1000, L500.4100, L100.0100 #### [facility] [address] [place], [address] EST GFR - AA Normal >60 [facility] Comment on above: Result Comment: Canc elled via OM: Order cancelled - Patient discharged Performed By: #### L 500.4050, L501.9985, L506.1000, L500.4100, L100.0100 #### [facility] [address] [place], [address] GAP Normal 5-15 [facility] Comment on above: Result Comment: Canc elled via OM: Order cancelled - Patient discharged Performed By: #### L 500.4050, L501.9985, L506.1000, L500.4100, L100.0100 #### [facility] [address] [place], [address] GLU Normal 74-106 [facility] Comment on above: Result Comment: Canc elled via OM: Order cancelled - Patient discharged Performed By: #### L 500.4050, L501.9985, L506.1000, L500.4100, L100.0100 #### [facility] [address] [place], [address] Potassium Normal 3.5-5.1 [facility] Comment on above: Result Comment: Canc elled via OM: Order cancelled - Patient discharged Performed By: #### L 500.4050, L501.9985, L506.1000, L500.4100, L100.0100 #### [facility] [address] [place], [address] Basic Metabolic Profile (BMP) Normal 136-145 [facility] Comment on above: Result Comment: Canc elled via OM: Order cancelled - Patient discharged Performed By: #### L 500.4050, L501.9985, L506.1000, L500.4100, L100.0100 #### [facility] [address] [place], [address] CBC W/Diff, Automatedon 01-3 Absolute Neut Normal 2.0-7.7 [facility] Comment on above: Result Comment: Canc elled via OM: Order cancelled - Patient discharged Performed By: #### L 500.4050, L501.9985, L506.1000, L500.4100, L100.0100 #### [facility] [address] [place], [address] HCT Normal 37-47 [facility] Comment on above: Result Comment: Canc elled via OM: Order cancelled - Patient discharged Performed By: #### L 500.4050, L501.9985, L506.1000, L500.4100, L100.0100 #### [facility] [address] [place], [address] HGB Normal 12.0-15.0 [facility] Comment on above: Result Comment: Canc elled via OM: Order cancelled - Patient discharged Performed By: #### L 500.4050, L501.9985, L506.1000, L500.4100, L100.0100 #### [facility] [address] [place], [address] MCH Normal 27.0-32.0 [facility] Comment on above: Result Comment: Canc elled via OM: Order cancelled - Patient discharged Performed By: #### L 500.4050, L501.9985, L506.1000, L500.4100, L100.0100 #### [facility] [address] [place], [address] MCHC Normal 32-36 [facility] Comment on above: Result Comment: Canc elled via OM: Order cancelled - Patient discharged Performed By: #### L 500.4050, L501.9985, L506.1000, L500.4100, L100.0100 #### [facility] [address] [place], [address] MCV Normal 81-99 [facility] Comment on above: Result Comment: Canc elled via OM: Order cancelled - Patient discharged Performed By: #### L 500.4050, L501.9985, L506.1000, L500.4100, L100.0100 #### [facility] [address] [place], [address] NEUT% Normal 47-70 [facility] Comment on above: Result Comment: Canc elled via OM: Order cancelled - Patient discharged Performed By: #### L 500.4050, L501.9985, L506.1000, L500.4100, L100.0100 #### [facility] [address] [place], [address] PLT Normal 150-450 [facility] Comment on above: Result Comment: Canc elled via OM: Order cancelled - Patient discharged Performed By: #### L 500.4050, L501.9985, L506.1000, L500.4100, L100.0100 #### [facility] [address] [place], [address] RBC Normal 4.2-5.4 [facility] Comment on above: Result Comment: Canc elled via OM: Order cancelled - Patient discharged Performed By: #### L 500.4050, L501.9985, L506.1000, L500.4100, L100.0100 #### [facility] [address] [place], [address] RDW CV Normal 11.6-14.6 [facility] Comment on above: Result Comment: Canc elled via OM: Order cancelled - Patient discharged Performed By: #### L 500.4050, L501.9985, L506.1000, L500.4100, L100.0100 #### [facility] [address] [place], [address] RDW SD Normal 35.1-43.9 [facility] Comment on above: Result Comment: Canc elled via OM: Order cancelled - Patient discharged Performed By: #### L 500.4050, L501.9985, L506.1000, L500.4100, L100.0100 #### [facility] [address] [place], [address] WBC Normal 4.4-11.0 [facility] Comment on above: Result Comment: Canc elled via OM: Order cancelled - Patient discharged Performed By: #### L 500.4050, L501.9985, L506.1000, L500.4100, L100.0100 #### [facility] [address] [place], [address] Basic Metabolic Profile (BMP )on 03-13-2024 BUN Normal 7-18 [facility] Comment on above: Result Comment: Canc elled via OM: Order cancelled - Patient discharged Performed By: #### L 100.0100, L500.2500 #### [facility] [address] [place], [address] BUN/CRE Normal 10-20 [facility] Comment on above: Result Comment: Canc elled via OM: Order cancelled - Patient discharged Performed By: #### L 100.0100, L500.2500 #### [facility] [address] [place], [address] CA,Total Normal 8.5-10.1 [facility] Comment on above: Result Comment: Canc elled via OM: Order cancelled - Patient discharged Performed By: #### L 100.0100, L500.2500 #### [facility] [address] [place], [address] CL Normal 98-107 [facility] Comment on above: Result Comment: Canc elled via OM: Order cancelled - Patient discharged Performed By: #### L 100.0100, L500.2500 #### [facility] [address] [place], [address] CO2 Normal 21.0-32.0 [facility] Comment on above: Result Comment: Canc elled via OM: Order cancelled - Patient discharged Performed By: #### L 100.0100, L500.2500 #### [facility] [address] [place], [address] CREAT,SERUM Normal 0.55-1.02 [facility] Comment on above: Result Comment: Canc elled via OM: Order cancelled - Patient discharged Performed By: #### L 100.0100, L500.2500 #### [facility] [address] [place], [address] EST GFR Normal >60 [facility] Comment on above: Result Comment: Canc elled via OM: Order cancelled - Patient discharged Performed By: #### L 100.0100, L500.2500 #### [facility] [address] [place], [address] EST GFR - AA Normal >60 [facility] Comment on above: Result Comment: Canc elled via OM: Order cancelled - Patient discharged Performed By: #### L 100.0100, L500.2500 #### [facility] [address] [place], [address] GAP Normal 5-15 [facility] Comment on above: Result Comment: Canc elled via OM: Order cancelled - Patient discharged Performed By: #### L 100.0100, L500.2500 #### [facility] [address] [place], [address] GLU Normal 74-106 [facility] Comment on above: Result Comment: Canc elled via OM: Order cancelled - Patient discharged Performed By: #### L 100.0100, L500.2500 #### [facility] [address] [place], [address] Potassium Normal 3.5-5.1 [facility] Comment on above: Result Comment: Canc elled via OM: Order cancelled - Patient discharged Performed By: #### L 100.0100, L500.2500 #### [facility] [address] [place], [address] Basic Metabolic Profile (BMP) Normal 136-145 [facility] Comment on above: Result Comment: Canc elled via OM: Order cancelled - Patient discharged Performed By: #### L 100.0100, L500.2500 #### [facility] [address] [place], [address] CBC W/Diff, Automatedon 01-3 0-2024 Absolute Neut Normal 2.0-7.7 [facility] Comment on above: Result Comment: Canc elled via OM: Order cancelled - Patient discharged Performed By: #### L 100.0100, L500.2500 #### [facility] [address] [place], [address] HCT Normal 37-47 [facility] Comment on above: Result Comment: Canc elled via OM: Order cancelled - Patient discharged Performed By: #### L 100.0100, L500.2500 #### [facility] [address] [place], [address] HGB Normal 12.0-15.0 [facility] Comment on above: Result Comment: Canc elled via OM: Order cancelled - Patient discharged Performed By: #### L 100.0100, L500.2500 #### [facility] [address] [place], [address] MCH Normal 27.0-32.0 [facility] Comment on above: Result Comment: Canc elled via OM: Order cancelled - Patient discharged Performed By: #### L 100.0100, L500.2500 #### [facility] [address] [place], [address] MCHC Normal 32-36 [facility] Comment on above: Result Comment: Canc elled via OM: Order cancelled - Patient discharged Performed By: #### L 100.0100, L500.2500 #### [facility] [address] [place], [address] MCV Normal 81-99 [facility] Comment on above: Result Comment: Canc elled via OM: Order cancelled - Patient discharged Performed By: #### L 100.0100, L500.2500 #### [facility] [address] [place], [address] NEUT% Normal 47-70 [facility] Comment on above: Result Comment: Canc elled via OM: Order cancelled - Patient discharged Performed By: #### L 100.0100, L500.2500 #### [facility] [address] [place], [address] PLT Normal 150-450 [facility] Comment on above: Result Comment: Canc elled via OM: Order cancelled - Patient discharged Performed By: #### L 100.0100, L500.2500 #### [facility] [address] [place], [address] RBC Normal 4.2-5.4 [facility] Comment on above: Result Comment: Canc elled via OM: Order cancelled - Patient discharged Performed By: #### L 100.0100, L500.2500 #### [facility] [address] [place], [address] RDW CV Normal 11.6-14.6 [facility] Comment on above: Result Comment: Canc elled via OM: Order cancelled - Patient discharged Performed By: #### L 100.0100, L500.2500 #### [facility] [address] [place], [address] RDW SD Normal 35.1-43.9 [facility] Comment on above: Result Comment: Canc elled via OM: Order cancelled - Patient discharged Performed By: #### L 100.0100, L500.2500 #### [facility] [address] [place], [address] WBC Normal 4.4-11.0 [facility] Comment on above: Result Comment: Canc elled via OM: Order cancelled - Patient discharged Performed By: #### L 100.0100, L500.2500 #### [facility] [address] [place], [address] Basic Metabolic Profile (BMP )on 03-12-2024 BUN Normal 7-18 [facility] Comment on above: Result Comment: Canc elled via OM: Order cancelled - Patient discharged Performed By: #### L 100.0100, L500.2500 #### [facility] [address] [place], [address] BUN/CRE Normal 10-20 [facility] Comment on above: Result Comment: Canc elled via OM: Order cancelled - Patient discharged Performed By: #### L 100.0100, L500.2500 #### [facility] [address] [place], [address] CA,Total Normal 8.5-10.1 [facility] Comment on above: Result Comment: Canc elled via OM: Order cancelled - Patient discharged Performed By: #### L 100.0100, L500.2500 #### [facility] [address] [place], [address] CL Normal 98-107 [facility] Comment on above: Result Comment: Canc elled via OM: Order cancelled - Patient discharged Performed By: #### L 100.0100, L500.2500 #### [facility] [address] [place], [address] CO2 Normal 21.0-32.0 [facility] Comment on above: Result Comment: Canc elled via OM: Order cancelled - Patient discharged Performed By: #### L 100.0100, L500.2500 #### [facility] [address] [place], [address] CREAT,SERUM Normal 0.55-1.02 [facility] Comment on above: Result Comment: Canc elled via OM: Order cancelled - Patient discharged Performed By: #### L 100.0100, L500.2500 #### [facility] [address] [place], [address] EST GFR Normal >60 [facility] Comment on above: Result Comment: Canc elled via OM: Order cancelled - Patient discharged Performed By: #### L 100.0100, L500.2500 #### [facility] [address] [place], [address] EST GFR - AA Normal >60 [facility] Comment on above: Result Comment: Canc elled via OM: Order cancelled - Patient discharged Performed By: #### L 100.0100, L500.2500 #### [facility] [address] [place], [address] GAP Normal 5-15 [facility] Comment on above: Result Comment: Canc elled via OM: Order cancelled - Patient discharged Performed By: #### L 100.0100, L500.2500 #### [facility] [address] [place], [address] GLU Normal 74-106 [facility] Comment on above: Result Comment: Canc elled via OM: Order cancelled - Patient discharged Performed By: #### L 100.0100, L500.2500 #### [facility] [address] [place], [address] Potassium Normal 3.5-5.1 [facility] Comment on above: Result Comment: Canc elled via OM: Order cancelled - Patient discharged Performed By: #### L 100.0100, L500.2500 #### [facility] [address] [place], [address] Basic Metabolic Profile (BMP) Normal 136-145 [facility] Comment on above: Result Comment: Canc elled via OM: Order cancelled - Patient discharged Performed By: #### L 100.0100, L500.2500 #### [facility] [address] [place], [address] CBC W/Diff, Automatedon 01-2 Absolute Neut Normal 2.0-7.7 [facility] Comment on above: Result Comment: Canc elled via OM: Order cancelled - Patient discharged Performed By: #### L 100.0100, L500.2500 #### [facility] [address] [place], [address] HCT Normal 37-47 [facility] Comment on above: Result Comment: Canc elled via OM: Order cancelled - Patient discharged Performed By: #### L 100.0100, L500.2500 #### [facility] [address] [place], [address] HGB Normal 12.0-15.0 [facility] Comment on above: Result Comment: Canc elled via OM: Order cancelled - Patient discharged Performed By: #### L 100.0100, L500.2500 #### [facility] [address] [place], [address] MCH Normal 27.0-32.0 [facility] Comment on above: Result Comment: Canc elled via OM: Order cancelled - Patient discharged Performed By: #### L 100.0100, L500.2500 #### [facility] [address] [place], [address] MCHC Normal 32-36 [facility] Comment on above: Result Comment: Canc elled via OM: Order cancelled - Patient discharged Performed By: #### L 100.0100, L500.2500 #### [facility] [address] [place], [place], [address] MCV Normal 81-99 [facility] Comment on above: Result Comment: Canc elled via OM: Order cancelled - Patient discharged Performed By: #### L 100.0100, L500.2500 #### [facility] [address] [place], [address] NEUT% Normal 47-70 [facility] Comment on above: Result Comment: Canc elled via OM: Order cancelled - Patient discharged Performed By: #### L 100.0100, L500.2500 #### [facility] [address] [place], [address] PLT Normal 150-450 [facility] Comment on above: Result Comment: Canc elled via OM: Order cancelled - Patient discharged Performed By: #### L 100.0100, L500.2500 #### [facility] [address] [place], [address] RBC Normal 4.2-5.4 [facility] Comment on above: Result Comment: Canc elled via OM: Order cancelled - Patient discharged Performed By: #### L 100.0100, L500.2500 #### [facility] [address] [place], [address] RDW CV Normal 11.6-14.6 [facility] Comment on above: Result Comment: Canc elled via OM: Order cancelled - Patient discharged Performed By: #### L 100.0100, L500.2500 #### [facility] [address] [place], [address] RDW SD Normal 35.1-43.9 [facility] Comment on above: Result Comment: Canc elled via OM: Order cancelled - Patient discharged Performed By: #### L 100.0100, L500.2500 #### [facility] [address] [place], [address] WBC Normal 4.4-11.0 [facility] Comment on above: Result Comment: Canc elled via OM: Order cancelled - Patient discharged Performed By: #### L 100.0100, L500.2500 #### [facility] [address] [place], [address] Basic Metabolic Profile (BMP )on 03-11-2024 BUN Normal 7-18 [facility] Comment on above: Result Comment: Canc elled via OM: Order cancelled - Patient discharged Performed By: #### L 500.2500, L100.0100 ####[facility] [address] [place], [address] BUN/CRE Normal 10-20 [facility] Comment on above: Result Comment: Canc elled via OM: Order cancelled - Patient discharged Performed By: #### L 500.2500, L100.0100 ####[facility] [address] [place], [address] CA,Total Normal 8.5-10.1 [facility] Comment on above: Result Comment: Canc elled via OM: Order cancelled - Patient discharged Performed By: #### L 500.2500, L100.0100 ####[facility] [address] [place], [address] CL Normal 98-107 [facility] Comment on above: Result Comment: Canc elled via OM: Order cancelled - Patient discharged Performed By: #### L 500.2500, L100.0100 ####[facility] [address] [place], [address] CO2 Normal 21.0-32.0 [facility] Comment on above: Result Comment: Canc elled via OM: Order cancelled - Patient discharged Performed By: #### L 500.2500, L100.0100 ####[facility] [address] [place], [address] CREAT,SERUM Normal 0.55-1.02 [facility] Comment on above: Result Comment: Canc elled via OM: Order cancelled - Patient discharged Performed By: #### L 500.2500, L100.0100 ####[facility] [address] [place], [address] EST GFR Normal >60 [facility] Comment on above: Result Comment: Canc elled via OM: Order cancelled - Patient discharged Performed By: #### L 500.2500, L100.0100 ####[facility] [address] [place], [address] EST GFR - AA Normal >60 [facility] Comment on above: Result Comment: Canc elled via OM: Order cancelled - Patient discharged Performed By: #### L 500.2500, L100.0100 ####[facility] [address] [place], [address] GAP Normal 5-15 [facility] Comment on above: Result Comment: Canc elled via OM: Order cancelled - Patient discharged Performed By: #### L 500.2500, L100.0100 ####[facility] [address] [place], [address] GLU Normal 74-106 [facility] Comment on above: Result Comment: Canc elled via OM: Order cancelled - Patient discharged Performed By: #### L 500.2500, L100.0100 ####[facility] [address] [place], [address] Potassium Normal 3.5-5.1 [facility] Comment on above: Result Comment: Canc elled via OM: Order cancelled - Patient discharged Performed By: #### L 500.2500, L100.0100 ####[facility] [address] [place], [address] Basic Metabolic Profile (BMP) Normal 136-145 [facility] Comment on above: Result Comment: Canc elled via OM: Order cancelled - Patient discharged Performed By: #### L 500.2500, L100.0100 ####[facility] [address] [place], [address] CBC W/Diff, Automatedon -2 Absolute Neut Normal 2.0-7.7 [facility] Comment on above: Result Comment: Canc elled via OM: Order cancelled - Patient discharged Performed By: #### L 500.2500, L100.0100 ####[facility] [address] [place], [address] HCT Normal 37-47 [facility] Comment on above: Result Comment: Canc elled via OM: Order cancelled - Patient discharged Performed By: #### L 500.2500, L100.0100 ####[facility] [address] [place], [address] HGB Normal 12.0-15.0 [facility] Comment on above: Result Comment: Canc elled via OM: Order cancelled - Patient discharged Performed By: #### L 500.2500, L100.0100 ####[facility] [address] [place], [address] MCH Normal 27.0-32.0 [facility] Comment on above: Result Comment: Canc elled via OM: Order cancelled - Patient discharged Performed By: #### L 500.2500, L100.0100 ####[facility] [address] [place], [address] MCHC Normal 32-36 [facility] Comment on above: Result Comment: Canc elled via OM: Order cancelled - Patient discharged Performed By: #### L 500.2500, L100.0100 ####[facility] [address] [place], [address] MCV Normal 81-99 [facility] Comment on above: Result Comment: Canc elled via OM: Order cancelled - Patient discharged Performed By: #### L 500.2500, L100.0100 ####[facility] [address] [place], [address] NEUT% Normal 47-70 [facility] Comment on above: Result Comment: Canc elled via OM: Order cancelled - Patient discharged Performed By: #### L 500.2500, L100.0100 ####[facility] [address] [place], [address] PLT Normal 150-450 [facility] Comment on above: Result Comment: Canc elled via OM: Order cancelled - Patient discharged Performed By: #### L 500.2500, L100.0100 ####[facility] [address] [place], [address] RBC Normal 4.2-5.4 [facility] Comment on above: Result Comment: Canc elled via OM: Order cancelled - Patient discharged Performed By: #### L 500.2500, L100.0100 ####[facility] [address] [place], [address] RDW CV Normal 11.6-14.6 [facility] Comment on above: Result Comment: Canc elled via OM: Order cancelled - Patient discharged Performed By: #### L 500.2500, L100.0100 ####[facility] [address] [place], [address] RDW SD Normal 35.1-43.9 [facility] Comment on above: Result Comment: Canc elled via OM: Order cancelled - Patient discharged Performed By: #### L 500.2500, L100.0100 ####[facility] [address] [place], [address] WBC Normal 4.4-11.0 [facility] Comment on above: Result Comment: Canc elled via OM: Order cancelled - Patient discharged Performed By: #### L 500.2500, L100.0100 ####[facility] [address] [place], [address] Basic Metabolic Profile (BMP )on 03-10-2024 BUN Normal 7-18 [facility] Comment on above: Result Comment: Canc elled via OM: Order cancelled - Patient discharged Performed By: #### L 500.4050, L501.9985, L506.1000, L500.4100, L100.0100 #### [facility] [address] [place], [address] BUN/CRE Normal 10-20 [facility] Comment on above: Result Comment: Canc elled via OM: Order cancelled - Patient discharged Performed By: #### L 500.4050, L501.9985, L506.1000, L500.4100, L100.0100 #### [facility] [address] [place], [address] CA,Total Normal 8.5-10.1 [facility] Comment on above: Result Comment: Canc elled via OM: Order cancelled - Patient discharged Performed By: #### L 500.4050, L501.9985, L506.1000, L500.4100, L100.0100 #### [facility] [address] [place], [address] CL Normal 98-107 [facility] Comment on above: Result Comment: Canc elled via OM: Order cancelled - Patient discharged Performed By: #### L 500.4050, L501.9985, L506.1000, L500.4100, L100.0100 #### [facility] [address] [place], [address] CO2 Normal 21.0-32.0 [facility] Comment on above: Result Comment: Canc elled via OM: Order cancelled - Patient discharged Performed By: #### L 500.4050, L501.9985, L506.1000, L500.4100, L100.0100 #### [facility] [address] [place], [address] CREAT,SERUM Normal 0.55-1.02 [facility] Comment on above: Result Comment: Canc elled via OM: Order cancelled - Patient discharged Performed By: #### L 500.4050, L501.9985, L506.1000, L500.4100, L100.0100 #### [facility] [address] [place], [address] EST GFR Normal >60 [facility] Comment on above: Result Comment: Canc elled via OM: Order cancelled - Patient discharged Performed By: #### L 500.4050, L501.9985, L506.1000, L500.4100, L100.0100 #### [facility] [address] [place], [address] EST GFR - AA Normal >60 [facility] Comment on above: Result Comment: Canc elled via OM: Order cancelled - Patient discharged Performed By: #### L 500.4050, L501.9985, L506.1000, L500.4100, L100.0100 #### [facility] [address] [place], [address] GAP Normal 5-15 [facility] Comment on above: Result Comment: Canc elled via OM: Order cancelled - Patient discharged Performed By: #### L 500.4050, L501.9985, L506.1000, L500.4100, L100.0100 #### [facility] [address] [place], [address] GLU Normal 74-106 [facility] Comment on above: Result Comment: Canc elled via OM: Order cancelled - Patient discharged Performed By: #### L 500.4050, L501.9985, L506.1000, L500.4100, L100.0100 #### [facility] [address] [place], [address] Potassium Normal 3.5-5.1 [facility] Comment on above: Result Comment: Canc elled via OM: Order cancelled - Patient discharged Performed By: #### L 500.4050, L501.9985, L506.1000, L500.4100, L100.0100 #### [facility] [address] [place], [address] Basic Metabolic Profile (BMP) Normal 136-145 [facility] Comment on above: Result Comment: Canc elled via OM: Order cancelled - Patient discharged Performed By: #### L 500.4050, L501.9985, L506.1000, L500.4100, L100.0100 #### [facility] [address] [place], [address] CBC W/Diff, Automatedon - Absolute Neut Normal 2.0-7.7 [facility] Comment on above: Result Comment: Canc elled via OM: Order cancelled - Patient discharged Performed By: #### L 500.4050, L501.9985, L506.1000, L500.4100, L100.0100 #### [facility] [address] [place], [address] HCT Normal 37-47 [facility] Comment on above: Result Comment: Canc elled via OM: Order cancelled - Patient discharged Performed By: #### L 500.4050, L501.9985, L506.1000, L500.4100, L100.0100 #### [facility] [address] [place], [address] HGB Normal 12.0-15.0 [facility] Comment on above: Result Comment: Canc elled via OM: Order cancelled - Patient discharged Performed By: #### L 500.4050, L501.9985, L506.1000, L500.4100, L100.0100 #### [facility] [address] [place], [address] MCH Normal 27.0-32.0 [facility] Comment on above: Result Comment: Canc elled via OM: Order cancelled - Patient discharged Performed By: #### L 500.4050, L501.9985, L506.1000, L500.4100, L100.0100 #### [facility] [address] [place], [address] MCHC Normal 32-36 [facility] Comment on above: Result Comment: Canc elled via OM: Order cancelled - Patient discharged Performed By: #### L 500.4050, L501.9985, L506.1000, L500.4100, L100.0100 #### [facility] [address] [place], [address] MCV Normal 81-99 [facility] Comment on above: Result Comment: Canc elled via OM: Order cancelled - Patient discharged Performed By: #### L 500.4050, L501.9985, L506.1000, L500.4100, L100.0100 #### [facility] [address] [place], [address] NEUT% Normal 47-70 [facility] Comment on above: Result Comment: Canc elled via OM: Order cancelled - Patient discharged Performed By: #### L 500.4050, L501.9985, L506.1000, L500.4100, L100.0100 #### [facility] [address] [place], [address] PLT Normal 150-450 [facility] Comment on above: Result Comment: Canc elled via OM: Order cancelled - Patient discharged Performed By: #### L 500.4050, L501.9985, L506.1000, L500.4100, L100.0100 #### [facility] [address] [place], [address] RBC Normal 4.2-5.4 [facility] Comment on above: Result Comment: Canc elled via OM: Order cancelled - Patient discharged Performed By: #### L 500.4050, L501.9985, L506.1000, L500.4100, L100.0100 #### [facility] [address] [place], [address] RDW CV Normal 11.6-14.6 [facility] Comment on above: Result Comment: Canc elled via OM: Order cancelled - Patient discharged Performed By: #### L 500.4050, L501.9985, L506.1000, L500.4100, L100.0100 #### [facility] [address] [place], [address] RDW SD Normal 35.1-43.9 [facility] Comment on above: Result Comment: Canc elled via OM: Order cancelled - Patient discharged Performed By: #### L 500.4050, L501.9985, L506.1000, L500.4100, L100.0100 #### [facility] [address] [place], [address] WBC Normal 4.4-11.0 [facility] Comment on above: Result Comment: Canc elled via OM: Order cancelled - Patient discharged Performed By: #### L 500.4050, L501.9985, L506.1000, L500.4100, L100.0100 #### [facility] [address] [place], [address] Basic Metabolic Profile (BMP )on 03-09-2024 BUN Normal 7-18 [facility] Comment on above: Result Comment: WESLEY ENT DISCHARGED 03/08/24 Performed By: #### L 100.0100, L500.2500 #### [facility] [address] [place], [address] BUN/CRE Normal 10-20 [facility] Comment on above: Result Comment: WESLEY ENT DISCHARGED 03/08/24 Performed By: #### L 100.0100, L500.2500 #### [facility] [address] [place], [address] CA,Total Normal 8.5-10.1 [facility] Comment on above: Result Comment: WESLEY ENT DISCHARGED 03/08/24 Performed By: #### L 100.0100, L500.2500 #### [facility] [address] [place], [address] CL Normal 98-107 [facility] Comment on above: Result Comment: WESLEY ENT DISCHARGED 03/08/24 Performed By: #### L 100.0100, L500.2500 #### [facility] [address] [place], [address] CO2 Normal 21.0-32.0 [facility] Comment on above: Result Comment: WESLEY ENT DISCHARGED 03/08/24 Performed By: #### L 100.0100, L500.2500 #### [facility] [address] [place], [address] CREAT,SERUM Normal 0.55-1.02 [facility] Comment on above: Result Comment: WESLEY ENT DISCHARGED 03/08/24 Performed By: #### L 100.0100, L500.2500 #### [facility] [address] [place], [address] EST GFR Normal >60 [facility] Comment on above: Result Comment: WESLEY ENT DISCHARGED 03/08/24 Performed By: #### L 100.0100, L500.2500 #### [facility] [address] [place], [address] EST GFR - AA Normal >60 [facility] Comment on above: Result Comment: WESLEY ENT DISCHARGED 03/08/24 Performed By: #### L 100.0100, L500.2500 #### [facility] [address] [place], [address] GAP Normal 5-15 [facility] Comment on above: Result Comment: WESLEY ENT DISCHARGED 03/08/24 Performed By: #### L 100.0100, L500.2500 #### [facility] [address] [place], [address] GLU Normal 74-106 [facility] Comment on above: Result Comment: WESLEY ENT DISCHARGED 03/08/24 Performed By: #### L 100.0100, L500.2500 #### [facility] [address] [place], [address] Potassium Normal 3.5-5.1 [facility] Comment on above: Result Comment: WESLEY ENT DISCHARGED 03/08/24 Performed By: #### L 100.0100, L500.2500 #### [facility] [address] [place], [address] Basic Metabolic Profile (BMP) Normal 136-145 [facility] Comment on above: Result Comment: WESLEY ENT DISCHARGED 03/08/24 Performed By: #### L 100.0100, L500.2500 #### [facility] [address] [place], [address] CBC W/Diff, Automatedon 01-2 Absolute Neut Normal 2.0-7.7 [facility] Comment on above: Result Comment: WESLEY ENT DISCHARGED ON 03/08/24 Performed By: #### L 100.0100, L500.2500 #### [facility] [address] [place], [address] HCT Normal 37-47 [facility] Comment on above: Result Comment: WESLEY ENT DISCHARGED ON 03/08/24 Performed By: #### L 100.0100, L500.2500 #### [facility] [address] [place], [address] HGB Normal 12.0-15.0 [facility] Comment on above: Result Comment: WESLEY ENT DISCHARGED ON 03/08/24 Performed By: #### L 100.0100, L500.2500 #### [facility] [address] [place], [address] MCH Normal 27.0-32.0 [facility] Comment on above: Result Comment: WESLEY ENT DISCHARGED ON 03/08/24 Performed By: #### L 100.0100, L500.2500 #### [facility] [address] [place], [address] MCHC Normal 32-36 [facility] Comment on above: Result Comment: WESLEY ENT DISCHARGED ON 03/08/24 Performed By: #### L 100.0100, L500.2500 #### [facility] [address] [place], [address] MCV Normal 81-99 [facility] Comment on above: Result Comment: WESLEY ENT DISCHARGED ON 03/08/24 Performed By: #### L 100.0100, L500.2500 #### [facility] [address] [place], [address] NEUT% Normal 47-70 [facility] Comment on above: Result Comment: WESLEY ENT DISCHARGED ON 03/08/24 Performed By: #### L 100.0100, L500.2500 #### [facility] [address] [place], [address] PLT Normal 150-450 [facility] Comment on above: Result Comment: WESLEY ENT DISCHARGED ON 03/08/24 Performed By: #### L 100.0100, L500.2500 #### [facility] [address] [place], [address] RBC Normal 4.2-5.4 [facility] Comment on above: Result Comment: WESLEY ENT DISCHARGED ON 03/08/24 Performed By: #### L 100.0100, L500.2500 #### [facility] [address] [place], [address] RDW CV Normal 11.6-14.6 [facility] Comment on above: Result Comment: WESLEY ENT DISCHARGED ON 03/08/24 Performed By: #### L 100.0100, L500.2500 #### [facility] [address] [place], [address] RDW SD Normal 35.1-43.9 [facility] Comment on above: Result Comment: WESLEY ENT DISCHARGED ON 03/08/24 Performed By: #### L 100.0100, L500.2500 #### [facility] [address] [place], [address] WBC Normal 4.4-11.0 [facility] Comment on above: Result Comment: WESLEY ENT DISCHARGED ON 03/08/24 Performed By: #### L 100.0100, L500.2500 #### [facility] [address] [place], [address] 12 Lead EKGon 03-08-2024 12 Lead EKG [facility] [address] [place] [address] 12 Lead EKG 03/08/24 1140 MR#: [id number] Acct: [id number] Name: MONSERRAT CORNEJO I Rep #: [id number] : 1960 63 From: Shaista Carlton MD Attending Dr: Dr. Dalton Carpenter MD Status: DIS IN Ordering Dr: Dalton Carpenter MD Date: 03/08/24 Location: [facility] Sex: F C Admitted: 03/05/24 Test Reason [...] IS UNCONFIRMED Confirmed by WENDY CAZARES, DANDY ([id number]), technical writer and editor LULA CLEMENTE ([id number]) on 03/10/2024 1:57:56 PM Referred By: JAZMÍN Confirmed By: DANDY CARLTON MD 03/10/24 1357 Date Shaista Carlton MD CC: Dr. Yousif Murguia MD; Dr. Dalton Carpenter MD Signed Normal [facility] Basic Metabolic Profile (BMP )on 03-08-2024 BUN/CRE 20.0 RATIO Normal 10-20 [facility] Comment on above: Performed By: #### L 100.0100, L500.2500 ####[facility] [address] [place], [address] CA,Total 9.2 mg/dL Normal 8.5-10.1 [facility] Comment on above: Performed By: #### L 100.0100, L500.2500 ####[facility] [address] [place], [address] Chloride [Moles/Vol] 107 mmol/L Normal 98-107 [facility] Comment on above: Performed By: #### L 100.0100, L500.2500 ####[facility] [address] [place], [address] CO2 [Moles/Vol] 26.0 mmol/L Normal 21.0-32.0 [facility] Comment on above: Performed By: #### L 100.0100, L500.2500 ####[facility] [address] [place], [address] Creatinine [Mass/Vol] 1.00 mg/dL Normal 0.55-1.02 [facility] Comment on above: Result Comment: The validity of the calculated GFR GFRAA in patients over 70 years has not been determined. Clinical correlation is essential. Performed By: #### L 100.0100, L500.2500 ####[facility] [address] [place], [address] ECRCL 61.18 ml/min Normal [facility] Comment on above: Performed By: #### L 100.0100, L500.2500 ####[facility] [address] [place], [address] EST GFR - AA 72 mL/min Normal >60 [facility] Comment on above: Result Comment: Afri can Congolese GFR Calc Performed By: #### L 100.0100, L500.2500 ####[facility] [address] [place], [address] GAP 6 Normal 5-15 [facility] Comment on above: Performed By: #### L 100.0100, L500.2500 ####[facility] [address] [place], [address] GFR/1.73 sq M.predicted among non-blacks MDRD (S/P/Bld) [Vol rate/Area] 59 mL/min/{1.73_m2} Low >60 [facility] Comment on above: Result Comment: Non- GFR Calc Performed By: #### L 100.0100, L500.2500 ####[facility] [address] [place], [address] Glucose [Mass/Vol] 159 mg/dL High 74-106 [facility] Comment on above: Result Comment: Fast ing Glucose result greater than or equal to 126 mg/dL suggests DIABETES MELLITUS per A.D.A. criteria. Performed By: #### L 100.0100, L500.2500 ####[facility] [address] [place], [address] Potassium [Moles/Vol] 4.2 mmol/L Normal 3.5-5.1 [facility] Comment on above: Performed By: #### L 100.0100, L500.2500 ####[facility] [address] [place], [address] Sodium [Moles/Vol] 139 mmol/L Normal 136-145 [facility] Comment on above: Performed By: #### L 100.0100, L500.2500 ####[facility] [address] [place], [address] Urea nitrogen [Mass/Vol] 20 mg/dL High 7-18 [facility] Comment on above: Performed By: #### L 100.0100, L500.2500 ####[facility] [address] [place], [address] Bedside Glucoseon 03-08-2024 [place] GLU 128 mg/dL High 74-106 [facility] Comment on above: Result Comment: QUINN GEMENT OF PATIENT CARE PER NURSING PROTOCOL Performed By: #### L 500.4050, L501.9985, L506.1000, L500.4100, L100.0100 #### [facility] [address] [place], [address] FINGERSTICK GLU 171 mg/dL High 74-106 [facility] Comment on above: Result Comment: QUINN GEMENT OF PATIENT CARE PER NURSING PROTOCOL Performed By: #### L 500.4050, L501.9985, L506.1000, L500.4100, L100.0100 #### [facility] [address] [place], [address] CBC W/Diff, Automatedon 02-13 Absolute Lymph 0.86 X10 3/uL Normal 0.83-4.51 [facility] Comment on above: Performed By: #### L 100.0100, L500.2500 ####[facility] [address] [place], [address] Absolute Neut 4.2 X10 3/uL Normal 2.0-7.7 [facility] Comment on above: Performed By: #### L 100.0100, L500.2500 ####[facility] [address] [place], [address] Basophils/100 WBC (Bld) 0.4 % Normal 0-1 [facility] Comment on above: Performed By: #### L 100.0100, L500.2500 ####[facility] [address] [place], [address] Eosinophils/100 WBC (Bld) 1.8 % Normal 0-5 [facility] Comment on above: Performed By: #### L 100.0100, L500.2500 ####[facility] [address] [place], [address] Erythrocyte distribution width (RBC) [Ratio] 12.4 % Normal 11.6-14.6 [facility] Comment on above: Performed By: #### L 100.0100, L500.2500 ####[facility] [address] [place], [address] Hematocrit (Bld) [Volume fraction] 28.0 % Low 37-47 [facility] Comment on above: Performed By: #### L 100.0100, L500.2500 ####[facility] [address] [place], [address] Hemoglobin (Bld) [Mass/Vol] 9.5 g/dL Low 12.0-15.0 [facility] Comment on above: Performed By: #### L 100.0100, L500.2500 ####[facility] [address] [place], [address] IG% 0.400 Normal 0.0-0.9 [facility] Comment on above: Result Comment: IG% - Immature Granulocytes (promyelocytes, myelocytes and metamyelocytes) > 1% indicates that a LEFT SHIFT is Present. Performed By: #### L 100.0100, L500.2500 ####[facility] [address] [place], [address] Lymphocytes/100 WBC (Bld) 15.5 % Low 19-41 [facility] Comment on above: Performed By: #### L 100.0100, L500.2500 ####[facility] [address] [place], [address] MCH (RBC) [Entitic mass] 28.5 pg Normal 27.0-32.0 [facility] Comment on above: Performed By: #### L 100.0100, L500.2500 ####[facility] [address] [place], [address] MCHC (RBC) [Mass/Vol] 33.9 g/dL Normal 32-36 [facility] Comment on above: Performed By: #### L 100.0100, L500.2500 ####[facility] [address] [place], [address] MCV (RBC) [Entitic vol] 84.1 fL Normal 81-99 [facility] Comment on above: Performed By: #### L 100.0100, L500.2500 ####[facility] [address] [place], [address] Monocytes/100 WBC (Bld) 6.9 % Normal 0-10 [facility] Comment on above: Performed By: #### L 100.0100, L500.2500 ####[facility] [address] [place], [address] Neutrophils/100 WBC (Bld) 75.0 % High 47-70 [facility] Comment on above: Performed By: #### L 100.0100, L500.2500 ####[facility] [address] [place], [address] Nucleated RBC (Bld) [#/Vol] 0 10*3/uL Normal 0-5 [facility] Comment on above: Performed By: #### L 100.0100, L500.2500 ####[facility] [address] [place], [address] Platelet mean volume (Bld) [Entitic vol] 10.8 fL Normal 6.2-12.0 [facility] Comment on above: Performed By: #### L 100.0100, L500.2500 ####[facility] [address] [place], [address] Platelets (Bld) [#/Vol] 149 10*3/uL Low 150-450 [facility] Comment on above: Performed By: #### L 100.0100, L500.2500 ####[facility] [address] [place], [address] RBC (Bld) [#/Vol] 3.33 10*6/uL Low 4.2-5.4 [facility] Comment on above: Performed By: #### L 100.0100, L500.2500 ####[facility] [address] [place], [address] RDW SD 37.5 fl Normal 35.1-43.9 [facility] Comment on above: Performed By: #### L 100.0100, L500.2500 ####[facility] [address] [place], [address] WBC (Bld) [#/Vol] 5.5 10*3/uL Normal 4.4-11.0 [facility] Comment on above: Performed By: #### L 100.0100, L500.2500 ####[facility] [address] [place], [address] Culture, Blood (WB)on 2024 CUB No growth in 5 days. Normal [facility] Comment on above: Performed By: #### M 200.1000 ####[facility] [address] [place], [address] Discharge Instructionon 02-13 Discharge Instruction [facility] Medical Records Department [address] [place] [address] Instructions for Home/Discharge Instructions 03/08/24 1405 MR#: [id number] Acct: [id number] Name: MONSERRAT CORNEJO I Rep #: [id number] : 1960 63 From: Eva Quezada MD [...] MD; Dr. Eva Quezada MD Signed Normal [facility] Basic Metabolic Profile (BMP )on 03-07-2024 BUN/CRE 24.3 RATIO High 10-20 [facility] Comment on above: Performed By: #### L 500.4050, L501.9985, L506.1000, L500.4100, L100.0100 #### [facility] [address] [place], [address] CA,Total 8.7 mg/dL Normal 8.5-10.1 [facility] Comment on above: Performed By: #### L 500.4050, L501.9985, L506.1000, L500.4100, L100.0100 #### [facility] [address] [place], [address] Chloride [Moles/Vol] 107 mmol/L Normal 98-107 [facility] Comment on above: Performed By: #### L 500.4050, L501.9985, L506.1000, L500.4100, L100.0100 #### [facility] [address] [place], [address] CO2 [Moles/Vol] 23.0 mmol/L Normal 21.0-32.0 [facility] Comment on above: Performed By: #### L 500.4050, L501.9985, L506.1000, L500.4100, L100.0100 #### [facility] [address] [place], [address] Creatinine [Mass/Vol] 1.11 mg/dL High 0.55-1.02 [facility] Comment on above: Result Comment: The validity of the calculated GFR GFRAA in patients over 70 years has not been determined. Clinical correlation is essential. Performed By: #### L 500.4050, L501.9985, L506.1000, L500.4100, L100.0100 #### [facility] [address] [place], [address] ECRCL 55.12 ml/min Normal [facility] Comment on above: Performed By: #### L 500.4050, L501.9985, L506.1000, L500.4100, L100.0100 #### [facility] [address] [place], [address] EST GFR - AA 63 mL/min Normal >60 [facility] Comment on above: Result Comment: Afri can Congolese GFR Calc Performed By: #### L 500.4050, L501.9985, L506.1000, L500.4100, L100.0100 #### [facility] [address] [place], [address] GAP 7 Normal 5-15 [facility] Comment on above: Performed By: #### L 500.4050, L501.9985, L506.1000, L500.4100, L100.0100 #### [facility] [address] [place], [address] GFR/1.73 sq M.predicted among non-blacks MDRD (S/P/Bld) [Vol rate/Area] 52 mL/min/{1.73_m2} Low >60 [facility] Comment on above: Result Comment: Non- GFR Calc Performed By: #### L 500.4050, L501.9985, L506.1000, L500.4100, L100.0100 #### [facility] [address] [place], [address] Glucose [Mass/Vol] 143 mg/dL High 74-106 [facility] Comment on above: Result Comment: Fast ing Glucose result greater than or equal to 126 mg/dL suggests DIABETES MELLITUS per A.D.A. criteria. Performed By: #### L 500.4050, L501.9985, L506.1000, L500.4100, L100.0100 #### [facility] [address] [place], [address] Potassium [Moles/Vol] 3.9 mmol/L Normal 3.5-5.1 [facility] Comment on above: Performed By: #### L 500.4050, L501.9985, L506.1000, L500.4100, L100.0100 #### [facility] [address] [place], [address] Sodium [Moles/Vol] 137 mmol/L Normal 136-145 [facility] Comment on above: Performed By: #### L 500.4050, L501.9985, L506.1000, L500.4100, L100.0100 #### [facility] [address] [place], [address] Urea nitrogen [Mass/Vol] 27 mg/dL High 7-18 [facility] Comment on above: Performed By: #### L 500.4050, L501.9985, L506.1000, L500.4100, L100.0100 #### [facility] [address] [place], [address] Bedside Glucoseon 03-07-2024 FINGERSTICK GLU 185 mg/dL High 74-106 [facility] Comment on above: Result Comment: QUINN GEMENT OF PATIENT CARE PER NURSING PROTOCOL Performed By: #### L 501.080 ####[facility] [address] [place], [address] FINGERSTICK GLU 174 mg/dL High 74-106 [facility] Comment on above: Result Comment: QUINN GEMENT OF PATIENT CARE PER NURSING PROTOCOL Performed By: #### L 501.080 ####[facility] [address] [place], [address] FINGERSTICK GLU 236 mg/dL High -106 [facility] Comment on above: Result Comment: QUINN GEMENT OF PATIENT CARE PER NURSING PROTOCOL Performed By: #### L 501.080 ####[facility] [address] [place], [address] FINGERSTICK GLU 147 mg/dL High 74-106 [facility] Comment on above: Result Comment: QUINN GEMENT OF PATIENT CARE PER NURSING PROTOCOL Performed By: #### L 501.080 ####[facility] [address] [place], [address] CBC W/Diff, Automatedon 02-13 Absolute Lymph 0.71 X10 3/uL Low 0.83-4.51 [facility] Comment on above: Performed By: #### L 500.4050, L501.9985, L506.1000, L500.4100, L100.0100 #### [facility] [address] [place], [address] Absolute Neut 8.7 X10 3/uL High 2.0-7.7 [facility] Comment on above: Performed By: #### L 500.4050, L501.9985, L506.1000, L500.4100, L100.0100 #### [facility] [address] [place], [address] Basophils/100 WBC (Bld) 0.3 % Normal 0-1 [facility] Comment on above: Performed By: #### L 500.4050, L501.9985, L506.1000, L500.4100, L100.0100 #### [facility] [address] [place], [address] Eosinophils/100 WBC (Bld) 0.7 % Normal 0-5 [facility] Comment on above: Performed By: #### L 500.4050, L501.9985, L506.1000, L500.4100, L100.0100 #### [facility] [address] [place], [address] Erythrocyte distribution width (RBC) [Ratio] 12.7 % Normal 11.6-14.6 [facility] Comment on above: Performed By: #### L 500.4050, L501.9985, L506.1000, L500.4100, L100.0100 #### [facility] [address] [place], [address] Hematocrit (Bld) [Volume fraction] 29.0 % Low 37-47 [facility] Comment on above: Performed By: #### L 500.4050, L501.9985, L506.1000, L500.4100, L100.0100 #### [facility] [address] [place], [address] Hemoglobin (Bld) [Mass/Vol] 9.5 g/dL Low 12.0-15.0 [facility] Comment on above: Performed By: #### L 500.4050, L501.9985, L506.1000, L500.4100, L100.0100 #### [facility] [address] [place], [address] IG% 0.300 Normal 0.0-0.9 [facility] Comment on above: Result Comment: IG% - Immature Granulocytes (promyelocytes, myelocytes and metamyelocytes) > 1% indicates that a LEFT SHIFT is Present. Performed By: #### L 500.4050, L501.9985, L506.1000, L500.4100, L100.0100 #### [facility] [address] [place], [address] Lymphocytes/100 WBC (Bld) 7.2 % Low 19-41 [facility] Comment on above: Performed By: #### L 500.4050, L501.9985, L506.1000, L500.4100, L100.0100 #### [facility] [address] [place], [address] MCH (RBC) [Entitic mass] 27.6 pg Normal 27.0-32.0 [facility] Comment on above: Performed By: #### L 500.4050, L501.9985, L506.1000, L500.4100, L100.0100 #### [facility] [address] [place], [address] MCHC (RBC) [Mass/Vol] 32.8 g/dL Normal 32-36 [facility] Comment on above: Performed By: #### L 500.4050, L501.9985, L506.1000, L500.4100, L100.0100 #### [facility] [address] [place], [address] MCV (RBC) [Entitic vol] 84.3 fL Normal 81-99 [facility] Comment on above: Performed By: #### L 500.4050, L501.9985, L506.1000, L500.4100, L100.0100 #### [facility] [address] [place], [address] Monocytes/100 WBC (Bld) 4.2 % Normal 0-10 [facility] Comment on above: Performed By: #### L 500.4050, L501.9985, L506.1000, L500.4100, L100.0100 #### [facility] [address] [place], [address] Neutrophils/100 WBC (Bld) 87.3 % High 47-70 [facility] Comment on above: Performed By: #### L 500.4050, L501.9985, L506.1000, L500.4100, L100.0100 #### [facility] [address] [place], [address] Nucleated RBC (Bld) [#/Vol] 0 10*3/uL Normal 0-5 [facility] Comment on above: Performed By: #### L 500.4050, L501.9985, L506.1000, L500.4100, L100.0100 #### [facility] [address] [place], [address] Platelet mean volume (Bld) [Entitic vol] 10.7 fL Normal 6.2-12.0 [facility] Comment on above: Performed By: #### L 500.4050, L501.9985, L506.1000, L500.4100, L100.0100 #### [facility] [address] [place], [address] Platelets (Bld) [#/Vol] 150 10*3/uL Normal 150-450 [facility] Comment on above: Performed By: #### L 500.4050, L501.9985, L506.1000, L500.4100, L100.0100 #### [facility] [address] [place], [address] RBC (Bld) [#/Vol] 3.44 10*6/uL Low 4.2-5.4 [facility] Comment on above: Performed By: #### L 500.4050, L501.9985, L506.1000, L500.4100, L100.0100 #### [facility] [address] [place], [address] RDW SD 38.6 fl Normal 35.1-43.9 [facility] Comment on above: Performed By: #### L 500.4050, L501.9985, L506.1000, L500.4100, L100.0100 #### [facility] [address] [place], [address] WBC (Bld) [#/Vol] 9.9 10*3/uL Normal 4.4-11.0 [facility] Comment on above: Performed By: #### L 500.4050, L501.9985, L506.1000, L500.4100, L100.0100 #### [facility] [address] [place], [address] Urine Cultureon 03-07-2024 URC Below infection level. 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, [address] Bedside Glucoseon 03-06-2024 FINGERSTICK GLU 183 mg/dL High 74-106 [facility] Comment on above: Result Comment: QUINN GEMENT OF PATIENT CARE PER NURSING PROTOCOL Performed By: #### L 500.4050, L501.9985, L506.1000, L500.4100, L100.0100 #### [facility] [address] [place], [address] FINGERSTICK GLU 148 mg/dL High 74-106 [facility] Comment on above: Result Comment: QUINN GEMENT OF PATIENT CARE PER NURSING PROTOCOL Performed By: #### L 100.0100, L500.2500 #### [facility] [address] [place], [address] FINGERSTICK GLU 249 mg/dL High 74-106 [facility] Comment on above: Result Comment: QUINN GEMENT OF PATIENT CARE PER NURSING PROTOCOL Performed By: #### L 100.0100, L500.2500 #### [facility] [address] [place], [address] FINGERSTICK GLU 212 mg/dL High 74-106 [facility] Comment on above: Result Comment: QUINN GEMENT OF PATIENT CARE PER NURSING PROTOCOL Performed By: #### L 500.4050, L501.9985, L506.1000, L500.4100, L100.0100 #### [facility] [address] [place], [address] CBC W/Diff, Automatedon 02-13 PLT EST ADEQUATE Normal ADEQ [facility] Comment on above: Performed By: #### L 100.0100, L500.4050 ####[facility] [address] [place], [address] RED CELL MORPH NORM C+C Normal NORM C C [facility] Comment on above: Performed By: #### L 100.0100, L500.4050 ####[facility] [address] [place], [address] Comprehensive Metabolic Prof ilon 03-06-2024 Albumin [Mass/Vol] 3.2 g/dL Normal 3.2-5.0 [facility] Comment on above: Performed By: #### L 100.0100, L500.4050 ####[facility] [address] [place], [address] Albumin/Globulin [Mass ratio] 0.8 {ratio} Low 0.9-2.4 [facility] Comment on above: Performed By: #### L 100.0100, L500.4050 ####[facility] [address] [place], [address] ALK P 95 U/L Normal 45-117 [facility] Comment on above: Performed By: #### L 100.0100, L500.4050 ####[facility] [address] [place], [address] ALT [Catalytic activity/Vol] 12 U/L Low 13-56 [facility] Comment on above: Performed By: #### L 100.0100, L500.4050 ####[facility] [address] [place], [address] AST [Catalytic activity/Vol] 13 U/L Low 15-37 [facility] Comment on above: Performed By: #### L 100.0100, L500.4050 ####[facility] [address] [place], [address] Bilirubin [Mass/Vol] 0.50 mg/dL Normal 0.20-1.00 [facility] Comment on above: Result Comment: For patients on eltrombopag therapy, use of Dimension [place] TBIL is not recommended. Performed By: #### L 100.0100, L500.4050 ####[facility] [address] [place], [address] BUN/CRE 18.4 RATIO Normal 10-20 [facility] Comment on above: Performed By: #### L 100.0100, L500.4050 ####[facility] [address] [place], [address] CA,Total 8.9 mg/dL Normal 8.5-10.1 [facility] Comment on above: Performed By: #### L 100.0100, L500.4050 ####[facility] [address] [place], [address] Chloride [Moles/Vol] 105 mmol/L Normal 98-107 [facility] Comment on above: Performed By: #### L 100.0100, L500.4050 ####[facility] [address] [place], [address] CO2 [Moles/Vol] 20.0 mmol/L Low 21.0-32.0 [facility] Comment on above: Performed By: #### L 100.0100, L500.4050 ####[facility] [address] [place], [address] Creatinine [Mass/Vol] 1.14 mg/dL High 0.55-1.02 [facility] Comment on above: Result Comment: The validity of the calculated GFR GFRAA in patients over 70 years has not been determined. Clinical correlation is essential. Performed By: #### L 100.0100, L500.4050 ####[facility] [address] [place], [address] ECRCL 53.67 ml/min Normal [facility] Comment on above: Performed By: #### L 100.0100, L500.4050 ####[facility] [address] [place], [address] EST GFR - AA 62 mL/min Normal >60 [facility] Comment on above: Result Comment: Afri can Congolese GFR Calc Performed By: #### L 100.0100, L500.4050 ####[facility] [address] [place], [address] GAP 10 Normal 5-15 [facility] Comment on above: Performed By: #### L 100.0100, L500.4050 ####[facility] [address] [place], [address] GFR/1.73 sq M.predicted among non-blacks MDRD (S/P/Bld) [Vol rate/Area] 51 mL/min/{1.73_m2} Low >60 [facility] Comment on above: Result Comment: Non- GFR Calc Performed By: #### L 100.0100, L500.4050 ####[facility] [address] [place], [address] Globulin (S) [Mass/Vol] 3.8 g/dL Normal 2.2-4.2 [facility] Comment on above: Performed By: #### L 100.0100, L500.4050 ####[facility] [address] [place], [address] Glucose [Mass/Vol] 215 mg/dL High 74-106 [facility] Comment on above: Result Comment: Gluc ose result greater than or equal to 200 mg/dL suggests DIABETES MELLITUS per A.D.A. criteria. Performed By: #### L 100.0100, L500.4050 ####[facility] [address] [place], [address] Potassium [Moles/Vol] 4.1 mmol/L Normal 3.5-5.1 [facility] Comment on above: Performed By: #### L 100.0100, L500.4050 ####[facility] [address] [place], [address] Sodium [Moles/Vol] 136 mmol/L Normal 136-145 [facility] Comment on above: Performed By: #### L 100.0100, L500.4050 ####[facility] [address] [place], [address] T PROT 7.0 g/dL Normal 6.4-8.2 [facility] Comment on above: Performed By: #### L 100.0100, L500.4050 ####[facility] [address] [place], [address] Urea nitrogen [Mass/Vol] 21 mg/dL High 7-18 [facility] Comment on above: Performed By: #### L 100.0100, L500.4050 ####[facility] [address] [place], [address] 12 Lead EKGon 03-05-2024 12 Lead EKG [facility] Cardiovascular Services [address] [place] [address] 12 Lead EKG 03/05/241921 MR#: [id number] Acct: [id number] Name: MONSERRAT CORNEJO I Rep #: [id number] : 1960 63 From: Shaista Carlton MD Attending Dr: Dr. Dalton Carpenter MD Status: DIS IN Ordering Dr: Zainab Zuñiga DO Date: 03/05/24 Location: [facility] Sex: F C Admitted: 03/05/24 Test Reason [...] Abnormal ECG Confirmed by WENDY CAZARES, DANDY ([id number]), technical writer and editor LULA CLEMENTE ([id number]) on 03/11/2024 7:11:01 AM Referred By: Confirmed By: DANDY CARLTON MD 03/11/24 0711 Date Shaista Carlton MD CC: Dr. Zainab Zuñiga DO; Dr. Yousif Murguia MD; Dr. Dalton Carpenter MD Signed Normal [facility] Abdomen/Pelvis W IV Cont ONL Yon 03-05-2024 Abdomen/Pelvis W IV Cont ONLY [facility] Imaging Services [address] [place] [address] Abdomen/Pelvis W IV Cont ONLY MR#: [id number] Acct: [id number] Name: MONSERRAT CORNEJO I Rep #: [id number] : 1960 F 63 From: Stanford sainz DO PCP: Dr. Yousif Murguia MD Status: REG ER Study: Abdomen/Pelvis W IV Cont ONLY Date of Exam: Exam# [id number] Ordering Dr: Zainab Zuñiga DO [id number] EXAM: CT ABDOMEN AND PELVIS WITH INTRAVENOUS [...] evidence of acute diverticulitis. Electronically Signed: Stanford CanalesAnnie Barriga DO at 20:45 EST , CC: Dr. Zainab Zuñiga DO; Dr. Yousif Murguia MD Airport Location Manager: Signed Normal [facility] Bedside Glucoseon 03-05-2024 FINGERSTICK GLU 196 mg/dL High 74-106 [facility] Comment on above: Result Comment: QUINN ROSEMARYENT OF PATIENT CARE PER NURSING PROTOCOL Performed By: #### L 100.0100, L500.2500 #### [facility] [address] [place], [address] CBC W/Diff, Automatedon 02-13 SMEAR COMMENT SCANNED Normal [facility] Comment on above: Performed By: #### L 100.0100, L500.2500 #### [facility] [address] [place], [address] Comprehensive Metabolic Prof ilon 03-05-2024 Albumin [Mass/Vol] 3.7 g/dL Normal 3.2-5.0 [facility] Comment on above: Performed By: #### L 100.0100, L500.2500 #### [facility] [address] [place], [address] Albumin/Globulin [Mass ratio] 0.8 {ratio} Low 0.9-2.4 [facility] Comment on above: Performed By: #### L 100.0100, L500.2500 #### [facility] [address] [place], [address] ALK P 119 U/L High 45-117 [facility] Comment on above: Performed By: #### L 100.0100, L500.2500 #### [facility] [address] [place], [address] ALT [Catalytic activity/Vol] 21 U/L Normal 13-56 [facility] Comment on above: Performed By: #### L 100.0100, L500.2500 #### [facility] [address] [place], [address] AST [Catalytic activity/Vol] 50 U/L High 15-37 [facility] Comment on above: Performed By: #### L 100.0100, L500.2500 #### [facility] [address] [place], [address] Bilirubin [Mass/Vol] 0.50 mg/dL Normal 0.20-1.00 [facility] Comment on above: Result Comment: For patients on eltrombopag therapy, use of Dimension [place] TBIL is not recommended. Performed By: #### L 100.0100, L500.2500 #### [facility] [address] [place], [address] BUN/CRE 18.8 RATIO Normal 10-20 [facility] Comment on above: Performed By: #### L 100.0100, L500.2500 #### [facility] [address] [place], [address] CA,Total 9.6 mg/dL Normal 8.5-10.1 [facility] Comment on above: Performed By: #### L 100.0100, L500.2500 #### [facility] [address] [place], [address] Chloride [Moles/Vol] 103 mmol/L Normal 98-107 [facility] Comment on above: Performed By: #### L 100.0100, L500.2500 #### [facility] [address] [place], [address] CO2 [Moles/Vol] 18.0 mmol/L Low 21.0-32.0 [facility] Comment on above: Performed By: #### L 100.0100, L500.2500 #### [facility] [address] [place], [address] Creatinine [Mass/Vol] 1.12 mg/dL High 0.55-1.02 [facility] Comment on above: Result Comment: The validity of the calculated GFR GFRAA in patients over 70 years has not been determined. Clinical correlation is essential. Performed By: #### L 100.0100, L500.2500 #### [facility] [address] [place], [address] EST GFR - AA 63 mL/min Normal >60 [facility] Comment on above: Result Comment: Afri can Congolese GFR Calc Performed By: #### L 100.0100, L500.2500 #### [facility] [address] [place], [address] GAP 11 Normal 5-15 [facility] Comment on above: Performed By: #### L 100.0100, L500.2500 #### [facility] [address] [place], [address] GFR/1.73 sq M.predicted among non-blacks MDRD (S/P/Bld) [Vol rate/Area] 52 mL/min/{1.73_m2} Low >60 [facility] Comment on above: Result Comment: Non- GFR Calc Performed By: #### L 100.0100, L500.2500 #### [facility] [address] [place], [address] Globulin (S) [Mass/Vol] 4.6 g/dL High 2.2-4.2 [facility] Comment on above: Performed By: #### L 100.0100, L500.2500 #### [facility] [address] [place], [address] Glucose [Mass/Vol] 199 mg/dL High 74-106 [facility] Comment on above: Result Comment: Fast ing Glucose result greater than or equal to 126 mg/dL suggests DIABETES MELLITUS per A.D.A. criteria. Performed By: #### L 100.0100, L500.2500 #### [facility] [address] [place], [address] Potassium [Moles/Vol] 6.2 mmol/L Invalid Interpretation Code 3.5-5.1 [facility] Comment on above: Result Comment: Crit ical Result(s) Called at: 18:28:29 03/05/2024 by: LEA RANGEL. Results read back by Louisa Laureano Performed By: #### L 100.0100, L500.2500 #### [facility] [address] [place], [address] Sodium [Moles/Vol] 132 mmol/L Low 136-145 [facility] Comment on above: Performed By: #### L 100.0100, L500.2500 #### [facility] [address] [place], [address] T PROT 8.3 g/dL High 6.4-8.2 [facility] Comment on above: Performed By: #### L 100.0100, L500.2500 #### [facility] [address] [place], [address] Urea nitrogen [Mass/Vol] 21 mg/dL High 7-18 [facility] Comment on above: Performed By: #### L 100.0100, L500.2500 #### [facility] [address] [place], [address] Consultation - Urologyon Consultation - Urology [facility] Medical Records Department [address] [place] [address] Consultation - Urology 03/05/242107 MR#: [id number] Acct: [id number] Name: MONSERRAT CORNEJO I Rep #: [id number] : 1960 63 From: Dalton Carpenter MD [...] admitted to medical service for management infection.. [facility] Medical History (Updated 03/05/24 @ 21:10 by [...] 81.3 H, Lymph % (Auto) 13.6 L, [place] % (Auto) 3.0, Eos % (Auto) 1.3, [...] Clarity Clear, Urine pH 5.0, Ur Specific [place] 1.025, Urine Protein 30 H, Urine Glucose [...] and Sta (more content not included)... Normal [facility] Emergency Department Summary on 03-05-2024 Emergency Department Summary [facility] Medical Records Department [address] [place] [address] Emergency Department Summary 03/05/24 MR#: [id number] Acct: [id number] Name: MONSERRAT CORNEJO I Rep #: [id number] : 1960 63 From: Zainab Zuñiga DO PCP: Dr. Yousif Murguia MD Status:ADM IN Location: [place] [address] HPI HPI - GI History of Present [...] in for further evaluation and symptom control. [facility] Medical History CKD (chronic kidney disease), stage [...] is eval (more content not included)... Normal [facility] H AND P Exam - Hospitaliston 03-05-2024 H&P Exam - Hospitalist [facility] Medical Records Department [address] [place] [address] H P Exam - Hospitalist 03/05/241 MR#: [id number] Acct: [id number] Name: MONSERRAT CORNEJO I Rep #: [id number] : 1960 63 From: Ashley Magallon MD PCP: Dr. Yousif Murguia MD Status:REG [facility] Location: [facility] HPI - General General Date of Admission: 03/05/24 Date of Service: 03/05/24 Chief Complaint: R sided flank pain, chills, N/V. HPI Narrative The patient is a 63 y/o F w/ PMHx: Chronic constipation, OA, HTN, Chronic neck/back pain, Diabetes mellitus type II who presents to the [facility] ED on 03/05/2024 with history of right [...] with plan to operative intervention this evening. [facility] Medical History (Updated 03/05/24 @ 22:53 by [...] bladder control, se (more content not included)... [facility] MR/POSTOP.ANEon 03-05-2024 MR/POSTOP.[facility] Medical Records Department [address] [place] [address] Anesthesia Postop Eval I 03/05/242237 MR#: [id number] Acct: [id number] Name: MONSERRAT CORNEJO I Rep #: [id number] : 1960 63 From: Yomaira Quinn PCP: Dr. Yousif Murguia MD Status[facility] Y Race: C Location: [facility] Anesthesia: Postop Eval I Current Vital Signs [...] Date Yomaira Chua Signature: Date CC: Signed [facility] MR/[id number] 03-05-2024 MR/POSTOPAN2 [facility] Medical Records Department [address] [facility] [place] [address] Anesthesia Postop Eval II 03/05/242247 MR#: [id number] Acct: [id number] Name: MONSERRAT CORNEJO I Rep #: [id number] : 1960 63 From: Gio Neri MD PCP: Dr. Yousif Murguia MD Status:REG [facility] Y Race: C Location: [facility] Anesthesia Postop Eval I Sum Postop Eval Completion status Anesthesia document: Postop Eval 1 completed: Yes Anesthesia Postop Eval I Summary Anesthesia Postop Eval I Summary: Anesthesia Postop Eval I: Assessment Summary Airway patent Yes 03/05/24 22:39 BRINELL TESTER.CSIR Spontaneous unlabored Yes 03/05/24 22:39 BRINELL TESTER.CSIR respirations Mental status nausea No 03/05/24 22:39 BRINELL TESTER.CSIR Vomiting No 03/05/24 22:39 BRINELL TESTER.CSIR Anesthesia Postop Eval I: Fluid Summary Crystalloid volume administer 300 03/05/24 22:39 BRINELL TESTER.CSIR (ml) Colloids volume administered ( ml) Blood Product volume administered (ml) Total IV fluid infused 300 03/05/24 22:39 BRINELL TESTER.CSIR Anesthesia Postop Eval I: Summary Notes Anesthesia Complication No 03/05/24 22:39 BRINELL TESTER.CSIR Anesthesia Complication Comment: Post-operative progress note Anesthesia: Postop Eval II Evaluation Mental status: Awake and Calm Pain Level: 0 nausea: No Vomiting: No Complications Anesthesia Complication: No 03/05/242248 Date Gio Neri MD Cosigner Signature: Date CC: Signed Normal [facility] Operative Reporton Operative Report [facility] Medical Records Department [address] [place] [address] Operative Report 03/05/242230 MR#: [id number] Acct: [id number] Name: MONSERRAT CORNEJO I Rep #: [id number] : 1960 63 From: Dalton Carpenter MD PCP: Dr. Yousif Murguia MD Status:REG [facility] Location: [facility] Operative Report (Standard) Operative Information Date of Procedure: 03/05/24 Pre-Operative Diagnosis: Right obstructing kidney stone with infection Post-Operative Diagnosis: The same Surgery/Procedure Performed: Cystoscopy right stent placement supply chain logistics manager: No Type of Anesthesia: General RN Documented Start/Stop Times: Operation Date: 03/05/24 22:25 Case Time Anesthesia Start 03/05/24 22:13 Into Room 03/05/24 22:13 Procedure Start 03/05/24 22:28 Procedure End 03/05/24 22:30 Procedure Start Time: : Procedure Stop Time: :31 Select all DRAINS/GRAFTS/IMPLAN TS that apply: Drains Drain details: Right stent [...] then over the wire advanced a 6 Mexican 6 cm stent on the right side [...] MD; Dr. Dalton Carpenter MD Signed Normal [facility] Potassiumon 03-05-2024 Potassium [Moles/Vol] 4.3 mmol/L Normal 3.5-5.1 [facility] Comment on above: Performed By: #### L 500.4050, L501.9985, L506.1000, L500.4100, L100.0100 #### [facility] [address] [place], [address] Urinalysis, Completeon 03-05 BACTERIA 2+ /hpf Normal None Seen [facility] Comment on above: Order Comment: COLLE CTOR TO SPECIFY Performed By: #### L 400.0001 ####[facility] [address] [place], [address] CA OX CRYSTAL 1+ /hpf Normal [facility] Comment on above: Order Comment: ANIBAL CTOR TO SPECIFY Performed By: #### L 400.0001 ####[facility] [address] [place], [address] EPI,SQUAMOUS 0-5 SEEN Normal 5-10 [facility] Comment on above: Order Comment: ANIBAL CTOR TO SPECIFY Performed By: #### L 400.0001 ####[facility] [address] [place], [address] WBC 5-10 SEEN Normal 0-5 [facility] Comment on above: Order Comment: ANIBAL CTOR TO SPECIFY Performed By: #### L 400.0001 ####[facility] [address] [place], [address] Mucus Ql (Urine sed) 0 SEEN Normal [facility] Comment on above: Order Comment: ANIBAL CTOR TO SPECIFY Performed By: #### L 400.0001 ####[facility] [address] [place], [address] RBC 0 SEEN Normal 0-5 [facility] Comment on above: Order Comment: ANIBAL CTOR TO SPECIFY Performed By: #### L 400.0001 ####[facility] [address] [place], [address] Basic Metabolic Profile (BMP )on 02-27-2024 BUN/CRE 17.7 RATIO Normal 10-20 [facility] Comment on above: Performed By: #### L 100.0100, L500.2500 #### [facility] [address] [place], [address] CA,Total 9.4 mg/dL Normal 8.5-10.1 [facility] Comment on above: Performed By: #### L 100.0100, L500.2500 #### [facility] [address] [place], [address] Chloride [Moles/Vol] 104 mmol/L Normal 98-107 [facility] Comment on above: Performed By: #### L 100.0100, L500.2500 #### [facility] [address] [place], [address] CO2 [Moles/Vol] 26.0 mmol/L Normal 21.0-32.0 [facility] Comment on above: Performed By: #### L 100.0100, L500.2500 #### [facility] [address] [place], [address] Creatinine [Mass/Vol] 0.85 mg/dL Normal 0.55-1.02 [facility] Comment on above: Result Comment: The validity of the calculated GFR GFRAA in patients over 70 years has not been determined. Clinical correlation is essential. Performed By: #### L 100.0100, L500.2500 #### [facility] [address] [place], [address] EST GFR - AA 87 mL/min Normal >60 [facility] Comment on above: Result Comment: Afri can Congolese GFR Calc Performed By: #### L 100.0100, L500.2500 #### [facility] [address] [place], [address] GAP 10 Normal 5-15 [facility] Comment on above: Performed By: #### L 100.0100, L500.2500 #### [facility] [address] [place], [address] GFR/1.73 sq M.predicted among non-blacks MDRD (S/P/Bld) [Vol rate/Area] 72 mL/min/{1.73_m2} Normal >60 [facility] Comment on above: Result Comment: Non- GFR Calc Performed By: #### L 100.0100, L500.2500 #### [facility] [address] [place], [address] Glucose [Mass/Vol] 105 mg/dL Normal 74-106 [facility] Comment on above: Result Comment: Fast ing Glucose result from 100 to 125 mg/dL suggests IMPAIRED HOMEOSTASIS per A.D.A. criteria. Performed By: #### L 100.0100, L500.2500 #### [facility] [address] [place], [address] Potassium [Moles/Vol] 4.2 mmol/L Normal 3.5-5.1 [facility] Comment on above: Performed By: #### L 100.0100, L500.2500 #### [facility] [address] [place], [address] Sodium [Moles/Vol] 140 mmol/L Normal 136-145 [facility] Comment on above: Performed By: #### L 100.0100, L500.2500 #### [facility] [address] [place], [address] Urea nitrogen [Mass/Vol] 15 mg/dL Normal 7-18 [facility] Comment on above: Performed By: #### L 100.0100, L500.2500 #### [facility] [address] [place], [address] Vitamin B12on 02-27-2024 Cobalamin (Vitamin B12) [Mass/Vol] 511 pg/mL Normal 211-911 [facility] Comment on above: Performed By: #### L 100.0100, L500.2500 #### [facility] [address] [place], [address] Ferritinon 02-25-2024 Ferritin [Mass/Vol] 32 ng/mL Normal 8-252 [facility] Comment on above: Order Comment: CHELSEA Peralta ADD GURINDER IBC TO BLOOD DRAWN 02/21/24 PER Order Date: 10/18/23Order Info: [id number] - CMPOrder Info: [id number] - LIPID Performed By: #### L 100.0100, L500.2500 #### [facility] [address] [place], [address] Iron+Iron Binding Capacityon 02-25-2024 Iron [Mass/Vol] 66 ug/dL Normal 50-170 [facility] Comment on above: Order Comment: CHELSEA Peralta ADD GURINDER IBC TO BLOOD DRAWN 02/21/24 PER Order Date: 10/18/23Order Info: [id number] - CMPOrder Info: [id number] - LIPID Performed By: #### L 100.0100, L500.2500 #### [facility] [address] [place], [address] IRON SATURATION 21.0 Normal 15.0-55.0 [facility] Comment on above: Order Comment: CHELSEA Peralta ADD GURINDER IBC TO BLOOD DRAWN 02/21/24 PER Order Date: 10/18/23Order Info: [id number] - CMPOrder Info: [id number] - LIPID Performed By: #### L 100.0100, L500.2500 #### [facility] [address] [place], [address] TIBC 315 ug/dL Normal 250-450 [facility] Comment on above: Order Comment: CHELSEA Peralta ADD GURINDER IBC TO BLOOD DRAWN 02/21/24 PER Order Date: 10/18/23Order Info: [id number] - CMPOrder Info: [id number] - LIPID Performed By: #### L 100.0100, L500.2500 #### [facility] [address] [place], [address] CBC W/Diff, Automatedon 01-0 -2024 Absolute Lymph 1.77 X10 3/uL Normal 0.83-4.51 [facility] Comment on above: Order Comment: Order Date: 10/18/23 Order Info: [id number] - CBCD Performed By: #### L 500.4050, L501.9985, L506.1000, L500.4100, L100.0100 #### [facility] [address] [place], [address] Absolute Neut 4.1 X10 3/uL Normal 2.0-7.7 [facility] Comment on above: Order Comment: Order Date: 10/18/23 Order Info: [id number] - CBCD Performed By: #### L 500.4050, L501.9985, L506.1000, L500.4100, L100.0100 #### [facility] [address] [place], [address] Basophils/100 WBC (Bld) 0.3 % Normal 0-1 [facility] Comment on above: Order Comment: Order Date: 10/18/23 Order Info: [id number] - CBCD Performed By: #### L 500.4050, L501.9985, L506.1000, L500.4100, L100.0100 #### [facility] [address] [place], [address] Eosinophils/100 WBC (Bld) 3.5 % Normal 0-5 [facility] Comment on above: Order Comment: Order Date: 10/18/23 Order Info: [id number] - CBCD Performed By: #### L 500.4050, L501.9985, L506.1000, L500.4100, L100.0100 #### [facility] [address] [place], [address] Erythrocyte distribution width (RBC) [Ratio] 12.3 % Normal 11.6-14.6 [facility] Comment on above: Order Comment: Order Date: 10/18/23 Order Info: [id number] - CBCD Performed By: #### L 500.4050, L501.9985, L506.1000, L500.4100, L100.0100 #### [facility] [address] [place], [address] Hematocrit (Bld) [Volume fraction] 35.7 % Low 37-47 [facility] Comment on above: Order Comment: Order Date: 10/18/23 Order Info: [id number] - CBCD Performed By: #### L 500.4050, L501.9985, L506.1000, L500.4100, L100.0100 #### [facility] [address] [place], [address] Hemoglobin (Bld) [Mass/Vol] 11.5 g/dL Low 12.0-15.0 [facility] Comment on above: Order Comment: Order Date: 10/18/23 Order Info: [id number] - CBCD Performed By: #### L 500.4050, L501.9985, L506.1000, L500.4100, L100.0100 #### [facility] [address] [place], [address] IG% 0.500 Normal 0.0-0.9 [facility] Comment on above: Order Comment: Order Date: 10/18/23 Order Info: [id number] - CBCD Result Comment: IG% - Immature Granulocytes (promyelocytes, myelocytes and metamyelocytes) > 1% indicates that a LEFT SHIFT is Present. Performed By: #### L 500.4050, L501.9985, L506.1000, L500.4100, L100.0100 #### [facility] [address] [place], [address] Lymphocytes/100 WBC (Bld) 27.3 % Normal 19-41 [facility] Comment on above: Order Comment: Order Date: 10/18/23 Order Info: [id number] - CBCD Performed By: #### L 500.4050, L501.9985, L506.1000, L500.4100, L100.0100 #### [facility] [address] [place], [address] MCH (RBC) [Entitic mass] 27.4 pg Normal 27.0-32.0 [facility] Comment on above: Order Comment: Order Date: 10/18/23 Order Info: [id number]- - CBCD Performed By: #### L 500.4050, L501.9985, L506.1000, L500.4100, L100.0100 #### [facility] [address] [place], [address] MCHC (RBC) [Mass/Vol] 32.2 g/dL Normal 32-36 [facility] Comment on above: Order Comment: Order Date: 10/18/23 Order Info: [id number]- - CBCD Performed By: #### L 500.4050, L501.9985, L506.1000, L500.4100, L100.0100 #### [facility] [address] [place], [address] MCV (RBC) [Entitic vol] 85.0 fL Normal 81-99 [facility] Comment on above: Order Comment: Order Date: 10/18/23 Order Info: [id number] - CBCD Performed By: #### L 500.4050, L501.9985, L506.1000, L500.4100, L100.0100 #### [facility] [address] [place], [address] Monocytes/100 WBC (Bld) 5.1 % Normal 0-10 [facility] Comment on above: Order Comment: Order Date: 10/18/23 Order Info: [id number] - CBCD Performed By: #### L 500.4050, L501.9985, L506.1000, L500.4100, L100.0100 #### [facility] [address] [place], [address] Neutrophils/100 WBC (Bld) 63.3 % Normal 47-70 [facility] Comment on above: Order Comment: Order Date: 10/18/23 Order Info: [id number] - CBCD Performed By: #### L 500.4050, L501.9985, L506.1000, L500.4100, L100.0100 #### [facility] [address] [place], [address] Nucleated RBC (Bld) [#/Vol] 0 10*3/uL Normal 0-5 [facility] Comment on above: Order Comment: Order Date: 10/18/23 Order Info: [id number]- - CBCD Performed By: #### L 500.4050, L501.9985, L506.1000, L500.4100, L100.0100 #### [facility] [address] [place], [address] Platelet mean volume (Bld) [Entitic vol] 9.9 fL Normal 6.2-12.0 [facility] Comment on above: Order Comment: Order Date: 10/18/23 Order Info: [id number]- - CBCD Performed By: #### L 500.4050, L501.9985, L506.1000, L500.4100, L100.0100 #### [facility] [address] [place], [address] Platelets (Bld) [#/Vol] 240 10*3/uL Normal 150-450 [facility] Comment on above: Order Comment: Order Date: 10/18/23 Order Info: [id number] - CBCD Performed By: #### L 500.4050, L501.9985, L506.1000, L500.4100, L100.0100 #### [facility] [address] [place], [address] RBC (Bld) [#/Vol] 4.20 10*6/uL Normal 4.2-5.4 [facility] Comment on above: Order Comment: Order Date: 10/18/23 Order Info: [id number] - CBCD Performed By: #### L 500.4050, L501.9985, L506.1000, L500.4100, L100.0100 #### [facility] [address] [place], [address] RDW SD 37.9 fl Normal 35.1-43.9 [facility] Comment on above: Order Comment: Order Date: 10/18/23 Order Info: [id number] - CBCD Performed By: #### L 500.4050, L501.9985, L506.1000, L500.4100, L100.0100 #### [facility] [address] [place], [address] WBC (Bld) [#/Vol] 6.5 10*3/uL Normal 4.4-11.0 [facility] Comment on above: Order Comment: Order Date: 10/18/23 Order Info: [id number] - CBCD Performed By: #### L 500.4050, L501.9985, L506.1000, L500.4100, L100.0100 #### [facility] [address] [place], [address] Comprehensive Metabolic Prof [facility] 02-21-2024 Albumin [Mass/Vol] 3.8 g/dL Normal 3.2-5.0 [facility] Comment on above: Order Comment: Order Date: 10/18/23 Order Info: [id number] - CMP Order Info: [id number] - LIPID Performed By: #### L 500.4050, L501.9985, L506.1000, L500.4100, L100.0100 #### [facility] [address] [place], [address] Albumin/Globulin [Mass ratio] 1.0 {ratio} Normal 0.9-2.4 [facility] Comment on above: Order Comment: Order Date: 10/18/23 Order Info: [id number] - CMP Order Info: [id number] - LIPID Performed By: #### L 500.4050, L501.9985, L506.1000, L500.4100, L100.0100 #### [facility] [address] [place], [address] ALK P 118 U/L High 45-117 [facility] Comment on above: Order Comment: Order Date: 10/18/23 Order Info: 0786- - CMP Order Info: [id number] - LIPID Performed By: #### L 500.4050, L501.9985, L506.1000, L500.4100, L100.0100 #### [facility] [address] [place], [address] ALT [Catalytic activity/Vol] 18 U/L Normal 13-56 [facility] Comment on above: Order Comment: Order Date: 10/18/23 Order Info: 0786- - CMP Order Info: [id number] - LIPID Performed By: #### L 500.4050, L501.9985, L506.1000, L500.4100, L100.0100 #### [facility] [address] [place], [address] AST [Catalytic activity/Vol] 12 U/L Low 15-37 [facility] Comment on above: Order Comment: Order Date: 10/18/23 Order Info: [id number] - CMP Order Info: [id number] - LIPID Performed By: #### L 500.4050, L501.9985, L506.1000, L500.4100, L100.0100 #### [facility] [address] [place], [address] Bilirubin [Mass/Vol] 0.40 mg/dL Normal 0.20-1.00 [facility] Comment on above: Order Comment: Order Date: 10/18/23 Order Info: [id number] - CMP Order Info: [id number] - LIPID Result Comment: For patients on eltrombopag therapy, use of Dimension [place] TBIL is not recommended. Performed By: #### L 500.4050, L501.9985, L506.1000, L500.4100, L100.0100 #### [facility] [address] [place], [address] BUN/CRE 25.6 RATIO High 10-20 [facility] Company Comment on above: Order Comment: Order Date: 10/18/23 Order Info: [id number] - CMP Order Info: [id number] - LIPID Performed By: #### L 500.4050, L501.9985, L506.1000, L500.4100, L100.0100 #### [facility] [address] [place], [address] CA,Total 9.6 mg/dL Normal 8.5-10.1 [facility] Comment on above: Order Comment: Order Date: 10/18/23 Order Info: [id number] - CMP Order Info: [id number] - LIPID Performed By: #### L 500.4050, L501.9985, L506.1000, L500.4100, L100.0100 #### [facility] [address] [place], [address] Chloride [Moles/Vol] 105 mmol/L Normal 98-107 [facility] Comment on above: Order Comment: Order Date: 10/18/23 Order Info: [id number] - CMP Order Info: [id number] - LIPID Performed By: #### L 500.4050, L501.9985, L506.1000, L500.4100, L100.0100 #### [facility] [address] [place], [address] CO2 [Moles/Vol] 24.0 mmol/L Normal 21.0-32.0 [facility] Comment on above: Order Comment: Order Date: 10/18/23 Order Info: [id number] - CMP Order Info: [id number] - LIPID Performed By: #### L 500.4050, L501.9985, L506.1000, L500.4100, L100.0100 #### [facility] [address] [place], [address] Creatinine [Mass/Vol] 0.94 mg/dL Normal 0.55-1.02 [facility] Comment on above: Order Comment: Order Date: 10/18/23 Order Info: [id number] - CMP Order Info: [id number] - LIPID Result Comment: The validity of the calculated GFR GFRAA in patients over 70 years has not been determined. Clinical correlation is essential. Performed By: #### L 500.4050, L501.9985, L506.1000, L500.4100, L100.0100 #### [facility] [address] [place], [address] EST GFR - AA 77 mL/min Normal >60 [facility] Comment on above: Order Comment: Order Date: 10/18/23 Order Info: [id number] - CMP Order Info: [id number] - LIPID Result Comment: Afri can Congolese GFR Calc Performed By: #### L 500.4050, L501.9985, L506.1000, L500.4100, L100.0100 #### [facility] [address] [place], [address] GAP 7 Normal 5-15 [facility] Comment on above: Order Comment: Order Date: 10/18/23 Order Info: [id number] - CMP Order Info: [id number] - LIPID Performed By: #### L 500.4050, L501.9985, L506.1000, L500.4100, L100.0100 #### [facility] [address] [place], [address] GFR/1.73 sq M.predicted among non-blacks MDRD (S/P/Bld) [Vol rate/Area] 64 mL/min/{1.73_m2} Normal >60 [facility] Comment on above: Order Comment: Order Date: 10/18/23 Order Info: [id number] - CMP Order Info: [id number] - LIPID Result Comment: Non- GFR Calc Performed By: #### L 500.4050, L501.9985, L506.1000, L500.4100, L100.0100 #### [facility] [address] [place], [address] Globulin (S) [Mass/Vol] 3.8 g/dL Normal 2.2-4.2 [facility] Comment on above: Order Comment: Order Date: 10/18/23 Order Info: [id number] - CMP Order Info: [id number] - LIPID Performed By: #### L 500.4050, L501.9985, L506.1000, L500.4100, L100.0100 #### [facility] [address] [place], [address] Glucose [Mass/Vol] 146 mg/dL High 74-106 [facility] Comment on above: Order Comment: Order Date: 10/18/23 Order Info: [id number] - CMP Order Info: [id number] - LIPID Result Comment: Fast ing Glucose result greater than or equal to 126 mg/dL suggests DIABETES MELLITUS per A.D.A. criteria. Performed By: #### L 500.4050, L501.9985, L506.1000, L500.4100, L100.0100 #### [facility] [address] [place], [address] Potassium [Moles/Vol] 4.0 mmol/L Normal 3.5-5.1 [facility] Comment on above: Order Comment: Order Date: 10/18/23 Order Info: [id number] - CMP Order Info: [id number] - LIPID Performed By: #### L 500.4050, L501.9985, L506.1000, L500.4100, L100.0100 #### [facility] [address] [place], [address] Sodium [Moles/Vol] 136 mmol/L Normal 136-145 [facility] Comment on above: Order Comment: Order Date: 10/18/23 Order Info: [id number] - CMP Order Info: [id number] - LIPID Performed By: #### L 500.4050, L501.9985, L506.1000, L500.4100, L100.0100 #### [facility] [address] [place], [address] T PROT 7.6 g/dL Normal 6.4-8.2 [facility] Comment on above: Order Comment: Order Date: 10/18/23 Order Info: [id number] - CMP Order Info: [id number] - LIPID Performed By: #### L 500.4050, L501.9985, L506.1000, L500.4100, L100.0100 #### [facility] [address] [place], [address] Urea nitrogen [Mass/Vol] 24 mg/dL High 7-18 [facility] Comment on above: Order Comment: Order Date: 10/18/23 Order Info: [id number] - CMP Order Info: [id number] - LIPID Performed By: #### L 500.4050, L501.9985, L506.1000, L500.4100, L100.0100 #### [facility] [address] [place], [address] Hemoglobin A1con 02-21-2024 HbA1c (Bld) [Mass fraction] 7.0 % High 3.8-5.6 [facility] Comment on above: Order Comment: Order Date: 10/18/23 Order Info: [id number] - A1C Result Comment: Norm al < 5.7 % Prediabetic 5.7 - 6.4 % Diabetic >or= 6.5 % Please note range changes. Performed By: #### L 500.4050, L501.9985, L506.1000, L500.4100, L100.0100 #### [facility] [address] [place], [address] Lipid Profileon 02-21-2024 Cholesterol [Mass/Vol] 266 mg/dL High 200 [facility] Comment on above: Order Comment: Order Date: 10/18/23 Order Info: [id number] - [facility] Order Info: [id number] - LIPID Result Comment: <200 mg/dL Desirable 200-240 mg/dL Borderline >240 mg/dL High Risk Performed By: #### L 500.4050, L501.9985, L506.1000, L500.4100, L100.0100 #### [facility] [address] [place], [address] Cholesterol in HDL [Mass/Vol] 73 mg/dL Normal [facility] Comment on above: Order Comment: Order Date: 10/18/23 Order Info: [id number] - [facility] Order Info: [id number] - LIPID Result Comment: The drugs N-Acetylcysteine and Metamizole may falsely depress this assay. Reference Range HDL <40 mg/dL Low HDL Cholesterol HDL >or= 60 mg/dL High HDL Cholesterol Performed By: #### L 500.4050, L501.9985, L506.1000, L500.4100, L100.0100 #### [facility] [address] [place], [address] Cholesterol in LDL [Mass/Vol] 167 mg/dL High 0-130 [facility] Comment on above: Order Comment: Order Date: 10/18/23 Order Info: [id number] - [facility] Order Info: [id number] - LIPID Performed By: #### L 500.4050, L501.9985, L506.1000, L500.4100, L100.0100 #### [facility] [address] [place], [address] Cholesterol in VLDL [Mass/Vol] 26 mg/dL Normal 5-40 [facility] Comment on above: Order Comment: Order Date: 10/18/23 Order Info: [id number] - CMP Order Info: [id number] - LIPID Performed By: #### L 500.4050, L501.9985, L506.1000, L500.4100, L100.0100 #### [facility] [address] [place], [place], [address] Triglyceride [Mass/Vol] 131 mg/dL Normal [facility] Comment on above: Order Comment: Order Date: 10/18/23 Order Info: [id number] - CMP Order Info: [id number] - LIPID Result Comment: The drugs N-Acetylcysteine and Metamizole may falsely depress this assay. Serum Triglycerides Reference Interval Normal <150 mg/dL Borderline high 150 - 199 mg/dL High 200 - 499 mg/dL Very High > or = 500 mg/dL Performed By: #### L 500.4050, L501.9985, L506.1000, L500.4100, L100.0100 #### [facility] [address] [place], [place], [id number] Vitamin D,25 Hydroxyon 02-20 Vitamin D 25-OH 20.6 ng/mL Normal [facility] Comment on above: Order Comment: Order Date: 10/18/23 Order Info: [id number] - VITD25 Result Comment: Ellen min D 25(OH) Status Range Deficiency <20 ng/mL (50nmol/L) Insufficiency 20 - 30 ng/mL (50 - 75 nmol/L) Sufficiency 30 - 100 ng/mL (75 - 250 nmol/L) Toxicity >100 ng/mL (>250 nmol/L) Performed By: #### L 500.4050, L501.9985, L506.1000, L500.4100, L100.0100 #### [facility] [address] [place], [place], [address] Glucoseon 11-22-2023 Glucose [Mass/Vol] 117 mg/dL High 74-106 [facility] Comment on above: Result Comment: Fast ing Glucose result from 100 to 125 mg/dL suggests IMPAIRED HOMEOSTASIS per A.D.A. criteria. Performed By: #### L 500.4100, L501.0100 ####[facility] [address] [place], [address] Lipid Profileon 11-22-2023 Cholesterol [Mass/Vol] 239 mg/dL High 200 [facility] Comment on above: Result Comment: <200 mg/dL Desirable 200-240 mg/dL Borderline >240 mg/dL High Risk Performed By: #### L 500.4100, L501.0100 ####[facility] [id number] [place], [address] Cholesterol in HDL [Mass/Vol] 57 mg/dL Normal [facility] Comment on above: Result Comment: The drugs N-Acetylcysteine and Metamizole may falsely depress this assay. Reference Range HDL <40 mg/dL Low HDL Cholesterol HDL >or= 60 mg/dL High HDL Cholesterol Performed By: #### L 500.4100, L501.0100 ####[facility] [address] [place], [address] Cholesterol in LDL [Mass/Vol] 158 mg/dL High 0-130 [facility] Comment on above: Performed By: #### L 500.4100, L501.0100 ####[facility] [address] [place], [address] Cholesterol in VLDL [Mass/Vol] 24 mg/dL Normal 5-40 [facility] Comment on above: Performed By: #### L 500.4100, L501.0100 ####[facility] [id number] [place], [address] Triglyceride [Mass/Vol] 118 mg/dL Normal [facility] Comment on above: Result Comment: The drugs N-Acetylcysteine and Metamizole may falsely depress this assay. Serum Triglycerides Reference Interval Normal <150 mg/dL Borderline high 150 - 199 mg/dL High 200 - 499 mg/dL Very High > or = 500 mg/dL Performed By: #### L 500.4100, L501.0100 ####[facility] [id number] [place], [address] Absolute lymphocyte countOrd ered By: Yousif Murguia on 03-27-2023 Lymphocytes Auto (Unsp spec) [#/Vol] 1.59 10*3/uL 0.83-4.51 [facility] Automated lymphocyte count a s percentage of total leukocytesOrdered By: Yousif Murguia on 03-27-2023 Lymphocytes/100 WBC Auto (Unsp spec) 25.3 % 19-41 [facility] Basophil percentageOrdered B y: Yousif Murguia on 03-27-2023 Basophils/100 WBC (Bld) 0.2 % 0-1 [facility] Bilirubin [Mass/Vol] 0.30 mg/dL 0.20-1.00 [facility] Comment on above: For patients on eltr ombopag therapy, use of Dimension [place] TBIL is not recommended. Chloride [Moles/Vol] 109 mmol/L 98-107 [facility] Cholesterol [Mass/Vol] 262 mg/dL <200 [facility] Comment on above: <200 mg/dL Desirable 200-240 mg/dL Borderline >240 mg/dL High Risk Eosinophils/100 WBC (Bld) 2.1 % 0-5 [facility] Glucose [Mass/Vol] 96 mg/dL 74-106 [facility] Hemoglobin (Bld) [Mass/Vol] 12.0 g/dL 12.0-15.0 [facility] Monocytes/100 WBC (Bld) 4.0 % 0-10 [facility] Neutrophils (Bld) [#/Vol] 4.3 10*3/uL 2.0-7.7 [facility] Neutrophils/100 WBC (Bld) 68.1 % 47-70 [facility] Potassium [Moles/Vol] 4.0 mmol/L 3.5-5.1 [facility] Protein [Mass/Vol] 7.5 g/dL 6.4-8.2 [facility] Sodium [Moles/Vol] 142 mmol/L 136-145 [facility] Triglyceride [Mass/Vol] 142 mg/dL <199 [facility] Comment on above: The drugs N-Acetylcy steine and Metamizole may falsely depress this assay.Serum Triglycerides Reference Interval Normal <150 mg/dL Borderline high 150 - 199 mg/dL High 200 - 499 mg/dL Very High > or = 500 mg/dL WBC (Bld) [#/Vol] 6.3 10*3/uL 4.4-11.0 [facility] Determination of erythrocyte mean corpuscular volume (MCV)Ordered By: Yousif Murguia on 03-27-2023 MCV (RBC) [Entitic vol] 84.6 fL 81-99 [facility] Erythrocyte distribution wid th ratioOrdered By: Yousif Murguia on 03-27-2023 Erythrocyte distribution width (RBC) [Ratio] 12.2 % 11.6-14.6 [facility] Erythrocyte distribution wid th standard deviationOrdered By: Yousif Murguia on 03-27-2023 Erythrocyte distribution width (RBC) [Entitic vol] 37.5 fL 35.1-43.9 [facility] Hematocrit Auto (Bld) [Volum e fraction]Ordered By: Yousif Murguia on 03-27-2023 Hematocrit (Bld) [Volume fraction] 37.9 % 37-47 [facility] Immature granulocytes/100 WB C Auto (Bld)Ordered By: Yousif Murguia on 03-27-2023 Immature granulocytes/100 WBC (Bld) 0.300 % 0.0-0.9 [facility] Comment on above: IG% - Immature Granu locytes (promyelocytes, myelocytes and metamyelocytes) > 1% indicates that a LEFT SHIFT is Present. Laboratory - Chemistry and C hemistry - challengeOrdered By: Yousif Murguia on 03-27-2023 Albumin/Globulin [Mass ratio] 1.0 {ratio} 0.9-2.4 [facility] ALP [Catalytic activity/Vol] 116 U/L 45-117 [facility] ALT [Catalytic activity/Vol] 13 U/L 13-56 [facility] Cholesterol in HDL [Mass/Vol] 61 mg/dL >40 [facility] Comment on above: The drugs N-Acetylcy steine and Metamizole may falsely depress this assay. Reference Range HDL <40 mg/dL Low HDL Cholesterol HDL >or= 60 mg/dL High HDL Cholesterol Cholesterol in LDL [Mass/Vol] 173 mg/dL 0-130 [facility] CO2 [Moles/Vol] 26.0 mmol/L 21.0-32.0 [facility] Globulin (S) [Mass/Vol] 3.7 g/dL 2.2-4.2 [facility] Urea nitrogen/Creatinine [Mass ratio] 18.3 mg/mg 10-20 [facility] - Hematology and Cell countsOrdered By: Yousif Murguia on 03-27-2023 MCH (RBC) [Entitic mass] 26.8 pg 27.0-32.0 [facility] MCHC (RBC) [Mass/Vol] 31.7 g/dL 32-36 [facility] Nucleated RBC/100 WBC (Bld) [Ratio] 0 % 0-5 [facility] Platelet mean volume (Bld) [Entitic vol] 9.6 fL 6.2-12.0 [facility] Platelets (Bld) [#/Vol] 225 10*3/uL 150-450 [facility] No Panel InformationOrdered By: Yousif Murguia on 03-27-2023 Estimated GFR (MDRD) Amer 98 mL/min >60 [facility] Comment on above: GFR Calc Estimated GFR (MDRD) Non-Af Amer 81 mL/min >60 [facility] Comment on above: Non- GFR Calc Urine Microalbumin/Creatinine Ratio 44.0 mg/g CRE <30 [facility] Vitamin D 25-Hydroxy 34.5 ng/mL [facility] Comment on above: Vitamin D 25(OH) Sta tus Range Deficiency <20 ng/mL (50nmol/L) Insufficiency 20 - 30 ng/mL (50 - 75 nmol/L) Sufficiency 30 - 100 ng/mL (75 - 250 nmol/L) Toxicity >100 ng/mL (>250 nmol/L) VLDL Cholesterol 28 mg/dL 5-40 [facility] RBC Auto (Bld) [#/Vol]Ordere d By: Yousif Murguia on 03-27-2023 RBC (Bld) [#/Vol] 4.48 10*6/uL 4.2-5.4 [facility] Serum or plasma calcium romana urement (mass/volume)Ordered By: Yousif Murguia on 03-27-2023 Calcium [Mass/Vol] 9.6 mg/dL 8.5-10.1 [facility] Serum or plasma creatinine m easurement (mass/volume)Ordered By: Yousif Murguia on 03-27-2023 Creatinine [Mass/Vol] 0.77 mg/dL 0.55-1.02 [facility] Comment on above: The validity of the calculated GFR & GFRAA in patients over 70 years has not been determined. Clinical correlation is essential. Serum or plasma urea nitroge n measurement (mass/volume)Ordered By: Yousif Murguia on 03-27-2023 Urea nitrogen [Mass/Vol] 14 mg/dL 7-18 [facility] Thin prep Papanicolaou smear with manual screeningOrdered By: Yousif Murguia on 03-27-2023 Thin prep Papanicolaou smear with manual screening 3.8 g/dL 3.2-5.0 [facility] Thin prep Papanicolaou smear with manual screening 14 U/L 15-37 [facility] Thin prep Papanicolaou smear with manual screening 7 5-15 [facility] Thin prep Papanicolaou smear with manual screening 18.9 mg/L NO RANGE EST. [facility] Urine creatinine measurement (mass/volume)Ordered By: Yousif Murguia on 03-27-2023 Creatinine (U) [Mass/Vol] 43.00 mg/dL NO RANGE EST. [facility] Whole blood hemoglobin A1c/t otal hemoglobin ratio (mass fraction)Ordered By: Yousif Murguia on 03-27-2023 HbA1c (Bld) [Mass fraction] 6.8 % 3.8-5.6 [facility] Comment on above: Normal < 5.7 % Predi abetic 5.7 - 6.4 % Diabetic >or= 6.5 % Please note range changes. Absolute lymphocyte countOrd ered By: Yousif Murguia on 10-25-2022 Lymphocytes Auto (Unsp spec) [#/Vol] 1.92 10*3/uL 0.83-4.51 [facility] Basophil percentageOrdered B y: Yousif Murguia on 10-25-2022 Basophils/100 WBC (Bld) 0.3 % 0-1 [facility] Bilirubin [Mass/Vol] 0.20 mg/dL 0.20-1.00 [facility] Comment on above: For patients on eltr ombopag therapy, use of Dimension [place] TBIL is not recommended. Chloride [Moles/Vol] 105 mmol/L 98-107 [facility] Cholesterol [Mass/Vol] 240 mg/dL <200 [facility] Comment on above: <200 mg/dL Desirable 200-240 mg/dL Borderline >240 mg/dL High Risk Eosinophils/100 WBC (Bld) 3.1 % 0-5 [facility] Glucose [Mass/Vol] 106 mg/dL 74-106 [facility] Comment on above: Fasting Glucose resu lt from 100 to 125 mg/dL suggests IMPAIRED HOMEOSTASIS per A.D.A. criteria. Neutrophils (Bld) [#/Vol] 5.1 10*3/uL 2.0-7.7 [facility] Neutrophils/100 WBC (Bld) 66.4 % 47-70 [facility] Potassium [Moles/Vol] 3.6 mmol/L 3.5-5.1 [facility] Protein [Mass/Vol] 8.0 g/dL 6.4-8.2 [facility] Sodium [Moles/Vol] 139 mmol/L 136-145 [facility] Triglyceride [Mass/Vol] 157 mg/dL <199 [facility] Comment on above: The drugs N-Acetylcy steine and Metamizole may falsely depress this assay.Serum Triglycerides Reference Interval Normal <150 mg/dL Borderline high 150 - 199 mg/dL High 200 - 499 mg/dL Very High > or = 500 mg/dL WBC (Bld) [#/Vol] 7.7 10*3/uL 4.4-11.0 [facility] Blood erythrocytes count (nu mber/volume)Ordered By: Yousif Murguia on 10-25-2022 RBC (Bld) [#/Vol] 4.57 10*6/uL 4.2-5.4 [facility] Blood hemoglobin measurement (mass/volume)Ordered By: Yousif Murguia on 10-25-2022 Hemoglobin (Bld) [Mass/Vol] 12.3 g/dL 12.0-15.0 [facility] Blood lymphocytes/100 leukoc ytesOrdered By: Yousif Murguia on 10-25-2022 Lymphocytes/100 WBC (Bld) 25.1 % 19-41 [facility] Blood monocytes/100 leukocyt esOrdered By: Yousif Murguia on 10-25-2022 Monocytes/100 WBC (Bld) 4.6 % 0-10 [facility] Blood platelet mean volumeOr dered By: Yousif Murguia on 10-25-2022 Platelet mean volume (Bld) [Entitic vol] 9.8 fL 6.2-12.0 [facility] Determination of erythrocyte mean corpuscular volume (MCV)Ordered By: Yousif Murguia on 10-25-2022 MCV (RBC) [Entitic vol] 85.6 fL 81-99 [facility] Hematocrit Auto (Bld) [Volum e fraction]Ordered By: Yousif Murguia on 10-25-2022 Hematocrit (Bld) [Volume fraction] 39.1 % 37-47 [facility] - Chemistry and C hemistry - challengeOrdered By: Yousif Murguia on 10-25-2022 ALP [Catalytic activity/Vol] 132 U/L 45-117 [facility] ALT [Catalytic activity/Vol] 17 U/L 13-56 [facility] CO2 [Moles/Vol] 27.0 mmol/L 21.0-32.0 [facility] Cobalamin (Vitamin B12) [Mass/Vol] 513 pg/mL 211-911 [facility] Free T4 [Mass/Vol] 1.18 ng/dL 0.76-1.46 [facility] Globulin (S) [Mass/Vol] 4.3 g/dL 2.2-4.2 [facility] Urea nitrogen/Creatinine [Mass ratio] 19.9 mg/mg 10-20 [facility] - Hematology and Cell countsOrdered By: Yousif Murguia on 10-25-2022 Erythrocyte distribution width (RBC) [Entitic vol] 38.3 fL 35.1-43.9 [facility] Erythrocyte distribution width (RBC) [Ratio] 12.3 % 11.6-14.6 [facility] Immature granulocytes/100 WBC (Bld) 0.500 % 0.0-0.9 [facility] Comment on above: IG% - Immature Granu locytes (promyelocytes, myelocytes and metamyelocytes) > 1% indicates that a LEFT SHIFT is Present. MCH (RBC) [Entitic mass] 26.9 pg 27.0-32.0 [facility] Nucleated RBC/100 WBC (Bld) [Ratio] 0 % 0-5 [facility] MCHC Auto (RBC) [Mass/Vol]Or dered By: Yousif Murguia on 10-25-2022 MCHC (RBC) [Mass/Vol] 31.5 g/dL 32-36 [facility] No Panel InformationOrdered By: Yousif Murguia on 10-25-2022 Estimated GFR (MDRD) Amer 108 mL/min >60 [facility] Comment on above: GFR Calc Estimated GFR (MDRD) Non-Af Amer 89 mL/min >60 [facility] Comment on above: Non- GFR Calc Thyroid Stimulating Hormone (TSH) 0.96 uIU/mL 0.358-3.74 [facility] Urine Microalbumin/Creatinine Ratio 34.5 mg/g CRE <30 [facility] Vitamin D 25-Hydroxy 27.8 ng/mL [facility] Comment on above: Vitamin D 25(OH) Sta tus Range Deficiency <20 ng/mL (50nmol/L) Insufficiency 20 - 30 ng/mL (50 - 75 nmol/L) Sufficiency 30 - 100 ng/mL (75 - 250 nmol/L) Toxicity >100 ng/mL (>250 nmol/L) Platelets bldOrdered By: Ken Murguia on 10-25-2022 Platelets (Bld) [#/Vol] 227 10*3/uL 150-450 [facility] Serum or plasma albumin romana urement (mass/volume)Ordered By: Yousif Murguia on 10-25-2022 Albumin [Mass/Vol] 3.7 g/dL 3.2-5.0 [facility] Serum or plasma albumin/glob ulin mass ratioOrdered By: Yousif Murguia on 10-25-2022 Albumin/Globulin [Mass ratio] 0.9 {ratio} 0.9-2.4 [facility] Serum or plasma calcium romana urement (mass/volume)Ordered By: Yousif Murguia on 10-25-2022 Calcium [Mass/Vol] 9.4 mg/dL 8.5-10.1 [facility] Serum or plasma cholesterol in HDL measurement (mass/volume)Ordered By: Yousif Murguia on 10-25-2022 Cholesterol in HDL [Mass/Vol] 57 mg/dL >40 [facility] Comment on above: The drugs N-Acetylcy steine and Metamizole may falsely depress this assay. Reference Range HDL <40 mg/dL Low HDL Cholesterol HDL >or= 60 mg/dL High HDL Cholesterol Serum or plasma cholesterol in VLDL measurement (mass/volume)Ordered By: Yousif Murguia on 10-25-2022 Cholesterol in VLDL [Mass/Vol] 31 mg/dL 5-40 [facility] Serum or plasma creatinine m easurement (mass/volume)Ordered By: Yousif Murguia on 10-25-2022 Creatinine [Mass/Vol] 0.70 mg/dL 0.55-1.02 [facility] Comment on above: The validity of the calculated GFR & GFRAA in patients over 70 years has not been determined. Clinical correlation is essential. Serum or plasma low density lipoprotein (LDL) cholesterol measurement (mass/volume)Ordered By: Yousif Murguia on 10-25-2022 Cholesterol in LDL [Mass/Vol] 152 mg/dL 0-130 [facility] Serum or plasma urea nitroge n measurement (mass/volume)Ordered By: Yousif Murguia on 10-25-2022 Urea nitrogen [Mass/Vol] 14 mg/dL 7-18 [facility] Thin prep Papanicolaou smear with manual screeningOrdered By: Yousif Murguia on 10-25-2022 Thin prep Papanicolaou smear with manual screening 10 U/L 15-37 [facility] Thin prep Papanicolaou smear with manual screening 7 5-15 [facility] Thin prep Papanicolaou smear with manual screening 16.2 mg/L NO RANGE EST. [facility] Urine creatinine measurement (mass/volume)Ordered By: Yousif Murguia on 10-25-2022 Creatinine (U) [Mass/Vol] 46.90 mg/dL NO RANGE EST. [facility] Whole blood hemoglobin A1c/t otal hemoglobin ratio (mass fraction)Ordered By: Yousif Murguia on 10-25-2022 HbA1c (Bld) [Mass fraction] 6.9 % 3.8-5.6 [facility] Comment on above: Normal < 5.7 % Predi abetic 5.7 - 6.4 % Diabetic >or= 6.5 % Please note range changes. CNOVon 08-28-2022 CNOV Office Visit ([facility]) MONSERRAT CORNEJO I ([id number]) 1960 F Date Time Provider Department 08/28/22 3:30 PM GIO MCCABE GENGARCIAS During your visit today, we recorded the following information about you: Gio Mccabe MD 09/12/2022 9:58 AM Signed Subjective: Patient is status post an ultrasound of her thyroid gland: Nodule #1 Location: Right upper pole Size: 9 x 7 x 4 mm Characteristics: Composition: Solid or almost completely solid, 2 points Echogenicity: Hypoechoic, 2 points Shape: Wumil-wudh-inpq, 0 points Margin: smooth or ill defined. 0 points Echogenic foci: Possible punctate echogenic foci, 3 points vs 0 points TI-RADS Category: 5 ACR Recommendation: Follow up imaging is advised annually for 5 years. Nodule #2 Location: Left lower pole Size: 5 x 7 x 3 mm Characteristics: Composition: Solid or almost completely solid, 2 points Echogenicity: Hypoechoic, 2 points Shape: Niqvw-zayw-zmbd, 0 points Margin: smooth or ill defined. 0 points Echogenic foci: None, 0 points TI-RADS Category: 4 ACR Recommendation: No FNA or follow-up imaging is advised. Nodule #3 Location: Left isthmus Size: 6 x 6 x 4 mm Characteristics: Composition: Solid or almost completely solid, 2 points Echogenicity: Hypoechoic, 2 points Shape: Hsfwi-sqfg-flaz, 0 points Margin: smooth or ill defined. 0 points Echogenic foci: None, 0 points TI-RADS Category: 4 ACR Recommendation: No FNA or follow-up imaging is advis Objective:There were no vitals taken for this visit. No hard palpable nodules are identified Assessment:Multinodu lar goiter (primary encounter diagnosis) Plan: This point I do not think that fine-needle aspiration is warranted repeat ultrasounds will be all that is needed. Referring Provider: SELF [[id number]] Allergies As of Date: 08/28/2022 Noted Allergy Reaction AMLODIPINE 08/07/2022 9 - Itching LATEX 06/13/2019 4 - Hives Date Reviewed: 08/28/2022 Reviewed by: Meche Funez, RN - Fully Assessed Reason for Visit: Follow Up [171] Cmt: Review thyroid ultrasound results. Primary Visit Diagnosis:Multinodul ar goiter [E04.2] Prescriptions as of 09/12/2022 - lisinopril (ZESTRIL) 5 mg tablet Take 5 mg by mouth once daily. - metFORMIN ER (GLUCOPHAGE XR) 500 mg 24 hr tablet TAKE 4 TABLETS BY MOUTH ONCE DAILY FOR 90 DAYS - plecanatide (TRULANCE ORAL) Take by mouth every other day. - insulin glargine,hum.rec.anl og (LANTUS SUBCUTANEOUS) Inject 47 Units subcutaneously daily at bedtime. - hydrocodone bit/acetaminophen( CODIN 5 MG-500 MG TAB) Take 1-2 tablet's) every six(6) hours as needed for pain. - oxycodone hcl/acetaminophen(PE RCOCET 5 MG-325 MG TAB) Take one(1) tablet four(4) times daily as needed for pain. - GLYBURIDE 5 MG TAB Take one(1) tablet twice daily. Problem List As Of Date 08/28/2022 Noted Resolved Calculus of Ureter [N20.1] 10/08/2008 Renal Colic [N23] 10/08/2008 Encounter Status:Closed by GIO MCCABE on 09/12/22 [facility] Rob 08-16-2022 MICHELE Telephone ([employer]) MONSERRAT CORNEJO I ([id number]) 1960 F Date Time Provider Department 08/16/22 GIO MCCABE During your visit today, we recorded the following information about you: Charlotte Mccall Ba 08/16/2022 11:18 AM Signed Patient called in asking for thyroid ultrasound results. She can be reached at work today at [phone]. Meche Funez RN 08/17/2022 11:02 AM Signed Monserrat was instructed to follow up with Dr. Mccabe after her ultrasound. Could someone please contact her and put her on his schedule? Thank you. RADHA Alonso 08/17/2022 11:19 AM Signed 1st attempt to call patient on work number and primary number and couldn't leave a message. Lizbet Robertson LPN 08/18/2022 2:14 PM Signed Patient is scheduled with Dr. Mccabe 08/28/22 to review results Ann Robertson LPN Allergies As of Date: 08/16/2022 Noted [...] by mouth every other day. - insulin glargine,hum.rec.anl og (LANTUS SUBCUTANEOUS) Inject 47 Units subcutaneously daily at bedtime. - hydrocodone bit/acetaminophen( CODIN 5 MG-500 MG TAB) Take 1-2 tablet's) every six(6) hours as needed for pain. - oxycodone hcl/acetaminophen(PE RCOCET 5 MG-325 MG TAB) Take one(1) tablet four(4) times daily as needed for pain. - GLYBURIDE 5 MG TAB Take one(1) tablet twice daily. Problem List As Of Date 08/16/2022 Noted Resolved Calculus of Ureter [N20.1] 10/08/2008 Renal Colic [N23] 10/08/2008 Encounter Status:Closed by ANN ROBERTSON on 08/18/22 Normal [facility] US THYROID/PARATHYROIDon US THYROID/PARATHYROID * * *Final Report * * * DATE OF EXAM: Aug 08 2022 2:06PM [facility] 1048 - US THYROID/PARATHYROID / PROCEDURE REASON: [...] 2 points Echogenicity: Hypoechoic, 2 points Shape: Wyiqf-tosq-pctj, 0 points Margin: smooth or ill defined. 0 points Echogenic foci: Possible punctate echogenic foci, 3 points vs 0 points TI-RADS Category: 5 ACR Recommendation: Follow up imaging is advised annually for 5 years. Nodule #2 Location: Left lower pole Size: 5 x 7 x 3 mm Characteristics: Composition: Solid or almost completely solid, 2 points Echogenicity: Hypoechoic, 2 points Shape: Woovb-tfsm-bgcx, 0 points Margin: smooth or ill defined. 0 points Echogenic foci: None, 0 points TI-RADS Category: 4 ACR Recommendation: No FNA or follow-up imaging is advised. Nodule #3 Location: Left isthmus Size: 6 x 6 x 4 mm Characteristics: Composition: Solid or almost completely solid, 2 points Echogenicity: Hypoechoic, 2 points Shape: Pwfse-blgt-kygj, 0 points Margin: smooth or ill defined. [...] not consider stability or previous biopsy results. Airport Location Manager: PSCB Transcribe Date/Time: Aug 10 2022 10:47P Dictated by : RUY LUCIA MD This examination was interpreted and the report reviewed and electronically signed by: RUY LUCIA MD on Aug 10 2022 10:49PM EST [id number] Normal [facility] CNOVon 08-07-2022 CNOV Office Visit (SWS) MONSERRAT CORNEJO I ([id number]) 1960 F Date Time Provider Department 08/07/22 2:30 PM GIO MCCABE During your visit today, we recorded the following information about you: Temperature Pulse Blood pressure Weight 98.2 degrees 89/minute 142/68 93.4 kg Height 1.651 m Jessica LiceallHAYDER 08/07/2022 2:38 PM Signed REVIEW OF SYSTEMS: [...] Neurologic: The patient denies a history of epilepsy/convulsions , denies headaches, denies head/spinal injuries, and denies [...] PM Signed HISTORY AND PHYSICAL Monserrat Cornejo I 1960 [...] Take by mouth every other day. insulin glargine,hum.rec.anl og (LANTUS SUBCUTANEOUS) Inject 47 Units subcutaneously daily at bedtime. hydrocodone bit/acetaminophen( CODIN 5 MG-500 MG TAB) Take 1-2 tablet's) every six(6) hours as needed for pain. (Patient not taking: Reported on 08/07/2022) oxycodone hcl/acetaminophen(PE RCOCET 5 MG-325 MG TAB) Take one(1) tablet four(4) times daily as needed for pain. (Patient not taking: No sig reported) GLYBURIDE 5 MG TAB Take one(1) tablet twice daily. (Patient not taking: Reported on 08/07/2022) No current facility-administere d medications for this visit. ALLERGIES: Amlodipine and [...] entered by the nurse and reviewed by nm Nursing Notes: Jessica Starr LPN 08/07/2022 2:38 PM Signed REVIEW OF SYSTEMS: General: The (more content not included)... Normal [facility] XR CHEST 2 VIEWSon 3 XR CHEST [...] 07/14/2022 9:40:06 AM Ordering Provider: VERONIKA Hannon [facility] ([place]) .Auto Diffon 07-11-2022 Basophil, Absolute 0.0 10 3/mcL Normal 0.0-0.2 [facility] ([place]) Comment on above: Performed By: #### C BC, ADIFF, ANEU, CMP, GFR, LIPID #### [address] [address] Basophils/100 WBC (Bld) 0.4 % Normal 0.0-2.5 [facility] ([place]) Comment on above: Performed By: #### C BC, ADIFF, ANEU, CMP, GFR, LIPID #### [address] [address] Eosinophil, Absolute 0.4 10 3/mcL Normal 0.0-0.4 [facility] ([place]) Comment on above: Performed By: #### C BC, ADIFF, ANEU, CMP, GFR, LIPID #### [address] [address] Eosinophils/100 WBC (Bld) 4.9 % Normal 0.0-7.0 [facility] ([place] Comment on above: Performed By: #### C BC, ADIFF, ANEU, CMP, GFR, LIPID #### [address] [address] Lymphocyte, Absolute 2.2 10 3/mcL Normal 0.8-3.9 [facility] [place] Comment on above: Performed By: #### C BC, ADIFF, ANEU, CMP, GFR, LIPID #### [address] [address] Lymphocytes/100 WBC (Bld) 26.4 % Normal 10.0-50.0 [facility] ([place] Comment on above: Performed By: #### C BC, ADIFF, ANEU, CMP, GFR, LIPID #### [address] [address] Monocyte, Absolute 0.4 10 3/mcL Normal 0.2-1.0 [facility] ([place]) Comment on above: Performed By: #### C BC, ADIFF, ANEU, CMP, GFR, LIPID #### [address] [address] Monocytes/100 WBC (Bld) 5.0 % Normal 1.7-13.0 [facility] ([place]) Comment on above: Performed By: #### C BC, ADIFF, ANEU, CMP, GFR, LIPID #### [address] [address] Neutrophils/100 WBC (Bld) 63.3 % Normal 37.0-80.0 [facility] ([place]) Comment on above: Performed By: #### C BC, ADIFF, ANEU, CMP, GFR, LIPID #### [address] [address] .GFRon 07-11-2022 GFR 76 ml/min/1.73sqm Normal [facility] ([place]) Comment on above: Result Comment: GFR [...] BC, ADIFF, ANEU, CMP, GFR, LIPID #### [address] [address] GFR Non- 62 ml/min/1.73sqm Normal [facility] ([place]) Comment on above: Result Comment: GFR [...] BC, ADIFF, ANEU, CMP, GFR, LIPID #### [place] [id number] .NEUABSon 07-11-2022 Neutrophil, Absolute 5.2 10 3/mcL Normal 2.9-6.2 [facility] [place] Comment on above: Performed By: #### C BC, ADIFF, ANEU, CMP, GFR, LIPID #### [place] [id number] CBCon 07-11-2022 Erythrocyte distribution width (RBC) [Ratio] 13.3 % Normal 11.5-14.5 [facility] ([place] Comment on above: Performed By: #### C BC, ADIFF, ANEU, CMP, GFR, LIPID #### [place] [address] Hematocrit (Bld) [Volume fraction] 35.9 % Low 37.0-47.0 [facility] ([place] Comment on above: Performed By: #### C BC, ADIFF, ANEU, CMP, GFR, LIPID #### [place] [address] Hgb 12.0 G/dL Normal 12.0-16.0 [facility] ([place] Comment on above: Performed By: #### C BC, ADIFF, ANEU, CMP, GFR, LIPID #### [place] [address] MCH (RBC) [Entitic mass] 27.5 pg Normal 27.0-31.2 [facility] ([place] Comment on above: Performed By: #### C BC, ADIFF, ANEU, CMP, GFR, LIPID #### [place] [address]357 MCHC 33.5 G/dL Normal 33.0-37.0 [facility] ([place] Comment on above: Performed By: #### C BC, ADIFF, ANEU, CMP, GFR, LIPID #### [address] [address] MCV (RBC) [Entitic vol] 82.1 fL Normal 80.0-94.0 [facility] ([place]) Comment on above: Performed By: #### C BC, ADIFF, ANEU, CMP, GFR, LIPID #### [address] [address] Platelet 229 10 3/mcL Normal 130-400 [facility] ([place]) Comment on above: Performed By: #### C BC, ADIFF, ANEU, CMP, GFR, LIPID #### [address] [address] Platelet mean volume (Bld) [Entitic vol] 7.5 fL Normal 7.4-10.4 [facility] ([place] Comment on above: Performed By: #### C BC, ADIFF, ANEU, CMP, GFR, LIPID #### [address] [address] RBC 4.37 10 6/mcL Normal 4.20-5.40 [facility] ([place]) Comment on above: Performed By: #### C BC, ADIFF, ANEU, CMP, GFR, LIPID #### [address] [address] WBC 8.2 10 3/mcL Normal 4.6-10.8 [facility] ([place]) Comment on above: Performed By: #### C BC, ADIFF, ANEU, CMP, GFR, LIPID #### [address] [address] CMPon 07-11-2022 Albumin Level 3.9 G/dL Normal 3.4-4.8 [facility] ([place]) Comment on above: Performed By: #### C BC, ADIFF, ANEU, CMP, GFR, LIPID #### [address] [address] Albumin/Globulin [Mass ratio] 1.1 {ratio} Normal 1.1-2.5 [facility] ([place]) Comment on above: Performed By: #### C BC, ADIFF, ANEU, CMP, GFR, LIPID #### [address] [address] ALP [Catalytic activity/Vol] 123 U/L Normal 40-135 [facility] ([place]) Comment on above: Performed By: #### C BC, ADIFF, ANEU, CMP, GFR, LIPID #### [address] [address] ALT [Catalytic activity/Vol] 18 U/L Normal 14-59 [facility] ([place]) Comment on above: Performed By: #### C BC, ADIFF, ANEU, CMP, GFR, LIPID #### [address] [address] AST [Catalytic activity/Vol] 13 U/L Normal 10-40 [facility] ([place]) Comment on above: Performed By: #### C BC, ADIFF, ANEU, CMP, GFR, LIPID #### [address] [address] Bili Total 0.2 mg/dL Normal 0.2-1.0 [facility] ([place]) Comment on above: Result Comment: Use of this assay is not recommended for patients undergoing treatment with eltrombopag due to the potential for falsely elevated results. Performed By: #### C BC, ADIFF, ANEU, CMP, GFR, LIPID #### [address] [address] BUN/Creatinine Ratio 19 ratio Normal 7-27 [facility] ([place]) Comment on above: Performed By: #### C BC, ADIFF, ANEU, CMP, GFR, LIPID #### [address] [address] Calcium [Mass/Vol] 9.2 mg/dL Normal 8.4-10.2 [facility] ([place]) Comment on above: Performed By: #### C BC, ADIFF, ANEU, CMP, GFR, LIPID #### [address] [address] Chloride [Moles/Vol] 103 mmol/L Normal 98-107 [facility] ([place]) Comment on above: Performed By: #### C BC, ADIFF, ANEU, CMP, GFR, LIPID #### [address] [address] CO2 [Moles/Vol] 28 mmol/L Normal 23-31 [facility] ([place]) Comment on above: Performed By: #### C BC, ADIFF, ANEU, CMP, GFR, LIPID #### [address] [address] Creatinine [Mass/Vol] 0.91 mg/dL Normal 0.55-1.02 [facility] ([place]) Comment on above: Performed By: #### C BC, ADIFF, ANEU, CMP, GFR, LIPID #### [address] [address] Electrolyte Balance 8.0 mEq/L Normal 4.0-15.0 [facility] ([place]) Comment on above: Performed By: #### C BC, ADIFF, ANEU, CMP, GFR, LIPID #### [address] [address] Globulin 3.4 G/dL Normal [facility] ([place]) Comment on above: Performed By: #### C BC, ADIFF, ANEU, CMP, GFR, LIPID #### [address] [address] Glucose [Mass/Vol] 118 mg/dL High 80-115 [facility] ([place]) Comment on above: Performed By: #### C BC, ADIFF, ANEU, CMP, GFR, LIPID #### [address] [address] Potassium [Moles/Vol] 4.2 mmol/L Normal 3.5-5.1 [facility] ([place]) Comment on above: Performed By: #### C BC, ADIFF, ANEU, CMP, GFR, LIPID #### [address] [address] Sodium [Moles/Vol] 139 mmol/L Normal 136-145 [facility] ([place]) Comment on above: Performed By: #### C BC, ADIFF, ANEU, CMP, GFR, LIPID #### [place] [address] [place], [place] [address] Total Protein 7.3 G/dL Normal 6.4-8.2 [facility] ([place]) Comment on above: Performed By: #### C BC, ADIFF, ANEU, CMP, GFR, LIPID #### [place] [address] [place], [place] [address] Urea nitrogen [Mass/Vol] 17 mg/dL Normal 7-18 [facility] ([place]) Comment on above: Performed By: #### C BC, ADIFF, ANEU, CMP, GFR, LIPID #### [place] [address] [place], [place] [address] LABORATORYOrdered By: SYSTEM SYSTEM on 07-11-2022 Albumin [...] 07-11-2022 Cholesterol [Mass/Vol] 232 mg/dL High 0-200 [facility] ([place]) Comment on above: Result Comment: Chol esterol Reference Interval: Less than 200 Desirable 200-239 Borderline high risk 240 and above High risk Performed By: #### C BC, ADIFF, ANEU, CMP, GFR, LIPID #### [address] [address] Cholesterol in HDL [Mass/Vol] 48 mg/dL Normal 40-60 [facility] ([place]) Comment on above: Performed By: #### C BC, ADIFF, ANEU, CMP, GFR, LIPID #### [address] [address] Cholesterol in LDL [Mass/Vol] 130 mg/dL Normal 0-130 [facility] ([place]) Comment on above: Performed By: #### C BC, ADIFF, ANEU, CMP, GFR, LIPID #### [address] [address] Triglyceride [Mass/Vol] 271 mg/dL High 0-150 [facility] ([place]) Comment on above: Result Comment: Trig lyceride Reference Interval: Less than 150 Normal 150-199 Borderline high risk 200-499 High risk 500 or higher Very high risk Performed By: #### C BC, ADIFF, ANEU, CMP, GFR, LIPID #### [address] [address] .Auto Diffon 10-28-2021 Basophil, Absolute 0.1 10 3/mcL Normal 0.0-0.2 [facility] ([place]) Comment on above: Performed By: #### T LOLI, BMP, GFR #### [address] [address] Basophils/100 WBC (Bld) 0.9 % Normal 0.0-2.5 [facility] ([place]) Comment on above: Performed By: #### T LOLI, BMP, GFR #### [address] [address] Eosinophil, Absolute 0.2 10 3/mcL Normal 0.0-0.4 [facility] [place]) Comment on above: Performed By: #### T LOLI, BMP, GFR #### [address] [address] Eosinophils/100 WBC (Bld) 2.7 % Normal 0.0-7.0 [facility] ([place]) Comment on above: Performed By: #### T LOLI, BMP, GFR #### [address] [address] Lymphocyte, Absolute 1.3 10 3/mcL Normal 0.8-3.9 [facility] [place]) Comment on above: Performed By: #### T LOLI, BMP, GFR #### [address] [address] Lymphocytes/100 WBC (Bld) 19.2 % Normal 10.0-50.0 [facility] ([place]) Comment on above: Performed By: #### T LOLI, BMP, GFR #### [address] [address] Monocyte, Absolute 0.3 10 3/mcL Normal 0.2-1.0 [facility] ([place]) Comment on above: Performed By: #### T LOLI, BMP, GFR #### [address] [address] Monocytes/100 WBC (Bld) 4.4 % Normal 1.7-13.0 [facility] ([place]) Comment on above: Performed By: #### T LOLI, BMP, GFR #### [address] [address] Neutrophils/100 WBC (Bld) 72.8 % Normal 37.0-80.0 [facility] ([place]) Comment on above: Performed By: #### T LOLI, BMP, GFR #### [address] [address] .GFRon 10-28-2021 GFR 93 ml/min/1.73sqm Normal [facility] ([place]) Comment on above: Result Comment: GFR [...] BC, ADIFF, ANEU, CMP, GFR, LIPID #### [address] [address] GFR Non- 77 ml/min/1.73sqm Normal [facility] ([place]) Comment on above: Result Comment: GFR [...] BC, ADIFF, ANEU, CMP, GFR, LIPID #### [address] [address] .MDWon 10-28-2021 Monocyte Distribution Width 18.23 Normal 0.00-20.00 [facility] ([place]) Comment on above: Result Comment: For ED adult patients suspected of sepsis, MDW<=20.0 does not rule out sepsis or risk of sepsis Performed By: #### C BC, ADIFF, ANEU, CMP, GFR, LIPID #### [address] [address] .NEUABSon 10-28-2021 Neutrophil, Absolute 4.8 10 3/mcL Normal 2.9-6.2 [facility] [place]) Comment on above: Performed By: #### T ROPHS, BMP, GFR #### [address] [address] BMPon 10-28-2021 BUN/Creatinine Ratio 17 ratio Normal 7-27 [facility] ([place]) Comment on above: Performed By: #### C BC, ADIFF, ANEU, CMP, GFR, LIPID #### [address] [address] Calcium [Mass/Vol] 9.1 mg/dL Normal 8.4-10.2 [facility] ([place]) Comment on above: Performed By: #### C BC, ADIFF, ANEU, CMP, GFR, LIPID #### [address] [address] Chloride [Moles/Vol] 103 mmol/L Normal 98-107 [facility] ([place]) Comment on above: Performed By: #### C BC, ADIFF, ANEU, CMP, GFR, LIPID #### [address] [address] CO2 [Moles/Vol] 24 mmol/L Normal 23-31 [facility] ([place]) Comment on above: Performed By: #### C BC, ADIFF, ANEU, CMP, GFR, LIPID #### [address] [address] Creatinine [Mass/Vol] 0.76 mg/dL Normal 0.55-1.02 [facility] ([place]) Comment on above: Performed By: #### C BC, ADIFF, ANEU, CMP, GFR, LIPID #### [address] [address] Electrolyte Balance 13.0 mEq/L Normal 4.0-15.0 [facility] ([place]) Comment on above: Performed By: #### C BC, ADIFF, ANEU, CMP, GFR, LIPID #### [address] [address] Glucose [Mass/Vol] 168 mg/dL High 80-115 [facility] ([place]) Comment on above: Performed By: #### C BC, ADIFF, ANEU, CMP, GFR, LIPID #### [address] [address] Potassium [Moles/Vol] 4.0 mmol/L Normal 3.5-5.1 [facility] ([place]) Comment on above: Performed By: #### C BC, ADIFF, ANEU, CMP, GFR, LIPID #### [address] [address] Sodium [Moles/Vol] 140 mmol/L Normal 136-145 [facility] ([place]) Comment on above: Performed By: #### C BC, ADIFF, ANEU, CMP, GFR, LIPID #### [address] [address] Urea nitrogen [Mass/Vol] 13 mg/dL Normal 7-18 [facility] ([place]) Comment on above: Performed By: #### C BC, ADIFF, ANEU, CMP, GFR, LIPID #### [address] [address] CBCon 10-28-2021 Erythrocyte distribution width (RBC) [Ratio] 13.2 % Normal 11.5-14.5 [facility] ([place]) Comment on above: Performed By: #### T ROPHS, BMP, GFR #### [address] [address] Hematocrit (Bld) [Volume fraction] 36.0 % Low 37.0-47.0 [facility] ([place]) Comment on above: Performed By: #### T ROPHS, BMP, GFR #### [address] [address] Hgb 12.3 G/dL Normal 12.0-16.0 [facility] ([place]) Comment on above: Performed By: #### T ROPHS, BMP, GFR #### [address] [address] MCH (RBC) [Entitic mass] 27.6 pg Normal 27.0-31.2 [facility] ([place]) Comment on above: Performed By: #### T ROPHS, BMP, GFR #### [address] [address] MCHC 34.2 G/dL Normal 33.0-37.0 [facility] ([place]) Comment on above: Performed By: #### T ROPHS, BMP, GFR #### [address] [address] MCV (RBC) [Entitic vol] 80.7 fL Normal 80.0-94.0 [facility] ([place]) Comment on above: Performed By: #### T ROPHS, BMP, GFR #### [address] [address] Platelet 194 10 3/mcL Normal 130-400 [facility] ([place]) Comment on above: Performed By: #### T ROPHS, BMP, GFR #### [address] [address] Platelet mean volume (Bld) [Entitic vol] 7.6 fL Normal 7.4-10.4 [facility] ([place]) Comment on above: Performed By: #### T ROPHS, BMP, GFR #### [address] [address] RBC 4.46 10 6/mcL Normal 4.20-5.40 [facility] ([place]) Comment on above: Performed By: #### T ROPHS, BMP, GFR #### [address] [address] WBC 6.6 10 3/mcL Normal 4.6-10.8 [facility] ([place]) Comment on above: Performed By: #### T ROPHS, BMP, GFR #### [id number] [place], [place] [address]Son 10-28-2021 Troponin I High Sensitivity 8.2 ng/L Normal 0.0-51.4 [facility] ([place]) Comment on above: Performed By: #### C BC, ADIFF, ANEU, CMP, GFR, LIPID #### [address] [address] Troponin I High Sensitivity 6.2 ng/L Normal 0.0-51.4 [facility] ([place]) Comment on above: Performed By: #### C BC, ADIFF, ANEU, CMP, GFR, LIPID #### [address] [place] [address] XR CHEST 1 VIEWon 10-28-2021 XR CHEST [...] 10/28/2021 2:15:33 PM Ordering Provider: BECCA Hannon [facility] ([place]) .Auto Diffon 09-30-2021 Basophil, Absolute 0.0 10 3/mcL Normal 0.0-0.2 [facility] ([place]) Comment on above: Performed By: #### C BC, ADIFF, ANEU, CMP, GFR, LIPID #### [address] [address] Basophils/100 WBC (Bld) 0.3 % Normal 0.0-2.5 [facility] ([place]) Comment on above: Performed By: #### C BC, ADIFF, ANEU, CMP, GFR, LIPID #### [address] [address] Eosinophil, Absolute 0.0 10 3/mcL Normal 0.0-0.4 [facility] [place] Comment on above: Performed By: #### C BC, ADIFF, ANEU, CMP, GFR, LIPID #### [address] [address] Eosinophils/100 WBC (Bld) 0.3 % Normal 0.0-7.0 [facility] ([place] Comment on above: Performed By: #### C BC, ADIFF, ANEU, CMP, GFR, LIPID #### [address] [address] Lymphocyte, Absolute 0.5 10 3/mcL Low 0.8-3.9 [facility] [place] Comment on above: Performed By: #### C BC, ADIFF, ANEU, CMP, GFR, LIPID #### [address] [address] Lymphocytes/100 WBC (Bld) 6.2 % Low 10.0-50.0 [facility] ([place]) Comment on above: Performed By: #### C BC, ADIFF, ANEU, CMP, GFR, LIPID #### [address] [address] Monocyte, Absolute 0.4 10 3/mcL Normal 0.2-1.0 [facility] ([place]) Comment on above: Performed By: #### C BC, ADIFF, ANEU, CMP, GFR, LIPID #### [address] [address] Monocytes/100 WBC (Bld) 5.5 % Normal 1.7-13.0 [facility] [facility] ([place]) Comment on above: Performed By: #### C BC, ADIFF, ANEU, CMP, GFR, LIPID #### [address] [address] Neutrophils/100 WBC (Bld) 87.7 % High 37.0-80.0 [facility] ([place]) Comment on above: Performed By: #### C BC, ADIFF, ANEU, CMP, GFR, LIPID #### [address] [address] .GFRon 09-30-2021 GFR 84 ml/min/1.73sqm Normal [facility] ([place]) Comment on above: Result Comment: GFR [...] BC, ADIFF, ANEU, CMP, GFR, LIPID #### [address] [address] GFR Non- 70 ml/min/1.73sqm Normal [facility] ([place]) Comment on above: Result Comment: GFR [...] BC, ADIFF, ANEU, CMP, GFR, LIPID #### [address] [address] .MDWon 09-30-2021 Monocyte Distribution Width 23.09 High 0.00-20.00 [facility] ([place]) Comment on above: Result Comment: For adults in ED, MDW>20.0 may be associated with a higher risk of sepsis during the first 12hrs of hospital admission Performed By: #### C BC, ADIFF, ANEU, CMP, GFR, LIPID #### [address] [address] .NEUABSon 09-30-2021 Neutrophil, Absolute 6.9 10 3/mcL High 2.9-6.2 [facility] ([place] Comment on above: Performed By: #### C BC, ADIFF, ANEU, CMP, GFR, LIPID #### [address] [address] BMPon 09-30-2021 BUN/Creatinine Ratio 16 ratio Normal 7-27 [facility] ([place]) Comment on above: Performed By: #### C BC, ADIFF, ANEU, CMP, GFR, LIPID #### [address] [address] Calcium [Mass/Vol] 8.8 mg/dL Normal 8.4-10.2 [facility] ([place]) Comment on above: Performed By: #### C BC, ADIFF, ANEU, CMP, GFR, LIPID #### [address] [address] Chloride [Moles/Vol] 99 mmol/L Normal 98-107 [facility] ([place]) Comment on above: Performed By: #### C BC, ADIFF, ANEU, CMP, GFR, LIPID #### [address] [address] CO2 [Moles/Vol] 27 mmol/L Normal 23-31 [facility] ([place]) Comment on above: Performed By: #### C BC, ADIFF, ANEU, CMP, GFR, LIPID #### [address] [address] Creatinine [Mass/Vol] 0.83 mg/dL Normal 0.55-1.02 [facility] ([place]) Comment on above: Performed By: #### C BC, ADIFF, ANEU, CMP, GFR, LIPID #### [address] [address] Electrolyte Balance 10.0 mEq/L Normal 4.0-15.0 [facility] ([place]) Comment on above: Performed By: #### C BC, ADIFF, ANEU, CMP, GFR, LIPID #### [address] [address] Glucose [Mass/Vol] 171 mg/dL High 80-115 [facility] ([place]) Comment on above: Performed By: #### C BC, ADIFF, ANEU, CMP, GFR, LIPID #### [address] [address] Potassium [Moles/Vol] 4.0 mmol/L Normal 3.5-5.1 [facility] ([place]) Comment on above: Performed By: #### C BC, ADIFF, ANEU, CMP, GFR, LIPID #### [address] [address] Sodium [Moles/Vol] 136 mmol/L Normal 136-145 [facility] ([place]) Comment on above: Performed By: #### C BC, ADIFF, ANEU, CMP, GFR, LIPID #### [address] [address] Urea nitrogen [Mass/Vol] 13 mg/dL Normal 7-18 [facility] ([place]) Comment on above: Performed By: #### C BC, ADIFF, ANEU, CMP, GFR, LIPID #### [address] [address] CBCon 09-30-2021 Erythrocyte distribution width (RBC) [Ratio] 12.8 % Normal 11.5-14.5 [facility] ([place] Comment on above: Performed By: #### C BC, ADIFF, ANEU, CMP, GFR, LIPID #### [address] [address] Hematocrit (Bld) [Volume fraction] 38.9 % Normal 37.0-47.0 [facility] ([place]) Comment on above: Performed By: #### C BC, ADIFF, ANEU, CMP, GFR, LIPID #### [address] [address] Hgb 13.2 G/dL Normal 12.0-16.0 [facility] ([place]) Comment on above: Performed By: #### C BC, ADIFF, ANEU, CMP, GFR, LIPID #### [address] [address] MCH (RBC) [Entitic mass] 27.4 pg Normal 27.0-31.2 [facility] ([place]) Comment on above: Performed By: #### C BC, ADIFF, ANEU, CMP, GFR, LIPID #### [address] [address] MCHC 34.0 G/dL Normal 33.0-37.0 [facility] ([place]) Comment on above: Performed By: #### C BC, ADIFF, ANEU, CMP, GFR, LIPID #### [address] [address] MCV (RBC) [Entitic vol] 80.6 fL Normal 80.0-94.0 [facility] ([place]) Comment on above: Performed By: #### C BC, ADIFF, ANEU, CMP, GFR, LIPID #### [address] [address] Platelet 181 10 3/mcL Normal 130-400 [facility] ([place]) Comment on above: Performed By: #### C BC, ADIFF, ANEU, CMP, GFR, LIPID #### [address] [address] Platelet mean volume (Bld) [Entitic vol] 7.7 fL Normal 7.4-10.4 [facility] ([place]) Comment on above: Performed By: #### C BC, ADIFF, ANEU, CMP, GFR, LIPID #### [address] [address] RBC 4.82 10 6/mcL Normal 4.20-5.40 [facility] ([place]) Comment on above: Performed By: #### C BC, ADIFF, ANEU, CMP, GFR, LIPID #### [address] [address] WBC 7.9 10 3/mcL Normal 4.6-10.8 [facility] ([place]) Comment on above: Performed By: #### C BC, ADIFF, ANEU, CMP, GFR, LIPID #### [address] [address] [id number] 09-30-2021 Date of Onset [id number] Invalid Interpretation Code [facility] ([place]) Comment on above: Performed By: #### C BC, ADIFF, ANEU, CMP, GFR, LIPID #### [address] [address] 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 [facility] ([place]) Comment on above: Performed By: #### C BC, ADIFF, ANEU, CMP, GFR, LIPID #### [place] [address] First Test No [facility] ([place]) Comment on above: Performed By: #### C BC, ADIFF, ANEU, CMP, GFR, LIPID #### [place] [address] Hospitalized No [facility] ([place]) Comment on above: Performed By: #### C BC, ADIFF, ANEU, CMP, GFR, LIPID #### [place] [address] ICU No [facility] ([place]) Comment on above: Performed By: #### C BC, ADIFF, ANEU, CMP, GFR, LIPID #### [place] [address] Not [facility] ([place]) Comment on above: Performed By: #### C BC, ADIFF, ANEU, CMP, GFR, LIPID #### [place] [address] Resides in Congregate Care Setting No [facility] ([place]) Comment on above: Performed By: #### C BC, ADIFF, ANEU, CMP, GFR, LIPID #### [place] [address] SARS-CoV-2 (COVID-19) RNA SHIELA+probe Ql (Unsp spec) Positive Abnormal Negative [facility] ([place]) Comment on above: Performed By: #### C BC, ADIFF, ANEU, CMP, GFR, LIPID #### [place] [address] SARS-CoV-2 (COVID-19) RNA SHIELA+probe Ql (Unsp spec) [facility] ([place]) Comment on above: Result Comment: Posi tive results are indicative of the presence of SARS-CoV-2 RNA; clinical correlation with patient history and other diagnostic information is necessary to determine patient infection status. Positive results do not rule out bacterial infection or co-infection with other viruses. The agent detected may not be the definite cause of disease. Laboratories within the [place] and its territories are required to report [...] or from non-specific signals in the assay. [employer] SARS-CoV-2 Assay is a Real-Time reverse-transcriptase polymerase [...] COVID-19 Int Performed By: #### C BC, WILLIAM, ANEU, CMP, GFR, LIPID #### [place] [id number] Symptomatic as Defined by CDC No Normal [facility] ([place]) Comment on above: Performed By: #### C BC, WILLIAM, ANEU, CMP, GFR, LIPID #### [place] [id number] LABORATORYOrdered By: Nathanael Riley on 09-30-2021 ADMITTED TO INTENSIVE CARE UNIT FOR CONDITION OF INTEREST:FIND:PT:^WESLEYE NT:ORD: No (09/30/21 5:42 PM) Invalid Interpretation [...] AO ADM SS EMPLOYED IN A HEALTHCARE SETTING:FIND:PT:^JORGE T:ORD: No (09/30/21 5:42 PM) Invalid Interpretation Code AO Auto Urine SS Eosinophil, Absolute 0.0 103/mcL Invalid Interpretation Code 0.0 - 0.4 10^3/mcL AO Workflow SS Eosinophils/100 WBC (Bld) 0.3 % Invalid Interpretation Code 0.0 - 7.0 % AO Workflow SS Erythrocyte distribution width (RBC) [Ratio] 12.8 % Invalid Interpretation Code 11.5 - 14.5 % AO Workflow SS FIRST TEST FOR CONDITION OF INTEREST:FIND:PT:^TIN NT:ORD: No (09/30/21 5:42 PM) Invalid Interpretation Code AO Auto Urine SS Glucose [Mass/Vol] 171 mg/dL Invalid Interpretation Code 80 - 115 mg/dL AO ADM SS HAS SYMPTOMS RELATED TO CONDITION OF INTEREST:FIND:PT:^TIN NT:ORD: No (09/30/21 5:42 PM) Invalid Interpretation [...] Workflow SS RESIDES IN A CONGREGATE CARE SETTING:FIND:PT:^PATIEN T:ORD: No (09/30/21 5:42 PM) Invalid Interpretation Code [...] definite cause of disease. Laboratories within the [place] and its territories are required to report all positive results to the appropriate public health authorities.Detectio n of analyte target(s) does not imply that the corresponding virus(es) are infectious or are the causative agents for clinical symptoms.There is a risk of false positive values resulting from cross-contamination by target organisms, their nucleic acids or amplified product, or from non-specific signals in the assay.[employer] SARS-CoV-2 Assay is a Real-Time reverse-transcriptas e polymerase chain reaction (RT-PCR) based qualitative in [...] 09/30/2021 7:15:16 PM Ordering Provider: BECCA FARNSWORTH [facility] ([place]) LABORATORYOrdered By: Teresa Lee on 11-26-2020 [...] Facility 06-18-2023 09:02-0400 Body height 162.56 cm [facility] 06-18-2023 09:02-0400 Body mass index (BMI) [Ratio] 33.7 kg/m2 [facility] 06-18-2023 [id number] Body temperature 97.4 [degF] [facility] 06-18-2023 09:02-0400 Body weight 89.35 kg [facility] 06-18-2023 09:02-0400 Diastolic blood pressure 63 mm[Hg] [facility] 06-18-2023 09:02-0400 Heart rate 78 /min [facility] 06-18-2023 09:02-0400 Respiratory rate 16 /min [facility] 06-18-2023 09:02-0400 SaO2% (BldA) [Mass fraction] 97 % [facility] 06-18-2023 09:02-0400 Systolic blood pressure 161 mm[Hg] [facility] 06-16-2023 23:37-0400 Body temperature 97.6 [degF] [facility] 06-16-2023 23:37-0400 Diastolic blood pressure 78 mm[Hg] [facility] 06-16-2023 23:37-0400 Heart rate 80 /min [facility] 06-16-2023 23:37-0400 Respiratory rate 18 /min [facility] 06-16-2023 23:37-0400 SaO2% (BldA) [Mass fraction] 95 % [facility] 06-16-2023 23:37-0400 Systolic blood pressure 165 mm[Hg] [facility] 06-16-2023 22:15-0400 Body height 162.56 cm [facility] 06-16-2023 22:15-0400 Body mass index (BMI) [Ratio] 34.1 kg/m2 [facility] 06-16-2023 22:15-0400 Body weight 90.26 kg [facility] 10-25-2022 16:10-0400 Body height 166.[address] Yousif Murguia Work Phone: [facility] 10-25-2022 16:10-0400 Body mass index (BMI) [Ratio] 33 kg/m2 Dr. Yousif Murguia Work Phone: [facility] 10-25-2022 16:10-0400 Body temperature 98.2 [degF] Dr. Yousif Murguia Work Phone: [facility] 10-25-2022 16:10-0400 Body weight 91.[address] Yousif Murguia Work Phone: [facility] 10-25-2022 16:10-0400 Diastolic blood pressure 78 mm[Hg] Dr. Yousif Murguia Work Phone: [facility] 10-25-2022 16:10-0400 Heart rate 67 /min Dr. Yousif Murguia Work Phone: [facility] 10-25-2022 16:10-0400 Respiratory rate 14 /min Dr. Yousif Murguia Work Phone: [facility] 10-25-2022 16:10-0400 SaO2% (BldA) [Mass fraction] 97 % Dr. Yousif Murguia Work Phone: [facility] 10-25-2022 16:10-0400 Systolic blood pressure 144 mm[Hg] Dr. Yousif Murguia Work Phone: [facility] 09-30-2021 18:56-0400 Diastolic blood pressure 76 mm[Hg] BECCA FARNSWORTH MD [facility] 09-30-2021 18:56-0400 Heart rate 81 /min BECCA FARNSWORTH MD [facility] 09-30-2021 18:56-0400 Mean blood pressure 101 mm[Hg] BECCA FARNSWORTH MD [facility] 09-30-2021 18:56-0400 Reason For Taking VItal Signs BECCA FARNSWORTH MD [facility] 09-30-2021 18:56-0400 Respiratory rate 15 /min BECCA FARNSWORTH MD [facility] 09-30-2021 18:56-0400 Systolic blood pressure 150 mm[Hg] BECCA FARNSWORTH MD [facility] 09-30-2021 17:35-0400 Body height 165.1 cm BECCA FARNSWORTH MD [facility] 09-30-2021 17:35-0400 Body temperature 99.86 [degF] BECCA FARNSWORTH MD [facility] 09-30-2021 17:35-0400 Body weight 94.5 kg BECCA FARNSWORTH MD [facility] 09-30-2021 17:35-0400 Diastolic blood pressure 74 mm[Hg] BECCA FARNSWORTH MD [facility] 09-30-2021 17:35-0400 Heart rate 107 /min BECCA FARNSWORTH MD [facility] 09-30-2021 17:35-0400 Respiratory rate 18 /min BECCA FARNSWORTH MD [facility] 09-30-2021 17:35-0400 Systolic blood pressure 161 mm[Hg] BECCA FARNSWORTH MD [facility] 11-26-2020 19:02-0400 Diastolic blood pressure 74 mm[Hg] NEAL BARON DO [facility] 11-26-2020 19:02-0400 Heart rate 71 /min NEAL BARON DO [facility] 11-26-2020 19:02-0400 Reason For Taking VItal Signs NEAL BARON DO [facility] 11-26-2020 19:02-0400 Respiratory rate 18 /min NEAL BARON DO [facility] 11-26-2020 19:02-0400 Systolic blood pressure 132 mm[Hg] NEAL BARON DO [facility] 11-26-2020 17:25-0400 Body temperature 99.14 [degF] NEAL BARON DO [facility] 11-26-2020 17:25-0400 Diastolic blood pressure 94 mm[Hg] NEAL BARON DO [facility] 11-26-2020 17:25-0400 Heart rate 75 /min NEAL BARON DO [facility] 11-26-2020 17:25-0400 Mean blood pressure 121 mm[Hg] NEAL BARON DO [facility] 11-26-2020 17:25-0400 Respiratory rate 16 /min NEAL BARON DO [facility] 11-26-2020 17:25-0400 Systolic blood pressure 175 mm[Hg] NEAL BARON DO [facility] Encounters Encounter Date Encounter Type Care Provider Facility Start: 10-16-2024 End: 10-16-[address] Yousif Murguia MD Work Phone: -[facility] Start: 10-16-2024 End: 10-16-[address] Yousif Murguia MD -[facility] Start: 10-16-2024 End: 10-16-2024 ambulatory Yousif Murguia Facility:[facility] Start: 10-04-2024 End: 10-04-[address] Yousif Murguia MD Work Phone: -Laboratory Specimen Start: 10-04-2024 End: 10-04-[address] Yousif Murguia MD -Laboratory Specimen Work Phone: Start: 10-03-2024 End: 10-04-[address] Yousif Murguia MD Work Phone: -Laboratory [facility] Start: 10-03-2024 End: 10-03-[address] Yousif Murguia MD -Laboratory [facility] Start: 10-03-2024 End: 10-03-2024 ambulatory Yousif Murguia Facility:[facility] Start: 09-25-2024 End: 09-25-[address] Yousif Murguia MD Work Phone: -Outpatient Bone Densitometry Start: 09-25-2024 End: 09-25-[address] Yousif Murguia MD -Outpatient Bone Densitometry Work Phone: Start: 09-25-2024 End: 09-25-2024 ambulatory Yousif Murguia Facility:[facility] Start: 03-08-2024 End: 03-08-2024 ambulatory Dalton Carpenter Facility:[facility] Start: 03-05-2024 End: 03-08-2024 Evaluation and management of inpatient Dalton Carpenter Facility:[facility] Start: 03-05-2024 ambulatory Dalton Carpenter Faci lity:[facility] Start: 02-27-2024 End: 02-27-2024 ambulatory Yousif Murguia Facility:[facility] Start: 02-21-2024 End: 02-21-2024 ambulatory Yousif Murguia Facility:[facility] Start: 11-22-2023 ambulatory Health Risk Assessment Facility:[facility] Start: 06-18-2023 End: 06-18-2023 Emergency department patient visit [facility]-Emergency Department Work Phone: Start: 06-16-2023 End: 06-16-2023 Emergency department patient visit [facility]-Emergency Department Work Phone: Start: 06-14-2023 End: 06-14-2023 ambulatory [facility] Work Phone: Start: 06-14-2023 End: 06-14-2023 Patient encounter procedure [facility] Spec[facility] Work Phone: Start: 05-29-2023 End: 05-29-2023 ambulatory [facility] Work Phone: Start: 05-29-2023 End: 05-29-2023 Patient encounter procedure [facility]-Outpatient Breast Imaging Work Phone: Start: 03-27-2023 End: 03-27-2023 ambulatory [facility] Work Phone: Start: 03-27-2023 End: 03-27-2023 Patient encounter procedure [facility] Work Phone: Start: 10-26-2022 End: 10-26-[address] Yousif Murguia Work Phone: [facility] Work Phone: Start: 10-25-2022 End: 10-25-[address] Yousif Murguia Work Phone: [facility] Work Phone: Start: 10-25-2022 End: 10-25-[address] Yousif Murguia Work Phone: [facility] Start: 08-28-2022 End: 08-28-2022 ambulatory VERONIKA SAAB Facility:[facility] Start: 08-08-2022 End: 08-08-2022 ambulatory GIO MCCABE Facility:[facility] Start: 08-07-2022 End: 08-07-2022 ambulatory GIO MCCABE Facility:[facility] Start: 07-11-2022 End: 07-12-[address] VERONIKA SAAB DO Facility:[facility] Start: 07-11-2022 End: 07-11-[address] VERONIKA SAAB DO [facility] Start: 01-03-2022 End: 01-08-2022 ambulatory RAFA CHAVEZ MD Facility:[facility] Start: 10-28-2021 End: 10-28-2021 Emergency department patient visit DR VERONIKA SAAB DO Facility:[facility] Start: 09-30-2021 End: 09-30-2021 Emergency department patient visit DR VERONIKA SAAB DO Facility:[facility] Start: 09-30-2021 End: 09-30-2021 Emergency department patient visit BECCA FARNSWORTH MD [facility] Start: 07-19-2021 End: 07-19-[address] VERONIKA SAAB DO [facility] Start: 12-24-2020 End: 2020 Outreach Lab RAFA CHAVEZ MD [facility] Start: 11-26-2020 End: 11-26-2020 Emergency department patient visit NEAL BARON DO [facility] Procedures Date Procedure Procedure Detail Performing Clinician Start: 10-04-2024 Urine microalbumin/creatinine ratio measurement Dr. Yousif Murguia MD Work Phone: Start: 09-25-2024 Dual energy X-ray absorptiometry Dr. Yousif Murguia MD Work Phone: Start: 09-25-2024 Screening mammography Zohra Murguia MD Work Phone: Start: 06-16-2023 Radiography of sacrococcygeal spine Start: 06-16-2023 Radiologic examinati on of knee Start: 05-29-2023 Screening mammography Plan of Treatment Date Care Activity Detail Author Start: 06-18-2023 [facility] Start: 06-16-2023 [facility] Start: 05-29-2023 Screening mammography SCRN SAHIL M (CAD)W/JOSEP BILAT [facility] Path report.final Dx Spec [facility] Patient Education [facility] Work Phone: Patient referral [facility] Work Phone: Immunizations Immunization Date Immunization Notes Care Provider Fa [facility] 11-12-2013 influenza virus vaccine, unspecified formulation DR VERONIKA SAAB DO [facility] 09-13-2012 tetanus toxoid, redu laura diphtheria toxoid, and acellular pertussis vaccine, adsorbed DR VERONIKA SAAB DO [facility] Payers Date Payer Category Payer Self-pay [id number] 2014 Unknown [id number] 1960 Unknown [id number] 2.16.8 [id number] 1960 Unknown [id number] 2.16.8 [id number] 1960 Unknown [id number] 2.16.8 [id number] 1960 Unknown [id number] 2.16.8 [id number] Unknown [id number] 2.16.8 [id number] Unknown [id number] 2.16.8 [id number] Unknown [id number] 2.16.8 [id number] Unknown [id number] 2.16.8 [id number] Unknown [id number] 2.16.8 [id number] Unknown [id number] 2.16.8 [id number] Unknown [id number] 2.16.8 [id number] Unknown [id number] 2.16.8 [id number] Unknown [id number] 2.16.8 [id number] Unknown [id number] 2.16.8 [id number] Unknown [id number] 2.16.8 [id number] Unknown [id number] 2.16.8 [id number] Unknown [id number] 2.16.8 [id number] Social History Date Type Detail Facility Start: 01-08-2019 End: 03-05-2024 Never smoked tobacco (finding) [facility] Comment on above: no tobacco smoke exp osure Sex Assigned At [facility] Start: 1960 Sex Assigned At Female W [facility] Start: 10-26-2022 End: 06-18-2023 Tobacco smoking status NHIS Unknown if ever smoked [facility] Start: 04-07-2019 Alone [facility] Sex Female [facility] Medical Equipment Procedure Code Equipment Code Equipment Origin al Text Equipment Identifier Dates Cystoscopic insertion of stent ([id number]) Polymeric ureteral stent [id number] [facility] Start: 03-05-2024 BD UF SHORT PEN NEEDLE [id number] Start: 02-09-[address] Strips Start: 02-27-2020 BD UF SHORT PEN NEEDLE [id number] Start: 02-09-[address] Strips Start: 02-27-2020 BD UF SHORT PEN NEEDLE [id number], See Instructions, USE 1 PEN NEEDLE DAILY, # 30 syringe, 43 Refill(s), Pharmacy: [id number], 163, cm, 12/05/19 13:11:00 EDT, Height, 95.5, kg, 12/05/19 13:11:00 EDT, Dosing Weight Start: 02-09-2020 See Instructions , Ultra mini test strips 2 boxes of 100. She is to use 2 daily. 1 year refill., # 1 EA, 3 Refill(s), [id number], Abdominal pain Pelvic pain, 165, cm, 12/24/20 8:09:00 EST, Height, 98.7, kg, 12/24/20 8:09:00 EST,... Start: 01-14-2021 See Instructions , One Touch Ultra Blue Test Strips Testing once daily #100 x 3 refills DX:diabetes, # 1 EA, 3 Refill(s), [id number], 165, cm, 12/24/20 8:09:00 EST, Height, 98.7, kg, 12/24/20 8:09:00 EST, Dosing Weight Start: 05-06-2021 BD UF SHORT PEN NEEDLE [id number], See Instructions, USE 1 PEN NEEDLE DAILY, # 30 syringe, 43 Refill(s), Pharmacy: [facility] [id number], 163, cm, 12/05/19 13:11:00 EDT, Height, 95.5, kg, 12/05/19 13:11:00 EDT, Dosing Weight Start: 02-09-2020 See Instructions , Ultra mini test strips 2 boxes of 100. She is to use 2 daily. 1 year refill., # 1 EA, 3 Refill(s), Pharmacy: [facility]/pharmacy #[id number], Abdominal pain Pelvic pain, 165, cm, 12/24/20 8:09:00 EST, Height, 98.7, kg, 12/24/20 8:09:00 EST,... Start: 01-14-2021 See Instructions , One Touch Ultra Blue Test Strips Testing once daily #100 x 3 refills DX:diabetes, # 1 EA, 3 Refill(s), [id number], 165, cm, 12/24/20 8:09:00 EST, Height, 98.7, kg, 12/24/20 8:09:00 EST, Dosing Weight Start: 05-06-2021 BD UF SHORT PEN NEEDLE [id number], See Instructions, USE 1 PEN NEEDLE DAILY, # 30 syringe, 43 Refill(s), Pharmacy: [id number], 163, cm, 12/05/19 13:11:00 EDT, Height, 95.5, kg, 12/05/19 13:11:00 EDT, Dosing Weight Start: 02-09-2020 See Instructions , Ultra mini one touch test strips 2 boxes of 100. She is to use 3 times daily. 1 year refill., # 1 EA, 11 Refill(s), [id number], Abdominal pain Pelvic pain, 164, cm, 10/18/21 14:34:00 EDT, Height, 95.1, kg, 10/18... Start: 10-18-2021 See Instructions , One Touch Ultra Blue Test Strips Testing once daily #100 x 3 refills DX:diabetes, # 1 EA, 3 Refill(s), [id number], 165, cm, 12/24/20 8:09:00 EST, Height, 98.7, kg, 12/24/20 8:09:00 EST, Dosing Weight Start: 05-06-2021 Functional Status Date Assessment Result Facility 09-30-2021 Functional Status Up ad fatoumata [facility] Mental Status Date Assessment Result Facility 09-30-2021 Mental Status Orientation Oriented x 4 [facility] 09-30-2021 Mental Status [facility] Notes 11-26-2020 to 03-08-2024 Note Date & Type Note Facility 03-08[facility]2024 [facility] [address] [place] [address] Discharge Summary 03/08/24 1406 MR#: [id number] Acct: [id number] Name: MONSERRAT CORNEJO I Rep #: [id number] : 1960 63 From: Eva Quezada MD PCP: Dr. Yousif Murguia MD Status:ADM IN Location: [place] [address] Providers Date of Admission: 03/05/24 Date of Discharge: 03/08/24 Primary Care Physician: Dr. 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 Speciation is pending. Blood cultures pending. * [...] reviewed. Home medic (more content not included)... [facility] 06-16-2023 Discharge summary Note Date/Time June 16, 2023 10:31p m [facility] Medical Records Department [address] [place] [address] Emergency Department Summary 06/16/23 MR#: [id number] Acct: [id number] Name: MONSERRAT CORNEJO I Rep #:[id number] : 1960 62 From: Howard Fenton MD PCP: Dr. Yousif Murguia MD Status:CHARLENE Andrade ER Location: ED HPI HPI - Fall [...] a chair, and when she was getting usp up, it slid out from under her [...] that is worse with weightbearing and ambulating. [facility] Medical History Arthritis Chronic neck and back [...] / Time latex AdvReac Mild Hives Verified 06/16/23 22:19 BP MED Allergy Itching Uncoded 06/13/19 [...] done for a coccyxfracture other than taking yuoe-zpx-pvqaipy stool softeners. In regards to her knee, [...] independent interpretation as well. Patient will take yaoy-mtk-yipdzgz medications as needed for pain. I offered [...] 23:16 EDT Reading Location ID and State: [id number] / [place] Tel , Service support , Sacrum and [...] your Primary Care Provider. Call [facility] ([phone]) or report to the closest Emergency Room. Call 911 if necessary. 06/16/232326 <Electronically signed by Howard Fenton MD> Cosigner Signature (if applicable): CC: Dr. Yousif Murguia MD ~ Signed [facility] Work Phone: 1(235) 972-284808-01-2023 NoteHNO ID: [id number] Author: Gio Mccabe MD Service: ? Author Type: Physician Type: Progress Notes Filed: 09/12/2022 9:58 AM Note Text: Subjective: Patient is status post an ultrasound of her thyroid gland: Nodule #1 Location: Right upper pole Size: 9 x 7 x 4 mm Characteristics: Composition: Solid or almost completely solid, 2 points Echogenicity: Hypoechoic, 2 points Shape: Nmtjs-zavw-jgvk, 0 points Margin: smooth or ill defined. 0 points Echogenic foci: Possible punctate echogenic foci, 3 points vs 0 points TI-RADS Category: 5 ACR Recommendation: Follow up imaging is advised annually for 5 years. Nodule #2 Location: Left lower pole Size: 5 x 7 x 3 mm Characteristics: Composition: Solid or almost completely solid, 2 points Echogenicity: Hypoechoic, 2 points Shape: Given-xfsw-osem, 0 points Margin: smooth or ill defined. 0 points Echogenic foci: None, 0 points TI-RADS Category: 4 ACR Recommendation: No FNA or follow-up imaging is advised. Nodule #3 Location: Left isthmus Size: 6 x 6 x 4 mm Characteristics: Composition: Solid or almost completely solid, 2 points Echogenicity: Hypoechoic, 2 points Shape: Dmsde-qjva-gcui, 0 points Margin: smooth or ill defined. [...] repeat ultrasounds will be all that is needed.[facility] 08-08-2022 NoteHNO ID: [id number] Author: RT Apurva(Braydon) Service: Radiology Author Type: [...] Amy Zambrano Rdms August 08, 2022 2:08 [facility]06-26-2023 NoteHNO ID: [id number] Author: Gio Mccabe MD Service: ? Author Type: Physician Type: [...] entered by the nurse and reviewed by nm Nursing Notes: Jessica Starr LPN 08/07/2022 2:38 [...] 10 years ago Last Colonoscopy: 2020 Jessica LiceallHAYDER PHYSICAL EXAMINATION: General: The patient is 61 year old female, well nourished, well hydrated in no acute distress. The patient is oriented to time, place, and person. VITALS: Blood pressure 142/68, pulse 89, temperature 36.8 ?C (98.2 ?F), height 165.1 cm (5' 5), weight 93.4 kg (206 lb), SpO2 99 %. HEENT: Normal cephalic, ataumatic, pupils are equally ro (more content not included)...[facility]11-24-2022 Note. MICRO - Microbiology PROCEDURE: Urine Culture [...] Locations *1: This test was performed at: [facility], [address] [place] [address], [address] , [facility] ([place])09-30-2021 Hospital Discharge instructions Patient Education 09/30/2021 [...] humidified air to open blocked nasal passages. 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 Be [...] mouth Spotted, red, or very sore throat [phone] [employer]. [address] [place] [address]. All rights reserved. This information is not intended as a substitute for professional medical care. Always follow yourhealthcare professional's instructions. Follow Up Care 09/30/2021 17:24:40 With:VERONIKA SAAB DO Address: [address] [place] [address] [place] [phone] When:2-4 days [facility] 08-19-2022 Note ORIGINAL EXAMINATION: ONE XRAY VIEW [...] 09/30/2021 7:15:16 PM Ordering Provider: BECCA FARNSWORTH [facility]08-19-2022 Emergency department Discharge summary Discharge Instructions Thank you for allowing [facility] to assist you with your healthcare needs. [...] SAAB DO When Within 2-4 days Where: [address] [facility] [place] [phone] Allergies amLODIPine (Itching) Medications Please ask your [...] Misc Medication (BD UF SHORT PEN NEEDLE [id number]) See instructions USE 1 PEN NEEDLE DAILY [...] humidified air to open blocked nasal passages. 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 Be [...] mouth Spotted, red, or very sore throat [phone] [employer] [address] [place] [address]. All rights reserved. This information is not intended as a substitute for professional medical care. Always follow yourhealthcare professional's instructions. Additional Information VACCINATE! IT SAVES LIVES! Members of the community who have not yet received the COVID-19 vaccine and would like to receive it can visit one of [facility] vaccine clinics. There are many vaccine clinic locations within the [facility]. For locations and available times, please visit [email or web address]. It is important to note that some COVID mobile vaccine clinics are held outdoors and may be canceled in rainy orstormy conditions. To learn more about pediatric vaccinations (ages 5-11), we invite you to visit the [facility] webpage. [email or web address] [email or web address] learn more about the COVID-19 vaccine, we invite you to visit the [facility] website for a list of frequently asked questions. [email or web address] [facility] [employer] Patient Portal Access Instructions: Stay connected with your healthcare team and access your personal medical information anytime with the [facility] [employer] Patient Portal. If you would like a full copy of your medical records please contact the [facility] Medical Records Department Sunday through Sunday between 8a.m. and 4:30p.m. Please follow the directions below to access the portal: 1.Access the email account you provided upon registration to the [facility].2.Look for an invitation email from [facility].3.Open the email and access the invitation link: Accept Invitation to [facility]4.Fill in the required harrell to create your account. Sign into [email or web address] with your username and password that you [...] you will allow to register on the [employer] Patient Portal for access to your information. You can also access the [employer] Patient Portal on the [employer]. Simply click on Health Records under [employer] and then click on the CrowdBouncer logo. HOW TO SAFELY DISPOSE OF PRESCRIPTION [...] Call your local pharmacy or go to [email or web address] to find one close to you.3.Make use of household items: Use cat litter or old coffee grounds to dispose medications if other options arenot available. Mix your drugs with these household products, seal them in an airtight container andthrow it into the garbage. Call [facility]: [phone] to be sure your drugs can be [...] aware that I should contact my doctor. 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 Signature: Date/Time: Relationship to Patient: Witness Name/Signature: Date/Time: [facility]08-19-2022 Note ORIGINAL EXAMINATION: ONE XRAY VIEW OF [...] Date: 09/30/2021 7:15:16 PM Ordering [facility] SARS-CoV-2 (COVID-19) RNA SHIELA+probe Ql (Nph)Positive *ABN* (8/19/22 5:42 PM)AO Auto Urine [id number] Evaluation + Plan note Future Scheduled Tests Laboratory* Thyroid Stimulating Hormone 12/10/20 * A1C Hemoglobin 12/10/20 * Complete Blood Count 12/10/20 * Lipid Profile 12/10/20 * Complete Metabolic Panel 12/10/20 Radiology* MA Mammo Screening Bilateral w/ Josep 06/18/20 [facility] 10-15-2021 Hospital Discharge instructions Patient Education 11/26/2020 [...] Swelling, pain or redness in one leg [phone] [employer]. [address] [place] [address], [place] [address]. All rights reserved. This information is not intended as a substitute for professional medical care. Always follow yourhealthcare professional's instructions. Follow Up Care 11/26/2020 17:05:30 With:RAFA CHAVEZ MD Address: [address] [place] [address] [place] [address]- When:2-4 days [facility] Discharge summary Author Ryan Jackman [facility] June 18, 2023 9:24am Note Date/Time June 18, 2023 9:24am [facility] Medical Records Department [address] [facility] [place] [address] Emergency Department Summary 06/18/23 MR#: [id number] Acct: [id number] Name: MONSERRAT CORNEJO I Rep #:[id number] : 1960 62 From: Ryan Jackman MD PCP: Dr. Yousif Murguia MD Status:[place] E ER Location: ED HPI History of [...] She understands. Prior similar symptoms: Yes PFSH [facility] Medical History Arthritis Chronic neck and back [...] your Primary Care Provider. Call [facility] ([phone]) or report to the closest Emergency Room. Call 911 if necessary. 06/18/23923 <Electronically signed by Ryan Jackman MD> Cosigner Signature (if applicable): CC: Dr. Yousif Murguia MD ~ Signed [facility] Work Phone: Evaluation + Plan note Future Appointments Appointment Date:12/10/2020 04:15:00 PM Scheduled Provider:RAFA CHAVEZ MD Location:[facility] Appointment Type:PC OV Follow Up Future Scheduled Tests Radiology* MA Mammo Screening Bilateral w/ Josep 06/18/20 [facility] Evaluation + Plan note Future Appointments Appointment Date:08/18/2021 10:00:00 AM Scheduled Provider:VERONIKA SAAB DO Location:[facility] Appointment Type:PC OV Diagnostic Tests Pending * Urine Culture 07/19/21 Future Scheduled Tests Laboratory* Thyroid Stimulating Hormone 12/10/20 * A1C Hemoglobin 12/10/20 * Complete Blood Count 12/10/20 * Lipid Profile 12/10/20 * Complete Metabolic Panel 12/10/20 Radiology* XR Chest 2 Views (PA & Lateral) 07/19/21 [facility] Evaluation + Plan note Future Appointments Appointment Date:10/18/2021 02:30:00 PM Scheduled Provider:VERONIKA SAAB DO Location:[facility] Appointment Type:PC OV Future Scheduled Tests Laboratory* Thyroid Stimulating Hormone 12/10/20 * A1C Hemoglobin 12/10/20 * Complete Blood Count 12/10/20 * Lipid Profile 12/10/20 * Complete Metabolic Panel 12/10/20 Radiology* XR Chest 2 Views (PA & Lateral) 07/19/21 [facility] Evaluation + Plan note Future Appointments Appointment Date:07/19/2022 02:30:00 PM Scheduled Provider:VERONIKA SAAB DO Location:[facility] Appointment Type:PC OV Future Scheduled Tests Radiology* US Thyroid 04/19/22 [facility] Evaluation noteNo assessment information available [facility] Work Phone: Evaluation note* Diagnosis Onset Date Resolution Status Acute bacterial conjunctivitis acute [facility] Work Phone: Hospital course Narrative No data available for this section [facility] Hospital Discharge instructions No data available for this section [facility] Progress note No data available for this section [facility] Reason for referral (narrative)No reason for referral information available[facility] Work Phone: Summary Purpose Family History No [...] June 13, 2019 12 :33pm Power of Medical Record Specialist No June 13, 2019 12:33pm Advance Directive Response Recorded Date/ Time Advance Directives No March 03, 2016 11:18pm Living Will No November 29 12:27pm Power of Medical Record Specialist No November 29, 2022 12:27pm Advance Directive Response Recorded Date/ Time Advance Directives No March 04, 2016 12:18am Living Will No November 29 1:27pm Power of Medical Record Specialist No November 29, 2022 1:27pm Advance Directive Response Recorded Date/ Time Advance Directives No March 04, 2016 12:18am Living Will No June 16, 2023 10 :24pm Power of Medical Record Specialist No June 16, 2023 10:24pm Advance Directive Response Recorded Date/ Time Advance Directives No March 04, 2016 12:18am Living Will No June 18, 2023 9: 24am Power of Medical Record Specialist No June 18, 2023 9:24am Advance Directive Response Recorded Date/ Time Advance Directives No March 04, 2016 12:18am Chief Complaint and Reason for Visit Chief Complaint PINK EYE Reason for Visit Acute bacterial conj unctivitis Chief Complaint EORDER Chief Complaint EORDER SCREENING Chief Complaint EORDER SCREENING S/P FALL Chief Complaint EORDER SCREENING S/P FALL FALL Chief Complaint Admit Date POSTMENOPAUSAL,SCREENING September 25 2:48pm Chief Complaint Admit Date POSTMENOPAUSAL,SCREENING September 25 2:48pm LABSPEC ORDER FOR URINE October 04 6:54am Additional Source Comments Care Team (unrecognized sect ion and content) Team Status: Active Member Role Status Dates Dr. Rafa Chavez MD Family Provider Active Dr. Yousif Murguia MD Primary Care Provider Active Team Status: Inactive Member Role Status Dates Dr. Yousif Murguia MD Primary Care Provider, Referr ing Provider Active Tate Guzman PA, PA Attending Provider Active Team Status: Inactive [...] September 25, 2024 End: September 25, 2024 Team Status: Inactive Member Role/Relationship Status Dates Dr. Yousif Murguia MD Primary Care Provider Active Start: October 03, 2024 End: October 03, 2024 Dr. Yousif Murguia MD Attending Provider Active Start: October 03, 2024 End: October 03, 2024 Dr. Yousif Murguia MD Referring Provider Active Start: October 03, 2024 End: October 03, 2024 Team Status: Active Member Role/Relationship Status Dates Dr. Yousif Murguia MD Primary Care Provider Active Start: October 04, 2024 Dr. Yousif Murguia MD Attending Provider Active Start: October 04, 2024 Dr. Yousif Murguia MD Referring Provider Active Start: October 04, 2024 Team Status: Active Member Role/Relationship Status Dates Dr. Yousif Murguia MD Primary care physician Active Team Status: Inactive Member Role/Relationship Status Dates Dr. Yousif Murguia MD Primary care physician Active Start: September 25, 2024 End: September 25, 2024 Dr. Yousif Murguia MD Attending physician Active Start: September 25, 2024 End: September 25, 2024 Dr. Yousif Murguia MD Referring Provider Active Start: September 25, 2024 End: September 25, 2024 Team Status: Inactive Member Role/Relationship Status Dates Dr. Yousif Murguia MD Primary care physician Active Start: October 03, 2024 End: October 03, 2024 Dr. Yousif Murguia MD Attending physician Active Start: October 03, 2024 End: October 03, 2024 Dr. Yousif Murguia MD Referring Provider Active Start: October 03, 2024 End: October 03, 2024 Team Status: Inactive Member Role/Relationship Status Dates Dr. Yousif Murguia MD Primary care physician Active Start: October 04, 2024 End: October 04, 2024 Dr. Yousif Murguia MD Attending physician Active Start: October 04, 2024 End: October 04, 2024 Dr. Yousif Murguia MD Referring Provider Active Start: October 04, 2024 End: October 04, 2024 Team Status: Inactive Member Role/Relationship Status Dates Dr. Yousif Murguia MD Primary care physician Active Start: October 16, 2024 End: October 16, 2024 Dr. Yousif Murguia MD Attending physician Active Start: October 16, 2024 End: October 16, 2024 Care Team (unrecognized sect ion and content) Care Team Personnel Name: VERONIKA SAAB DO Position: P4 Physician - Primary Care Med Service: Active Provider Member Role: Primary Care Physician Address: Address: [address] [place] [address] Care Team Related Persons Name: THANG KIRBY Name: CLEMENTE FILIPE M Address: Home [address] [place], [place] [id number] [place] Address: [address] [id number] Goals (unrecognized section and content) Goals may be documented in a n alternate section INFORMATION SOURCE (unrecogn ized section and content) DATE CREATED AUTHOR 07/24/2022 [facility] ([place]) DATE CREATED AUTHOR AUTHOR'S ORGANIZ ATION 09/13/2022 [facility] DATE CREATED AUTHOR AUTHOR'S ORGANIZ ATION 11/16/2024 [facility] FOR RECORDS PERTAINING TO PATIENTS WHO ARE [...] BE BASED ON THE PRIMARY CLINICAL RECORDS. [employer] [facility]. provides no warranty or guarantee of the accuracy or completeness of information in this document.
[2025-01-30 18:09] LABS: Hematocrit 37.1 % (37-47); Hemoglobin 11.7 g/dL (12.0-15.0); Immature Granulocytes Count 0.030 X10^3/uL (0.0-0.0); Mean Corp Hgb Conc 31.5 g/dL (32-36); Mean Corpuscular Volume 87.5 fL (81-99); Mean Platelet Vol. 10.0 fl (6.2-12.0); NRBC Flagged by Analyzer 0 % (0-5); Platelet Count 222 K/mm3 (150-450); RBC Distribution Width CV 12.5 % (11.6-14.6); RBC Distribution Width SD 39.8 fl (35.1-43.9); Red Blood Count 4.24 M/mm3 (4.2-5.4); White Blood Count 8.4 K/mm3 (4.4-11.0)
[2025-01-30 18:41] LABS: AST(SGOT) 17 U/L (<=31); Alanine Aminotransfer ALT/SGPT 11 U/L (<=34); Albumin, Serum 4.4 g/dL (3.4-4.8); Alkaline Phosphatase 120 U/L (35-104); Anion Gap 11 (5-15); BUN 21 mg/dL (4-19); BUN/Creat Ratio 19.4 RATIO (10-20); Calcium,Total 9.7 mg/dL (7.6-11.0); Carbon Dioxide 23.9 mmol/L (21.0-32.0); Chloride 106 mmol/L (98-108); Cholesterol 240 mg/dL (<=200); Globulin 3.2 g/dL (2.2-4.2); Glucose 80 mg/dL (70-99); Low Density Lipoprotein Calc. 147 mg/dL; Potassium 4.5 mmol/L (3.3-5.1); Triglycerides 130 mg/dL; Very Low Density Lipoprotein 26 mg/dL (5-40); Vitamin D,25 Hydroxy 29.6 ng/mL (30-100); cholesterol:hdl ratio screen 3.44
[2025-02-03 11:23] LABS: Ferritin 33 ng/mL (22-378); Iron 32 ug/dL (50-170); Iron Binding Capacity,Total 325 ug/dL (250-450); Iron Binding Capacity,Unsat 293 ug/dL (228-428)
== END | disposition home or self-care (01) ==
LOC: MTLAB 16:54
PROVIDERS: PCP Family Medicine; Referring Provider Family Medicine; Visit Provider Family Medicine
DX: D64.9 Anemia, unspecified (principal); E11.59 Type 2 diabetes mellitus with other circulatory complications; E11.69 Type 2 diabetes mellitus with other specified complication; M85.80 Other specified disorders of bone density and structure, unspecified site
CPT/HCPCS: 80053; 80061; 82306; 82728; 83036; 83540; 83550; 85025

== ENCOUNTER → 2025-02-09 | Outpatient (CLI) | payer BC, SELFPAY ==
--- NOTE | 2025-02-09 11:44 | US_ITS ---
PROCEDURE: THYROID 02/09/2025 REASON FOR EXAM: NODULE TECHNIQUE: Procedure Code: USTHY Modality: US Procedure: THYROID COMPARISON: None FINDINGS: Right thyroid lobe size: 4.7 x 2.5 x 2.2 cm Left thyroid lobe size: 4.5 x 2.0 x 1.8 cm Isthmus: 0.3 cm Background parenchymal echotexture is normal Nodules: 1. Lobe: Right, Location: Midpole, Size: 0.8 cm, Stability: N/A Composition: Mixed cystic and solid (+1) Echogenicity: Hyper to Isoechoic (+1) Margin: Smooth (+0) Shape: Wider than tall (+0) Echogenic Foci: None (+0) TI-RADS: 2 2. Lobe: Right, Location: Upper pole, Size: 0.4 cm, Stability: N/A Composition: Cystic or mostly cystic (+0) Echogenicity: Anechoic (+0) Margin: Smooth (+0) Shape: Wider than tall (+0) Echogenic Foci: None (+0) TI-RADS: 1 3. Lobe: Left, Location: Lower pole, Size: 0.6 cm, Stability: N/A Composition: Solid or almost completely solid (+2) Echogenicity: Hyper to Isoechoic (+1) Margin: Smooth (+0) Shape: Wider than tall (+0) Echogenic Foci: None (+0) TI-RADS: 2 US/Thyroid IMPRESSION: 1. Benign right colloid cyst. 2. Benign TR2. ACR White Paper guidelines (Sanjanasaimee, et al. J AM Abril Radiol. 2017; 14: 587-595) suggest the following: TIRADS level 3 nodule, size less than 1.5 cm. No need for further follow-up or FNA due to its small size. Reading Location: [id number]
== END | disposition home or self-care (01) ==
LOC: US 11:40
PROVIDERS: PCP Family Medicine; Referring Provider Family Medicine; Visit Provider Family Medicine
DX: E04.1 Nontoxic single thyroid nodule (principal)
CPT/HCPCS: 76536